=== PATIENT | female | born 1955 | race Caucasian/White ===

== ENCOUNTER 2016-12-22 11:55 | Inpatient (IN) | payer OTHER, MEDICARE ==
[2016-12-22 12:04] VITALS: BMI 26.2
--- NOTE | 2016-12-22 12:07 | PDOC ---
History of Present Illness - General Chief Complaint: Respiratory Stated Complaint: FLU LIKE ILLNESS X 4 WEEKS Time Seen by Provider: 12/22/16 12:06 History Source: Patient, Old Records Exam Limitations: No Limitations - History of Present Illness Initial Comments: 12/22/16 12:10 61 y/o female with h/o rectal CA, GERD and migraine headaches presents to the ED with c/o excessive thirst and urination and feeling dehydrated. The patient states that these symptoms have been present for about 4 weeks. She has also had intermittent fevers, chills and coughing (non-productive), as well as night sweats. She denies chest pain, SOB, abdominal pain, nausea, vomiting and diarrhea. She has no prior h/o DM but says that she was told that she has "pre- diabetes." The patient states that she recently started a regimen of prednisone for a brachial plexus inflammation. Past History - Past Medical History Allergies/Adverse Reactions: Allergies Allergy/AdvReac Type Severity Reaction Status Date / Time everolimus [From Afinitor] AdvReac Severe SOB, Verified 12/22/16 11:58 Myalgias, Arthralgias,Edema erythromycin base AdvReac Verified 12/22/16 11:58 [Erythromycin Base] Home Medications: Ambulatory Orders Spironolactone [Aldactone] 25 mg PO ASDIR PRN 02/07/15 Montelukast Na [Singulair -] 10 mg PO HS 12/22/16 Octreotide Acetate,Mi-Spheres [Sandostatin Lar Dep[place]] 30 mg IM MONTHLY 12/22/16 Prednisone [Deltasone] 20 mg PO DAILY 12/22/16 Topiramate [Topamax] 50 mg PO DAILY 12/22/16 Cancer: Yes (RECTAL) GI Disorders: Yes (GERD) - Psycho/Social/Smoking Cessation Hx Anxiety: No Suicidal Ideation: No Smoking History: Never smoked Have you smoked in the past 12 months: No Hx Alcohol Use: Yes (SOCIAL) Drug/Substance Use Hx: No Substance Use Type: None Review of Systems - Review of Systems Able to Perform ROS?: Yes Is the patient limited Cameroonian proficient: No Constitutional: Yes: See HPI HEENTM: Yes: See HPI Respiratory: Yes: See HPI Cardiac (ROS): No: Symptoms Reported ABD/GI: No: Symptoms Reported : Yes: See HPI, Frequency. No: Burning, Dysuria, Discharge, Hematuria Musculoskeletal: Yes: Joint Pain Integumentary: No: Symptoms Reported Neurological: No: Symptoms reported *Physical Exam - Vital Signs Last Vital Signs Temp Pulse Resp BP Pulse Ox 97.6 F 100 H 16 104/62 100 12/22/16 11:56 12/22/16 11:56 12/22/16 11:56 12/22/16 11:56 12/22/16 11:56 - Physical Exam Comments: 12/22/16 12:13 GENERAL: Well developed, well nourished. Awake and alert. No acute distress. HEENT: Normocephalic, atraumatic. PERRLA, EOMI. No conjunctival pallor. Sclera are non- icteric. Dry oral mucosa. Oropharynx is clear. NECK: Supple. Full ROM. No JVD. No lymphadenopathy. CARDIOVASCULAR: Regular rate and rhythm. No murmurs, rubs, or gallops. Distal pulses are 2+ and symmetric. PULMONARY: No evidence of respiratory distress. Lungs clear to auscultation bilaterally. No wheezing, rales or rhonchi. ABDOMINAL: Soft. Non-tender. Non-distended. No rebound or guarding. No organomegaly. Normoactive bowel sounds. MUSCULOSKELETAL Normal range of motion at all joints. No bony deformities or tenderness. No CVA tenderness. EXTREMITIES: No cyanosis. No clubbing. No edema. No calf tenderness. SKIN: Warm and dry. Normal capillary refill. No rashes. No jaundice. NEUROLOGICAL: Alert, awake, appropriate. Cranial nerves 2-12 intact. Grossly non-focal exam. PSYCHIATRIC: Cooperative. Good eye contact. Appropriate mood and affect. ED Treatment Course - LABORATORY CBC & Chemistry Diagram: 12/22/16 12:30 12/22/16 12:30 Medical Decision Making - Medical Decision Making 12/22/16 12:14 61 y/o female with rectal CA, migraines and pre-diabetes who presents to the ED with c/o excessive thirst and urination x 4 weeks and intermittent cough and fevers/chills. DDx includes but is not loimited to: new onset diabetes, DKA, electrolyte abnormality, dehydration, toxic/metabolic derangement, infection ( PNA, influenza, UTI), ACS . Plan: 1. Labs 2. Urine analysis 3. EKG 4. CXR 5. IVF for hydration 6. Observe and re-evaluate 12/22/16 13:27 Addendum: All labs were reviewed and are noted in the EMR. The WBC is 17.4k with 18% bandemia, BUN/Cr are markedly elevated from baseline and the glucose is 270 (AG is 10). The urine also shows +3 LE. Will obtain blood and urine cultures as well as lactate. Continue IVF hydration, IV abx for UTI/urosepsis and will admit to medicine service for IVF hydration and work-up of REMY, UTI, sepsis. *DC/Admit/Observation/Transfer Diagnosis at time of Disposition: Acute kidney injury, UTI (urinary tract infection), Diabetes mellitus, new onset, Sepsis - Discharge Dispostion Condition at time of disposition: Stable Admit: Yes - Referrals Referrals: Davi Santiago MD [Primary Care Provider] -
[2016-12-22] MEDS ORDERED: SODIUM CHLORIDE 1,000 ML IV STA ×3 (12:08→15:32)
[2016-12-22 12:29] LABS: URINE APPEARANCE Slightly; URINE BILIRUBIN Negative (NEGATIVE); URINE GLUCOSE (UA) Negative (NEGATIVE); URINE KETONE Negative (NEGATIVE); URINE NITRITE Negative (NEGATIVE); URINE UROBILINOGEN 0.2 E.U/dl (0.2-1.0)
[2016-12-22 12:32] LABS: URINE BLOOD 3+ (NEGATIVE); URINE COLOR YELLOW; URINE LEUK ESTERASE 3+ (NEGATIVE); URINE PROTEIN 1+ (NEGATIVE)
[2016-12-22 12:52] LABS: MCH 30.4 pg (25.7-33.7); MCHC 33.5 g/dl (32.0-36.0); MEAN CELL VOLUME 90.6 fl (80-96); MEAN PLT VOLUME 9.4 fl (7.5-11.1); RDW 14.5 % (11.6-15.6); WHITE BLOOD COUNT 17.6 K/mm3 (4.0-10.0)
[2016-12-22 13:14] LABS: ALBUMIN 2.7 g/dl (3.5-5.0); BILIRUBIN,TOTAL 0.8 mg/dl (0.2-1.0); CALCIUM 8.7 mg/dl (8.4-10.2); CPK(DFH) 19 IU/L (26-140); CREATININE 2.3 mg/dl (0.6-1.3); MAGNESIUM 1.8 mg/dL (1.8-2.4); PHOSPHOROUS 2.9 mg/dl (2.5-4.6); TOT PROT 6.5 g/dl (6.4-8.3)
[2016-12-22 13:16] LABS: PLATELET COUNT 42 K/MM3 (134-434)
[2016-12-22 13:23] LABS: PLATELET COMMENT2 NO CLUMPING NOTED; PLATELET COMMENT3 NO CLOTTING DETECTED; PLATELET ESTIMATE DECREASED (NORMAL)
[2016-12-22] MEDS ORDERED: LEVOFLOXACIN 750 MG IVPB 150 ML IVPB ONE (13:23)
[2016-12-22 13:24] LABS: TROPONIN I (DFP) < 0.03 ng/ml (0.03-0.50)
[2016-12-22 13:27] LABS: URINE BACTERIA MODERATE /hpf (NEGATIVE); URINE WBC 30-50 (3-5)
[2016-12-22] MEDS ORDERED: VANCOMYCIN 1,000 MG in DEXTROSE 5%-WATER - 250 ML IVPB ONE (13:32)
[2016-12-22] MEDS ORDERED: PIPERACILLIN/TAZOB 3.375 GM/50 ML PRE-DOCKED IV ONE (13:32)
[2016-12-22] MEDS ORDERED: PIPERACILLIN/TAZOBACTAM 3.375 GM VIAL IVPB ONE (13:41)
[2016-12-22] MEDS ORDERED: VANCOMYCIN 1,000 MG VIAL (RESTRICTED TO ID ONLY) ONE (13:41)
[2016-12-22] MEDS ORDERED: ACETAMINOPHEN 500 MG TABLET (FP) PO ONE (15:59)
[2016-12-22] MEDS ORDERED: ACETAMINOPHEN 325 MG TABLET (FP) ONE (16:02)
[2016-12-22] MEDS ORDERED: HEMOQUE TEST 1 EACH EACH ONE (16:19)
--- NOTE | 2016-12-22 19:22 | PN ---
<Ravinder Rothmanben - Last Filed: 12/22/16 19:22> Teaching Attending Note Name of Resident: Boone Lay ATTENDING PHYSICIAN STATEMENT I saw and evaluated the patient. I reviewed the resident's note and discussed the case with the resident. I agree with the resident's findings and plan as documented. SUBJECTIVE: OBJECTIVE: ASSESSMENT AND PLAN: <Cecilio Cancinoke - Last Filed: 12/22/16 21:36> Teaching Attending Note ATTENDING PHYSICIAN STATEMENT I saw and evaluated the patient. I reviewed the resident's note and discussed the case with the resident. I agree with the resident's findings and plan as documented. SUBJECTIVE: 61 year old female with a past medical history of rectal cancer, gerd, pre- diabetes, and migraines presents with excessive thirst and urination for four weeks. The patient noticed associated night sweats and intermittent fevers. Patient stated that she recently started a regimen of prednisone for a bacterial plexus inflammation. Patient denies shortness of breath and chest pain OBJECTIVE: Vital Signs: Last Vital Signs Temp Pulse Resp BP Pulse Ox 102.7 F H 134 H 20 151/89 99 12/22/16 18:16 12/22/16 16:55 12/22/16 16:55 12/22/16 16:24 12/22/16 16:55 Physical Exam: GEN: NAD HEENT: NCAT, PERRL CARD: RRR, S1 S2 RESP: CTAB ABD: NT, BWS x4 EXT: - CCE Labs: CBCD WBC 17.6 K/mm3 (4.0-10.0) H D 12/22/16 12:30 RBC 3.60 M/mm3 (3.60-5.2) 12/22/16 12:30 Hgb 10.9 GM/dl (10.7-15.3) D 12/22/16 12:30 Hct 32.6 % (32.4-45.2) 12/22/16 12:30 MCV 90.6 fl (80-96) 12/22/16 12:30 MCHC 33.5 g/dl (32.0-36.0) 12/22/16 12:30 RDW 14.5 % (11.6-15.6) D 12/22/16 12:30 Plt Count 42 K/MM3 (134-434) L* D 12/22/16 12:30 MPV 9.4 fl (7.5-11.1) D 12/22/16 12:30 CMP Sodium 128 mmol/L (136-145) L D 12/22/16 12:30 Potassium 4.2 mmol/L (3.5-5.1) 12/22/16 12:30 Chloride 100 mmol/L (98-107) D 12/22/16 12:30 Carbon Dioxide 18 mmol/L (22-28) L D 12/22/16 12:30 Anion Gap 10 (8-16) 12/22/16 12:30 BUN 53 mg/dl (7-18) H D 12/22/16 12:30 Creatinine 2.3 mg/dl (0.6-1.3) H D 12/22/16 12:30 Creat Clearance w eGFR 21.56 (>60) 12/22/16 12:30 Calcium 8.7 mg/dl (8.4-10.2) 12/22/16 12:30 Total Bilirubin 0.8 mg/dl (0.2-1.0) D 12/22/16 12:30 AST 53 U/L (10-42) H D 12/22/16 12:30 ALT 28 U/L (10-40) D 12/22/16 12:30 Alkaline Phosphatase 168 U/L (32-92) H D 12/22/16 12:30 Total Protein 6.5 g/dl (6.4-8.3) 12/22/16 12:30 Albumin 2.7 g/dl (3.5-5.0) L D 12/22/16 12:30 Imaging: EXAM#: CHEST X-RAY History: Cough and fever. Comparison study: February 07, 2015 Findings: Patient slightly rotated toward the left side. The trachea is normal in size. Unremarkable contour of the cardiomediastinal silhouette. The lungs are well aerated. No evidence of airspace opacities, atelectasis, pleural effusion, or pneumothorax. No bulky hilar adenopathy is noted. No lung mass is seen within the limitation of examination Demineralized osseous structures. Mild dextroscoliosis is seen at the thoracolumbar junction region. Loss of vertical height of T12 unchanged from 2015. Intact visualized osseous rectal cancer, gerd, pre-diabetes, and migraine structures Impression: No evidence of active pulmonary disease. Reported By: Jame Clark MD 12/22/16 [id number] ASSESSMENT AND PLAN: 61 year old female with a past medical history of rectal cancer, gerd, pre- diabetes, and migraines who presents with polyuria, polydipsia, and intermittent fever, being admitted for sepsis secondary to UTI 1. Sepsis- secondary to UTI -Continue Zosyn -Blood Cultures -Urine Cultures -Repeat Lactic Acid -IVF -ID consult -Acetaminophen PRN fever 2. Acute renal failure -Urine lytes -Trend creatinine -IVF 3. Hiponatremia-Most likely due to hypovolemia -Avoid inc sodium >10 in 24 hr 4. Thrombocytopenia- most likely due to sepsis -Trend 5. Rectal cancer -Carcinoid -On Octreotide monthly 6. Migraine -Continue Topamax 7. Polyuria/Polydipsia Check A1C Insulin Sliding scale Possibly due to prednisone use. 8 Brachial Plexus Inflammation -On day 4 out 7 of prednisone 20 mg -Since short term course will hold off on stress course steroids 9. DVT PPX -low risk -SCDs Admit to med surg. Documentation prepared by Dandre Cancino, acting as medical professionals for Dr. Dea Rothman MD.
[2016-12-22] MEDS ORDERED: SODIUM CHLORIDE 1,000 ML IV SCH ×2 (20:15→22:15)
--- NOTE | 2016-12-22 21:13 | HP ---
CHIEF COMPLAINT: polydipsia, polyuria, fevers PCP: Dr. Hooper HISTORY OF PRESENT ILLNESS: 61 y/o F w/PMH of GERD, prediabetes, rectal carcinoid ca, migraines presents to ER w/ c/o polydipsia, polyuria, intermittent fevers for last 1 month. She also c/o intermittent chills, non-productive cough from allergies, and intermittently has night sweats. She saw her PCP one week ago who hydrated her with 2 L NS in the office. She also c/o some heaviness in breathing and weakness today. She denies any sick contacts, any recent travel. She denies CP , SOB, abd pain, N/V, diarrhea. She was diagnosed with pre-diabetes last summer and was trying to work on it with lifestyle modifications. She had recently seen neuro and diagnosed with brachial plexus inflammation and was started on prednisone 10mg bid for 7 days. Today is day 4/7 of prednisone. She has also c/o darker urine and change in smell of urine over last few days. She denies any dysuria. She has not had a normal BM in 1 week, she feels constipated. Sprinolactone listed as home med but she uses lasix instead but is unsure of dose. ER course was notable for: (1) vanc, zosyn, levaquin, cxr (2) (3) Recent Travel: denies PAST MEDICAL HISTORY: GERD, prediabetes, rectal carcinoid ca, migraines PAST SURGICAL HISTORY: knee surgery Social History: Smoking: denies Alcohol: denies Drugs: denies Family History: Mother: CLL. Father: "heart issues" but currently alive at age 95 Allergies everolimus [From Afinitor] Adverse Reaction (Severe, Verified 12/22/16 11:58) SOB, Myalgias, Arthralgias,Edema erythromycin base [Erythromycin Base] Adverse Reaction (Verified 12/22/16 11:58) NAUSEA HOME MEDICATIONS: Home Medications Medication Instructions Recorded Montelukast Na [Singulair -] 10 mg PO HS 12/22/16 Octreotide Acetate,Mi-Spheres 30 mg IM MONTHLY 12/22/16 [Sandostatin Lar Depot] Prednisone [Deltasone] 20 mg PO DAILY 12/22/16 Topiramate [Topamax] 50 mg PO DAILY 12/22/16 REVIEW OF SYSTEMS CONSTITUTIONAL: fever, chills, night sweats, weakness Absent: malaise, loss of appetite, weight change HEENT: Absent: rhinorrhea, nasal congestion, throat pain, throat swelling, difficulty swallowing, mouth swelling, ear pain, eye pain, visual changes CARDIOVASCULAR: Absent: chest pain, syncope, palpitations, irregular heart rate, lightheadedness , peripheral edema RESPIRATORY: cough Absent: shortness of breath, dyspnea with exertion, orthopnea, wheezing, stridor , hemoptysis GASTROINTESTINAL: constipation Absent: abdominal pain, abdominal distension, nausea, vomiting, diarrhea, melena , hematochezia GENITOURINARY: Absent: dysuria, frequency, urgency, hesitancy, hematuria, flank pain, genital pain MUSCULOSKELETAL: Absent: myalgia, arthralgia, joint swelling, back pain, neck pain SKIN: Absent: rash, itching, pallor HEMATOLOGIC/IMMUNOLOGIC: Absent: easy bleeding, easy bruising, lymphadenopathy, frequent infections ENDOCRINE: Absent: unexplained weight gain, unexplained weight loss, heat intolerance, cold intolerance NEUROLOGIC: Absent: headache, focal weakness or paresthesias, dizziness, unsteady gait, seizure, mental status changes, bladder or bowel incontinence PSYCHIATRIC: Absent: anxiety, depression, suicidal or homicidal ideation, hallucinations. PHYSICAL EXAMINATION Vital Signs - 24 hr 12/22/16 12/22/16 12/22/16 15:45 15:50 16:24 Temperature 100.8 F H 101.8 F H Pulse Rate [ 108 H 142 H Apical] Respiratory 30 H 34 H Rate Blood Pressure 139/71 151/89 [Right Arm] O2 Sat by Pulse 96 99 Oximetry (%) 12/22/16 12/22/16 16:55 18:16 Temperature 102.1 F H 102.7 F H Pulse Rate [ 134 H Apical] Respiratory 20 Rate Blood Pressure [Right Arm] O2 Sat by Pulse 99 Oximetry (%) GENERAL: Awake, alert, and fully oriented, in no acute distress. HEAD: Normal with no signs of trauma. EYES: extraocular movements intact, sclera anicteric, conjunctiva clear. No lid lag. EARS, NOSE, THROAT: Ears normal, nares patent, Moist mucous membranes. NECK: Normal range of motion, supple without lymphadenopathy, JVD, or masses. LUNGS: Breath sounds equal, clear to auscultation bilaterally. No wheezes, and no crackles. No accessory muscle use. HEART: Tachycardic, normal S1 and S2 without murmur, rub or gallop. ABDOMEN: Soft, mild LLQ tenderness, not distended, normoactive bowel sounds, no guarding, no rebound, no masses. No hepatomegaly or splenomegaly. MUSCULOSKELETAL: No CVA tenderness. LOWER EXTREMITIES: 2+ pulses, warm, well-perfused. No calf tenderness. Trace pitting edema. NEUROLOGICAL: Normal speech. Gait not observed. PSYCHIATRIC: Cooperative. Good eye contact. Appropriate mood and affect. SKIN: Warm, dry, normal turgor, no rashes or lesions noted, normal capillary refill. Laboratory Results - last 24 hr CBCD WBC 17.6 K/mm3 (4.0-10.0) H D 12/22/16 12:30 RBC 3.60 M/mm3 (3.60-5.2) 12/22/16 12:30 Hgb 10.9 GM/dl (10.7-15.3) D 12/22/16 12:30 Hct 32.6 % (32.4-45.2) 12/22/16 12:30 MCV 90.6 fl (80-96) 12/22/16 12:30 MCHC 33.5 g/dl (32.0-36.0) 12/22/16 12:30 RDW 14.5 % (11.6-15.6) D 12/22/16 12:30 Plt Count 42 K/MM3 (134-434) L* D 12/22/16 12:30 MPV 9.4 fl (7.5-11.1) D 12/22/16 12:30 CMP Sodium 128 mmol/L (136-145) L D 12/22/16 12:30 Potassium 4.2 mmol/L (3.5-5.1) 12/22/16 12:30 Chloride 100 mmol/L (98-107) D 12/22/16 12:30 Carbon Dioxide 18 mmol/L (22-28) L D 12/22/16 12:30 Anion Gap 10 (8-16) 12/22/16 12:30 BUN 53 mg/dl (7-18) H D 12/22/16 12:30 Creatinine 2.3 mg/dl (0.6-1.3) H D 12/22/16 12:30 Creat Clearance w eGFR 21.56 (>60) 12/22/16 12:30 Random Glucose 270 mg/dl (74-106) H D 12/22/16 12:30 Calcium 8.7 mg/dl (8.4-10.2) 12/22/16 12:30 Total Bilirubin 0.8 mg/dl (0.2-1.0) D 12/22/16 12:30 AST 53 U/L (10-42) H D 12/22/16 12:30 ALT 28 U/L (10-40) D 12/22/16 12:30 Alkaline Phosphatase 168 U/L (32-92) H D 12/22/16 12:30 Total Protein 6.5 g/dl (6.4-8.3) 12/22/16 12:30 Albumin 2.7 g/dl (3.5-5.0) L D 12/22/16 12:30 CARDIAC ENZYMES Creatine Kinase 19 IU/L (26-140) L 12/22/16 12:30 Troponin I < 0.03 ng/ml (0.03-0.50) L 12/22/16 12:30 12/22/16 16:10 Lactic Acid 5.594 H* Laboratory Tests 12/22/16 21:00 Lactic Acid 2.093 H* Urine Test Results Urine Color Yellow 12/22/16 12:05 Urine Appearance Slightly 12/22/16 12:05 Urine pH 7.0 (4.5-8) 12/22/16 12:05 Ur Specific [place] 1.010 (1.005-1.025) 12/22/16 12:05 Urine Protein 1+ (NEGATIVE) H 12/22/16 12:05 Urine Glucose (UA) Negative (NEGATIVE) 12/22/16 12:05 Urine Ketones Negative (NEGATIVE) 12/22/16 12:05 Urine Blood 3+ (NEGATIVE) H 12/22/16 12:05 Urine Nitrite Negative (NEGATIVE) 12/22/16 12:05 Urine Bilirubin Negative (NEGATIVE) 12/22/16 12:05 Ur Leukocyte Esterase 3+ (NEGATIVE) H 12/22/16 12:05 Urine RBC 5-10 /hpf (0-3) 12/22/16 12:05 Urine WBC 30-50 (3-5) 12/22/16 12:05 Ur Epithelial Cells 3-5 /HPF 12/22/16 12:05 Urine Bacteria Moderate /hpf (NEGATIVE) 12/22/16 12:05 Imaging: CXR: no evidence of active pulm disease ASSESSMENT/PLAN: 61 y/o F w/PMH of rectal ca, GERD, migraines, pre-diabetes presented to ER w/ c/ o polydipsia, polyuria, and intermittent fevers for 4 weeks. Admitted for severe sepsis secondary to UTI. -Severe sepsis secondary to UTI -SIRS 4/4, UA 3+ LE -c/w zosyn, ID consulted ([place]) -NS @ 100 ml/hr, bolused intially with 250ml/hr x 2 L after being brought up to floors. -trend [place], 5.594 -> 2 -f/u BCx, UCx -Tylenol 650 mg PO q6h PRN for fever, monitor LFTs -part of leukocytosis may be from recent prednisone use -REMY secondary to severe sepsis -BUN/Cr 53/2.3, baseline Cr 0.8 -NS @ 125 ml/hr -monitor BUN/Cr -urine lytes to calculate FeNa -Thrombocytopenia secondary to severe sepsis -monitor, no signs of active bleeding at this time -Abd pain secondary to constipation -Miralax, colace -Hyperglycemia, polydipsia, polyuria -f/u A1C, BGM, ISS BIDAC -recent prednisone use -Brachial plexus inflammation -today is day 4/7 of prednisone, will taper off prednisone -20 mg today, 10 tomorrow, 10 the day after for final dose. -Rectal Ca, carcinoid -octreotide monthly, follows up with specialist as outpatient -migraines -c/w topamax -DVT ppx -SCDs -FEN -NS @ 100 ml/hr -Hyponatremia - c/w NS @ 100 ml/hr, monitor, do not increase by more than 10 in 24 hours -Diabetic diet -Dispo: -Admit to m/s Problem List - Problem (1) Acute kidney injury Code(s): N17.9 - ACUTE KIDNEY FAILURE, UNSPECIFIED (2) Diabetes mellitus, new onset Code(s): E11.9 - TYPE 2 DIABETES MELLITUS WITHOUT COMPLICATIONS (3) Sepsis Code(s): A41.9 - SEPSIS, UNSPECIFIED ORGANISM (4) UTI (urinary tract infection) Code(s): N39.0 - URINARY TRACT INFECTION, SITE NOT SPECIFIED (5) Migraines Code(s): G43.909 - MIGRAINE, UNSP, NOT INTRACTABLE, WITHOUT STATUS MIGRAINOSUS Visit type - Emergency Visit Emergency Visit: Yes ED Registration Date: 12/22/16 Care time: The patient presented to the Emergency Department on the above date and was hospitalized for further evaluation of their emergent condition. - New Patient This patient is new to me today: Yes Date on this admission: 12/23/16 - Critical Care Critical Care patient: No
[2016-12-22] MEDS ORDERED: PIPERACILLIN/TAZOB 3.375 GM/50 ML PRE-DOCKED IVPB ONE (22:01)
[2016-12-22] MEDS ORDERED: DOCUSATE SODIUM 100 MG CAPSULE (FP) PO PRN (22:02)
[2016-12-22] MEDS ORDERED: predniSONE 20 MG TABLET (UD) PO ONE (22:06)
[2016-12-22] MEDS: POLYETHYLENE GLYCOL 3350 119 GM BTL PO SCH (23:16)
[2016-12-23] MEDS ORDERED: SODIUM CHLORIDE 1,000 ML IV SCH ×2 (01:05)
[2016-12-23] MEDS: SODIUM CHLORIDE 1,000 ML IV SCH ×2 (05:15→17:23)
[2016-12-23] MEDS: INSULIN SLIDING SCALE (NOVOLOG) 1 VIAL SQ SCH ×2 (06:35→17:22)
[2016-12-23] MEDS: SODIUM CHLORIDE NASAL SPRAY 44 ML BOTTLE NS PRN ×3 (06:35→21:39)
[2016-12-23] MEDS ORDERED: INSULIN SLIDING SCALE (NOVOLOG) 1 VIAL SQ SCH ×2 (07:00→10:00)
[2016-12-23 08:12] LABS: EOSINOPHIL 1.6 % (0-4.5); MCH 30.1 pg (25.7-33.7); MCHC 32.7 g/dl (32.0-36.0); MEAN CELL VOLUME 92.3 fl (80-96); MEAN PLT VOLUME 9.6 fl (7.5-11.1); NEUTROPHILS 92.8 % (42.8-82.8); PLATELET COUNT 37 K/MM3 (134-434); RDW 15.6 % (11.6-15.6); WHITE BLOOD COUNT 14.8 K/mm3 (4.0-10.0)
[2016-12-23 10:00] LABS: BILIRUBIN,TOTAL 0.6 mg/dL (0.2-1.0); CALCIUM 7.7 mg/dL (8.5-10.1); CREATININE 1.7 mg/dL (0.55-1.02); TOT PROT 5.6 g/dl (6.4-8.2)
[2016-12-23] MEDS: TOPIRAMATE 25 MG TABLET (FP) PO SCH (10:10)
[2016-12-23] MEDS: POLYETHYLENE GLYCOL 3350 119 GM BTL PO SCH ×2 (10:10→22:00)
[2016-12-23] MEDS ORDERED: MEROPENEM 1 GM in DEXTROSE 5%-WATER - 100 ML IVPB SCH (12:00)
--- NOTE | 2016-12-23 12:06 | PN ---
Physical Exam: SUBJECTIVE: Patient seen and examined. She says her body feels sore. She ate breakfast today for first time. She denies urinary hesitancy and dysuria. She did note to being thirsty. Events: - No fevers overnight to this AM OBJECTIVE: Vital Signs Period Temp Pulse Resp BP Sys/Vega Pulse Ox Last 24 Hr 97.6 F-102.7 F 75-142 20-34 90-151/48-89 90-99 PE Neuro: alert, awake, cn 2-12intact Pulm: bibasilar crackles + nc CV: s1 s2 rrr no mrg Abd: mild abd tenderness to palpation, s + bs Ext: warm, no le edema CBCD WBC 14.8 K/mm3 (4.0-10.0) H 12/23/16 06:55 RBC 3.17 M/mm3 (3.60-5.2) L 12/23/16 06:55 Hgb 9.6 GM/dL (10.7-15.3) L 12/23/16 06:55 Hct 29.3 % (32.4-45.2) L 12/23/16 06:55 MCV 92.3 fl (80-96) 12/23/16 06:55 MCHC 32.7 g/dl (32.0-36.0) 12/23/16 06:55 RDW 15.6 % (11.6-15.6) 12/23/16 06:55 Plt Count 37 K/MM3 (134-434) L 12/23/16 06:55 MPV 9.6 fl (7.5-11.1) 12/23/16 06:55 CMP Sodium 143 mmol/L (136-145) 12/23/16 06:55 Potassium 4.2 mmol/L (3.5-5.1) 12/23/16 06:55 Chloride 115 mmol/L (98-107) H 12/23/16 06:55 Carbon Dioxide 17 mmol/L (21-32) L 12/23/16 06:55 Anion Gap 11 (8-16) 12/23/16 06:55 BUN 33 mg/dL (7-18) H 12/23/16 06:55 Creatinine 1.7 mg/dL (0.55-1.02) H 12/23/16 06:55 Creat Clearance w eGFR 30.56 (>60) 12/23/16 06:55 Calcium 7.7 mg/dL (8.5-10.1) L 12/23/16 06:55 Total Bilirubin 0.6 mg/dL (0.2-1.0) 12/23/16 06:55 AST 24 U/L (15-37) 12/23/16 06:55 ALT 29 U/L (12-78) 12/23/16 06:55 Alkaline Phosphatase 180 U/L (45-117) H 12/23/16 06:55 Total Protein 5.6 g/dl (6.4-8.2) L 12/23/16 06:55 Albumin 2.0 g/dl (3.4-5.0) L 12/23/16 06:55 12/22/16 12/22/16 12/22/16 12:30 12:30 21:00 Hemoglobin A1c % Pending Lactic Acid Phosphorus 2.9 Magnesium 1.8 Creatine Kinase 19 L Troponin I < 0.03 L 12/22/16 12/23/16 21:00 06:55 Hemoglobin A1c % Lactic Acid 2.093 H* 1.083 Phosphorus Magnesium Creatine Kinase Troponin I Active Medications Generic Name Dose Route Start Last Admin Trade Name Freq PRN Reason Stop Dose Admin Acetaminophen 650 mg 12/22/16 21:00 Tylenol - PO Q6H PRN FEVER OR PAIN Docusate Sodium 100 mg 12/22/16 22:02 Colace - PO BID PRN CONSTIPATION Sodium Chloride 1,000 mls @ 100 mls/hr 12/23/16 05:15 12/23/16 05:15 Normal Saline - IV 100 mls/hr ASDIR JAMISON Administration Meropenem 1 gm/ Dextrose 100 mls @ 100 mls/hr 12/23/16 12:00 IVPB Q8H-IV JAMISON Protocol Insulin Aspart 1 vial 12/23/16 07:00 12/23/16 06:35 Novolog Vial Sliding Scale - SQ 2 units BIDAC JAMISON Administration Protocol Montelukast Sodium 10 mg 12/23/16 22:00 Singulair - PO HS JAMISON Polyethylene Glycol 17 gm 12/22/16 22:03 12/23/16 10:10 Miralax (For Daily Use) - PO Not Given DAILY JAMISON Prednisone 10 mg 12/23/16 14:00 Deltasone - PO 12/23/16 14:01 ONCE ONE Prednisone 10 mg 12/24/16 14:00 Deltasone - PO 12/24/16 14:01 ONCE ONE Sodium Chloride 2 spray 12/23/16 05:08 12/23/16 10:13 [place] Nasal [place] - NS 2 sprays TID PRN Administration NASAL CONGESTION Topiramate 50 mg 12/23/16 10:00 12/23/16 10:10 Topamax - PO 50 mg DAILY JAMISON Administration Microbiology 12/22/16 13:25 Urine Culture - Preliminary Urine - Urine Clean Catch Non Lactose Fermenting Gnb 12/22/16 13:25 Blood Culture - Preliminary Blood - Peripheral Venous Pending Organism 12/22/16 13:30 Blood Culture - Preliminary Blood - Peripheral Venous Pending Organism 12/22/16 12:25 Influenza Types A,B Antigen (OCTAVIA) - Final Nasopharyngeal Swab - Final Assessment: 61 year old female with PMHx of GERD, prediabetes, rectal carcinoid ca, migraines admitted with polydipsia, polyuria, intermittent fevers/chills for 4 weeks, treated with tamiflu. Plan: 1. Severe sepsis likely gram negative bacteremia and ESBL UTI - Start Meropenem 1gm q8 - Lactic acid wnl - Continue IVF - Repeat BC tomorrow - ID aware 2. UTI - Follow cultures - Abx as above 3. Hyperlgycemia/?DM II - Hgb a1c pending - ISS, BGM ACHS - On short course of prednisone per neuro 4. Hyponatrmia - Likely dehydration from polyuria from uncontrolled DM, and sepsis - Now resolved - No acute mental changes 5. REMY - FENa 1.11, indicative of ATN, however may need to repeat urine electrolytes as pt states she takes lasix/[place] prn - Will ask if takes NSAIDs - Cr down trending - BMP in AM - Continue IVF 6. Thrombocytopenia - Likely secondary to severe sepsis - No active signs of bleeding - Hold chemical AC - Will monitor 7. Brachial plexus inflammation - 7 day course of pednisone, taper ordered 8. Rectal Ca, carcinoid - Octreotide monthly, follows up with specialist as outpatient 9. Migraines - Continue Topamax 10. DVT ppx - Hold chemical AC d/t above - B/l SCDs Visit type - Emergency Visit Emergency Visit: Yes ED Registration Date: 12/22/16 Care time: The patient presented to the Emergency Department on the above date and was hospitalized for further evaluation of their emergent condition. - New Patient This patient is new to me today: Yes Date on this admission: 12/23/16 - Critical Care Critical Care patient: No
--- NOTE | 2016-12-23 13:40 | EKG ---
Test Reason : Blood Pressure : / mmHG Vent. Rate : 087 BPM Atrial Rate : 087 BPM P-R Int : 162 ms QRS Dur : 082 ms QT Int : 364 ms P-R-T Axes : 060 063 028 degrees QTc Int : 438 ms NORMAL SINUS RHYTHM NORMAL ECG NO PREVIOUS ECGS AVAILABLE Confirmed by FRANDY PELLETIER MD ([id number]) on 12/23/2016 1:40:24 PM Referred By: JACQUE Confirmed By:FRANDY PELLEITER MD
[2016-12-23] MEDS ORDERED: predniSONE 10 MG TABLET (UD) PO ONE (14:00)
[2016-12-23] MEDS ORDERED: predniSONE 10 MG TABLET (UD) PO SCH (14:00)
--- NOTE | 2016-12-23 15:37 | CONSULT ---
Consult Consult Specialty:: infectious diseases Reason for Consultation:: bacteremia - History of Present Illness Chief Complaint: weakness fatigue,fever History of Present Illness: 61 y/o female with h/o rectal CA, GERD and migraine headaches c/o excessive thirst and urination and feeling dehydrated. The patient states that these symptoms have been present for about 4 weeks. She has also had intermittent fevers, chills and coughing (non-productive), as well as night sweats. She denies chest pain, SOB, abdominal pain, nausea, vomiting and diarrhea. She has no prior h/o DM but says that she was told that she has "pre-diabetes." The patient states that she recently started a regimen of prednisone for a brachial plexus inflammation. 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 and found to have bacteremia and uti - History Source History Provided By: Patient Limitations to Obtaining History: No Limitations - Alcohol/Substance Use Hx Alcohol Use: Yes (SOCIAL) - Smoking History Smoking history: Never smoked Have you smoked in the past 12 months: No Home Medications - Allergies Allergies/Adverse Reactions: Allergies Allergy/AdvReac Type Severity Reaction Status Date / Time everolimus [From Afinitor] AdvReac Severe SOB, Verified 12/22/16 11:58 Myalgias, Arthralgias,Edema erythromycin base AdvReac Verified 12/22/16 11:58 [Erythromycin Base] - Home Medications Home Medications: Ambulatory Orders Spironolactone [Aldactone] 25 mg PO ASDIR PRN 02/07/15 Montelukast Na [Singulair -] 10 mg PO HS 12/22/16 Octreotide Acetate,Mi-Spheres [Sandostatin [place]] 30 mg IM MONTHLY 12/22/16 Prednisone [Deltasone] 20 mg PO DAILY 12/22/16 Topiramate [Topamax] 50 mg PO DAILY 12/22/16 Review of Systems - Review of Systems Constitutional: reports: Fever, Lethargy, Loss of Appetite, Weakness Eyes: reports: No Symptoms HENT: reports: No Symptoms Neck: reports: No Symptoms Cardiovascular: reports: No Symptoms Respiratory: reports: Cough Gastrointestinal: reports: Nausea, Other (increased thirst) Genitourinary: reports: No Symptoms Musculoskeletal: reports: No Symptoms Integumentary: reports: No Symptoms Neurological: reports: No Symptoms Endocrine: reports: No Symptoms Hematology/Lymphatic: reports: No Symptoms Psychiatric: reports: No Symptoms Physical Exam Vital Signs: Vital Signs Temperature 98.2 F 12/23/16 14:09 Pulse Rate 81 12/23/16 14:09 Respiratory Rate 20 12/23/16 14:09 Blood Pressure 122/71 12/23/16 14:09 O2 Sat by Pulse Oximetry (%) 97 12/23/16 10:14 Constitutional: Yes: No Distress, Calm Eyes: Yes: Conjunctiva Clear HENT: Yes: Atraumatic Neck: Yes: Supple, Trachea Midline Cardiovascular: Yes: Regular Rate and Rhythm Respiratory: Yes: Regular Gastrointestinal: Yes: Normal Bowel Sounds, Soft Musculoskeletal: Yes: WNL Extremities: Yes: WNL Integumentary: Yes: WNL Neurological: Yes: Alert, Oriented Psychiatric: Yes: Alert, Oriented Labs: CBC, BMP 12/23/16 06:55 12/23/16 06:55 Imaging - Results Chest X-ray: Report Reviewed, Image Reviewed Assessment/Plan 61 y/o F w/PMH of rectal ca, GERD, migraines, pre-diabetes presented to ER w/ c/ o polydipsia, polyuria, and intermittent fevers for 4 weeks. Admitted for severe sepsis secondary to UTI. - sepsis secondary to UTI -REMY secondary to severe sepsis -Thrombocytopenia -Abd pain -Hyperglycemia, polydipsia, polyuria -Brachial plexus inflammation -Rectal Ca, carcinoid -migraines plan will start patient on abx will recheck blood cx tomorrow rest ct hydration watch for fevers
[2016-12-23] MEDS: ALBUTEROL SO4 0.083% IH SOL 2.5 MG/3 ML VIAL.NEB. NEB SCH ×2 (17:13→23:05)
[2016-12-23] MEDS: MEROPENEM 1 GM in DEXTROSE 5%-WATER - 100 ML IVPB SCH (18:33)
[2016-12-23] MEDS ORDERED: PT OWN MED DRAWER 7, Y5N ONE (21:37)
[2016-12-23] MEDS: MONTELUKAST NA 10 MG TABLET PO SCH (21:38)
[2016-12-24] MEDS ORDERED: PT OWN MED DRAWER 7, Y5N ONE ×6 (02:07→17:36)
[2016-12-24] MEDS: MEROPENEM 1 GM in DEXTROSE 5%-WATER - 100 ML IVPB SCH ×3 (02:08→17:37)
[2016-12-24] MEDS: ACETAMINOPHEN 325 MG TABLET (FP) PO PRN (03:09)
[2016-12-24] MEDS: SODIUM CHLORIDE 1,000 ML IV SCH (05:42)
[2016-12-24] MEDS: INSULIN SLIDING SCALE (NOVOLOG) 1 VIAL SQ SCH ×5 (05:42→21:38)
[2016-12-24] MEDS: ALBUTEROL SO4 0.083% IH SOL 2.5 MG/3 ML VIAL.NEB. NEB SCH ×3 (06:35→18:30)
[2016-12-24 08:06] LABS: BASOPHIL 0.3 % (0-2.0); EOSINOPHIL 0.5 % (0-4.5); MCH 30.2 pg (25.7-33.7); MCHC 33.1 g/dl (32.0-36.0); MEAN CELL VOLUME 91.2 fl (80-96); MEAN PLT VOLUME 9.1 fl (7.5-11.1); NEUTROPHILS 88.2 % (42.8-82.8); PLATELET COUNT 42 K/MM3 (134-434); RDW 15.2 % (11.6-15.6); WHITE BLOOD COUNT 11.3 K/mm3 (4.0-10.0)
[2016-12-24 08:13] LABS: ALBUMIN 1.8 g/dl (3.4-5.0); BILIRUBIN,TOTAL 0.5 mg/dL (0.2-1.0); CALCIUM 7.7 mg/dL (8.5-10.1); CREATININE 1.4 mg/dL (0.55-1.02); MAGNESIUM 1.7 mg/dL (1.8-2.4); PHOSPHOROUS 1.9 mg/dL (2.5-4.9); TOT PROT 5.1 g/dl (6.4-8.2)
[2016-12-24] MEDS: TOPIRAMATE 25 MG TABLET (FP) PO SCH (09:58)
[2016-12-24] MEDS ORDERED: MAGNESIUM SULF 50% (8.12 MEQ/2 ML-1 GM VIAL) IVPB ONE (11:30)
[2016-12-24] MEDS ORDERED: predniSONE 10 MG TABLET (UD) PO ONE (14:00)
[2016-12-24] MEDS: NAPH,MB-DB/K PH,MBDB POWDER PACKET PO SCH ×2 (14:19→21:40)
--- NOTE | 2016-12-24 15:29 | PN ---
Physical Exam: SUBJECTIVE: Patient seen and examined. Afebrile overnight. She feels tired. She denies fever, sob, cp, chills. She sat in the chair and ambulated. OBJECTIVE: Vital Signs Period Temp Pulse Resp BP Sys/Vega Pulse Ox Last 24 Hr 96.3 F-98.5 F 68-100 16-20 106-130/61-71 95-97 PE Neuro: alert, awake, cn 2-12intact Pulm: CTAB, mild tachypnea CV: s1 s2 rrr no mrg Abd: s nt nd + bs Ext: warm, no le edema CBCD WBC 11.3 K/mm3 (4.0-10.0) H 12/24/16 07:06 RBC 2.97 M/mm3 (3.60-5.2) L 12/24/16 07:06 Hgb 9.0 GM/dL (10.7-15.3) L 12/24/16 07:06 Hct 27.1 % (32.4-45.2) L 12/24/16 07:06 MCV 91.2 fl (80-96) 12/24/16 07:06 MCHC 33.1 g/dl (32.0-36.0) 12/24/16 07:06 RDW 15.2 % (11.6-15.6) 12/24/16 07:06 Plt Count 42 K/MM3 (134-434) L 12/24/16 07:06 MPV 9.1 fl (7.5-11.1) 12/24/16 07:06 CMP Sodium 141 mmol/L (136-145) 12/24/16 07:06 Potassium 3.5 mmol/L (3.5-5.1) 12/24/16 07:06 Chloride 111 mmol/L (98-107) H 12/24/16 07:06 Carbon Dioxide 17 mmol/L (21-32) L 12/24/16 07:06 Anion Gap 13 (8-16) 12/24/16 07:06 BUN 31 mg/dL (7-18) H 12/24/16 07:06 Creatinine 1.4 mg/dL (0.55-1.02) H 12/24/16 07:06 Creat Clearance w eGFR 38.23 (>60) 12/24/16 07:06 Calcium 7.7 mg/dL (8.5-10.1) L 12/24/16 07:06 Total Bilirubin 0.5 mg/dL (0.2-1.0) 12/24/16 07:06 AST 12 U/L (15-37) L D 12/24/16 07:06 ALT 25 U/L (12-78) 12/24/16 07:06 Alkaline Phosphatase 161 U/L (45-117) H 12/24/16 07:06 Total Protein 5.1 g/dl (6.4-8.2) L 12/24/16 07:06 Albumin 1.8 g/dl (3.4-5.0) L 12/24/16 07:06 12/22/16 12/23/16 21:00 06:55 Hemoglobin A1c % 6.6 H D Lactic Acid 1.083 Active Medications Generic Name Dose Route Start Last Admin Trade Name Freq PRN Reason Stop Dose Admin Acetaminophen 650 mg 12/22/16 21:00 12/24/16 03:09 Tylenol - PO 650 mg Q6H PRN Administration FEVER OR PAIN Albuterol Sulfate 1 amp 12/23/16 18:00 12/24/16 11:47 Ventolin 0.083% Nebulizer Soln - NEB 1 amp QIDR JAMISON Administration Docusate Sodium 100 mg 12/22/16 22:02 Colace - PO BID PRN CONSTIPATION Sodium Chloride 1,000 mls @ 100 mls/hr 12/23/16 05:15 12/24/16 05:42 Normal Saline - IV 100 mls/hr ASDIR JAMISON Administration Meropenem 1 gm/ Dextrose 100 mls @ 100 mls/hr 12/23/16 19:00 12/24/16 09:58 IVPB 100 mls/hr Q8H-IV JAMISON Administration Protocol Insulin Aspart 1 vial 12/24/16 11:00 12/24/16 12:28 Novolog Vial Sliding Scale - SQ 2 unit ACHS JAMISON Administration Protocol Montelukast Sodium 10 mg 12/23/16 22:00 12/23/16 21:38 Singulair - PO 10 mg HS JAMISON Administration Polyethylene Glycol 17 gm 12/24/16 00:15 Miralax (For Daily Use) - PO HS JAMISON Potassium Phos/Sodium Phos 1 packet 12/24/16 14:00 12/24/16 14:19 Phos-Nak Packet - PO 12/26/16 13:59 1 packet TID JAMISON Administration Sodium Chloride 2 spray 12/23/16 05:08 12/23/16 21:39 [place] Nasal [place] - NS 2 sprays TID PRN Administration NASAL CONGESTION Topiramate 50 mg 12/23/16 10:00 12/24/16 09:58 Topamax - PO 50 mg DAILY JAMISON Administration Microbiology 12/22/16 13:25 Blood Culture - Preliminary Blood - Peripheral Venous Non Lactose Fermenting Gnb 12/22/16 13:30 Blood Culture - Preliminary Blood - Peripheral Venous Non Lactose Fermenting Gnb 12/22/16 13:25 Urine Culture - Preliminary Urine - Urine Clean Catch Proteus Mirabilis 12/22/16 12:25 Respiratory Virus Panel - Preliminary Nasopharyngeal Swab Assessment: 61 year old female with PMHx of GERD, prediabetes, rectal carcinoid ca, migraines admitted with polydipsia, polyuria, intermittent fevers/chills for 4 weeks, treated with tamiflu. Plan: 1. Severe sepsis likely gram negative bacteremia and UTI - Meropenem 1gm q8 (day 2) - BC non lactose permenting GBn - Repeat BC today are pending - Continue IVF 2. UTI d/t Proteus Mirabilis - Final speciation resulted - Abx per ID, currently on meropenem (sensitive) 3. Hyperlgycemia/borderline uncontrolled DM II - Hgba1c 6.6 - ISS, BGM ACHS - Prednisone taper completed today 4. Hyponatrmia - Likely dehydration from polyuria from uncontrolled DM, and sepsis - Now resolved 5. REMY - Continues to improve - Continue IVF 6. Thrombocytopenia - Improving slowly - Likely secondary to severe sepsis - No active signs of bleeding - Hold chemical AC 7. Brachial plexus inflammation - 7 day course of pednisone, completed today 8. Rectal Ca, carcinoid - Octreotide monthly, follows up with specialist as outpatient 9. Migraines - Continue Topamax 10. DVT ppx - Hold chemical AC d/t above - B/l SCDs Visit type - Emergency Visit Emergency Visit: Yes ED Registration Date: 12/22/16 Care time: The patient presented to the Emergency Department on the above date and was hospitalized for further evaluation of their emergent condition. - New Patient This patient is new to me today: No - Critical Care Critical Care patient: No
--- NOTE | 2016-12-24 17:12 | PN ---
Progress Note, Physician History of Present Illness: today patient feels weak and tired but otherwise doing well no fevers - Current Medication List Current Medications: Active Medications Acetaminophen (Tylenol -) 650 mg PO Q6H PRN PRN Reason: FEVER OR PAIN Last Admin: 12/24/16 03:09 Dose: 650 mg Albuterol Sulfate (Ventolin 0.083% Nebulizer Soln -) 1 amp NEB QIDR JAMISON Last Admin: 12/24/16 11:47 Dose: 1 amp Docusate Sodium (Colace -) 100 mg PO BID PRN PRN Reason: CONSTIPATION Sodium Chloride (Normal Saline -) 1,000 mls @ 100 mls/hr IV ASDIR JAMISON Last Admin: 12/24/16 05:42 Dose: 100 mls/hr Meropenem 1 gm/ Dextrose 100 mls @ 100 mls/hr IVPB Q8H-IV JAMISON PRN Reason: Protocol Last Admin: 12/24/16 09:58 Dose: 100 mls/hr Insulin Aspart (Novolog Vial Sliding Scale -) 1 vial SQ ACHS JAMISON PRN Reason: Protocol Last Admin: 12/24/16 12:28 Dose: 2 unit Montelukast Sodium (Singulair -) 10 mg PO HS [facility] Last Admin: 12/23/16 21:38 Dose: 10 mg Polyethylene Glycol (Miralax (For Daily Use) -) 17 gm PO HS [facility] Potassium Phos/Sodium Phos (Phos-Nak Packet -) 1 packet PO TID JAMISON Stop: 12/26/16 13:59 Last Admin: 12/24/16 14:19 Dose: 1 packet Sodium Chloride ([place] Nasal [place] -) 2 spray NS TID PRN PRN Reason: NASAL CONGESTION Last Admin: 12/23/16 21:39 Dose: 2 sprays Topiramate (Topamax -) 50 mg PO DAILY [facility] Last Admin: 12/24/16 09:58 Dose: 50 mg - Objective Vital Signs: Vital Signs Temperature 98 F 12/24/16 14:08 Pulse Rate 68 12/24/16 14:08 Respiratory Rate 16 12/24/16 14:08 Blood Pressure 111/63 12/24/16 14:08 O2 Sat by Pulse Oximetry (%) 97 12/24/16 10:00 Constitutional: Yes: No Distress, Calm Cardiovascular: Yes: Regular Rate and Rhythm Respiratory: Yes: Regular, CTA Bilaterally Gastrointestinal: Yes: Normal Bowel Sounds, Soft Musculoskeletal: Yes: WNL Extremities: Yes: WNL Neurological: Yes: Alert, Oriented Psychiatric: Yes: Alert, Oriented Labs: CBC, BMP 12/24/16 07:06 12/24/16 07:06 Assessment/Plan 61 y/o F w/PMH of rectal ca, GERD, migraines, pre-diabetes presented to ER w/ c/ o polydipsia, polyuria, and intermittent fevers for 4 weeks. Admitted for severe sepsis secondary to UTI. - sepsis secondary to UTI -REMY secondary to severe sepsis -Thrombocytopenia -Abd pain -Hyperglycemia, polydipsia, polyuria -Brachial plexus inflammation -Rectal Ca, carcinoid -migraines plan continue abx await for identification of the organism await for repeat blood cx report hydration
[2016-12-24] MEDS ORDERED: INSULIN (NOVOLOG) ASPART 100 UNITS/ML 10ML VIAL ONE (21:31)
[2016-12-24] MEDS: POLYETHYLENE GLYCOL 3350 119 GM BTL PO SCH (21:38)
[2016-12-24] MEDS: MONTELUKAST NA 10 MG TABLET PO SCH (21:38)
[2016-12-25] MEDS: ALBUTEROL SO4 0.083% IH SOL 2.5 MG/3 ML VIAL.NEB. NEB SCH ×5 (00:02→23:15)
[2016-12-25] MEDS: MEROPENEM 1 GM in DEXTROSE 5%-WATER - 100 ML IVPB SCH ×3 (01:46→17:51)
[2016-12-25] MEDS: SODIUM CHLORIDE 1,000 ML IV SCH ×3 (06:14→21:08)
[2016-12-25] MEDS: INSULIN SLIDING SCALE (NOVOLOG) 1 VIAL SQ SCH ×4 (06:23→21:05)
[2016-12-25] MEDS: NAPH,MB-DB/K PH,MBDB POWDER PACKET PO SCH ×3 (06:23→21:05)
[2016-12-25 07:09] LABS: BASOPHIL 0.3 % (0-2.0); EOSINOPHIL 0.5 % (0-4.5); MCH 30.5 pg (25.7-33.7); MCHC 33.8 g/dl (32.0-36.0); MEAN CELL VOLUME 90.4 fl (80-96); MEAN PLT VOLUME 9.1 fl (7.5-11.1); NEUTROPHILS 86.4 % (42.8-82.8); PLATELET COUNT 45 K/MM3 (134-434); RDW 15.3 % (11.6-15.6); WHITE BLOOD COUNT 10.7 K/mm3 (4.0-10.0)
[2016-12-25 07:25] LABS: ALBUMIN 1.8 g/dl (3.4-5.0); CALCIUM 7.7 mg/dL (8.5-10.1); MAGNESIUM 2.2 mg/dL (1.8-2.4)
[2016-12-25 07:29] LABS: BILIRUBIN,TOTAL 0.4 mg/dL (0.2-1.0); CREATININE 1.2 mg/dL (0.55-1.02); PHOSPHOROUS 3.4 mg/dL (2.5-4.9); TOT PROT 5.3 g/dl (6.4-8.2)
[2016-12-25] MEDS: TOPIRAMATE 25 MG TABLET (FP) PO SCH (09:55)
--- NOTE | 2016-12-25 10:46 | PN ---
Physical Exam: SUBJECTIVE: Patient seen and examined. States she feels week. On 2 liters of nasal cannula, states her breathing is labored with minimal exertion. OBJECTIVE: On exam bilateral lungs clear, no accessory muscle use. bilateral lower extremity with non pitting equal edema. Pt states she has Lasix at home that she uses when "her legs get swollen but only as needed" Denies any pain/discomfort other than "feeling weak" Vital Signs Period Temp Pulse Resp BP Sys/Vega Pulse Ox Last 24 Hr 97.7 F-99.2 F 68-98 16-20 111-146/63-76 97-97 GENERAL: The patient is awake, alert, and fully oriented, in no acute distress. HEAD: Normal with no signs of trauma. EYES: PERRL, extraocular movements intact, sclera anicteric, conjunctiva clear. No ptosis. ENT: Ears normal, nares patent, oropharynx clear without exudates, moist mucous membranes. NECK: Trachea midline, full range of motion, supple. LUNGS: Breath sounds equal, clear to auscultation bilaterally, no wheezes, no crackles, no accessory muscle use. HEART: Regular rate and rhythm, S1, S2 without murmur, rub or gallop. ABDOMEN: Soft, nontender, nondistended, normoactive bowel sounds, no guarding, no rebound, no hepatosplenomegaly, no masses. EXTREMITIES: 2+ pulses, warm, well-perfused, no edema. NEUROLOGICAL: Normal speech, gait not observed. PSYCH: Normal mood, normal affect. SKIN: Warm, dry, normal turgor, no rashes or lesions noted Laboratory Results - last 24 hr 12/24/16 12/24/16 12/24/16 11:02 16:43 21:26 WBC RBC Hgb Hct MCV MCHC RDW Plt Count MPV Neutrophils % Lymphocytes % Monocytes % Eosinophils % Basophils % Sodium Potassium Chloride Carbon Dioxide Anion Gap BUN Creatinine Creat Clearance w eGFR POC Glucometer 193 172 218 Random Glucose Calcium Phosphorus Magnesium Total Bilirubin AST ALT Alkaline Phosphatase Total Protein Albumin 12/25/16 12/25/16 12/25/16 05:36 06:00 06:00 WBC 10.7 H RBC 2.95 L Hgb 9.0 L Hct 26.7 L MCV 90.4 MCHC 33.8 RDW 15.3 Plt Count 45 L MPV 9.1 Neutrophils % 86.4 H Lymphocytes % 7.7 L Monocytes % 5.1 Eosinophils % 0.5 Basophils % 0.3 Sodium 141 Potassium 4.1 Chloride 111 H Carbon Dioxide 19 L Anion Gap 11 BUN 23 H D Creatinine 1.2 H Creat Clearance w eGFR 45.67 POC Glucometer 169 Random Glucose 161 H Calcium 7.7 L Phosphorus 3.4 D Magnesium 2.2 D Total Bilirubin 0.4 AST 12 L ALT 28 Alkaline Phosphatase 180 H Total Protein 5.3 L Albumin 1.8 L Active Medications Generic Name Dose Route Start Last Admin Trade Name Freq PRN Reason Stop Dose Admin Acetaminophen 650 mg 12/22/16 21:00 12/24/16 03:09 Tylenol - PO 650 mg Q6H PRN Administration FEVER OR PAIN Albuterol Sulfate 1 amp 12/23/16 18:00 12/25/16 06:18 Ventolin 0.083% Nebulizer Soln - NEB 1 amp QIDR JAMISON Administration Docusate Sodium 100 mg 12/22/16 22:02 Colace - PO BID PRN CONSTIPATION Sodium Chloride 1,000 mls @ 100 mls/hr 12/23/16 05:15 12/25/16 09:56 Normal Saline - IV 100 mls/hr ASDIR JAMISON Administration Meropenem 1 gm/ Dextrose 100 mls @ 100 mls/hr 12/23/16 19:00 12/25/16 01:46 IVPB 100 mls/hr Q8H-IV JAMISON Administration Protocol Insulin Aspart 1 vial 12/24/16 11:00 12/25/16 06:23 Novolog Vial Sliding Scale - SQ 2 unit ACHS JAMISON Administration Protocol Montelukast Sodium 10 mg 12/23/16 22:00 12/24/16 21:38 Singulair - PO 10 mg HS JAMISON Administration Polyethylene Glycol 17 gm 12/24/16 00:15 12/24/16 21:38 Miralax (For Daily Use) - PO Not Given HS JAMISON Potassium Phos/Sodium Phos 1 packet 12/24/16 14:00 12/25/16 06:23 Phos-Nak Packet - PO 12/26/16 13:59 1 packet TID JAMISON Administration Sodium Chloride 2 spray 12/23/16 05:08 12/23/16 21:39 [place] Nasal [place] - NS 2 sprays TID PRN Administration NASAL CONGESTION Topiramate 50 mg 12/23/16 10:00 12/25/16 09:55 Topamax - PO 50 mg DAILY JAMISON Administration ASSESSMENT/PLAN: Patient is a 61 year old female with PMHx of GERD, pre-diabetes, rectal carcinoid ca, migraines admitted with polydipsia, polyuria, intermittent fevers/ chills for 4 weeks. ID: Severe sepsis likely gram negative bacteremia and UTI - acute Assessment/Plan: On Meropenem 1gm as per ID started on 12/23 Blood cultures with non lactose grub On IVF of NS @100 Repeat blood cultures pending ID following Hematology: Thrombocytopenia - improving Assessment/Plan: Likely secondary to sepsis trending up, monitor, No signs of bleeding No anticoags secondary to thrombocytopenia Oncology: Assessment/Plan: Rectal Ca, carcinoid tumor Octreotide monthly, follows up with specialist as outpatient : Acute Kidney Injury Assessment/Plan: likely secondary to dehydration improving with IVF, monitor Endocrine: Hyperglycemia - DM II hmga1c 6.6 monitor BGMs ac/hs Was on prednisone taper - completed for brachial plexus inflammation F.E.N. Fluids: NS @ 100cc/hr Electrolytes: hyponatremia resolved, bmp in a.m. Nutrition: tolerating diet DVT px: SCDs Visit type - Emergency Visit Emergency Visit: Yes ED Registration Date: 12/22/16 Care time: The patient presented to the Emergency Department on the above date and was hospitalized for further evaluation of their emergent condition. - New Patient This patient is new to me today: Yes Date on this admission: 01/13/17 - Critical Care Critical Care patient: No - Discharge Referral Referred to [facility] No
--- NOTE | 2016-12-25 16:01 | PN ---
Progress Note, Physician History of Present Illness: patient feeling much better no new issues still very tired - Current Medication List Current Medications: Active Medications Acetaminophen (Tylenol -) 650 mg PO Q6H PRN PRN Reason: FEVER OR PAIN Last Admin: 12/24/16 03:09 Dose: 650 mg Albuterol Sulfate (Ventolin 0.083% Nebulizer Soln -) 1 amp NEB QIDR JAMISON Last Admin: 12/25/16 11:55 Dose: 1 amp Docusate Sodium (Colace -) 100 mg PO BID PRN PRN Reason: CONSTIPATION Sodium Chloride (Normal Saline -) 1,000 mls @ 100 mls/hr IV ASDIR JAMISON Last Admin: 12/25/16 09:56 Dose: 100 mls/hr Meropenem 1 gm/ Dextrose 100 mls @ 100 mls/hr IVPB Q8H-IV JAMISON PRN Reason: Protocol Last Admin: 12/25/16 13:14 Dose: 100 mls/hr Insulin Aspart (Novolog Vial Sliding Scale -) 1 vial SQ ACHS JAMISON PRN Reason: Protocol Last Admin: 12/25/16 13:15 Dose: Not Given Montelukast Sodium (Singulair -) 10 mg PO HS [facility] Last Admin: 12/24/16 21:38 Dose: 10 mg Polyethylene Glycol (Miralax (For Daily Use) -) 17 gm PO HS [facility] Last Admin: 12/24/16 21:38 Dose: Not Given Potassium Phos/Sodium Phos (Phos-Nak Packet -) 1 packet PO TID JAMISON Stop: 12/26/16 13:59 Last Admin: 12/25/16 06:23 Dose: 1 packet Sodium Chloride ([place] Nasal [place] -) 2 spray NS TID PRN PRN Reason: NASAL CONGESTION Last Admin: 12/23/16 21:39 Dose: 2 sprays Topiramate (Topamax -) 50 mg PO DAILY [facility] Last Admin: 12/25/16 09:55 Dose: 50 mg - Objective Vital Signs: Vital Signs Temperature 98.2 F 12/25/16 14:17 Pulse Rate 100 H 12/25/16 14:17 Respiratory Rate 20 12/25/16 14:17 Blood Pressure 100/63 12/25/16 14:17 O2 Sat by Pulse Oximetry (%) 95 12/25/16 10:00 Constitutional: Yes: No Distress, Calm Cardiovascular: Yes: Regular Rate and Rhythm Respiratory: Yes: Regular, CTA Bilaterally Gastrointestinal: Yes: Normal Bowel Sounds, Soft Musculoskeletal: Yes: WNL Extremities: Yes: WNL Neurological: Yes: Alert, Oriented Psychiatric: Yes: Alert Labs: CBC, BMP 12/25/16 06:00 12/25/16 06:00 Assessment/Plan 61 y/o F w/PMH of rectal ca, GERD, migraines, pre-diabetes presented to ER w/ c/ o polydipsia, polyuria, and intermittent fevers for 4 weeks. Admitted for severe sepsis secondary to UTI. - sepsis secondary to UTI -REMY secondary to severe sepsis -Thrombocytopenia -Abd pain -Hyperglycemia, polydipsia, polyuria -Brachial plexus inflammation -Rectal Ca, carcinoid -migraines plan continue abx await for identification of the organism repeat blood cx not growing yet hydration
[2016-12-25] MEDS ORDERED: PT OWN MED DRAWER 7, Y5N ONE (17:32)
[2016-12-25] MEDS: MONTELUKAST NA 10 MG TABLET PO SCH (21:04)
[2016-12-25] MEDS: POLYETHYLENE GLYCOL 3350 119 GM BTL PO SCH (21:05)
--- NOTE | 2016-12-25 21:14 | HOSP ---
Subjective - Review of Symptoms Events since last encounter: called to see pt by nurse for redness on left hand. Subjective: pt reports pain and redness to left mid dorsal hand. Physical Examination Vital Signs: Vital Signs Temperature 99.2 F 12/25/16 18:00 Pulse Rate 99 H 12/25/16 18:00 Respiratory Rate 18 12/25/16 18:00 Blood Pressure 136/76 12/25/16 18:00 O2 Sat by Pulse Oximetry (%) 95 12/25/16 10:00 Integumentary: Yes: Other (erythema left wrist, middle, dorsal aspect. IV site in place left hand, approx 1-2 cm medial to area of redness. IV site without redness, infusing freeely with no swelling.) Labs: CBC, BMP 12/25/16 06:00 12/25/16 06:00 Hospitalist Encounter Assessment: redness to left hand, near iv site - will remove IV, although no s/s acute site infection or phlebitis - ice to site - monitor for increasing redness or s/s abscess formation.
[2016-12-26] MEDS ORDERED: PT OWN MED DRAWER 7, Y5N ONE ×3 (01:00→17:13)
[2016-12-26] MEDS: ACETAMINOPHEN 325 MG TABLET (FP) PO PRN ×3 (01:05→21:56)
[2016-12-26] MEDS: MEROPENEM 1 GM in DEXTROSE 5%-WATER - 100 ML IVPB SCH ×3 (01:08→17:45)
[2016-12-26] MEDS: INSULIN SLIDING SCALE (NOVOLOG) 1 VIAL SQ SCH ×4 (06:06→22:10)
[2016-12-26] MEDS: NAPH,MB-DB/K PH,MBDB POWDER PACKET PO SCH (06:16)
[2016-12-26] MEDS: SODIUM CHLORIDE 1,000 ML IV SCH (06:17)
[2016-12-26] MEDS: ALBUTEROL SO4 0.083% IH SOL 2.5 MG/3 ML VIAL.NEB. NEB SCH ×5 (06:58→23:10)
[2016-12-26] MEDS: TOPIRAMATE 25 MG TABLET (FP) PO SCH (10:25)
[2016-12-26 11:19] LABS: BASOPHIL 0.5 % (0-2.0); EOSINOPHIL 0.8 % (0-4.5); MCHC 33.2 g/dl (32.0-36.0); MEAN CELL VOLUME 90.2 fl (80-96); MEAN PLT VOLUME 8.9 fl (7.5-11.1); PLATELET COUNT 79 K/MM3 (134-434); RDW 15.1 % (11.6-15.6); WHITE BLOOD COUNT 12.8 K/mm3 (4.0-10.0)
[2016-12-26 12:16] LABS: ALBUMIN 2.1 g/dl (3.4-5.0); BILIRUBIN,TOTAL 0.5 mg/dL (0.2-1.0); CALCIUM 7.8 mg/dL (8.5-10.1); TOT PROT 5.9 g/dl (6.4-8.2)
--- NOTE | 2016-12-26 15:42 | PN ---
Progress Note, Physician History of Present Illness: patient feeling much better no new issues still very tired patient fatigued - Current Medication List Current Medications: Active Medications Acetaminophen (Tylenol -) 650 mg PO Q6H PRN PRN Reason: FEVER OR PAIN Last Admin: 12/26/16 15:00 Dose: 650 mg Albuterol Sulfate (Ventolin 0.083% Nebulizer Soln -) 1 amp NEB QIDR [facility] Last Admin: 12/26/16 11:48 Dose: Not Given Docusate Sodium (Colace -) 100 mg PO BID PRN PRN Reason: CONSTIPATION Meropenem 1 gm/ Dextrose 100 mls @ 100 mls/hr IVPB Q8H-IV JAMISON PRN Reason: Protocol Last Admin: 12/26/16 09:16 Dose: 100 mls/hr Insulin Aspart (Novolog Vial Sliding Scale -) 1 vial SQ ACHS JAMISON PRN Reason: Protocol Last Admin: 12/26/16 12:24 Dose: Not Given Lorazepam (Ativan -) 1 mg PO BID PRN PRN Reason: ANXIETY Montelukast Sodium (Singulair -) 10 mg PO [facility] Last Admin: 12/25/16 21:04 Dose: 10 mg Polyethylene Glycol (Miralax (For Daily Use) -) 17 gm PO [facility] Last Admin: 12/25/16 21:05 Dose: Not Given Sodium Chloride ([place] Nasal [place] -) 2 spray NS TID PRN PRN Reason: NASAL CONGESTION Last Admin: 12/23/16 21:39 Dose: 2 sprays Topiramate (Topamax -) 50 mg PO DAILY [facility] Last Admin: 12/26/16 10:25 Dose: 50 mg - Objective Vital Signs: Vital Signs Temperature 97.9 F 12/26/16 13:44 Pulse Rate 88 12/26/16 13:44 Respiratory Rate 20 12/26/16 13:44 Blood Pressure 119/72 12/26/16 13:44 O2 Sat by Pulse Oximetry (%) 97 12/26/16 09:00 Constitutional: Yes: No Distress, Calm Cardiovascular: Yes: Regular Rate and Rhythm Respiratory: Yes: Regular, CTA Bilaterally Gastrointestinal: Yes: Normal Bowel Sounds, Soft Musculoskeletal: Yes: WNL Extremities: Yes: WNL Wound/Incision: Yes: Well Approximated Neurological: Yes: Alert, Oriented Psychiatric: Yes: Alert, Oriented Labs: CBC, BMP 12/26/16 11:09 12/26/16 11:09 Assessment/Plan 61 y/o F w/PMH of rectal ca, GERD, migraines, pre-diabetes presented to ER w/ c/ o polydipsia, polyuria, and intermittent fevers for 4 weeks. Admitted for severe sepsis secondary to UTI. - sepsis secondary to UTI -REMY secondary to severe sepsis -Thrombocytopenia -Abd pain -Hyperglycemia, polydipsia, polyuria -Brachial plexus inflammation -Rectal Ca, carcinoid -migraines plan continue abx await for identification of the organism repeat blood cx one bottle growing will repeat blood culture
--- NOTE | 2016-12-26 18:34 | PN ---
Physical Exam: SUBJECTIVE: Patient seen and examined. States she is feeling tired and weak. Has not slept, verbalizes feeling exhausted Overnight notes reviewed OBJECTIVE: Lorazapem 1mg BID ordered for insomnia Will order PT for weakness Vital Signs Period Temp Pulse Resp BP Sys/Vega Pulse Ox Last 24 Hr 97.7 F-99.8 F 74-96 18-20 118-130/59-72 95-97 GENERAL: The patient is awake, alert, and fully oriented, in no acute distress. HEAD: Normal with no signs of trauma. EYES: PERRL, extraocular movements intact, sclera anicteric, conjunctiva clear. No ptosis. ENT: Ears normal, nares patent, oropharynx clear without exudates, moist mucous membranes. NECK: Trachea midline, full range of motion, supple. LUNGS: Breath sounds equal, clear to auscultation bilaterally, no wheezes, no crackles, no accessory muscle use. HEART: Regular rate and rhythm, S1, S2 without murmur, rub or gallop. ABDOMEN: Soft, nontender, nondistended, normoactive bowel sounds, no guarding, no rebound, no hepatosplenomegaly, no masses. EXTREMITIES: 2+ pulses, warm, well-perfused, no edema. NEUROLOGICAL: Normal speech, gait not observed. PSYCH: Normal mood, normal affect. SKIN: Warm, dry, normal turgor, no rashes or lesions noted Laboratory Results - last 24 hr 12/26/16 12/26/16 12/26/16 11:09 11:09 12:22 WBC 12.8 H RBC 3.01 L Hgb 9.0 L Hct 27.1 L MCV 90.2 MCHC 33.2 RDW 15.1 Plt Count 79 L D MPV 8.9 Neutrophils % 88.0 H Lymphocytes % 6.6 L Monocytes % 4.1 Eosinophils % 0.8 Basophils % 0.5 Sodium 140 Potassium 4.2 Chloride 109 H Carbon Dioxide 22 Anion Gap 9 BUN 19 H Creatinine 1.0 Creat Clearance w eGFR 56.37 POC Glucometer 101 Random Glucose 115 H D Calcium 7.8 L Total Bilirubin 0.5 D AST 14 L ALT 30 Alkaline Phosphatase 189 H Total Protein 5.9 L Albumin 2.1 L Active Medications Generic Name Dose Route Start Last Admin Trade Name Freq PRN Reason Stop Dose Admin Acetaminophen 650 mg 12/22/16 21:00 12/26/16 15:00 Tylenol - PO 650 mg Q6H PRN Administration FEVER OR PAIN Albuterol Sulfate 1 amp 12/23/16 18:00 12/26/16 17:28 Ventolin 0.083% Nebulizer Soln - NEB Not Given QIDR JAMISON Docusate Sodium 100 mg 12/22/16 22:02 Colace - PO BID PRN CONSTIPATION Meropenem 1 gm/ Dextrose 100 mls @ 100 mls/hr 12/23/16 19:00 12/26/16 17:45 IVPB 100 mls/hr Q8H-IV JAMISON Administration Protocol Insulin Aspart 1 vial 12/24/16 11:00 12/26/16 17:44 Novolog Vial Sliding Scale - SQ Not Given ACHS JAMISON Protocol Lorazepam 1 mg 12/26/16 13:42 Ativan - PO BID PRN ANXIETY Montelukast Sodium 10 mg 12/23/16 22:00 12/25/16 21:04 Singulair - PO 10 mg HS JAMISON Administration Polyethylene Glycol 17 gm 12/24/16 00:15 12/25/16 21:05 Miralax (For Daily Use) - PO Not Given HS JAMISON Sodium Chloride 2 spray 12/23/16 05:08 12/23/16 21:39 [place] Nasal [place] - NS 2 sprays TID PRN Administration NASAL CONGESTION Topiramate 50 mg 12/23/16 10:00 12/26/16 10:25 Topamax - PO 50 mg DAILY JAMISON Administration ASSESSMENT/PLAN: Patient is a 61 year old female with PMHx of GERD, pre-diabetes, rectal carcinoid ca, migraines admitted with polydipsia, polyuria, intermittent fevers/ chills for 4 weeks. ID: Severe sepsis likely gram negative bacteremia and UTI - acute Assessment/Plan: On Meropenem 1gm as per ID started on 12/23 blood cultures and urine cultures with proteus mirabilis repeat blood culture pending organism ID repeating blood cultures in a.m. afebrile, hemodynamically stable Monitor vitals ID following Hematology: Thrombocytopenia - improving, 79,000 today Assessment/Plan: Likely secondary to sepsis trending up, monitor, No signs of bleeding No anticoags secondary to thrombocytopenia Oncology: Assessment/Plan: Rectal Ca, carcinoid tumor Octreotide monthly, follows up with specialist as outpatient : Acute Kidney Injury - resolved Assessment/Plan: likely secondary to dehydration tolerating PO fluids, will stop IVF and monitor IF worsening renal function in a.m. restart IVF Endocrine: Hyperglycemia - DM II - boderline hmga1c 6.6 monitor BGMs BID (breakfast and dinner) Was on prednisone taper - completed for brachial plexus inflammation F.E.N. Fluids: tolerating PO Electrolytes: hyponatremia resolved, bmp in a.m. Nutrition: tolerating diet DVT px: SCDs, no chemical AC secondary to thrombocytopenia. Full Code. Visit type - Emergency Visit Emergency Visit: Yes ED Registration Date: 12/22/16 Care time: The patient presented to the Emergency Department on the above date and was hospitalized for further evaluation of their emergent condition. - New Patient This patient is new to me today: No - Critical Care Critical Care patient: No - Discharge Referral Referred to [facility] No
[2016-12-26] MEDS: MONTELUKAST NA 10 MG TABLET PO SCH (21:56)
[2016-12-26] MEDS: LORazepam 1 MG TABLET PO PRN (21:56)
[2016-12-26] MEDS: POLYETHYLENE GLYCOL 3350 119 GM BTL PO SCH (22:00)
[2016-12-27] MEDS ORDERED: PT OWN MED DRAWER 7, Y5N ONE ×2 (02:54→17:59)
[2016-12-27] MEDS: MEROPENEM 1 GM in DEXTROSE 5%-WATER - 100 ML IVPB SCH ×3 (03:00→18:58)
[2016-12-27] MEDS: INSULIN SLIDING SCALE (NOVOLOG) 1 VIAL SQ SCH ×2 (06:06→11:01)
[2016-12-27] MEDS: ALBUTEROL SO4 0.083% IH SOL 2.5 MG/3 ML VIAL.NEB. NEB SCH ×5 (06:15→23:25)
[2016-12-27 07:40] LABS: BASOPHIL 0.6 % (0-2.0); EOSINOPHIL 1.7 % (0-4.5); MCH 30.3 pg (25.7-33.7); MCHC 33.4 g/dl (32.0-36.0); MEAN CELL VOLUME 90.6 fl (80-96); MEAN PLT VOLUME 8.7 fl (7.5-11.1); NEUTROPHILS 83.5 % (42.8-82.8); PLATELET COUNT 127 K/MM3 (134-434); RDW 15.6 % (11.6-15.6); WHITE BLOOD COUNT 9.1 K/mm3 (4.0-10.0)
[2016-12-27 08:06] LABS: ALBUMIN 2.3 g/dl (3.4-5.0); ALK PHOS 166 U/L (45-117); ANION GAP 8 (8-16); BILIRUBIN,TOTAL 0.5 mg/dL (0.2-1.0); CALCIUM 8.2 mg/dL (8.5-10.1); CO2 25 mmol/L (21-32); CREATININE 0.8 mg/dL (0.55-1.02); GLUCOSE,RANDOM 140 mg/dL (74-106); SGOT/AST 9 U/L (15-37); SGPT/ALT 27 U/L (12-78); TOT PROT 6.3 g/dl (6.4-8.2)
[2016-12-27] MEDS: TOPIRAMATE 25 MG TABLET (FP) PO SCH (09:12)
[2016-12-27] MEDS: ACETAMINOPHEN 325 MG TABLET (FP) PO PRN (09:13)
--- NOTE | 2016-12-27 12:26 | PN ---
Progress Note (short form) - Note Progress Note: SUBJECTIVE: The patient was seen exercising at the bedside. She reports feeling good today. She denies any complaints at this time. Current Medications Generic Name Dose Route Start Last Admin Trade Name Ami PRN Reason Stop Dose Admin Acetaminophen 650 mg 12/22/16 21:00 12/27/16 09:13 Tylenol - PO 650 mg Q6H PRN Administration FEVER OR PAIN Albuterol Sulfate 1 amp 12/23/16 18:00 12/27/16 11:30 Ventolin 0.083% Nebulizer Soln - NEB Not Given QIDR JAMISON Docusate Sodium 100 mg 12/22/16 22:02 Colace - PO BID PRN CONSTIPATION Meropenem 1 gm/ Dextrose 100 mls @ 100 mls/hr 12/23/16 19:00 12/27/16 09:12 IVPB 100 mls/hr Q8H-IV JAMISON Administration Protocol Insulin Aspart 1 vial 12/24/16 11:00 12/27/16 11:01 Novolog Vial Sliding Scale - SQ Not Given ACHS JAMIOSN Protocol Lorazepam 1 mg 12/26/16 13:42 12/26/16 21:56 Ativan - PO 1 mg BID PRN Administration ANXIETY Montelukast Sodium 10 mg 12/23/16 22:00 12/26/16 21:56 Singulair - PO 10 mg HS JAMISON Administration Polyethylene Glycol 17 gm 12/24/16 00:15 12/26/16 22:00 Miralax (For Daily Use) - PO Not Given HS JAMISON Sodium Chloride 2 spray 12/23/16 05:08 12/23/16 21:39 [place] Nasal [place] - NS 2 sprays TID PRN Administration NASAL CONGESTION Topiramate 50 mg 12/23/16 10:00 12/27/16 09:12 Topamax - PO 50 mg DAILY JAMISON Administration OBJECTIVE: Vital Signs Period Temp Pulse Resp BP Sys/Vega Pulse Ox Last 24 Hr 97.9 F-99.1 F 79-91 18-20 114-135/62-82 96 Physical Exam: General: NAD, A&Ox3 Lungs: CTA bilaterally Heart: RRR, S1S2 Abd: Soft, non-tender, non-distended. Normoactive bowel sounds Ext: Warm, well-perfused. 2+ DP/PT bilaterally Neuro: CN 2-12 intact CBCD WBC 9.1 K/mm3 (4.0-10.0) 12/27/16 07:05 RBC 3.14 M/mm3 (3.60-5.2) L 12/27/16 07:05 Hgb 9.5 GM/dL (10.7-15.3) L 12/27/16 07:05 Hct 28.4 % (32.4-45.2) L 12/27/16 07:05 MCV 90.6 fl (80-96) 12/27/16 07:05 MCHC 33.4 g/dl (32.0-36.0) 12/27/16 07:05 RDW 15.6 % (11.6-15.6) 12/27/16 07:05 Plt Count 127 K/MM3 (134-434) L D 12/27/16 07:05 MPV 8.7 fl (7.5-11.1) 12/27/16 07:05 CMP Sodium 142 mmol/L (136-145) 12/27/16 07:05 Potassium 3.8 mmol/L (3.5-5.1) 12/27/16 07:05 Chloride 109 mmol/L (98-107) H 12/27/16 07:05 Carbon Dioxide 25 mmol/L (21-32) 12/27/16 07:05 Anion Gap 8 (8-16) 12/27/16 07:05 BUN 17 mg/dL (7-18) 12/27/16 07:05 Creatinine 0.8 mg/dL (0.55-1.02) 12/27/16 07:05 Creat Clearance w eGFR > 60 (>60) 12/27/16 07:05 Random Glucose 140 mg/dL (74-106) H D 12/27/16 07:05 Calcium 8.2 mg/dL (8.5-10.1) L 12/27/16 07:05 Total Bilirubin 0.5 mg/dL (0.2-1.0) 12/27/16 07:05 AST 9 U/L (15-37) L D 12/27/16 07:05 ALT 27 U/L (12-78) 12/27/16 07:05 Alkaline Phosphatase 166 U/L (45-117) H 12/27/16 07:05 Total Protein 6.3 g/dl (6.4-8.2) L 12/27/16 07:05 Albumin 2.3 g/dl (3.4-5.0) L 12/27/16 07:05 CARDIAC ENZYMES Creatine Kinase 19 IU/L (26-140) L 12/22/16 12:30 Troponin I < 0.03 ng/ml (0.03-0.50) L 12/22/16 12:30 Microbiology 12/26/16 11:15 Urine - Urine Clean Catch Urine Culture - Final NO GROWTH OBTAINED 12/24/16 07:06 Blood - Peripheral Venous Blood Culture - Final Proteus Mirabilis 12/24/16 05:42 Blood - Peripheral Venous Blood Culture - Preliminary NO GROWTH OBTAINED AFTER 72 HOURS, INCUBATION TO CONTINUE FOR 2 DAYS. 12/22/16 13:25 Blood - Peripheral Venous Blood Culture - Final Proteus Mirabilis 12/22/16 13:30 Blood - Peripheral Venous Blood Culture - Final Proteus Mirabilis 12/22/16 13:25 Urine - Urine Clean Catch Urine Culture - Final Proteus Mirabilis 12/22/16 12:25 Nasopharyngeal Swab Respiratory Virus Panel - Preliminary 12/22/16 12:25 Nasopharyngeal Swab Influenza Types A,B Antigen (OCTAVIA) - Final 12/22/16 12:25 Nasopharyngeal Swab - Final Assessment: This is a 61 year old female with PMHx of GERD, prediabetes, rectal carcinoid ca, migraines admitted with polydipsia, polyuria, intermittent fevers/ chills for 4 weeks, treated with tamiflu. Plan: 1) ID: Severe sepsis 2/2 proteus mirabilis bacteremia, UTI - Continue Meropenem (12/23- ) - F/u repeat blood cultures this AM as one out of two vials positive for proteus mirabilis on 12/24 - WBC wnl - Afebrile - Appreciate ID consult 2) Endocrine: Hyperglycemia - Improving after prednisone taper completed - Patient refusing fingersticks - Hgb A1c 6.6 - Diabetic diet and teaching 3) Nephrology: REMY - Resolved 4) Heme: Thrombocytopenia - Likely 2/2 sepsis - Continues to improve 79->127 5) Onc: rectal cancer - Octreotide monthly, follows up with specialist as outpatient 6) Neuro: Migraines - Continue Topamax 7) F/E/N: - Diabetic diet - Monitor electrolytes 8) Prophylaxis: - SCDs bilaterally - OOB ambulating 9) Dispo: - Requires continued inpatient care CODE STATUS: FULL CODE Visit type - Emergency Visit Emergency Visit: Yes ED Registration Date: 12/22/16 Care time: The patient presented to the Emergency Department on the above date and was hospitalized for further evaluation of their emergent condition. - New Patient This patient is new to me today: Yes Date on this admission: 12/27/16 - Critical Care Critical Care patient: No
--- NOTE | 2016-12-27 16:39 | PN ---
Progress Note, Physician History of Present Illness: feeling much better still weak - Current Medication List Current Medications: Active Medications Acetaminophen (Tylenol -) 650 mg PO Q6H PRN PRN Reason: FEVER OR PAIN Last Admin: 12/27/16 09:13 Dose: 650 mg Albuterol Sulfate (Ventolin 0.083% Nebulizer Soln -) 1 amp NEB QIDR [facility] Last Admin: 12/27/16 11:30 Dose: Not Given Docusate Sodium (Colace -) 100 mg PO BID PRN PRN Reason: CONSTIPATION Meropenem 1 gm/ Dextrose 100 mls @ 100 mls/hr IVPB Q8H-IV JAMISON PRN Reason: Protocol Last Admin: 12/27/16 09:12 Dose: 100 mls/hr Lorazepam (Ativan -) 1 mg PO BID PRN PRN Reason: ANXIETY Last Admin: 12/26/16 21:56 Dose: 1 mg Montelukast Sodium (Singulair -) 10 mg PO [facility] Last Admin: 12/26/16 21:56 Dose: 10 mg Polyethylene Glycol (Miralax (For Daily Use) -) 17 gm PO [facility] Last Admin: 12/26/16 22:00 Dose: Not Given Sodium Chloride ([place] Nasal [place] -) 2 spray NS TID PRN PRN Reason: NASAL CONGESTION Last Admin: 12/23/16 21:39 Dose: 2 sprays Topiramate (Topamax -) 50 mg PO DAILY [facility] Last Admin: 12/27/16 09:12 Dose: 50 mg - Objective Vital Signs: Vital Signs Temperature 98.2 F 12/27/16 14:10 Pulse Rate 96 H 12/27/16 14:10 Respiratory Rate 20 12/27/16 14:10 Blood Pressure 111/57 12/27/16 14:10 O2 Sat by Pulse Oximetry (%) 97 12/27/16 10:00 Constitutional: Yes: No Distress, Calm Cardiovascular: Yes: Regular Rate and Rhythm Respiratory: Yes: Regular, CTA Bilaterally Gastrointestinal: Yes: Normal Bowel Sounds, Soft Musculoskeletal: Yes: WNL Extremities: Yes: WNL Neurological: Yes: Alert, Oriented Psychiatric: Yes: Alert, Oriented Labs: CBC, BMP 12/27/16 07:05 12/27/16 07:05 Assessment/Plan 61 y/o F w/PMH of rectal ca, GERD, migraines, pre-diabetes presented to ER w/ c/ o polydipsia, polyuria, and intermittent fevers for 4 weeks. Admitted for severe sepsis secondary to UTI. - sepsis secondary to UTI -REMY secondary to severe sepsis -Thrombocytopenia -Abd pain -Hyperglycemia, polydipsia, polyuria -Brachial plexus inflammation -Rectal Ca, carcinoid -migraines plan continue abx repeat blood cx pending
[2016-12-27] MEDS: MONTELUKAST NA 10 MG TABLET PO SCH (21:17)
[2016-12-27] MEDS: POLYETHYLENE GLYCOL 3350 119 GM BTL PO SCH ×2 (21:17→21:22)
[2016-12-27] MEDS: LORazepam 1 MG TABLET PO PRN (21:23)
[2016-12-28] MEDS ORDERED: PT OWN MED DRAWER 7, Y5N ONE ×2 (01:34→16:42)
[2016-12-28] MEDS: MEROPENEM 1 GM in DEXTROSE 5%-WATER - 100 ML IVPB SCH ×3 (01:44→17:14)
[2016-12-28] MEDS: ALBUTEROL SO4 0.083% IH SOL 2.5 MG/3 ML VIAL.NEB. NEB SCH ×3 (06:18→17:40)
[2016-12-28 07:36] LABS: MCH 30.2 pg (25.7-33.7); MCHC 33.5 g/dl (32.0-36.0); MEAN CELL VOLUME 90.1 fl (80-96); MEAN PLT VOLUME 8.2 fl (7.5-11.1); PLATELET COUNT 161 K/MM3 (134-434); RDW 15.5 % (11.6-15.6); WHITE BLOOD COUNT 6.4 K/mm3 (4.0-10.0)
[2016-12-28 07:48] LABS: ALBUMIN 2.1 g/dl (3.4-5.0); ANION GAP 9 (8-16); CALCIUM 8.1 mg/dL (8.5-10.1); CO2 24 mmol/L (21-32); CREATININE 0.8 mg/dL (0.55-1.02); GLUCOSE,RANDOM 130 mg/dL (74-106); SGOT/AST 6 U/L (15-37); SGPT/ALT 20 U/L (12-78)
[2016-12-28 07:50] LABS: ALK PHOS 137 U/L (45-117); BILIRUBIN,TOTAL 0.4 mg/dL (0.2-1.0); TOT PROT 5.8 g/dl (6.4-8.2)
[2016-12-28] MEDS: TOPIRAMATE 25 MG TABLET (FP) PO SCH (10:20)
[2016-12-28] MEDS ORDERED: INSULIN (NOVOLOG) ASPART 100 UNITS/ML 10ML VIAL ONE (11:24)
--- NOTE | 2016-12-28 11:50 | PN ---
Progress Note (short form) - Note Progress Note: SUBJECTIVE: The patient was seen and examined at the bedside. She reports feeling tired today, she did not sleep well last night Most recent blood cultures with NGTD Current Medications Generic Name Dose Route Start Last Admin Trade Name Ami PRN Reason Stop Dose Admin Acetaminophen 650 mg 12/22/16 21:00 12/27/16 09:13 Tylenol - PO 650 mg Q6H PRN Administration FEVER OR PAIN Albuterol Sulfate 1 amp 12/23/16 18:00 12/28/16 11:41 Ventolin 0.083% Nebulizer Soln - NEB Not Given QIDR JAMISON Docusate Sodium 100 mg 12/22/16 22:02 Colace - PO BID PRN CONSTIPATION Meropenem 1 gm/ Dextrose 100 mls @ 100 mls/hr 12/23/16 19:00 12/28/16 10:20 IVPB 100 mls/hr Q8H-IV JAMISON Administration Protocol Lorazepam 1 mg 12/26/16 13:42 12/27/16 21:23 Ativan - PO 1 mg BID PRN Administration ANXIETY Montelukast Sodium 10 mg 12/23/16 22:00 12/27/16 21:17 Singulair - PO 10 mg HS JAMISON Administration Polyethylene Glycol 17 gm 12/24/16 00:15 12/27/16 21:22 Miralax (For Daily Use) - PO Not Given HS JAMISON Sodium Chloride 2 spray 12/23/16 05:08 12/23/16 21:39 [place] Nasal [place] - NS 2 sprays TID PRN Administration NASAL CONGESTION Topiramate 50 mg 12/23/16 10:00 12/28/16 10:20 Topamax - PO 50 mg DAILY JAMISON Administration OBJECTIVE: Vital Signs Period Temp Pulse Resp BP Sys/Vega Pulse Ox Last 24 Hr 98.0 F-99.2 F 79-96 18-20 99-132/55-74 98 Physical Exam: General: NAD, A&Ox3 Lungs: CTA bilaterally Heart: RRR, S1S2 Abd: Soft, non-tender, non-distended. Normoactive bowel sounds Ext: Warm, well-perfused. 2+ DP/PT bilaterally Neuro: CN 2-12 intact CBCD WBC 6.4 K/mm3 (4.0-10.0) 12/28/16 06:30 RBC 2.94 M/mm3 (3.60-5.2) L 12/28/16 06:30 Hgb 8.9 GM/dL (10.7-15.3) L 12/28/16 06:30 Hct 26.5 % (32.4-45.2) L 12/28/16 06:30 MCV 90.1 fl (80-96) 12/28/16 06:30 MCHC 33.5 g/dl (32.0-36.0) 12/28/16 06:30 RDW 15.5 % (11.6-15.6) 12/28/16 06:30 Plt Count 161 K/MM3 (134-434) D 12/28/16 06:30 MPV 8.2 fl (7.5-11.1) 12/28/16 06:30 CMP Sodium 143 mmol/L (136-145) 12/28/16 06:30 Potassium 4.0 mmol/L (3.5-5.1) 12/28/16 06:30 Chloride 110 mmol/L (98-107) H 12/28/16 06:30 Carbon Dioxide 24 mmol/L (21-32) 12/28/16 06:30 Anion Gap 9 (8-16) 12/28/16 06:30 BUN 18 mg/dL (7-18) 12/28/16 06:30 Creatinine 0.8 mg/dL (0.55-1.02) 12/28/16 06:30 Creat Clearance w eGFR > 60 (>60) 12/28/16 06:30 Random Glucose 130 mg/dL (74-106) H 12/28/16 06:30 Calcium 8.1 mg/dL (8.5-10.1) L 12/28/16 06:30 Total Bilirubin 0.4 mg/dL (0.2-1.0) 12/28/16 06:30 AST 6 U/L (15-37) L D 12/28/16 06:30 ALT 20 U/L (12-78) D 12/28/16 06:30 Alkaline Phosphatase 137 U/L (45-117) H 12/28/16 06:30 Total Protein 5.8 g/dl (6.4-8.2) L 12/28/16 06:30 Albumin 2.1 g/dl (3.4-5.0) L 12/28/16 06:30 CARDIAC ENZYMES Creatine Kinase 19 IU/L (26-140) L 12/22/16 12:30 Troponin I < 0.03 ng/ml (0.03-0.50) L 12/22/16 12:30 Microbiology 12/24/16 05:42 Blood - Peripheral Venous Blood Culture - Preliminary NO GROWTH OBTAINED AFTER 96 HOURS, INCUBATION TO CONTINUE FOR 1 DAYS. 12/27/16 07:10 Blood - Peripheral Venous Blood Culture - Preliminary NO GROWTH OBTAINED AFTER 24 HOURS, INCUBATION TO CONTINUE FOR 4 DAYS. 12/27/16 07:05 Blood - Peripheral Venous Blood Culture - Preliminary NO GROWTH OBTAINED AFTER 24 HOURS, INCUBATION TO CONTINUE FOR 4 DAYS. 12/26/16 11:15 Urine - Urine Clean Catch Urine Culture - Final NO GROWTH OBTAINED 12/24/16 07:06 Blood - Peripheral Venous Blood Culture - Final Proteus Mirabilis 12/22/16 13:25 Blood - Peripheral Venous Blood Culture - Final Proteus Mirabilis 12/22/16 13:30 Blood - Peripheral Venous Blood Culture - Final Proteus Mirabilis 12/22/16 13:25 Urine - Urine Clean Catch Urine Culture - Final Proteus Mirabilis 12/22/16 12:25 Nasopharyngeal Swab Respiratory Virus Panel - Preliminary 12/22/16 12:25 Nasopharyngeal Swab Influenza Types A,B Antigen (OCTAVIA) - Final 12/22/16 12:25 Nasopharyngeal Swab - Final Assessment: This is a 61 year old female with PMHx of GERD, prediabetes, rectal carcinoid ca, migraines admitted with polydipsia, polyuria, intermittent fevers/ chills for 4 weeks, treated with tamiflu. Plan: 1) ID: Severe sepsis 2/2 proteus mirabilis bacteremia, UTI - Continue Meropenem (12/23- ) - Most recent blood cultures with NGTD - WBC wnl - Afebrile - Awaiting final ID recommendation for duration - Appreciate ID consult 2) Endocrine: Hyperglycemia - Improving after prednisone taper completed - Patient refusing fingersticks - Hgb A1c 6.6 - Diabetic diet and teaching 3) Nephrology: REMY - Resolved 4) Heme: Thrombocytopenia - Likely 2/2 sepsis - Resolved 5) Onc: rectal cancer - Octreotide monthly, follows up with specialist as outpatient 6) Neuro: Migraines - Continue Topamax 7) F/E/N: - Diabetic diet - Monitor electrolytes 8) Prophylaxis: - SCDs bilaterally - OOB ambulating 9) Dispo: - Requires continued inpatient care CODE STATUS: FULL CODE Visit type - Emergency Visit Emergency Visit: Yes ED Registration Date: 12/22/16 Care time: The patient presented to the Emergency Department on the above date and was hospitalized for further evaluation of their emergent condition. - New Patient This patient is new to me today: No - Critical Care Critical Care patient: No
[2016-12-28] MEDS: ACETAMINOPHEN 325 MG TABLET (FP) PO PRN (14:02)
--- NOTE | 2016-12-28 17:41 | PN ---
Progress Note, Physician History of Present Illness: says she is better but extremely weak no other issues - Current Medication List Current Medications: Active Medications Acetaminophen (Tylenol -) 650 mg PO Q6H PRN PRN Reason: FEVER OR PAIN Last Admin: 12/28/16 14:02 Dose: 650 mg Albuterol Sulfate (Ventolin 0.083% Nebulizer Soln -) 1 amp NEB QIDR [facility] Last Admin: 12/28/16 11:41 Dose: Not Given Docusate Sodium (Colace -) 100 mg PO BID PRN PRN Reason: CONSTIPATION Meropenem 1 gm/ Dextrose 100 mls @ 100 mls/hr IVPB Q8H-IV JAMISON PRN Reason: Protocol Last Admin: 12/28/16 17:14 Dose: 100 mls/hr Lorazepam (Ativan -) 1 mg PO BID PRN PRN Reason: ANXIETY Last Admin: 12/27/16 21:23 Dose: 1 mg Montelukast Sodium (Singulair -) 10 mg PO [facility] Last Admin: 12/27/16 21:17 Dose: 10 mg Polyethylene Glycol (Miralax (For Daily Use) -) 17 gm PO [facility] Last Admin: 12/27/16 21:22 Dose: Not Given Sodium Chloride ([place] Nasal [place] -) 2 spray NS TID PRN PRN Reason: NASAL CONGESTION Last Admin: 12/23/16 21:39 Dose: 2 sprays Topiramate (Topamax -) 50 mg PO DAILY [facility] Last Admin: 12/28/16 10:20 Dose: 50 mg - Objective Vital Signs: Vital Signs Temperature 98.4 F 12/28/16 17:36 Pulse Rate 84 12/28/16 17:36 Respiratory Rate 20 12/28/16 17:36 Blood Pressure 120/64 12/28/16 17:36 O2 Sat by Pulse Oximetry (%) 98 12/28/16 10:00 Constitutional: Yes: No Distress, Calm HENT: Yes: Atraumatic Cardiovascular: Yes: Regular Rate and Rhythm Respiratory: Yes: Regular, CTA Bilaterally Gastrointestinal: Yes: Normal Bowel Sounds, Soft Musculoskeletal: Yes: WNL Extremities: Yes: WNL Neurological: Yes: Alert, Oriented Psychiatric: Yes: Alert, Oriented Labs: CBC, BMP 12/28/16 06:30 12/28/16 06:30 Assessment/Plan 61 y/o F w/PMH of rectal ca, GERD, migraines, pre-diabetes presented to ER w/ c/ o polydipsia, polyuria, and intermittent fevers for 4 weeks. Admitted for severe sepsis secondary to UTI. - sepsis secondary to UTI -REMY secondary to severe sepsis -Thrombocytopenia -Abd pain -Hyperglycemia, polydipsia, polyuria -Brachial plexus inflammation -Rectal Ca, carcinoid -migraines plan continue abx repeat blood cx negative so far
[2016-12-28] MEDS: LORazepam 1 MG TABLET PO PRN (20:59)
[2016-12-28] MEDS: MONTELUKAST NA 10 MG TABLET PO SCH (20:59)
[2016-12-28] MEDS: POLYETHYLENE GLYCOL 3350 119 GM BTL PO SCH (21:00)
[2016-12-29] MEDS: MEROPENEM 1 GM in DEXTROSE 5%-WATER - 100 ML IVPB SCH ×3 (01:00→19:51)
[2016-12-29] MEDS ORDERED: PT OWN MED DRAWER 7, Y5N ONE ×2 (04:28→18:14)
--- NOTE | 2016-12-29 09:53 | PN ---
Progress Note (short form) - Note Progress Note: SUBJECTIVE: The patient was seen and examined at the bedside. Per ID will require several more days of IV abx Current Medications Generic Name Dose Route Start Last Admin Trade Name Ami PRN Reason Stop Dose Admin Acetaminophen 650 mg 12/22/16 21:00 12/28/16 14:02 Tylenol - PO 650 mg Q6H PRN Administration FEVER OR PAIN Docusate Sodium 100 mg 12/22/16 22:02 Colace - PO BID PRN CONSTIPATION Meropenem 1 gm/ Dextrose 100 mls @ 100 mls/hr 12/23/16 19:00 12/29/16 01:00 IVPB 100 mls/hr Q8H-IV JAMISON Administration Protocol Lorazepam 1 mg 12/26/16 13:42 12/28/16 20:59 Ativan - PO 1 mg BID PRN Administration ANXIETY Montelukast Sodium 10 mg 12/23/16 22:00 12/28/16 20:59 Singulair - PO 10 mg HS JAMISON Administration Polyethylene Glycol 17 gm 12/24/16 00:15 12/28/16 21:00 Miralax (For Daily Use) - PO Not Given HS JAMISON Sodium Chloride 2 spray 12/23/16 05:08 12/23/16 21:39 [place] Nasal [place] - NS 2 sprays TID PRN Administration NASAL CONGESTION Topiramate 50 mg 12/23/16 10:00 12/28/16 10:20 Topamax - PO 50 mg DAILY JAMISON Administration OBJECTIVE: Vital Signs Period Temp Pulse Resp BP Sys/Vega Pulse Ox Last 24 Hr 97.8 F-98.4 F 77-98 18-20 103-120/61-74 96-98 Physical Exam: General: NAD, A&Ox3 Lungs: CTA bilaterally Heart: RRR, S1S2 Abd: Soft, non-tender, non-distended. Normoactive bowel sounds Ext: Warm, well-perfused. 2+ DP/PT bilaterally Neuro: CN 2-12 intact CBCD WBC 6.4 K/mm3 (4.0-10.0) 12/28/16 06:30 RBC 2.94 M/mm3 (3.60-5.2) L 12/28/16 06:30 Hgb 8.9 GM/dL (10.7-15.3) L 12/28/16 06:30 Hct 26.5 % (32.4-45.2) L 12/28/16 06:30 MCV 90.1 fl (80-96) 12/28/16 06:30 MCHC 33.5 g/dl (32.0-36.0) 12/28/16 06:30 RDW 15.5 % (11.6-15.6) 12/28/16 06:30 Plt Count 161 K/MM3 (134-434) D 12/28/16 06:30 MPV 8.2 fl (7.5-11.1) 12/28/16 06:30 CMP Sodium 143 mmol/L (136-145) 12/28/16 06:30 Potassium 4.0 mmol/L (3.5-5.1) 12/28/16 06:30 Chloride 110 mmol/L (98-107) H 12/28/16 06:30 Carbon Dioxide 24 mmol/L (21-32) 12/28/16 06:30 Anion Gap 9 (8-16) 12/28/16 06:30 BUN 18 mg/dL (7-18) 12/28/16 06:30 Creatinine 0.8 mg/dL (0.55-1.02) 12/28/16 06:30 Creat Clearance w eGFR > 60 (>60) 12/28/16 06:30 Random Glucose 130 mg/dL (74-106) H 12/28/16 06:30 Calcium 8.1 mg/dL (8.5-10.1) L 12/28/16 06:30 Total Bilirubin 0.4 mg/dL (0.2-1.0) 12/28/16 06:30 AST 6 U/L (15-37) L D 12/28/16 06:30 ALT 20 U/L (12-78) D 12/28/16 06:30 Alkaline Phosphatase 137 U/L (45-117) H 12/28/16 06:30 Total Protein 5.8 g/dl (6.4-8.2) L 12/28/16 06:30 Albumin 2.1 g/dl (3.4-5.0) L 12/28/16 06:30 CARDIAC ENZYMES Creatine Kinase 19 IU/L (26-140) L 12/22/16 12:30 Troponin I < 0.03 ng/ml (0.03-0.50) L 12/22/16 12:30 Microbiology 12/24/16 05:42 Blood - Peripheral Venous Blood Culture - Preliminary Proteus Species 12/27/16 07:10 Blood - Peripheral Venous Blood Culture - Preliminary NO GROWTH OBTAINED AFTER 48 HOURS, INCUBATION TO CONTINUE FOR 3 DAYS. 12/27/16 07:05 Blood - Peripheral Venous Blood Culture - Preliminary NO GROWTH OBTAINED AFTER 48 HOURS, INCUBATION TO CONTINUE FOR 3 DAYS. 12/26/16 11:15 Urine - Urine Clean Catch Urine Culture - Final NO GROWTH OBTAINED 12/24/16 07:06 Blood - Peripheral Venous Blood Culture - Final Proteus Mirabilis 12/22/16 13:25 Blood - Peripheral Venous Blood Culture - Final Proteus Mirabilis 12/22/16 13:30 Blood - Peripheral Venous Blood Culture - Final Proteus Mirabilis 12/22/16 13:25 Urine - Urine Clean Catch Urine Culture - Final Proteus Mirabilis 12/22/16 12:25 Nasopharyngeal Swab Respiratory Virus Panel - Preliminary 12/22/16 12:25 Nasopharyngeal Swab Influenza Types A,B Antigen (OCTAVIA) - Final 12/22/16 12:25 Nasopharyngeal Swab - Final Assessment: This is a 61 year old female with PMHx of GERD, prediabetes, rectal carcinoid ca, migraines admitted with polydipsia, polyuria, intermittent fevers/ chills for 4 weeks, treated with tamiflu. Plan: 1) ID: Severe sepsis 2/2 proteus mirabilis bacteremia, UTI - Continue Meropenem (12/23- ) - Most recent blood cultures with NGTD - WBC wnl - Afebrile - Awaiting final ID recommendation for duration - Appreciate ID consult 2) Endocrine: Hyperglycemia - Improving after prednisone taper completed - Patient refusing fingersticks - Hgb A1c 6.6 - Diabetic diet and teaching 3) Nephrology: REMY - Resolved 4) Heme: Thrombocytopenia - Likely 2/2 sepsis - Resolved 5) Onc: rectal cancer - Octreotide monthly, follows up with specialist as outpatient 6) Neuro: Migraines - Continue Topamax 7) F/E/N: - Diabetic diet - Monitor electrolytes 8) Prophylaxis: - SCDs bilaterally - OOB ambulating 9) Dispo: - Requires continued inpatient care CODE STATUS: FULL CODE Visit type - Emergency Visit Emergency Visit: Yes ED Registration Date: 12/22/16 Care time: The patient presented to the Emergency Department on the above date and was hospitalized for further evaluation of their emergent condition. - New Patient This patient is new to me today: No - Critical Care Critical Care patient: No
[2016-12-29] MEDS: TOPIRAMATE 25 MG TABLET (FP) PO SCH (10:09)
[2016-12-29] MEDS: SODIUM CHLORIDE NASAL SPRAY 44 ML BOTTLE NS PRN (10:10)
--- NOTE | 2016-12-29 15:38 | PN ---
Progress Note, Physician History of Present Illness: patient doing better no new issues starting to feel the strength coming back was able to walk today - Current Medication List Current Medications: Active Medications Acetaminophen (Tylenol -) 650 mg PO Q6H PRN PRN Reason: FEVER OR PAIN Last Admin: 12/28/16 14:02 Dose: 650 mg Docusate Sodium (Colace -) 100 mg PO BID PRN PRN Reason: CONSTIPATION Meropenem 1 gm/ Dextrose 100 mls @ 100 mls/hr IVPB Q8H-IV JAMISON PRN Reason: Protocol Last Admin: 12/29/16 10:07 Dose: 100 mls/hr Montelukast Sodium (Singulair -) 10 mg PO HS [facility] Last Admin: 12/28/16 20:59 Dose: 10 mg Polyethylene Glycol (Miralax (For Daily Use) -) 17 gm PO HS [facility] Last Admin: 12/28/16 21:00 Dose: Not Given Sodium Chloride ([place] Nasal [place] -) 2 spray NS TID PRN PRN Reason: NASAL CONGESTION Last Admin: 12/29/16 10:10 Dose: 2 sprays Topiramate (Topamax -) 50 mg PO DAILY [facility] Last Admin: 12/29/16 10:09 Dose: 50 mg - Objective Vital Signs: Vital Signs Temperature 97.8 F 12/29/16 06:00 Pulse Rate 78 12/29/16 06:00 Respiratory Rate 20 12/29/16 06:00 Blood Pressure 112/62 12/29/16 06:00 O2 Sat by Pulse Oximetry (%) 96 12/28/16 21:00 Constitutional: Yes: No Distress, Calm Eyes: Yes: Conjunctiva Clear HENT: Yes: Atraumatic Cardiovascular: Yes: Regular Rate and Rhythm Respiratory: Yes: Regular, CTA Bilaterally Gastrointestinal: Yes: Normal Bowel Sounds, Soft Musculoskeletal: Yes: WNL Extremities: Yes: WNL Neurological: Yes: Alert, Oriented Psychiatric: Yes: Alert Labs: CBC, BMP 12/28/16 06:30 12/28/16 06:30 Assessment/Plan 61 y/o F w/PMH of rectal ca, GERD, migraines, pre-diabetes presented to ER w/ c/ o polydipsia, polyuria, and intermittent fevers for 4 weeks. Admitted for severe sepsis secondary to UTI. - sepsis secondary to UTI -REMY secondary to severe sepsis -Thrombocytopenia -Abd pain -Hyperglycemia, polydipsia, polyuria -Brachial plexus inflammation -Rectal Ca, carcinoid -migraines plan continue abx repeat blood cx negative so far patient will need to complete abx till the 5th and morning dose of 6th patient can then be discharged with no abx
[2016-12-29] MEDS: MONTELUKAST NA 10 MG TABLET PO SCH (21:24)
[2016-12-29] MEDS: POLYETHYLENE GLYCOL 3350 119 GM BTL PO SCH (21:24)
[2016-12-29] MEDS: LORazepam 1 MG TABLET PO PRN (22:27)
[2016-12-30] MEDS: MEROPENEM 1 GM in DEXTROSE 5%-WATER - 100 ML IVPB SCH ×3 (02:09→17:36)
[2016-12-30 07:32] LABS: MCH 30.4 pg (25.7-33.7); MCHC 33.3 g/dl (32.0-36.0); MEAN CELL VOLUME 91.2 fl (80-96); MEAN PLT VOLUME 7.6 fl (7.5-11.1); PLATELET COUNT 253 K/MM3 (134-434); RDW 15.6 % (11.6-15.6); WHITE BLOOD COUNT 5.6 K/mm3 (4.0-10.0)
[2016-12-30 08:21] LABS: ALBUMIN 2.4 g/dl (3.4-5.0); ALK PHOS 127 U/L (45-117); ANION GAP 10 (8-16); BILIRUBIN,TOTAL 0.4 mg/dL (0.2-1.0); CALCIUM 8.4 mg/dL (8.5-10.1); CO2 25 mmol/L (21-32); CREATININE 0.8 mg/dL (0.55-1.02); GLUCOSE,RANDOM 120 mg/dL (74-106); SGOT/AST 8 U/L (15-37); SGPT/ALT 16 U/L (12-78); TOT PROT 6.6 g/dl (6.4-8.2)
[2016-12-30] MEDS ORDERED: PT OWN MED DRAWER 7, Y5N ONE ×2 (10:14→17:10)
[2016-12-30] MEDS: TOPIRAMATE 25 MG TABLET (FP) PO SCH (11:49)
--- NOTE | 2016-12-30 13:32 | PN ---
Physical Exam: SUBJECTIVE: Patient seen and examined. No acute complaints. Pt reports feeling tired at present but did ambulate on the unit this AM without incident. OBJECTIVE: Vital Signs - 24 hr 3 12/29/16 12/29/16 12/29/16 18:35 21:00 22:00 Temperature 98.1 F 98.2 F Pulse Rate 81 81 Respiratory 18 20 16 Rate Blood Pressure 108/61 108/67 3 12/30/16 12/30/16 12/30/16 02:00 06:00 15:00 Temperature 98.1 F 98.2 F 98.2 F Pulse Rate 74 73 80 Respiratory 20 20 18 Rate Blood Pressure 97/56 102/60 107/56 GENERAL: The patient is awake, alert, and fully oriented, in no acute distress. HEAD: Normal with no signs of trauma. EYES: PERRL, extraocular movements intact, sclera anicteric, conjunctiva clear. No ptosis. ENT: Ears normal, nares patent, oropharynx clear without exudates, moist mucous membranes. NECK: Trachea midline, full range of motion, supple. LUNGS: Breath sounds equal, clear to auscultation bilaterally, no wheezes, no crackles, no accessory muscle use. HEART: Regular rate and rhythm, S1, S2 without murmur, rub or gallop. ABDOMEN: Soft, nontender, nondistended, normoactive bowel sounds, no guarding, no rebound, no hepatosplenomegaly, no masses. EXTREMITIES: 2+ pulses, warm, well-perfused, no edema. NEUROLOGICAL: Cranial nerves II through XII grossly intact. Normal speech, gait not observed. PSYCH: Normal mood, normal affect. SKIN: Warm, dry, normal turgor, no rashes or lesions noted Laboratory Results - last 24 hr 3 12/30/16 12/30/16 05:35 05:35 WBC 5.6 RBC 3.06 L Hgb 9.3 L Hct 27.9 L MCV 91.2 MCHC 33.3 RDW 15.6 Plt Count 253 D MPV 7.6 Sodium 143 Potassium 4.2 Chloride 108 H Carbon Dioxide 25 Anion Gap 10 BUN 21 H Creatinine 0.8 Creat Clearance w eGFR > 60 Random Glucose 120 H Calcium 8.4 L Total Bilirubin 0.4 AST 8 L D ALT 16 Alkaline Phosphatase 127 H Total Protein 6.6 Albumin 2.4 L Active Medications 3 Generic Name Dose Route Start Last Admin Trade Name Freq PRN Reason Stop Dose Admin Acetaminophen 650 mg 12/22/16 21:00 12/28/16 14:02 Tylenol - PO 650 mg Q6H PRN Administration FEVER OR PAIN Docusate Sodium 100 mg 12/22/16 22:02 Colace - PO BID PRN CONSTIPATION Meropenem 1 gm/ Dextrose 100 mls @ 100 mls/hr 12/23/16 19:00 12/30/16 11:49 IVPB 100 mls/hr Q8H-IV JAMISON Administration Protocol Lorazepam 1 mg 12/29/16 22:07 12/29/16 22:27 Ativan - PO 1 mg BID PRN Administration ANXIETY Montelukast Sodium 10 mg 12/23/16 22:00 12/29/16 21:24 Singulair - PO 10 mg HS JAMISON Administration Polyethylene Glycol 17 gm 12/24/16 00:15 12/29/16 21:24 Miralax (For Daily Use) - PO Not Given HS JAMISON Sodium Chloride 2 spray 12/23/16 05:08 12/29/16 10:10 [place] Nasal [place] - NS 2 sprays TID PRN Administration NASAL CONGESTION Topiramate 50 mg 12/23/16 10:00 12/30/16 11:49 Topamax - PO 50 mg DAILY JAMISON Administration ASSESSMENT/PLAN: This is a 61 year old female with PMHx of GERD, prediabetes, rectal carcinoid ca , migraines admitted with polydipsia, polyuria, intermittent fevers/chills for 4 weeks, treated with tamiflu as outpatient. Pt has been admitted for sepsis. Severe sepsis 2/2 proteus mirabilis bacteremia, UTI - Continue Meropenem (12/23-01/01) - Most recent blood cultures with NGTD (72H) - WBC wnl - Afebrile - Will need to continue IV antibiotics through 01/01 in the morning then DC home - Appreciate ID consult Hyperglycemia - Improved after prednisone taper completed (last dose 12/24) - Patient refusing fingersticks - Hgb A1c 6.6 - Diabetic diet and teaching REMY - Resolved Thrombocytopenia - Likely 2/2 sepsis - Resolved rectal cancer - Octreotide monthly, follows up with specialist as outpatient Migraines - Continue Topamax F/E/N: - Diabetic diet - Monitor electrolytes, stable at present Prophylaxis: - SCDs bilaterally - OOB ambulating Dispo: - Requires continued inpatient care CODE STATUS: FULL CODE Visit type - Emergency Visit Emergency Visit: Yes ED Registration Date: 12/22/16 Care time: The patient presented to the Emergency Department on the above date and was hospitalized for further evaluation of their emergent condition. - New Patient This patient is new to me today: Yes Date on this admission: 12/30/16 - Critical Care Critical Care patient: No - Discharge Referral Referred to [facility] No
--- NOTE | 2016-12-30 13:49 | PN ---
Progress Note, Physician History of Present Illness: patient doing well just feeling tired still not feeling that her strength is back remaining stable - Current Medication List Current Medications: Active Medications Acetaminophen (Tylenol -) 650 mg PO Q6H PRN PRN Reason: FEVER OR PAIN Last Admin: 12/28/16 14:02 Dose: 650 mg Docusate Sodium (Colace -) 100 mg PO BID PRN PRN Reason: CONSTIPATION Meropenem 1 gm/ Dextrose 100 mls @ 100 mls/hr IVPB Q8H-IV JAMISON PRN Reason: Protocol Last Admin: 12/30/16 11:49 Dose: 100 mls/hr Lorazepam (Ativan -) 1 mg PO BID PRN PRN Reason: ANXIETY Last Admin: 12/29/16 22:27 Dose: 1 mg Montelukast Sodium (Singulair -) 10 mg PO HS JAMISON Last Admin: 12/29/16 21:24 Dose: 10 mg Polyethylene Glycol (Miralax (For Daily Use) -) 17 gm PO HS [facility] Last Admin: 12/29/16 21:24 Dose: Not Given Sodium Chloride ([place] Nasal [place] -) 2 spray NS TID PRN PRN Reason: NASAL CONGESTION Last Admin: 12/29/16 10:10 Dose: 2 sprays Topiramate (Topamax -) 50 mg PO DAILY JAMISON Last Admin: 12/30/16 11:49 Dose: 50 mg - Objective Vital Signs: Vital Signs Temperature 98.2 F 12/30/16 06:00 Pulse Rate 73 12/30/16 06:00 Respiratory Rate 20 12/30/16 06:00 Blood Pressure 102/60 12/30/16 06:00 O2 Sat by Pulse Oximetry (%) 97 12/29/16 09:00 Constitutional: Yes: No Distress, Calm Cardiovascular: Yes: Regular Rate and Rhythm Respiratory: Yes: Regular, CTA Bilaterally Gastrointestinal: Yes: Normal Bowel Sounds, Soft Musculoskeletal: Yes: WNL Extremities: Yes: WNL Neurological: Yes: Alert, Oriented Psychiatric: Yes: Alert, Oriented Labs: CBC, BMP 12/30/16 05:35 12/30/16 05:35 Assessment/Plan 61 y/o F w/PMH of rectal ca, GERD, migraines, pre-diabetes presented to ER w/ c/ o polydipsia, polyuria, and intermittent fevers for 4 weeks. Admitted for severe sepsis secondary to UTI. - sepsis secondary to UTI -REMY secondary to severe sepsis -Thrombocytopenia -Abd pain -Hyperglycemia, polydipsia, polyuria -Brachial plexus inflammation -Rectal Ca, carcinoid -migraines plan continue abx blood cx negative patient will need to complete abx till the 5th and morning dose of 6th continue current mgmt
[2016-12-30] MEDS: SODIUM CHLORIDE NASAL SPRAY 44 ML BOTTLE NS PRN (17:36)
[2016-12-30] MEDS: LORazepam 1 MG TABLET PO PRN (21:19)
[2016-12-30] MEDS: MONTELUKAST NA 10 MG TABLET PO SCH (21:20)
[2016-12-30] MEDS: POLYETHYLENE GLYCOL 3350 119 GM BTL PO SCH (21:20)
[2016-12-31] MEDS: MEROPENEM 1 GM in DEXTROSE 5%-WATER - 100 ML IVPB SCH ×3 (01:24→18:00)
[2016-12-31] MEDS ORDERED: PT OWN MED DRAWER 7, Y5N ONE ×3 (09:14→19:49)
[2016-12-31] MEDS: TOPIRAMATE 25 MG TABLET (FP) PO SCH (09:20)
--- NOTE | 2016-12-31 10:01 | PN ---
Physical Exam: SUBJECTIVE: Patient seen and examined. She states she is feeling much better today and ambulating w/o issue. OBJECTIVE: Vital Signs Period Temp Pulse Resp BP Sys/Vega Pulse Ox Last 24 Hr 98.1 F-98.3 F 64-80 18-20 102-112/56-64 95 PE Neuro: alert, awake, cn 2-12intact Pulm: CTAB CV: s1 s2 rrr no mrg Abd: s nt nd + bs Ext: warm, no le edema Active Medications Generic Name Dose Route Start Last Admin Trade Name Freq PRN Reason Stop Dose Admin Acetaminophen 650 mg 12/22/16 21:00 12/28/16 14:02 Tylenol - PO 650 mg Q6H PRN Administration FEVER OR PAIN Docusate Sodium 100 mg 12/22/16 22:02 Colace - PO BID PRN CONSTIPATION Meropenem 1 gm/ Dextrose 100 mls @ 100 mls/hr 12/23/16 19:00 12/31/16 09:20 IVPB 100 mls/hr Q8H-IV JAMISON Administration Protocol Lorazepam 1 mg 12/29/16 22:07 12/30/16 21:19 Ativan - PO 1 mg BID PRN Administration ANXIETY Montelukast Sodium 10 mg 12/23/16 22:00 12/30/16 21:20 Singulair - PO 10 mg HS JAMISON Administration Polyethylene Glycol 17 gm 12/24/16 00:15 12/30/16 21:20 Miralax (For Daily Use) - PO Not Given HS JAMISON Sodium Chloride 2 spray 12/23/16 05:08 12/30/16 17:36 [place] Nasal [place] - NS 2 sprays TID PRN Administration NASAL CONGESTION Topiramate 50 mg 12/23/16 10:00 12/31/16 09:20 Topamax - PO 50 mg DAILY JAMISON Administration Microbiology 12/27/16 07:10 Blood Culture - Preliminary Blood - Peripheral Venous NO GROWTH OBTAINED AFTER 96 HOURS, INCUBATION TO CONTINUE FOR 1 DAYS. 12/27/16 07:05 Blood Culture - Preliminary Blood - Peripheral Venous NO GROWTH OBTAINED AFTER 96 HOURS, INCUBATION TO CONTINUE FOR 1 DAYS. 12/24/16 05:42 Blood Culture - Final Blood - Peripheral Venous Proteus Mirabilis Assessment: 61 year old female with PMHx of GERD, prediabetes, rectal carcinoid ca, migraines admitted with polydipsia, polyuria, intermittent fevers/chills for 4 weeks, treated with tamiflu. Plan: 1. Severe sepsis d/ proteus mirbili bacteremia and UTI - Final dose Meropenem tomorrow AM (12/23-01/01) 2. Hyperlgycemia/borderline uncontrolled DM II - AM sugars stable - Hgba1c 6.6 3. Hyponatremia - Resolved 4. REMY - Likely d/t sepsis; now resolved 5. Thrombocytopenia - Likely d/t sepsis; now resolved 6. Brachial plexus inflammation - 7 day course of pednisone 12/24 - Outpt neuro follow up 7. Rectal Ca, carcinoid - Octreotide monthly, follows up with specialist as outpatient 8. Migraines - Continue Topamax Visit type - Emergency Visit Emergency Visit: Yes ED Registration Date: 12/22/16 Care time: The patient presented to the Emergency Department on the above date and was hospitalized for further evaluation of their emergent condition. - New Patient This patient is new to me today: No - Critical Care Critical Care patient: No
--- NOTE | 2016-12-31 16:27 | PN ---
Progress Note, Physician History of Present Illness: doing well no issues still getting a bit tired - Current Medication List Current Medications: Active Medications Acetaminophen (Tylenol -) 650 mg PO Q6H PRN PRN Reason: FEVER OR PAIN Last Admin: 12/28/16 14:02 Dose: 650 mg Docusate Sodium (Colace -) 100 mg PO BID PRN PRN Reason: CONSTIPATION Meropenem 1 gm/ Dextrose 100 mls @ 100 mls/hr IVPB Q8H-IV JAMISON PRN Reason: Protocol Last Admin: 12/31/16 09:20 Dose: 100 mls/hr Lorazepam (Ativan -) 1 mg PO BID PRN PRN Reason: ANXIETY Last Admin: 12/30/16 21:19 Dose: 1 mg Montelukast Sodium (Singulair -) 10 mg PO HS JAMISON Last Admin: 12/30/16 21:20 Dose: 10 mg Polyethylene Glycol (Miralax (For Daily Use) -) 17 gm PO HS [facility] [place] Last Admin: 12/30/16 21:20 Dose: Not Given Sodium Chloride ([place] Nasal [place] -) 2 spray NS TID PRN PRN Reason: NASAL CONGESTION Last Admin: 12/30/16 17:36 Dose: 2 sprays Topiramate (Topamax -) 50 mg PO DAILY [facility] [place] Last Admin: 12/31/16 09:20 Dose: 50 mg - Objective Vital Signs: Vital Signs Temperature 97.8 F 12/31/16 15:28 Pulse Rate 81 12/31/16 15:28 Respiratory Rate 20 12/31/16 15:28 Blood Pressure 108/68 12/31/16 15:28 O2 Sat by Pulse Oximetry (%) 99 12/31/16 11:54 Constitutional: Yes: No Distress, Calm Cardiovascular: Yes: Regular Rate and Rhythm Respiratory: Yes: Regular, CTA Bilaterally Gastrointestinal: Yes: Normal Bowel Sounds, Soft Musculoskeletal: Yes: WNL Extremities: Yes: WNL Neurological: Yes: Alert, Oriented Psychiatric: Yes: Alert, Oriented Labs: CBC, BMP 12/30/16 05:35 12/30/16 05:35 Assessment/Plan 61 y/o F w/PMH of rectal ca, GERD, migraines, pre-diabetes presented to ER w/ c/ o polydipsia, polyuria, and intermittent fevers for 4 weeks. Admitted for severe sepsis secondary to UTI. - sepsis secondary to UTI -REMY secondary to severe sepsis -Thrombocytopenia -Abd pain -Hyperglycemia, polydipsia, polyuria -Brachial plexus inflammation -Rectal Ca, carcinoid -migraines plan continue abx blood cx negative patient will need to complete abx till the 5th and morning dose of 6th continue current mgmt patient does not need any more abx after tomorrow
[2016-12-31] MEDS: LORazepam 1 MG TABLET PO PRN (21:11)
[2016-12-31] MEDS: MONTELUKAST NA 10 MG TABLET PO SCH (21:11)
[2016-12-31] MEDS: POLYETHYLENE GLYCOL 3350 119 GM BTL PO SCH (21:39)
[2017-01-01] MEDS: MEROPENEM 1 GM in DEXTROSE 5%-WATER - 100 ML IVPB SCH ×2 (02:49→09:14)
[2017-01-01] MEDS ORDERED: PT OWN MED DRAWER 7, Y5N ONE ×2 (02:50→09:12)
[2017-01-01] MEDS: TOPIRAMATE 25 MG TABLET (FP) PO SCH (09:13)
--- NOTE | 2017-01-01 10:24 | DS ---
[id number] Vital Signs Period Temp Pulse Resp BP Sys/Vega Pulse Ox Last 24 Hr 97.8 F-98.7 F 72-82 20-20 102-125/55-68 96-99 PE Neuro: alert, awake, cn 2-12intact Pulm: CTAB CV: s1 s2 rrr no mrg Abd: s nt nd + bs Ext: warm, no le edema HOSPITAL COURSE: Date of Admission:12/22/16 Date of Discharge: 01/01/17 Minutes to complete discharge: 35 Discharge Summary Reason For Visit: SEPSIS, UTI, KIDNEY INJURY, DM Current Active Problems Acute kidney injury (Acute) Diabetes mellitus, new onset (Acute) Migraines (Acute) Sepsis (Acute) UTI (urinary tract infection) (Acute) Hospital Course: Initial Hospital Course: Briefly, this 61 year old female w/PMH of GERD, borderline diabetes, rectal carcinoid ca, migraines admitted with polydipsia, polyuria, intermittent fevers for last 1 month. She stated intermittent chills, non-productive cough from allergies, and intermittent night sweats, sob and heaviness. Additionally, she reports dark urine and change in smell of urine over last few days. A week prior to admission, she saw her PCP who hydrated her with 2 L NS in the office. Diagnosed with pre-diabetes last summer, shes been working on lifestyle modifications. Recently, she saw neuro and was diagnosed with brachial plexus inflammation and started on prednisone 10mg bid for 7 days. Subsequent Hospital Course/Progress Note/Discharge Summary by a/p: Microbiology 12/27/16 07:10 Blood Culture - Final Blood - Peripheral Venous NO GROWTH AFTER 5 DAYS INCUBATION 12/27/16 07:05 Blood Culture - Final Blood - Peripheral Venous NO GROWTH AFTER 5 DAYS INCUBATION Microbiology 12/27/16 07:10 Blood - Peripheral Venous Blood Culture - Final NO GROWTH AFTER 5 DAYS INCUBATION 12/27/16 07:05 Blood - Peripheral Venous Blood Culture - Final NO GROWTH AFTER 5 DAYS INCUBATION 12/24/16 05:42 Blood - Peripheral Venous Blood Culture - Final Proteus Mirabilis 12/26/16 11:15 Urine - Urine Clean Catch Urine Culture - Final NO GROWTH OBTAINED 12/24/16 07:06 Blood - Peripheral Venous Blood Culture - Final Proteus Mirabilis 12/22/16 13:25 Blood - Peripheral Venous Blood Culture - Final Proteus Mirabilis 12/22/16 13:30 Blood - Peripheral Venous Blood Culture - Final Proteus Mirabilis 12/22/16 13:25 Urine - Urine Clean Catch Urine Culture - Final Proteus Mirabilis 12/22/16 12:25 Nasopharyngeal Swab Respiratory Virus Panel - Preliminary 12/22/16 12:25 Nasopharyngeal Swab Influenza Types A,B Antigen (OCTAVIA) - Final 12/22/16 12:25 Nasopharyngeal Swab - Final Assessment: 61 year old female with PMHx of GERD, prediabetes, rectal carcinoid ca, migraines admitted with polydipsia, polyuria, intermittent fevers/chills for 4 weeks, treated with tamiflu. Plan: 1. Severe sepsis d/t proteus mirabilis bacteremia and UTI - Repeat blood cultures no growth - Completed Meropenem 1gm q8h (12/23-01/01) no further po abx 2. Hyperlgycemia/borderline uncontrolled DM II - AM sugars stable - Hgba1c 6.6 3. Hyponatremia - Resolved 4. REMY - Likely d/t sepsis; now resolved 5. Thrombocytopenia - Likely d/t sepsis; now resolved 6. Brachial plexus inflammation - 7 day course of pednisone 12/24 - Outpt neuro follow up 7. Rectal Ca, carcinoid - Octreotide monthly, follows up with specialist as outpatient 8. Migraines - Continue Topamax Dispo: - Home with resuming of home meds and PCP follow up in 1 week - Pt aware and agree to above plan Condition: Stable - Instructions Diet, Activity, Other Instructions: Please return to the ED for any new, persistent, or worsening symptoms. Follow up with your PCP in 1 week Resume home meds as directed Referrals: Davi Santiago MD [Staff Physician] - Disposition: HOME - Home Medications Comprehensive Discharge Medication List: Ambulatory Orders Spironolactone [Aldactone] 25 mg PO ASDIR PRN 02/07/15 Montelukast Na [Singulair -] 10 mg PO HS 12/22/16 Octreotide Acetate,Mi-Spheres [Sandostatin [place]] 30 mg IM MONTHLY 12/22/16 Topiramate [Topamax] 50 mg PO DAILY 12/22/16 This patient is new to me today: No Emergency Visit: Yes ED Registration Date: 12/22/16 Care time: The patient presented to the Emergency Department on the above date and was hospitalized for further evaluation of their emergent condition. Critical Care patient: No - Discharge Referral Referred to [facility] Yes Physician Referral: Davi Santiago MD (Int Med)
[2017-01-01 12:17] VITALS: BP 112/57; PULSE 80; TEMP 97.6
== END 2017-01-01 13:33 | disposition home or self-care (01) | DRG 872 ==
LOC: FER 11:55 → FM/S 14:37 → J4S 19:35
PROVIDERS: ADMIT Internal Medicine; ATTEND Nurse Practitioner Acute Care
DX: A41.59 Other Gram-negative sepsis (principal); N17.9 Acute kidney failure, unspecified; E87.1 Hypo-osmolality and hyponatremia; N39.0 Urinary tract infection, site not specified; C20 Malignant neoplasm of rectum; G43.809 Other migraine, not intractable, without status migrainosus; K21.9 Gastro-esophageal reflux disease without esophagitis; D69.6 Thrombocytopenia, unspecified; J40 Bronchitis, not specified as acute or chronic; R65.20 Severe sepsis without septic shock; E11.65 Type 2 diabetes mellitus with hyperglycemia; R63.1 Polydipsia; R35.8 Other polyuria; E86.0 Dehydration; K59.09 Other constipation; B96.29 Other Escherichia coli [E. coli] as the cause of diseases classified elsewhere; E83.42 Hypomagnesemia; E83.39 Other disorders of phosphorus metabolism
CPT/HCPCS: 36415; 71020-TC; 80053; 81003; 81015; 82009; 82436; 82550; 82570; 83036; 83605; 83690; 83735; 84100; 84133; 84300; 84484; 85025; 85027; 87040; 87086; 87186; 87254; 87804; 93005; 94010; 94640; 97116-GP; 97161-GP; 99285-25

== ENCOUNTER 2017-01-10 11:13 | Inpatient (IN) | payer OTHER, MEDICARE ==
--- NOTE | 2017-01-10 12:31 | PDOC ---
History of Present Illness - History of Present Illness Initial Comments: 01/10/17 13:02 The patient is a 61 year old female, with a significant past medical history of , rectal CA, GERD and migraine headaches, who presents to the emergency department with neck and bilateral shoulder pain after discharge from the hospital for kidney failure and sepsis on 01/01/[address]. [address] Padilla called her today with findings from an MRI she took yesterday which was positive for osteomyelitis at C4,C5. She reports her neck pain is exacerbated with palpation at the midline and with extension of her neck. She states she was referred to the ED by Dr. Padilla for treatment. She denies chest pain, shortness of breath, headache and dizziness. She denies fever, chills, nausea, vomit, diarrhea and constipation. She denies dysuria, frequency, urgency and hematuria. Allergies: adverse stomach reaction to erythromycin Social history: Denies toxic habits PCP - Dr. Santiago <Ema Rubi - Last Filed: 01/10/17 13:01> <Christina Singleton - Last Filed: 01/11/17 07:36> - General Chief Complaint: Pain Stated Complaint: PAIN Time Seen by Provider: 01/10/17 12:02 Past History <Ema Rubi - Last Filed: 01/10/17 13:01> - Past Medical History Cancer: Yes (RECTAL) GI Disorders: Yes (GERD) - Psycho/Social/Smoking Cessation Hx Anxiety: No Suicidal Ideation: No Smoking History: Never smoked Have you smoked in the past 12 months: No Information on smoking cessation initiated: No Hx Alcohol Use: Yes (SOCIAL) Drug/Substance Use Hx: No Substance Use Type: None <Christina Singleton - Last Filed: 01/11/17 07:36> - Past Medical History Allergies/Adverse Reactions: Allergies Allergy/AdvReac Type Severity Reaction Status Date / Time everolimus [From Afinitor] AdvReac Severe SOB, Verified 01/10/17 11:17 Myalgias, Arthralgias,Edema erythromycin base AdvReac Verified 01/10/17 11:17 [Erythromycin Base] Home Medications: Ambulatory Orders Montelukast Na [Singulair -] 10 mg PO HS 12/22/16 Topiramate [Topamax] 50 mg PO DAILY 12/22/16 Lorazepam [Ativan] 2 mg PO HS 01/10/17 Review of Systems - Review of Systems Able to Perform ROS?: Yes Comments:: 01/10/17 13:02 GENERAL/CONSTITUTIONAL: No fever or chills. No weakness. HEAD, EYES, EARS, NOSE AND THROAT: No change in vision. No ear pain or discharge. No sore throat. CARDIOVASCULAR: No chest pain or shortness of breath. RESPIRATORY: No cough, wheezing, or hemoptysis. GASTROINTESTINAL: No nausea, vomiting, diarrhea or constipation. GENITOURINARY: No dysuria, frequency, or change in urination. MUSCULOSKELETAL: (+) neck and bilateral shoulder pain. No joint or muscle swelling. SKIN: No rash NEUROLOGIC: No headache, vertigo, loss of consciousness, or change in strength/ sensation. ENDOCRINE: No increased thirst. No abnormal weight change. HEMATOLOGIC/LYMPHATIC: No anemia, easy bleeding, or history of blood clots. ALLERGIC/IMMUNOLOGIC: No hives or skin allergy. <Ema Rubi - Last Filed: 01/10/17 13:01> *Physical Exam - Vital Signs Last Vital Signs Temp Pulse Resp BP Pulse Ox 98 F 94 H 18 126/69 97 01/10/17 11:14 01/10/17 11:14 01/10/17 11:14 01/10/17 11:14 01/10/17 11:14 - Physical Exam Comments: 01/10/17 13:03 GENERAL: Awake, alert, and fully oriented, in no acute distress HEAD: No signs of trauma EYES: PERRLA, EOMI, sclera anicteric, conjunctiva clear ENT: Auricles normal inspection, hearing grossly normal, nares patent, oropharynx clear without exudates. Moist mucosa NECK: Normal ROM, supple, no lymphadenopathy, JVD, or masses LUNGS: Breath sounds equal, clear to auscultation bilaterally. No wheezes, and no crackles HEART: Regular rate and rhythm, normal S1 and S2, no murmurs, rubs or gallops ABDOMEN: Soft, nontender, normoactive bowel sounds. No guarding, no rebound. No masses EXTREMITIES: Normal range of motion, no edema. No clubbing or cyanosis. No cords, erythema, or tenderness NEUROLOGICAL: Cranial nerves II through XII grossly intact. Normal speech, normal gait SKIN: Warm, Dry, normal turgor, no rashes or lesions noted. SPINE: (+) Tenderness to palpation over the midline at C6 and C7. Pain elicited upon extending C-spine <Ema Rubi - Last Filed: 01/10/17 13:01> - Vital Signs Last Vital Signs Temp Pulse Resp BP Pulse Ox 98 F 94 H 18 126/69 97 01/10/17 11:14 01/10/17 11:14 01/10/17 11:14 01/10/17 11:14 01/10/17 11:14 <Christina Singleton - Last Filed: 01/11/17 07:36> ED Treatment Course - LABORATORY CBC & Chemistry Diagram: 01/10/17 12:49 01/10/17 12:49 <Christina Singleton - Last Filed: 01/11/17 07:36> Medical Decision Making - Medical Decision Making 01/10/17 12:33 Dr. Ojeda, neurologist, was paged st 12:35 via answering service requesting a call back for doctor to doctor consult. I have been informed that Dr. Padilla is covering the practice this afternoon. 01/10/17 12:56 Dr. Padilla returned the call at 12:40 and the patient's case was discussed. <Ema Rubi - Last Filed: 01/10/17 13:01> - Medical Decision Making 01/10/17 12:50 Case d/w Dr. Padilla via phone. I will send labs, admit to hospitalist service for consultation with ID, spine. 01/10/17 15:47 D/w Dr. Santiago at bedside, will defer antibiotics until biopsy is done. <Christina Singleton - Last Filed: 01/11/17 07:36> *DC/Admit/Observation/Transfer - Attestations Scribe Attestion: 01/10/17 13:05 Documentation prepared by Ema Rubi, acting as medical/surgery registered nurse for Christina Singleton MD, MD <Ema Rubi - Last Filed: 01/10/17 13:01> - Discharge Dispostion Admit: Yes <Christina Singleton - Last Filed: 01/11/17 07:36> Diagnosis at time of Disposition: Osteomyelitis Qualifiers: Osteomyelitis type: subacute Osteomyelitis location: other site Qualified Code( s): M86.28 - Subacute osteomyelitis, other site - Discharge Dispostion Condition at time of disposition: Stable - Referrals
[2017-01-10 13:20] LABS: BASOPHIL 1.3 % (0-2.0); EOSINOPHIL 1.8 % (0-4.5); MCH 29.8 pg (25.7-33.7); MCHC 32.4 g/dl (32.0-36.0); MEAN CELL VOLUME 91.9 fl (80-96); MEAN PLT VOLUME 7.1 fl (7.5-11.1); NEUTROPHILS 66.5 % (42.8-82.8); PLATELET COUNT 189 K/MM3 (134-434); RDW 16.1 % (11.6-15.6)
[2017-01-10 13:43] LABS: ALBUMIN 3.1 g/dl (3.4-5.0); ALK PHOS 98 U/L (45-117); ANION GAP 10 (8-16); BILIRUBIN,TOTAL 0.4 mg/dL (0.2-1.0); CALCIUM 8.6 mg/dL (8.5-10.1); CO2 23 mmol/L (21-32); COCKROFT - GAULT 80.75; CREATININE 0.8 mg/dL (0.55-1.02); GLUCOSE,RANDOM 97 mg/dL (74-106); SGPT/ALT 17 U/L (12-78); TOT PROT 6.9 g/dl (6.4-8.2)
[2017-01-10 13:44] LABS: SGOT/AST 25 U/L (15-37)
[2017-01-10 13:46] LABS: INR 1.01 (0.82-1.09); PROTHROMBIN TIME (PATIENT) 11.1 SEC (9.98-11.88)
--- NOTE | 2017-01-10 14:21 | HP ---
CHIEF COMPLAINT: cervical osteomylitis PCP: Dr. Hooper HISTORY OF PRESENT ILLNESS: Pt presents to the emergency department with neck and bilateral shoulder pain after discharge from the hospital for kidney failure and sepsis on 01/01/17. She states Dr. Padilla called her today with findings from an MRI she took yesterday which was positive for osteomyelitis at C4,C5. She reports her neck pain is exacerbated with palpation at the midline and with extension of her neck. She states she was referred to the ED by Dr. Padilla for treatment. ER course was notable for: (1) pain shoulder with recent finding of OM in cervical c4-5 Recent Travel: none PAST MEDICAL HISTORY: rectal CA, GERD and migraine headaches, PAST SURGICAL HISTORY: Social History: Smoking:denies Alcohol:denies Drugs: denies Family History: Allergies everolimus [From Afinitor] Adverse Reaction (Severe, Verified 01/10/17 11:17) SOB, Myalgias, Arthralgias,Edema erythromycin base [Erythromycin Base] Adverse Reaction (Verified 01/10/17 11:17) NAUSEA HOME MEDICATIONS: Home Medications Medication Instructions Recorded Montelukast Na [Singulair -] 10 mg PO HS 12/22/16 Topiramate [Topamax] 50 mg PO DAILY 12/22/16 REVIEW OF SYSTEMS CONSTITUTIONAL: Absent: fever, chills, diaphoresis, generalized weakness, malaise, loss of appetite, weight change HEENT: Absent: rhinorrhea, nasal congestion, throat pain, throat swelling, difficulty swallowing, mouth swelling, ear pain, eye pain, visual changes CARDIOVASCULAR: Absent: chest pain, syncope, palpitations, irregular heart rate, lightheadedness , peripheral edema RESPIRATORY: Absent: cough, shortness of breath, dyspnea with exertion, orthopnea, wheezing, stridor, hemoptysis GASTROINTESTINAL: Absent: abdominal pain, abdominal distension, nausea, vomiting, diarrhea, constipation, melena, hematochezia GENITOURINARY: Absent: dysuria, frequency, urgency, hesitancy, hematuria, flank pain, genital pain MUSCULOSKELETAL: Absent: myalgia, arthralgia, joint swelling, back pain, neck pain SKIN: Absent: rash, itching, pallor HEMATOLOGIC/IMMUNOLOGIC: Absent: easy bleeding, easy bruising, lymphadenopathy, frequent infections ENDOCRINE: Absent: unexplained weight gain, unexplained weight loss, heat intolerance, cold intolerance NEUROLOGIC: Absent: headache, focal weakness or paresthesias, dizziness, unsteady gait, seizure, mental status changes, bladder or bowel incontinence PSYCHIATRIC: Absent: anxiety, depression, suicidal or homicidal ideation, hallucinations. PHYSICAL EXAMINATION Vital Signs - 24 hr 01/10/17 11:14 Temperature 98 F Pulse Rate 94 H Respiratory 18 Rate Blood Pressure 126/69 O2 Sat by Pulse 97 Oximetry (%) GENERAL: Awake, alert, and fully oriented, in no acute distress. HEAD: Normal with no signs of trauma. NECK: Normal range of motion, supple without lymphadenopathy, JVD, or masses. LUNGS: Breath sounds equal, clear to auscultation bilaterally. No wheezes, and no crackles. No accessory muscle use. HEART: Regular rate and rhythm, normal S1 and S2 without murmur, rub or gallop. ABDOMEN: Soft, nontender, not distended, normoactive bowel sounds, no guarding, no rebound, no masses. No hepatomegaly or splenomegaly. MUSCULOSKELETAL: Normal range of motion at all joints. No bony deformities or tenderness. No CVA tenderness. UPPER EXTREMITIES: 2+ pulses, warm, well-perfused. No cyanosis. No clubbing. No peripheral edema. LOWER EXTREMITIES: 2+ pulses, warm, well-perfused. No calf tenderness. No peripheral edema. NEUROLOGICAL: Cranial nerves II-XII intact. Normal speech. Normal gait. PSYCHIATRIC: Cooperative. Good eye contact. Appropriate mood and affect. SKIN: Warm, dry, normal turgor, no rashes or lesions noted, normal capillary refill. Laboratory Results - last 24 hr 01/10/17 01/10/17 01/10/17 12:49 12:49 12:49 WBC 4.0 RBC 3.30 L Hgb 9.8 L Hct 30.3 L MCV 91.9 MCHC 32.4 RDW 16.1 H Plt Count 189 D MPV 7.1 L Neutrophils % 66.5 D Lymphocytes % 21.7 D Monocytes % 8.7 Eosinophils % 1.8 Basophils % 1.3 INR 1.01 Sodium 143 Potassium 4.1 Chloride 110 H Carbon Dioxide 23 Anion Gap 10 BUN 24 H Creatinine 0.8 Creat Clearance w eGFR > 60 Random Glucose 97 Calcium 8.6 Total Bilirubin 0.4 AST 25 D ALT 17 Alkaline Phosphatase 98 D Total Protein 6.9 Albumin 3.1 L D ASSESSMENT/PLAN: 61 yr female with c/o cervical osteomylitis recently found on MRI -appreciate Dr. Santiago for ID consult -will follow cx -pain medications -spine surgeon, -planned bx with SHANA and hold ABT Visit type - Emergency Visit Emergency Visit: Yes ED Registration Date: 01/10/17 Care time: The patient presented to the Emergency Department on the above date and was hospitalized for further evaluation of their emergent condition. - New Patient This patient is new to me today: Yes Date on this admission: 01/10/17 - Critical Care Critical Care patient: No
[2017-01-10] MEDS ORDERED: traMADol HCL 50 MG TABLET PO ONE (14:58)
[2017-01-10] MEDS ORDERED: traMADol HCL 50 MG TABLET ONE (15:18)
--- NOTE | 2017-01-10 15:19 | CONSULT ---
Consult Consult Specialty:: infectiou diseases Reason for Consultation:: osteo of cervical vertebra - History of Present Illness Chief Complaint: neck pain History of Present Illness: this patient well known to me from last admission who was admitted with uti culminating in bacteremia ,who was treated and went home without any issues. patient about a month before this episode of bactermeia was c/o of pain in the cervical region and shoulder and neurologist moses evalauted her and was diagnosed as brachial plexitis and treated with steroids and patient was feelign better. During the last admission patient did not complain of neck pain though she mentioned she was having that before and during her hospitaly stay had no neck pain. couple of days after discharge patient again started c/o of neck pain and was seen by the neurologist and on the of this month mri was done showing cervical osteo with compression on the spinal cord Patient was resend for admission and further work up and treatment currently she is having pain while any type of movement of the neck region, though there is minimal tenderness on palpation - History Source History Provided By: Patient Limitations to Obtaining History: No Limitations - Alcohol/Substance Use Hx Alcohol Use: Yes (SOCIAL) - Smoking History Smoking history: Never smoked Have you smoked in the past 12 months: No Home Medications - Allergies Allergies/Adverse Reactions: Allergies Allergy/AdvReac Type Severity Reaction Status Date / Time everolimus [From Afinitor] AdvReac Severe SOB, Verified 01/10/17 11:17 Myalgias, Arthralgias,Edema erythromycin base AdvReac Verified 01/10/17 11:17 [Erythromycin Base] - Home Medications Home Medications: Ambulatory Orders Montelukast Na [Singulair -] 10 mg PO HS 12/22/16 Topiramate [Topamax] 50 mg PO DAILY 12/22/16 Lorazepam [Ativan] 2 mg PO HS 01/10/17 Family Disease History - Family Disease History Other Family History: not relevant Review of Systems - Review of Systems Constitutional: reports: No Symptoms Eyes: reports: No Symptoms HENT: reports: No Symptoms Neck: reports: Pain on Movement, Tenderness Cardiovascular: reports: No Symptoms Respiratory: reports: No Symptoms Gastrointestinal: reports: No Symptoms Genitourinary: reports: No Symptoms Integumentary: reports: No Symptoms Neurological: reports: No Symptoms Endocrine: reports: No Symptoms Hematology/Lymphatic: reports: No Symptoms Psychiatric: reports: No Symptoms Physical Exam Vital Signs: Vital Signs Temperature 98 F 01/10/17 11:14 Pulse Rate 94 H 01/10/17 11:14 Respiratory Rate 18 01/10/17 11:14 Blood Pressure 126/69 01/10/17 11:14 O2 Sat by Pulse Oximetry (%) 97 01/10/17 11:14 Constitutional: Yes: Well Nourished, Calm, Mild Distress Eyes: Yes: Conjunctiva Clear HENT: Yes: Atraumatic, Normocephalic Neck: Yes: Supple, Trachea Midline, Tenderness (on anytype of movement of the neck). No: Rigid Cardiovascular: Yes: Regular Rate and Rhythm Respiratory: Yes: Regular, CTA Bilaterally Gastrointestinal: Yes: Normal Bowel Sounds, Soft Musculoskeletal: Yes: Muscle Pain Extremities: Yes: WNL Integumentary: Yes: WNL Neurological: Yes: Alert, Oriented Psychiatric: Yes: Alert, Oriented Imaging - Results MRI: Image Reviewed Assessment/Plan after looking at the mri looks like patient c4-c5 diskitits /osteo with compression symptoms and destruction of the vertebra osteo of cervical vertebra pain plan to get cervical mri with contrast neuro to see await for bone biopsy once we have that then will decide what abx and how long currently will not start any abx await for final results of blood cx once we have biopsy done will initiate empric abx untill final results are obtained
--- NOTE | 2017-01-10 19:33 | CON.NEURO ---
Consult Consult Specialty:: Neurology Reason for Consultation:: Discitis/Osteomyelitis - History of Present Illness Chief Complaint: Pain in neck and right arm weakness for about 6 weeks History of Present Illness: I was called last night by Dr. Calzada about my colleague Dr. Ojeda's patient, Ms. Dee to alert me to a radiologic finding prompting the current admission. The patient is a 61 year old woman with a history of carcinoid tumor of the rectum who was admitted to last month for UTI/Sepsis and saw my associate Dr. Ojeda in late November. He saw her for neck pain and did an EMG which showed some deficits which he thought were probably either radicular or brachial neuritis, gave her a steroid taper and sent her for the MRI of the brachial plexus, which wasnt' done until yesterday. The steroids helped her pain in the arm considerably ,but she continued to have neck pain which then worsened and spread tot he other side. THe pain is aggravated by flexion extension of the neck. The patient's symptoms started in early November, well before her sepsis, and there was no preceding procedure or surgery or open skin injury that she can identify or any dental work that might serve as a risk factor. - History Source History Provided By: Patient, Medical Record Limitations to Obtaining History: No Limitations - Alcohol/Substance Use Hx Alcohol Use: Yes (SOCIAL) - Smoking History Smoking history: Never smoked Have you smoked in the past 12 months: No Home Medications - Allergies Allergies/Adverse Reactions: Allergies Allergy/AdvReac Type Severity Reaction Status Date / Time everolimus [From Afinitor] AdvReac Severe SOB, Verified 01/10/17 11:17 Myalgias, Arthralgias,Edema erythromycin base AdvReac Verified 01/10/17 11:17 [Erythromycin Base] - Home Medications Home Medications: Ambulatory Orders Montelukast Na [Singulair -] 10 mg PO HS 12/22/16 Topiramate [Topamax] 50 mg PO DAILY 12/22/16 Physical Exam-Neuro Vital Signs: Vital Signs Temperature 98 F 01/10/17 11:14 Pulse Rate 66 01/10/17 16:57 Respiratory Rate 18 01/10/17 16:57 Blood Pressure 119/69 01/10/17 16:57 O2 Sat by Pulse Oximetry (%) 99 01/10/17 16:57 Constitutional: Yes: Well Nourished, No Distress, Anxious (appropriately so) Neck: Yes: Tenderness (on flexion or extension) Labs: INR, PTT INR 1.01 (0.82-1.09) 01/10/17 12:49 - Neuro Exam Level Of Consciousness: Yes: Alert Eyes: Yes: PERRLA Speech: WNL Cranial Nerves II-XII Intact: Yes DTR's: 2+ Left Bicep, 2+ Right Bicep, 2+ Left Tricep, 2+ Right Tricep, 2+ Left Brachioradialis, 2+ Right Brachioradialis, 2+ Left Achilles, 2+ Right Achilles Babinski: Absent Response to light touch: Normal Response to pain prick: Normal Motor Strength: 4/5: Right Arm (Right deltoid and triceps are weak), 5/5: Left Arm, Left Leg, Right Leg NIH Stroke Scale - Total Score NIH Stroke Scale Score: 0 Imaging - Results MRI: Report Reviewed, Image Reviewed Problem List - Problems (1) Osteomyelitis Assessment/Plan: Osteomyelitis, discitis, with associated weakness in the right deltoid and triceps muscles, not accounted for by pain. Will need biopsy of area, if not debulking followed by IV antibiotics. Await completion of neurosurgery consult. Code(s): M86.9 - OSTEOMYELITIS, UNSPECIFIED Qualifiers: Osteomyelitis type: subacute Osteomyelitis location: other site Qualified Code(s): M86.28 - Subacute osteomyelitis, other site
[2017-01-10] MEDS ORDERED: LORazepam 1 MG TABLET PO ONE (23:18)
[2017-01-10] MEDS: MONTELUKAST NA 10 MG TABLET PO SCH (23:28)
[2017-01-10] MEDS ORDERED: ACETAMINOPHEN 325 MG TABLET (FP) PO ONE (23:45)
[2017-01-11 00:19] VITALS: BMI 26.4
[2017-01-11 03:58] LABS: URINE APPEARANCE CLEAR; URINE BILIRUBIN NEGATIVE (NEGATIVE); URINE BLOOD NEGATIVE (NEGATIVE); URINE COLOR STRAW; URINE GLUCOSE (UA) NEGATIVE (NEGATIVE); URINE KETONE NEGATIVE (NEGATIVE); URINE NITRITE NEGATIVE (NEGATIVE); URINE PROTEIN NEGATIVE (NEGATIVE); URINE UROBILINOGEN NEGATIVE E.U./dl (0.2-1.0)
[2017-01-11 04:01] LABS: URINE LEUK ESTERASE 3+ (NEGATIVE)
[2017-01-11 04:07] LABS: URINE BACTERIA RARE /hpf (NONE SEEN); URINE MUCUS RARE; URINE RBC 4 /hpf (0-3); URINE WBC 47 /hpf (3-5)
--- NOTE | 2017-01-11 08:02 | PN ---
Progress Note (short form) - Note Progress Note: NEUROSURGERY CONSULT DICTATED H/o carcinoid tumor and borderline DM. Neck and bilateral shoulder pain x 4 weeks with R arm weakness. Seen Dr Padilla. ALso had low grade temp since 1 month ago with malaise. Admitted two weeks ago with urosepsis and treated with abx. Pt reports her neck pain is exacerbated with palpation at the midline and with extension of her neck. H/o rectal carcinoid tumor on chemo last in April. PE: AF, VSS HEENT- NC/ACT; Neck- decreased ROM, flexion 35 degrees extension 20 degrees, + spasm; Cor-RRR; Lungs- CTA B; Abd- benign; Ext- no sign of DVT CN- intact; Motor- 5/5 except R D/supraspinatus/B/BR 4+; Sensation- intact LT/ vibration; DTR- 1+; B toes upgoing Neck MRI- C4-5 discitis/osteomyelitis; anterior epidural soft tissue thickening ; posterior cervical ligamentus edema C4-5; prevertebral soft tissue swelling C4-5 discitis/osteomyelitis with epidural? soft tissue anteriorly For emergency C spine MRI with jayme Need ant cervical decompression fusion, instrumentation, L iliac graft Surgical intervention recommended for tissue diagnosis, debridement of infected disc, decompression of neurological element, and stabilization of spine Risks: bleeding, infection, paralysis, nerve injury, hoarseness, swallowing difficulty, non-diagnostic tissue, other risks of GA Her risks are somewhat higher due to medical conditions Pt concurs with plan IVF post IV contrast Will schedule with OR and arrange implants ID input Urine culture
[2017-01-11 08:35] LABS: BASOPHIL 0.9 % (0-2.0); EOSINOPHIL 2.9 % (0-4.5); MCH 29.8 pg (25.7-33.7); MCHC 32.3 g/dl (32.0-36.0); MEAN CELL VOLUME 92.3 fl (80-96); MEAN PLT VOLUME 7.2 fl (7.5-11.1); NEUTROPHILS 64.6 % (42.8-82.8); PLATELET COUNT 191 K/MM3 (134-434); RDW 16.3 % (11.6-15.6); WHITE BLOOD COUNT 3.3 K/mm3 (4.0-10.0)
[2017-01-11 09:09] LABS: ANION GAP 10 (8-16); CALCIUM 8.7 mg/dL (8.5-10.1); CO2 22 mmol/L (21-32); GLUCOSE,RANDOM 112 mg/dL (74-106)
[2017-01-11 09:14] LABS: ALK PHOS 97 U/L (45-117); BILIRUBIN,TOTAL 0.6 mg/dL (0.2-1.0); COCKROFT - GAULT 81.5915; CREATININE 0.8 mg/dL (0.55-1.02); SGOT/AST 11 U/L (15-37); SGPT/ALT 17 U/L (12-78); TOT PROT 6.8 g/dl (6.4-8.2)
[2017-01-11] MEDS: TOPIRAMATE 25 MG TABLET (FP) PO SCH (09:54)
[2017-01-11] MEDS ORDERED: PATIENT'S OWN MEDICATION (NON-FORMULARY) (Topiramate [Topamax] 50 MG) PO SCH (10:00)
[2017-01-11] MEDS: SODIUM CHLORIDE 0.45%/POT 1,000 ML IV SCH ×2 (10:09→21:40)
[2017-01-11] MEDS ORDERED: traMADol HCL 50 MG TABLET PO PRN (10:22)
--- NOTE | 2017-01-11 11:37 | PN ---
Progress Note, Physician Chief Complaint: neck pain History of Present Illness: Pain in neck since early november with progression, than admission for sepsis, UTI. Upon discharge saw Dr. Ojeda who felt that she had brachial neuritis or possibly cevical radiculopathy based on EMG findings, ordered MRI. She had good results from steroid treatment, but MRI showed C4-5 discitis osteomyelitis when it was finally done 2 days ago, a surprise finding. I was called and arranged the current admission emergently. She has had progression of pain and some weakenss on the right side, though its not clear if that has progressed as well. - Current Medication List Current Medications: Active Medications Potassium Chloride/Sodium Chloride (1/2ns+20meq Kcl) 1,000 mls @ 75 mls/hr IV ASDIR [facility] Last Admin: 01/11/17 10:09 Dose: 75 mls/hr Montelukast Sodium (Singulair -) [address] [facility] Last Admin: 01/10/17 23:28 Dose: 10 mg Topiramate (Topamax -) [address] [facility] Last Admin: 01/11/17 09:54 Dose: 50 mg Tramadol HCl (Ultram -) 50 mg PO Q8H PRN PRN Reason: PAIN Last Admin: 01/11/17 10:43 Dose: 50 mg - Objective Vital Signs: Vital Signs Temperature 98.2 F 01/11/17 06:00 Pulse Rate 72 01/11/17 10:00 Respiratory Rate 18 01/11/17 10:00 Blood Pressure 116/80 01/11/17 10:00 O2 Sat by Pulse Oximetry (%) 98 01/11/17 09:00 Neurological: Yes: Alert, Oriented ...Motor Strength: LUE (5/5), LLE (5/5), RUE (4/5 deltoids, triceps), RLE (5/5) Psychiatric: Yes: Alert, Oriented, Other (calm, and appropriately adjusting to the situation) Labs: CBC, BMP 01/11/17 07:30 01/11/17 07:30 INR, PTT INR 1.01 (0.82-1.09) 01/10/17 12:49 - ....Imaging MRI: Report Reviewed, Image Reviewed (c4-5 osteomyelitis, discitis) Problem List - Problems (1) Osteomyelitis Assessment/Plan: Osteomyelitis, discitis, with associated weakness in the right deltoid and triceps muscles, not accounted for by pain. Will need biopsy of area, if not debulking followed by IV antibiotics. Plan is for surgery tomorrow. Identification of organism. I would also ask ID if given that this started in early November, most likely, and that she subsequently also developed a UTI and sepsis, could there be another source of seeding in the body that we need to look for? Code(s): M86.9 - OSTEOMYELITIS, UNSPECIFIED Qualifiers: Osteomyelitis type: subacute Osteomyelitis location: other site Qualified Code(s): M86.28 - Subacute osteomyelitis, other site
[2017-01-11 11:51] LABS: C-REACTIVE PROTEIN < 0.3 MG/DL (0.00-0.3)
--- NOTE | 2017-01-11 12:24 | CONS ---
DATE OF CONSULTATION: 01/11/2017 CHIEF COMPLAINT: Neck pain, right arm weakness, with fever. HISTORY OF PRESENT ILLNESS: The patient is a 61-year-old ambidextrous female with a history of carcinoid tumor, status post chemotherapy treatment, last dose in April of last year, and borderline diabetes, who complains of approximately 1 month history of mild neck pain and right arm weakness. She had a low-grade temperature. She also had developed malaise at the time. The patient attributed to having a flu. About 2 weeks ago, she had presented to the hospital with 103 fever, and at that time was treated for urosepsis. The patient subsequently had defervesced, and went home. She was discharged about a week ago. She now complains of increasing neck pain and right arm weakness. She also feels generalized fatigue. The patient denies Lhermitte sign, has no bowel or bladder dysfunction. There is persistent right arm weakness as well as neck, and left and right scapular pain. She has no ataxia or bowel or bladder incontinence. There is no history of prior infection, by report. Past medical history is significant for carcinoid tumor, borderline diabetes, recent urosepsis. Current medications include Topamax, Singulair. Allergies to ERYTHROMYCIN and EVEROLIMUS. Review of systems is otherwise negative for other major cardiovascular, pulmonary, gastrointestinal, genitourinary, endocrinological, neurological, or psychological problem. Family history is noncontributory. 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 She does not smoke and only drinks alcohol socially. She denied any recreational drugs. PHYSICAL EXAMINATION: Vital Signs: Temperature is 98.2, blood pressure 106/55, with pulse rate 66, O2 saturation is 97% on room air. HEENT: Normocephalic, atraumatic. Anicteric. Neck: Supple, but with decreased range of motion. Cervical spine flexion is 35 degrees and extension is 20 degrees. Lateral rotation is 45 degrees in each direction. There is mild cervical paraspinal muscle spasm bilaterally. Coronary: Regular rhythm. Lungs: Clear bilaterally. Abdomen: Benign. Extremities: No signs of DVT. Neurologic: The patient is awake and alert, oriented x4. Cranial nerves examination is intact, 2-12. Motor examination shows 5/5 strength except for right deltoid, supraspinatus, biceps and brachioradialis, which are 4+. Sensory examination intact to light touch and proprioception, as well as vibratory sensation. Deep tendon reflexes are 1+ throughout. There are no pathologic long tract signs. Bilateral toes were upgoing in the lower extremities. Gait is not tested, for safety reasons. Cerebellar examination demonstrated normal pronation without tremor. Laboratory examination shows BUN 24 and creatinine 0.8. Albumin is 3.1. INR is 1.11. White blood cell count is 4000, hemoglobin is 9.8, and platelet count is 189,000. Urinalysis shows 3+ leukocyte esterase with 4 RBCs and 47 WBCs. Blood culture is pending. MRI of the neck demonstrated C4-5 diskitis with adjacent edema. There profuse prevertebral soft tissue swelling with edema from C2 to C5. There is anterior epidural extension of the soft tissue intensity as well. There is no spinal cord edema or myelomalacia. IMPRESSION: 1. C4-5 diskitis/osteomyelitis. 2. History of carcinoid tumor with history of prior chemotherapy regimen. 3. Borderline diabetes. 4. Recent urosepsis. RECOMMENDATIONS: The patient presents with 4-week history of neck pain, fever, malaise, and right arm weakness. On my examination today she has trace weakness of the right C4, C5, and C6 distribution. There is no associated numbness. She does have bilateral upgoing toes. MRI of the neck demonstrated C4-5 diskitis with edema to C4 and C5 vertebral bodies. There is also prevertebral soft tissue intensity consistent with inflammation and possible infection. The patient is scheduled for emergency MRI shortly, which will better delineate the pathology at C4 and C5. After that, she is a candidate for anterior cervical decompression, fusion, instrumentation, with left anterior iliac crest autologous bone graft. The patient has history of borderline osteoporosis and autologous bone graft may or may not be adequate. In that case, allograft may need to be used instead. This will be done with intraoperative traction as well as SSEP/EMG/MEP monitoring. The risks of procedure include but are not limited to bleeding, infection, dural tear with CSF leak, paralysis, hoarseness, swallowing difficulties, and other risks of general anesthesia. The patient understands the indication for the procedure, procedure in detail, risks and benefits, and alternative modes of treatment for her cervical spine condition. She concurred with the plan. She understands that she is at high risk of developing medical adverse events because of her underlying medical history. All questions were answered. No guarantee was given for a favorable outcome. The goal is to try to obtain a culture diagnosis of the source of infection as well as identification of the organism, remove the infected tissue at C4-5, especially disk material, decompress spinal cord cervical roots, as well as provide stabilization of the unstable infected cervical spine. The patient was informed of the potential alternative of IV antibiotic only, but in light of the advantage of the surgical procedure to confer additional benefits, as well as seriousness of her condition, surgical intervention is warranted. All questions are answered at bedside. DEVORA CISSE M.D. [id number]
--- NOTE | 2017-01-11 12:32 | PN ---
Physical Exam: SUBJECTIVE: Patient seen and examined. She complains of neck pain. OBJECTIVE: Vital Signs Period Temp Pulse Resp BP Sys/Vega Pulse Ox Last 24 Hr 97.9 F-98.2 F 66-72 18-18 106-120/51-80 97-99 GENERAL: The patient is awake, alert, and fully oriented, in no acute distress. NECK: Trachea midline, full range of motion, supple. LUNGS: Breath sounds equal, clear to auscultation bilaterally, no wheezes, no crackles, no accessory muscle use. HEART: Regular rate and rhythm, S1, S2 without murmur, rub or gallop. ABDOMEN: Soft, nontender, nondistended, normoactive bowel sounds, no guarding, no rebound, no hepatosplenomegaly, no masses. EXTREMITIES: 2+ pulses, warm, well-perfused, no edema. Laboratory Results - last 24 hr 01/11/17 01/11/17 01/11/17 03:49 07:30 07:30 WBC 3.3 L RBC 3.33 L Hgb 9.9 L Hct 30.7 L MCV 92.3 MCHC 32.3 RDW 16.3 H Plt Count 191 MPV 7.2 L Neutrophils % 64.6 Lymphocytes % 22.8 Monocytes % 8.8 Eosinophils % 2.9 Basophils % 0.9 PTT (Actin FS) Sodium 143 Potassium 4.1 Chloride 111 H Carbon Dioxide 22 Anion Gap 10 BUN 19 H D Creatinine 0.8 Creat Clearance w eGFR > 60 Random Glucose 112 H Calcium 8.7 Total Bilirubin 0.6 D AST 11 L D ALT 17 Alkaline Phosphatase 97 C-Reactive Protein < 0.3 Total Protein 6.8 Albumin 3.0 L Urine Color Straw Urine Appearance Clear Urine pH 6.0 Ur Specific [place] 1.012 Urine Protein Negative Urine Glucose (UA) Negative Urine Ketones Negative Urine Blood Negative Urine Nitrite Negative Urine Bilirubin Negative Urine Urobilinogen Negative Ur Leukocyte Esterase 3+ H Urine RBC 4 Urine WBC 47 Ur Epithelial Cells Rare Urine Bacteria Rare Urine Mucus Rare Blood Type Antibody Screen 01/11/17 01/11/17 01/11/17 07:30 09:35 09:35 WBC RBC Hgb Hct MCV MCHC RDW Plt Count MPV Neutrophils % Lymphocytes % Monocytes % Eosinophils % Basophils % PTT (Actin FS) 26.9 Sodium Potassium Chloride Carbon Dioxide Anion Gap BUN Creatinine Creat Clearance w eGFR Random Glucose Calcium Total Bilirubin AST ALT Alkaline Phosphatase C-Reactive Protein Cancelled Total Protein Albumin Urine Color Urine Appearance Urine pH Ur Specific [place] Urine Protein Urine Glucose (UA) Urine Ketones Urine Blood Urine Nitrite Urine Bilirubin Urine Urobilinogen Ur Leukocyte Esterase Urine RBC Urine WBC Ur Epithelial Cells Urine Bacteria Urine Mucus Blood Type A POSITIVE Antibody Screen Negative 01/11/17 10:07 WBC RBC Hgb Hct MCV MCHC RDW Plt Count MPV Neutrophils % Lymphocytes % Monocytes % Eosinophils % Basophils % PTT (Actin FS) Sodium Potassium Chloride Carbon Dioxide Anion Gap BUN Creatinine Creat Clearance w eGFR Random Glucose Calcium Total Bilirubin AST ALT Alkaline Phosphatase C-Reactive Protein Total Protein Albumin Urine Color Urine Appearance Urine pH Ur Specific [place] Urine Protein Urine Glucose (UA) Urine Ketones Urine Blood Urine Nitrite Urine Bilirubin Urine Urobilinogen Ur Leukocyte Esterase Urine RBC Urine WBC Ur Epithelial Cells Urine Bacteria Urine Mucus Blood Type A POSITIVE Antibody Screen Active Medications Generic Name Dose Route Start Last Admin Trade Name Freq PRN Reason Stop Dose Admin Potassium Chloride/Sodium Chloride 1,000 mls @ 75 mls/hr 01/11/17 08:15 10:09 1/2ns+20meq Kcl IV 75 mls/hr ASDIR JAMISON Administration Lorazepam 1 mg 01/11/17 21:00 Ativan - PO 01/11/17 21:01 ONCE ONE Montelukast Sodium 10 mg 01/10/17 22:00 01/10/17 23:28 Singulair - PO 10 mg HS JAMISON Administration Topiramate 50 mg 01/11/17 10:00 01/11/17 09:54 Topamax - PO 50 mg DAILY JAMISON Administration ASSESSMENT/PLAN: This is a 61-year-old woman with a history of rectal carcinoid, migraine headaches, GERD who presented to the ER after being found to have cervical discitis/osteomyelitis on MRI. 1. C4-5 discitis and osteomyelitis - Plan for surgery tomorrow - Pain control - C-RP <0.3, ESR pending - Blood cultures negative after 24 hours 2. Migraine headaches - Continue Topamax Visit type - Emergency Visit Emergency Visit: Yes ED Registration Date: 01/10/17 Care time: The patient presented to the Emergency Department on the above date and was hospitalized for further evaluation of their emergent condition. - New Patient This patient is new to me today: Yes Date on this admission: 01/11/17 - Critical Care Critical Care patient: No - Discharge Referral Referred to [facility] Med P.C.: No
--- NOTE | 2017-01-11 14:25 | EKG ---
Test Reason : Blood Pressure : / mmHG Vent. Rate : 065 BPM Atrial Rate : 065 BPM P-R Int : 176 ms QRS Dur : 074 ms QT Int : 402 ms P-R-T Axes : 063 052 027 degrees QTc Int : 418 ms NORMAL SINUS RHYTHM NORMAL ECG WHEN COMPARED WITH ECG OF 22-DEC-2016 12:41, NO SIGNIFICANT CHANGE WAS FOUND Confirmed by RAVI SEVERINO MD ([id number]) on 01/11/2017 2:25:11 PM Referred By: Confirmed By:RAVI SEVERINO MD
--- NOTE | 2017-01-11 14:53 | PN ---
Progress Note, Physician History of Present Illness: stable no issues evaluated by neuro patient for or tomorrow - Current Medication List Current Medications: Active Medications Potassium Chloride/Sodium Chloride (1/2ns+20meq Kcl) 1,000 mls @ 75 mls/hr IV [facility]IR [facility] Last Admin: 01/11/17 10:09 Dose: 75 mls/hr Lorazepam (Ativan -) 1 mg PO ONCE ONE Stop: 01/11/17 21:01 Montelukast Sodium (Singulair -) 10 mg PO HS [facility] Last Admin: 01/10/17 23:28 Dose: 10 mg Oxycodone HCl (Roxicodone -) 5 mg PO Q6H PRN PRN Reason: PAIN Topiramate (Topamax -) 50 mg PO DAILY [facility] Last Admin: 01/11/17 09:54 Dose: 50 mg - Objective Vital Signs: Vital Signs Temperature 98.2 F 01/11/17 06:00 Pulse Rate 72 01/11/17 10:00 Respiratory Rate 18 01/11/17 10:00 Blood Pressure 116/80 01/11/17 10:00 O2 Sat by Pulse Oximetry (%) 98 01/11/17 09:00 Constitutional: Yes: No Distress, Calm HENT: Yes: Other (pain on movement) Cardiovascular: Yes: Regular Rate and Rhythm Respiratory: Yes: Regular, CTA Bilaterally Gastrointestinal: Yes: Normal Bowel Sounds, Soft Musculoskeletal: Yes: WNL Extremities: Yes: WNL Neurological: Yes: Alert, Oriented Psychiatric: Yes: Alert, Oriented Labs: CBC, BMP 01/11/17 07:30 01/11/17 07:30 INR, PTT INR 1.01 (0.82-1.09) 01/10/17 12:49 Assessment/Plan osteo of cervical vertebra pain plan await for surgery once we have tissue and diagnosis we will manage rest no abx until biopsy is done pain mgmt
[2017-01-11] MEDS: oxyCODONE HCL 5 MG TABLET PO PRN ×2 (15:04→21:31)
[2017-01-11] MEDS ORDERED: LORazepam 1 MG TABLET PO ONE (21:00)
[2017-01-11] MEDS: MONTELUKAST NA 10 MG TABLET PO SCH (21:31)
--- NOTE | 2017-01-12 07:53 | PN ---
Physical Exam: SUBJECTIVE: Patient seen and examined at bed side this morning. Complaints of mild pain over the back of the neck on movement. No other complaints. Denies headache, fever, chest pain, sob, cough, palpitation, abdominal pain, nausea or vomiting. Bowel/Bladder habit normal. Sleep/Appetite normal. OBJECTIVE: Vital Signs Period Temp Pulse Resp BP Sys/Vega Pulse Ox Last 24 Hr 97.3 F-98.7 F 70-84 18-20 100-123/59-80 98-98 GENERAL: The patient is awake, alert, and fully oriented, in no acute distress. HEAD: Normal with no signs of trauma. EYES: PERRL, extraocular movements intact, sclera anicteric, conjunctiva clear. No ptosis. ENT: Ears normal, nares patent, oropharynx clear without exudates, moist mucous membranes. NECK: Trachea midline, supple but decreased range of motion, flexion 35 degrees extension 20 degrees, + spasm. LUNGS: Breath sounds equal, clear to auscultation bilaterally, no wheezes, no crackles, no accessory muscle use. HEART: Regular rate and rhythm, S1, S2 without murmur, rub or gallop. ABDOMEN: Soft, nontender, nondistended, normoactive bowel sounds, no guarding, no rebound, no hepatosplenomegaly, no masses. EXTREMITIES: 2+ pulses, warm, well-perfused, no edema. NEUROLOGICAL: Cranial nerves II through XII grossly intact. Normal speech, gait not observed. PSYCH: Normal mood, normal affect. SKIN: Warm, dry, normal turgor, no rashes or lesions noted Laboratory Results - last 24 hr 01/11/17 01/11/17 01/11/17 07:30 07:30 07:30 WBC 3.3 L RBC 3.33 L Hgb 9.9 L Hct 30.7 L MCV 92.3 MCHC 32.3 RDW 16.3 H Plt Count 191 MPV 7.2 L Neutrophils % 64.6 Lymphocytes % 22.8 Monocytes % 8.8 Eosinophils % 2.9 Basophils % 0.9 ESR PTT (Actin FS) Sodium 143 Potassium 4.1 Chloride 111 H Carbon Dioxide 22 Anion Gap 10 BUN 19 H D Creatinine 0.8 Creat Clearance w eGFR > 60 Random Glucose 112 H Calcium 8.7 Total Bilirubin 0.6 D AST 11 L D ALT 17 Alkaline Phosphatase 97 C-Reactive Protein < 0.3 Cancelled Total Protein 6.8 Albumin 3.0 L Blood Type Antibody Screen 01/11/17 01/11/17 01/11/17 07:30 09:35 09:35 WBC RBC Hgb Hct MCV MCHC RDW Plt Count MPV Neutrophils % Lymphocytes % Monocytes % Eosinophils % Basophils % ESR 75 H PTT (Actin FS) 26.9 Sodium Potassium Chloride Carbon Dioxide Anion Gap BUN Creatinine Creat Clearance w eGFR Random Glucose Calcium Total Bilirubin AST ALT Alkaline Phosphatase C-Reactive Protein Total Protein Albumin Blood Type A POSITIVE Antibody Screen Negative 01/11/17 10:07 WBC RBC Hgb Hct MCV MCHC RDW Plt Count MPV Neutrophils % Lymphocytes % Monocytes % Eosinophils % Basophils % ESR PTT (Actin FS) Sodium Potassium Chloride Carbon Dioxide Anion Gap BUN Creatinine Creat Clearance w eGFR Random Glucose Calcium Total Bilirubin AST ALT Alkaline Phosphatase C-Reactive Protein Total Protein Albumin Blood Type A POSITIVE Antibody Screen Active Medications Generic Name Dose Route Start Last Admin Trade Name Freq PRN Reason Stop Dose Admin Potassium Chloride/Sodium Chloride 1,000 mls @ 75 mls/hr 01/11/17 08:15 21:40 1/2ns+20meq Kcl IV 75 mls/hr ASDIR JAMISON Administration Montelukast Sodium 10 mg 01/10/17 22:00 01/11/17 21:31 Singulair - PO 10 mg HS JAMISON Administration Oxycodone HCl 5 mg 01/11/17 12:30 01/11/17 21:31 Roxicodone - PO 5 mg Q6H PRN Administration PAIN Topiramate 50 mg 01/11/17 10:00 01/11/17 09:54 Topamax - PO 50 mg DAILY JAMISON Administration ASSESSMENT/PLAN: Patient is a 62 year old female with significant past medical history of Carcinoid tumor s/p chemo (last chemo in April); GERD and migraine headaches presented to the ED with the chief complaints of neck and bilateral shoulder pain. Recently discharged from the hospital for sepsis secondary to UTI ( proteus mirabilis bateremia) on 01/01/17. # Osteomyelitis of C4/C5 Patient presented with neck and bilateral shoulder pain MRI of the neck showed: C4-5 discitis/osteomyelitis; anterior epidural soft tissue thickening; posterior cervical ligamentus edema C4-5; prevertebral soft tissue swelling; + enhancement. Admitted in Med-Surg Dr. Sherwood consult appreciated Plan: Surgical intervention recommended for tissue diagnosis, debridement of infected disc, decompression of neurological element, and stabilization of spine Surgery at 11:00 am today NPO for surgery IV Ceftriaxone 1gm daily IV Fluids @ 75 mls/hr # GERD- no active symptoms # Migraine- No complaints of headache # Carcinoid tumor s/p chemo (last chemo in April) # FEN IV NS @ 75mls/hr Electrolytes to be repeated NPO # Prophylaxis For DVT: On SCDs, not on anticoagulation since patient is going in for the surgery this morning. For GI: Not indicated # Code status: Full Code # Dispo: Admitted in Med-Surg. Duration of stay unknown. Illness, Investigation and Plan of care explained to the patient. She verbalized understanding. Case discussed with Dr. Mar. Visit type - Emergency Visit Emergency Visit: Yes ED Registration Date: 01/10/17 Care time: The patient presented to the Emergency Department on the above date and was hospitalized for further evaluation of their emergent condition. - New Patient This patient is new to me today: Yes Date on this admission: 01/12/17 - Critical Care Critical Care patient: No
[2017-01-12] MEDS: SODIUM CHLORIDE 0.45%/POT 1,000 ML IV SCH ×3 (08:56→21:04)
[2017-01-12] MEDS: TOPIRAMATE 25 MG TABLET (FP) PO SCH (10:00)
[2017-01-12] MEDS ORDERED: BUPIVACAINE HCL/PF 0.5% (5MG/ML) 10 ML VIAL ONE (10:38)
[2017-01-12] MEDS ORDERED: BACITRACIN 30 GM TUBE TOPICAL OINTMENT ONE (10:38)
[2017-01-12] MEDS ORDERED: THROMBIN (BOVINE) 5,000 UNIT VIAL TP ONE ×2 (10:38→13:12)
--- NOTE | 2017-01-12 11:00 | PN ---
Progress Note (short form) - Note Progress Note: NEUROSURGERY Neck pain PE: AF, VSS HEENT- NC/ACT; Neck- decreased ROM, flexion 35 degrees extension 20 degrees, + spasm; Cor-RRR; Lungs- CTA B; Abd- benign; Ext- no sign of DVT CN- intact; Motor- 5/5 except R D/supraspinatus/B/BR 4+; Sensation- intact LT/ vibration; DTR- 1+; B toes upgoing Neck MRI- C4-5 discitis/osteomyelitis; anterior epidural soft tissue thickening ; posterior cervical ligamentus edema C4-5; prevertebral soft tissue swelling; + enhancement C4-5 discitis/osteomyelitis with epidural soft tissue anteriorly Blood and urine culture pending Need C4-5 ant cervical decompression, fusion, instrumentation, L iliac graft C4- 5, possible corpectomies and fusion needed C3-6 if C4/5 eroded/affected significantly and need to be resected Surgical intervention recommended for tissue diagnosis, debridement of infected disc, decompression of neurological element, and stabilization of spine Risks: bleeding, infection, paralysis, nerve injury, hoarseness, swallowing difficulty, non-diagnostic tissue (prior course of abx), other risks of GA Pros and cons of tx approaches discussed; Pt understands indications for the procedure, procedure in detail, risks/benefits, alternatives and chooses to proceed All questions answered Her risks are somewhat higher due to medical conditions including prior CA and chemo, borderline DM and osteoporosis The above discussed with pt again Pt concurs with plan Care plan discussed with by phone ID [id number]/u- abx held for cultures
[2017-01-12] MEDS ORDERED: MIDAZOLAM HCL 2 MG/2 ML SINGLE DOSE VIAL ONE (11:42)
[2017-01-12] MEDS ORDERED: ROCURONIUM BROMIDE 50 MG/5 ML VIAL ONE (11:42)
[2017-01-12] MEDS ORDERED: PROPOFOL 20 ML ONE ×12 (11:43→14:55)
[2017-01-12] MEDS ORDERED: VANCOMYCIN 1,000 MG VIAL (RESTRICTED TO ID ONLY) IVPB ONE (12:22)
[2017-01-12] MEDS ORDERED: CEFTRIAXONE 50 ML IVPB ONE (13:00)
[2017-01-12] MEDS ORDERED: BACITRACIN 50,000 UNITS VIAL IM ONE (13:12)
[2017-01-12] MEDS ORDERED: cefTRIAXone 1 GM/50 ML BAG (PRE-DOCKED) IVPB ONE (13:20)
[2017-01-12] MEDS ORDERED: DEXAMETHASONE SOD PHOSPHATE 4 MG/1 ML VIAL ONE (15:02)
[2017-01-12] MEDS ORDERED: ONDANSETRON 4 MG/2 ML VIAL ONE (15:02)
[2017-01-12] MEDS ORDERED: ONDANSETRON 4 MG/2 ML VIAL IVPUSH PRN ×2 (15:32→16:38)
[2017-01-12] MEDS ORDERED: HYDROmorphone HCL CARPU-JECT 1 MG/1 ML DISP.SYRIN IVPUSH PRN (15:32)
[2017-01-12] MEDS ORDERED: LACTATED RINGERS SOLUTION 1,000 ML IV SCH ×2 (15:45→16:38)
[2017-01-12] MEDS ORDERED: LIDOCAINE HCL/PF 2% SDV 5ML VIAL ONE (15:45)
[2017-01-12] MEDS ORDERED: HYDROmorphone HCL/PF 1 MG/ML VIAL (FOR PYXIS CHARGING ONLY) ONE (15:48)
--- NOTE | 2017-01-12 16:05 | OP ---
Operative Note - Note: Operative Date: 01/12/17 Pre-Operative Diagnosis: C4-5 discitis/osteomyelitis; bony erosion; cervical stenosis, radiculopathy Operation: C4-5 discectomy, partial C4 and C5 corpectomies, interbody fusion C4- 5, L anterior iliac crest tricortical graft harvest, anterior instrumentation C4 -5 with [employer] Spine Aviator system; microdissection, traction tongs Findings: nearly empty C4-5 disc space with collapse; soft tissue erosion of C5 anterior vertebral body; tissue cultures and path sent; swab cultures sent Implants: [employer] Aviator 14 mm plate and 14 mm screws x2; L anterior iliac tricortical graft Post-Operative Diagnosis: Same as Pre-op Surgeon: Giovany Sherwood Customer Energy Specialist: Thelma Piper Anesthesiologist/GROUP SEGMENT CONSULTANT: Viola Rosenberg MD Anesthesia: General Specimens Removed: C4-5 disc material, eroded bone Estimated Blood Loss (mls): 100
[2017-01-12] MEDS ORDERED: D5-1/2NS+20 MEQ KCL - 1,000 ML IV SCH (16:15)
--- NOTE | 2017-01-12 16:31 | SURG ---
Surgery Single Spindle Screw Machine Operator Note Single Spindle Screw Machine Operator: Thelma Piper PA-C Date of Service: 01/12/17 Diagnosis: C4-5 discitis/osteomyelitis; bony erosion; cervical stenosis, radiculopathy Procedure: C4-5 discectomy, partial C4 and C5 corpectomies, interbody fusion C4-5, L anterior iliac crest tricortical graft harvest, anterior instrumentation C4-5 with [employer] Spine Aviator system; microdissection, traction tongs I was present for the entirety of the operative procedure. For further detail, please refer to operative report. Visit type - Case Type Case Type: ED Admission - Emergency Emergency Visit: Yes ED Registration Date: 01/10/17 Care time: The patient presented to the Emergency Department on the above date and was hospitalized for further evaluation of their emergent condition. - New patient This patient is new to me today: Yes Date on this admission: 01/12/17 - Critical Care Critical Care patient: No
[2017-01-12] MEDS: HYDROmorphone HCL CARPU-JECT 1 MG/1 ML DISP.SYRIN IVPUSH PRN ×2 (16:35→16:45)
[2017-01-12] MEDS ORDERED: HYDROmorphone HCL CARPU-JECT 2 MG/1 ML DISP.SYRIN ONE (16:43)
[2017-01-12 17:25] LABS: MCH 30.4 pg (25.7-33.7); MCHC 32.8 g/dl (32.0-36.0); MEAN CELL VOLUME 92.8 fl (80-96); MEAN PLT VOLUME 6.9 fl (7.5-11.1); PLATELET COUNT 185 K/MM3 (134-434); RDW 16.6 % (11.6-15.6); WHITE BLOOD COUNT 6.8 K/mm3 (4.0-10.0)
--- NOTE | 2017-01-12 17:26 | PN ---
Progress Note (short form) - Note Progress Note: NEUROSURGERY In PACU PE: AF, VSS; O2 sat 100% Minimal incisional pain Motor B UE/ LE 4+-5 B; good UE ROM Sensation intact LT Dressing intact Ordered fungal and AFB cultures also-called lab On Vanco and Ceftriaxone for now- ID to manage iv abx fpc Labs pending Intra-op findings and patient condition reviewed with family
--- NOTE | 2017-01-12 17:46 | PN ---
Teaching Attending Note Name of Resident: Joan Harrington ATTENDING PHYSICIAN STATEMENT I saw and evaluated the patient. I reviewed the resident's note and discussed the case with the resident. I agree with the resident's findings and plan as documented. SUBJECTIVE: Patient complains of neck pain. OBJECTIVE: Vital Signs Period Temp Pulse Resp BP Sys/Vega Pulse Ox Last 24 Hr 97.3 F-98.7 F 70-84 18-20 100-120/59-69 95-98 GENERAL: The patient is awake, alert, and fully oriented, in no acute distress. NECK: Trachea midline, full range of motion, supple. LUNGS: Breath sounds equal, clear to auscultation bilaterally, no wheezes, no crackles, no accessory muscle use. HEART: Regular rate and rhythm, S1, S2 without murmur, rub or gallop. ABDOMEN: Soft, nontender, nondistended, normoactive bowel sounds, no guarding, no rebound, no hepatosplenomegaly, no masses. EXTREMITIES: 2+ pulses, warm, well-perfused, no edema. ASSESSMENT AND PLAN: This is a 61-year-old woman with a history of rectal carcinoid, migraine headaches, GERD who presented to the ER after being found to have cervical discitis/osteomyelitis on MRI. 1. C4-5 discitis and osteomyelitis - Plan for surgery today - anterior cervical decompression, fusion, instrumentation, left iliac graft - Pain control with oxycodone IR as needed - C-RP <0.3, ESR 75 - Blood cultures negative after 48 hours 2. Migraine headaches - Continue Topamax
[2017-01-12 17:54] LABS: ANION GAP 8 (8-16); CALCIUM 9.1 mg/dL (8.5-10.1); CO2 27 mmol/L (21-32); GLUCOSE,RANDOM 119 mg/dL (74-106); SGOT/AST 15 U/L (15-37); SGPT/ALT 18 U/L (12-78)
[2017-01-12 17:56] LABS: ALK PHOS 103 U/L (45-117); BILIRUBIN,TOTAL 0.4 mg/dL (0.2-1.0); CREATININE 0.9 mg/dL (0.55-1.02); TOT PROT 6.8 g/dl (6.4-8.2)
--- NOTE | 2017-01-12 18:12 | PN ---
Progress Note, Physician History of Present Illness: patient post op feels well no complaint neck in collar - Current Medication List Current Medications: Active Medications Ceftriaxone Sodium (Rocephin 1gm Ivpb (Pre-Docked)) 1 gm IVPB DAILY [facility] Diazepam (Valium -) 5 mg PO TID [facility] Docusate Sodium (Colace -) 100 mg PO TID [facility] Vancomycin HCl (Vancomycin (Pre-Docked)) 250 mls @ 250 mls/hr IVPB BID [facility] PRN Reason: Protocol Vancomycin HCl (Vancomycin (Pre-Docked)) 250 mls @ 250 mls/hr IVPB ONCE ONE PRN Reason: Protocol Stop: 01/13/17 00:59 Potassium Chloride/Sodium Chloride (1/2ns+20meq Kcl) 1,000 mls @ 75 mls/hr IV ASDIR [facility] Montelukast Sodium (Singulair -) 10 mg PO HS [facility] Ondansetron HCl (Zofran Injection) 4 mg IVPUSH Q6H PRN PRN Reason: NAUSEA AND/OR VOMITING Stop: 01/12/17 21:33 Oxycodone HCl (Roxicodone -) 5 mg PO Q6H PRN PRN Reason: PAIN Topiramate (Topamax -) 50 mg PO DAILY [facility] - Objective Vital Signs: Vital Signs Temperature 98.1 F 01/12/17 18:07 Pulse Rate 86 01/12/17 18:07 Respiratory Rate 16 01/12/17 18:07 Blood Pressure 131/64 01/12/17 18:07 O2 Sat by Pulse Oximetry (%) 100 01/12/17 17:55 Constitutional: Yes: No Distress, Calm Neck: Yes: Other (neck in collar) Cardiovascular: Yes: Regular Rate and Rhythm Respiratory: Yes: Regular, CTA Bilaterally Gastrointestinal: Yes: Normal Bowel Sounds, Soft Musculoskeletal: Yes: WNL Extremities: Yes: WNL Neurological: Yes: Alert, Oriented, Other (hard collar) Psychiatric: Yes: Alert, Oriented Labs: CBC, BMP 01/12/17 17:05 01/12/17 17:05 INR, PTT INR 1.01 (0.82-1.09) 01/10/17 12:49 Assessment/Plan osteo of cervical vertebra pain plan post op patient given vanco and ceftriaxone all cx send will continue ceftriaxone for now await for tissue cx
--- NOTE | 2017-01-12 19:14 | PN ---
Progress Note, Physician History of Present Illness: due for surgery later today understands reasons for surgery feels minor weakness R arm mild neck pain - Current Medication List Current Medications: Active Medications Ceftriaxone Sodium (Rocephin 1gm Ivpb (Pre-Docked)) 1 gm IVPB DAILY [facility] Diazepam (Valium -) 5 mg PO TID [facility] Docusate Sodium (Colace -) 100 mg PO TID [facility] Vancomycin HCl (Vancomycin (Pre-Docked)) 250 mls @ 250 mls/hr IVPB BID [facility] PRN Reason: Protocol Vancomycin HCl (Vancomycin (Pre-Docked)) 250 mls @ 250 mls/hr IVPB ONCE ONE PRN Reason: Protocol Stop: 01/13/17 00:59 Potassium Chloride/Sodium Chloride (1/2ns+20meq Kcl) 1,000 mls @ 75 mls/hr IV ASDIR [facility] Montelukast Sodium (Singulair -) 10 mg PO HS [facility] Ondansetron HCl (Zofran Injection) 4 mg IVPUSH Q6H PRN PRN Reason: NAUSEA AND/OR VOMITING Stop: 01/12/17 21:33 Oxycodone HCl (Roxicodone -) 5 mg PO Q6H PRN PRN Reason: PAIN Topiramate (Topamax -) 50 mg PO DAILY [facility] - Objective Vital Signs: Vital Signs Temperature 98.1 F 01/12/17 18:56 Pulse Rate 86 01/12/17 18:56 Respiratory Rate 16 01/12/17 18:56 Blood Pressure 131/64 01/12/17 18:56 O2 Sat by Pulse Oximetry (%) 100 01/12/17 18:56 Neurological: Yes: Other (mild weakness R deltoid ; reduced R BI/BR reflex plantars donwgoing) Labs: CBC, BMP 01/12/17 17:05 01/12/17 17:05 INR, PTT INR 1.01 (0.82-1.09) 01/10/17 12:49 Problem List - Problems (1) Osteomyelitis Code(s): M86.9 - OSTEOMYELITIS, UNSPECIFIED Qualifiers: Osteomyelitis type: subacute Osteomyelitis location: other site Qualified Code(s): M86.28 - Subacute osteomyelitis, other site (2) Cervical discitis Code(s): M46.42 - DISCITIS, UNSPECIFIED, CERVICAL REGION Assessment/Plan cervical diskitis, C4-C5 ? source (frequent UTI's) neurologically stable though requires surgical decompression and PICC line thereafter will FU after surgery Dr Ojeda
[2017-01-12] MEDS: oxyCODONE HCL 5 MG TABLET PO PRN (19:40)
[2017-01-12] MEDS: diazePAM 5 MG TABLET PO SCH (21:09)
[2017-01-12] MEDS: DOCUSATE SODIUM 100 MG CAPSULE (FP) PO SCH (21:09)
[2017-01-12] MEDS: MONTELUKAST NA 10 MG TABLET PO SCH (21:09)
[2017-01-13] MEDS ORDERED: VANCOMYCIN 1 GRAM (PRE-DOCKED) 250 ML IVPB ONE
[2017-01-13] MEDS: oxyCODONE HCL 5 MG TABLET PO PRN ×3 (02:09→21:08)
[2017-01-13] MEDS: diazePAM 5 MG TABLET PO SCH ×3 (05:59→21:04)
[2017-01-13] MEDS: DOCUSATE SODIUM 100 MG CAPSULE (FP) PO SCH ×3 (05:59→21:04)
--- NOTE | 2017-01-13 07:41 | PN ---
Progress Note, Physician History of Present Illness: s/p cervical decompression surgery doing well, despite mild pain discomfort with neck brace able to move all exe no fevers - Current Medication List Current Medications: Active Medications Ceftriaxone Sodium (Rocephin 1gm Ivpb (Pre-Docked)) 1 gm IVPB DAILY [facility] Diazepam (Valium -) 5 mg PO TID [facility] Last Admin: 01/13/17 05:59 Dose: 5 mg Docusate Sodium (Colace -) 100 mg PO TID [facility] Last Admin: 01/13/17 05:59 Dose: 100 mg Vancomycin HCl (Vancomycin (Pre-Docked)) 250 mls @ 250 mls/hr IVPB BID [facility] PRN Reason: Protocol Potassium Chloride/Sodium Chloride (1/2ns+20meq Kcl) 1,000 mls @ 75 mls/hr IV ASDIR [facility] Last Admin: 01/12/17 21:04 Dose: 75 mls/hr Montelukast Sodium (Singulair -) 10 mg PO HS [facility] Last Admin: 01/12/17 21:09 Dose: 10 mg Oxycodone HCl (Roxicodone -) 5 mg PO Q6H PRN PRN Reason: PAIN Last Admin: 01/13/17 02:09 Dose: 5 mg Topiramate (Topamax -) 50 mg PO DAILY [facility] - Objective Vital Signs: Vital Signs Temperature 98.9 F 01/13/17 07:06 Pulse Rate 76 01/13/17 07:06 Respiratory Rate 20 01/13/17 07:06 Blood Pressure 118/66 01/13/17 07:06 O2 Sat by Pulse Oximetry (%) 98 01/12/17 21:00 Neurological: Yes: Other (moving UE , minor weakness of the right deltoid has improved ( 5-/5), rest appaers 5/5, limited ROM ogf th left hip s/p graft , reduced R Bi /BR reflex, 2+ TR BL, plantars downgoing) Labs: CBC, BMP 01/12/17 17:05 01/12/17 17:05 INR, PTT INR 1.01 (0.82-1.09) 01/10/17 12:49 Problem List - Problems (1) Osteomyelitis Code(s): M86.9 - OSTEOMYELITIS, UNSPECIFIED Qualifiers: Osteomyelitis type: subacute Osteomyelitis location: other site Qualified Code(s): M86.28 - Subacute osteomyelitis, other site (2) Cervical discitis Code(s): M46.42 - DISCITIS, UNSPECIFIED, CERVICAL REGION Assessment/Plan cervical diskitis C4-C5, recent bacteremia s/p decompression on 01/12 POD 1 neurologically stable and minor weakness of the right UE improved no signs of myelopathy await cultures to decide on senior care ABX regimen pain control PRN oxycodone Dr Ojeda [phone]
--- NOTE | 2017-01-13 07:55 | PN ---
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
--- NOTE | 2017-01-13 08:25 | PN ---
Progress Note (short form) - Note Progress Note: Anesthesia postop note 61y/o F s/p GA for ACDF POD#1, vss, aaox3, pain fairly well controlled No anesthesia complications.
[2017-01-13] MEDS: TOPIRAMATE 25 MG TABLET (FP) PO SCH (09:34)
[2017-01-13] MEDS: cefTRIAXone 1 GM/50 ML BAG (PRE-DOCKED) IVPB SCH (09:35)
[2017-01-13] MEDS: SODIUM CHLORIDE 0.45%/POT 1,000 ML IV SCH ×2 (09:36→18:51)
[2017-01-13] MEDS ORDERED: VANCOMYCIN 1 GRAM (PRE-DOCKED) 250 ML IVPB SCH (10:00)
[2017-01-13] MEDS ORDERED: CEFTRIAXONE 2 GM in DEXTROSE 5%-WATER - 100 ML IVPB SCH (10:00)
[2017-01-13] MEDS: BACITRACIN/POLYMYXIN B SULFATE 15 GM TUBE TP SCH (12:10)
--- NOTE | 2017-01-13 12:28 | OP ---
DATE OF OPERATION: 01/12/2017 PREOPERATIVE DIAGNOSIS: 1. C4-C5 diskitis with osteomyelitis. 2. Cervical stenosis. 3. Cervical radiculopathy. 4. 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 5. Borderline diabetes. 6. Osteoporosis/osteopenia ATTENDING SURGEON: Giovany Sherwood MD ROLLER SKATER: MARGY Ramos ANESTHESIA: General endotracheal ANESTHESIOLOGIST: Viola Rosenberg MD ESTIMATED BLOOD LOSS: 100 mL. PROCEDURE: 1. Preoperative placement and postoperative removal of all cranial traction towels for intraoperative traction (48444). 2. Anterior cervical discectomy C4-C5. 3. Partial corpectomy at C4 and C5 for debridement and decompression at the cervical roof at C4 and C5, biopsy of C4 and C5 (84299, [id number]). 4. [place] of left anterior iliac crest tricortical bone graft (16259) 5. Anterior cervical interbody fusion C4-C5 (70191). 6. Anterior cervical instrumentation C4-C5 with Kendy Spine Aviator 14-mm titanium plate and 14-mm titanium screws at C4-C5 (64860). 7. Microsurgical dissection for operative microscope including microsurgical techniques (36281). FINDINGS: 1. Extremely fibrotic edematous anterior prevertebral tissues. 2. Necrotic C4-C5 disc material with severe disc space narrowing. 3. Erosion in the C5 anterior vertebral body. INDICATIONS: The patient is a 61-year-old female with history of borderline diabetes, carcinoma tumor, and osteoporosis, who complains of approximately 1- month history of neck pain, right arm weakness, and left scapular pain. She has also developed low-grade temperature and eventually spiked a fever about 2 weeks ago when she was admitted for possible urosepsis. She was treated and was defervesced and was discharged home. She now presents with worsening neck pain and MRI of the cervical spine demonstrated diskitis and osteomyelitis. She was admitted through the emergency room and is now consented for anterior cervical debridement, decompression, fusion, instrumentation, with left anterior iliac crest bone graft. The patient understands the risks of surgery include, but are not limited to, bleeding, infection, dural tear with CSF leak, neurological injury, increased thromboembolic risks, hoarseness, swallowing difficulty, nonunion, effusion, non-diagnostic tissues, and other risks of general anesthesia. The patient understands the indications for the procedure, the procedure in detail, risks and benefits, and alternatives for treatment of her cervical spine condition, and she wished to proceed. No guarantees were given for a favorable outcome. PROCEDURE IN DETAIL: After the patient was taken to the operating room, she was placed in supine position. After general anesthesia was induced and appropriate monitoring lines were placed, the arms were tucked on the side, SSEP and EMG electrodes were placed by photogrammetric technician. The head was secured on the [place] in the usual position. The cranial retraction towels were applied with Bacitracin ointment. No traction weight was placed until baseline SSEP, EMG, and MEP signals were obtained, at which time a 5-pound traction weight was placed. Anterior left-sided cervical area was cleaned with alcohol, prepped with Betadine, as was the left anterior iliac crest area. Two sterile menendez were draped. At this point, the left-sided anterior cervical incision was first opened with No. 15 blade after localization was obtained. A self-retaining retractor was inserted. The platysmas muscle was split longitudinally with Metzenbaum scissors. Dissection proceeded medial to the carotid sheath, and lateral to the trachea and esophagus. At this point, anterior prevertebral edema and fibrosis was noted. The longus coli muscle was reflected laterally with periosteal elevator and modified and coagulated with bipolar electrocautery. A needle was inserted into the C4-C5 disc space. It was markedly collapsed. However, there was almost no resistance into intervertebral disc space at all. After position was verified, this angle was incised with a No. 15 blade and thickened prevertebral fascia was removed from the bottom of vertebral body of C4 and top of vertebral body of C5. The disc space was almost completely devoid of disc material. Whatever has remained and the end-plate were removed with angled curette and pituitary rongeur, and was sent for frozen section as well as permanent section. Swab culture as well as tissue culture were sent from the disc material in the disc space. At this point, partial corpectomy of bottom vertebra of C4 and top vertebra of C5 was performed. The partial corpectomies were carried out with a combination of curettes as well as high-speed pneumatic drill. Bilateral foraminotomy was carried out at C4-C5 with angled curettes and Kerrison. The posterior longitudinal ligament was also extremely edematous and was dissected with the angle curette and resected with the Kerrison rongeur. After the foraminotomy was complete with Kerrison rongeur , epidural hemostasis was obtained with thrombin-soaked powdered Gelfoam and bipolar electrocautery. The AP diameter vertebral body was approximately 15 mm, and the height was about 7.5 mm. There is significant erosion of the top anterior portion of the C5 vertebral body. Fair amount of debridement was carried out there as well. There was some soft tissue present, which was also sent for pathology frozen section and was consistent mostly with inflammatory tissues only and no tumor. Therefore, it was decided to preserve what was left of the C5 vertebral body. Decompression was performed with the use of the operating microscope for illumination and magnification. Microsurgical techniques were utilized. Left anterior iliac crest incision was opened and iliac crest was isolated bilaterally with Monopolar electrocautery and periosteal elevator. A piece of an 8-mm high and 10-mm AP diameter tricortical bone graft was harvested with osteotome. It was soaked in antibiotic irrigation to be used later on. After it was soaked for about 5 minutes, the interbody implant was trimmed down to appropriate size with a rongeur to be used for interbody fusion at the C4-C5 level. Under manual traction, the corticocancellous tricortical bone graft was inserted and countersunk by about 5-6 mm. This was necessary because the anterior superior portion of the vertebral body at C5 had been eroded. This area was then packed with Man and autologous bone/bone graft which were harvested from the iliac crest. A 14-mm Kendy Aviator titanium plate was secured with fixation pins and 14-mm self- drilling screws used at C4 and C5. Bicortical purchase and rescue screws were used because of the patients osteopenia/osteoporosis. A regular self-tapping screw was used on the left C4 with some higher cephalad angle in order to avoid the interbody space. The locking mechanism was engaged. Because the right-sided C5 locking mechanism was not engaging properly, it was removed as a precaution. The screws all had satisfactory bone purchase upon insertion. The wounds were copiously irrigated with antibiotic irrigation after cultures were taken. At this point, final bilateral cervical spine x-rays were obtained demonstrating satisfactory position of implants. Both the cervical incision as well as left anterior iliac crest incision was irrigated with copious amount antibiotic containing irrigation. Good hemostasis was obtained. The fascia in the left anterior iliac crest region was closed with 0 Vicryl suture and subcutaneous fascia was closed with 0 Vicryl sutures. Skin was closed with 4-0 Vicryl running subcuticular sutures. Steri-Strips and sterile occlusive dressing were applied. For the left-sided anterior cervical incision, a piece of the Surgicel was laid on the dissection track. There was no injury to the esophagus, trachea or carotid sheath. The platysma was approximated with 3-0 Vicryl suture as well as subcuticular fascia. Skin was closed with 4-0 Vicryl running subcuticular sutures, also. Steri- Strips and a sterile occlusive dressing were applied. SSEP, EMG, and MEP signals remained stable throughout. She was placed in a [place] collar before being extubated. The patient tolerated the procedure well, was extubated in the operating room. She was moving bilateral upper and lower extremities while in the recovery room. All needle and lap counts were correct. Gram stain and culture as well as tissue culture were sent, in addition to routine pathology. The patient received one dose of one gram of Vancomycin and one gram of Rocephin. The OR time-out procedure was followed. The patient was placed in a rigid cervical collar before being awakened without a problem from general anesthesia. The family was updated as to the intraoperative findings, as well as the patients postoperative condition. GIOVANY SHERWOOD M.D. [id number] MTDD
--- NOTE | 2017-01-13 13:24 | PN ---
Progress Note, Physician History of Present Illness: patient post op slightly groggy feels well no complaint neck in collar - Current Medication List Current Medications: Active Medications Acetaminophen (Tylenol -) 650 mg PO Q4H PRN PRN Reason: HEADACHE Bacitracin/Polymyxin B Sulfate (Polysporin Ointment -) 1 applic TP DAILY [facility] Ceftriaxone Sodium (Rocephin 1gm Ivpb (Pre-Docked)) 1 gm IVPB DAILY [facility] Last Admin: 01/13/17 09:35 Dose: 1 gm Diazepam (Valium -) 5 mg PO TID [facility] Last Admin: 01/13/17 05:59 Dose: 5 mg Docusate Sodium (Colace -) 100 mg PO TID [facility] Last Admin: 01/13/17 05:59 Dose: 100 mg Vancomycin HCl (Vancomycin (Pre-Docked)) 250 mls @ 250 mls/hr IVPB BID [facility] PRN Reason: Protocol Potassium Chloride/Sodium Chloride (1/2ns+20meq Kcl) 1,000 mls @ 75 mls/hr IV ASDIR [facility] Last Admin: 01/13/17 09:36 Dose: 75 mls/hr Montelukast Sodium (Singulair -) 10 mg PO HS [facility] Last Admin: 01/12/17 21:09 Dose: 10 mg Oxycodone HCl (Roxicodone -) 5 mg PO Q6H PRN PRN Reason: PAIN Last Admin: 01/13/17 09:33 Dose: 5 mg Topiramate (Topamax -) 50 mg PO DAILY [facility] Last Admin: 01/13/17 09:34 Dose: 50 mg - Objective Vital Signs: Vital Signs Temperature 99.3 F 01/13/17 10:17 Pulse Rate 82 01/13/17 10:17 Respiratory Rate 19 01/13/17 10:17 Blood Pressure 124/66 01/13/17 10:17 O2 Sat by Pulse Oximetry (%) 98 01/12/17 21:00 Constitutional: Yes: Calm HENT: Yes: Atraumatic Neck: Yes: Supple Cardiovascular: Yes: Regular Rate and Rhythm Respiratory: Yes: Regular, CTA Bilaterally Gastrointestinal: Yes: Normal Bowel Sounds, Soft Musculoskeletal: Yes: WNL Extremities: Yes: WNL Neurological: Yes: Alert, Oriented Psychiatric: Yes: Alert, Oriented Labs: CBC, BMP 01/12/17 17:05 01/12/17 17:05 INR, PTT INR 1.01 (0.82-1.09) 01/10/17 12:49 Assessment/Plan osteo of cervical vertebra pain plan post op patient given vanco and ceftriaxone all cx send will continue ceftriaxone for now
--- NOTE | 2017-01-13 15:32 | PN ---
Teaching Attending Note Name of Resident: Peyton Tobin ATTENDING PHYSICIAN STATEMENT I saw and evaluated the patient. I reviewed the resident's note and discussed the case with the resident. I agree with the resident's findings and plan as documented. SUBJECTIVE:continues to have pain but controlled with pain medication. denies CP , SOB,fever, chills OBJECTIVE: Last Vital Signs Temp Pulse Resp BP Pulse Ox 100.1 F H 88 16 140/77 97 01/13/17 14:52 01/13/17 14:52 01/13/17 14:52 01/13/17 14:52 01/13/17 09:00 General NAD, c-collar in place dressing c/d/i CV S1 S2 RRR no murmur/rub/gallop Lungs CTA B/L no wheezing/rales/rhonchi ASSESSMENT AND PLAN: 61yo F with PMH GERD, nugraubes abd rectal carcinoid presented to the ER and was admitted for further evaluation of their emergent condition 1. C4-C5 discitis and osteomyelitis- s/p anterior cervical decompression and fusion POD#2. c-collar in place. dressing intact. c-spine XR pending. bedrest and c-collar placement per neurosurgery. will need care home abx. currently on Vanco/ceftriaxone will need clin nurse spec abx. awaiting WCx to result to determine. ID, neuro and neurosurgery on board. pain control 2. Pre-diabetic- A1c 6.6. will initiate lifestyle changes. will require repeat in 3 months. diabetic counseling 3. normocytic anemia- s/p 1 unit PRBC this admission. no signs of active bleeding. minimal bleeding during surgery. will check iron studies 4. dvt ppx- scd. re-start pharmacologic prophylaxis per neurosurgery
[2017-01-13] MEDS: ACETAMINOPHEN 325 MG TABLET (FP) PO PRN (16:14)
--- NOTE | 2017-01-13 16:33 | PN ---
Physical Exam: SUBJECTIVE: Patient seen and examined, sitting up in bed, with neck brace, slightly groggy s/p pain medication. C/o neck and shoulder pain bilaterally OBJECTIVE: Vital Signs Period Temp Pulse Resp BP Sys/Vega Pulse Ox Last 24 Hr 97.9 F-100.1 F 75-100 14-20 114-142/60-90 97-100 GENERAL: The patient is awake, alert, and fully oriented, in no acute distress. HEAD: Normal with no signs of trauma. EYES: PERRL, extraocular movements intact, sclera anicteric, conjunctiva clear. No ptosis. ENT: Ears normal, nares patent, oropharynx clear without exudates, moist mucous membranes. NECK: in neck brace; Trachea midline, full range of motion, supple. dressing in tact LUNGS: Breath sounds equal, clear to auscultation bilaterally, no wheezes, no crackles, no accessory muscle use. HEART: Regular rate and rhythm, S1, S2 without murmur, rub or gallop. ABDOMEN: Soft, nontender, nondistended, normoactive bowel sounds, no guarding, no rebound, no hepatosplenomegaly, no masses. EXTREMITIES: 2+ pulses, warm, well-perfused, no edema. NEUROLOGICAL: Cranial nerves II through XII grossly intact. Normal speech, gait not observed. PSYCH: Normal mood, normal affect. SKIN: Warm, dry, normal turgor, no rashes or lesions noted Laboratory Results - last 24 hr 01/11/17 01/12/17 01/12/17 10:07 17:05 17:05 WBC 6.8 D RBC 3.34 L Hgb 10.2 L Hct 31.0 L MCV 92.8 MCHC 32.8 RDW 16.6 H Plt Count 185 MPV 6.9 L Sodium 144 Potassium 4.4 Chloride 109 H Carbon Dioxide 27 D Anion Gap 8 BUN 11 D Creatinine 0.9 Creat Clearance w eGFR > 60 Random Glucose 119 H Calcium 9.1 Total Bilirubin 0.4 D AST 15 D ALT 18 Alkaline Phosphatase 103 Total Protein 6.8 Albumin 3.0 L Crossmatch IS Only See Detail Active Medications Generic Name Dose Route Start Last Admin Trade Name Freq PRN Reason Stop Dose Admin Acetaminophen 650 mg 01/13/17 12:35 01/13/17 16:14 Tylenol - PO 650 mg Q4H PRN Administration HEADACHE Bacitracin/Polymyxin B Sulfate 1 applic 01/13/17 10:00 01/13/17 12:10 Polysporin Ointment - TP 1 applic DAILY [facility] Administration Ceftriaxone Sodium 1 gm 01/13/17 10:00 01/13/17 09:35 Rocephin 1gm Ivpb (Pre-Docked) IVPB 1 gm DAILY [facility] Administration Diazepam 5 mg 01/12/17 22:00 01/13/17 14:04 Valium - PO 5 mg TID [facility] Administration Docusate Sodium 100 mg 01/12/17 22:00 01/13/17 14:04 Colace - PO 100 mg TID [facility] Administration Potassium Chloride/Sodium Chloride 1,000 mls @ 75 mls/hr 01/12/17 16:38 09:36 1/2ns+20meq Kcl IV 75 mls/hr ASDIR [facility] Administration Montelukast Sodium 10 mg 01/12/17 22:00 01/12/17 21:09 Singulair - PO 10 mg HS [facility] Administration Oxycodone HCl 5 mg 01/12/17 16:38 01/13/17 09:33 Roxicodone - PO 5 mg Q6H PRN Administration PAIN Topiramate 50 mg 01/13/17 10:00 01/13/17 09:34 Topamax - PO 50 mg DAILY [facility] Administration IMAGING: MRI of the neck showed: C4-5 discitis/osteomyelitis; anterior epidural soft tissue thickening; posterior cervical ligamentus edema C4-5; prevertebral soft tissue swelling; + enhancement. ASSESSMENT/PLAN: Patient is a 62 year old female with significant past medical history of Carcinoid tumor s/p chemo (last chemo in April); GERD and migraine headaches presented to the ED with the chief complaints of neck and bilateral shoulder pain. Recently discharged from the hospital for sepsis secondary to UTI ( proteus mirabilis bateremia) on 01/01/17. #Osteomyelitis of C4/C5 sp cervical decompression surgery POD1 -cont IV Ceftriaxone 1gm daily -culture growing proteus; await sensitivities -c spine today showing widened prevertebral soft tissues with some soft tissue air: wnl -follow neurology recommendations # GERD- no active symptoms # Migraine- No complaints of headache # Carcinoid tumor s/p chemo (last chemo in April) # FEN IV NS @ 75mls/hr Electrolytes to be repeated NPO DVT prophylaxis: scds; hold ac until cleared by neuro Disposition: s/p surgery Visit type - Emergency Visit Emergency Visit: Yes ED Registration Date: 01/10/17 Care time: The patient presented to the Emergency Department on the above date and was hospitalized for further evaluation of their emergent condition. - New Patient This patient is new to me today: Yes Date on this admission: 01/13/17 - Critical Care Critical Care patient: No
[2017-01-13] MEDS: MONTELUKAST NA 10 MG TABLET PO SCH (21:06)
[2017-01-14] MEDS: DOCUSATE SODIUM 100 MG CAPSULE (FP) PO SCH ×3 (06:09→21:22)
[2017-01-14] MEDS: diazePAM 5 MG TABLET PO SCH ×3 (06:15→21:23)
[2017-01-14] MEDS: oxyCODONE HCL 5 MG TABLET PO PRN ×3 (06:15→18:27)
[2017-01-14 08:10] LABS: BASOPHIL 0.9 % (0-2.0); EOSINOPHIL 1.1 % (0-4.5); MCH 31.1 pg (25.7-33.7); MCHC 33.7 g/dl (32.0-36.0); MEAN CELL VOLUME 92.2 fl (80-96); MEAN PLT VOLUME 7.1 fl (7.5-11.1); NEUTROPHILS 76.2 % (42.8-82.8); PLATELET COUNT 169 K/MM3 (134-434); WHITE BLOOD COUNT 6.3 K/mm3 (4.0-10.0)
[2017-01-14 08:44] LABS: CALCIUM 8.5 mg/dL (8.5-10.1)
[2017-01-14 08:50] LABS: ALBUMIN 2.9 g/dl (3.4-5.0); ALK PHOS 121 U/L (45-117); ANION GAP 6 (8-16); BILIRUBIN,TOTAL 0.7 mg/dL (0.2-1.0); CO2 28 mmol/L (21-32); COCKROFT - GAULT 81.5915; CREATININE 0.8 mg/dL (0.55-1.02); GLUCOSE,RANDOM 130 mg/dL (74-106); SGOT/AST 27 U/L (15-37); SGPT/ALT 31 U/L (12-78); TOT PROT 6.5 g/dl (6.4-8.2)
[2017-01-14] MEDS: BACITRACIN/POLYMYXIN B SULFATE 15 GM TUBE TP SCH (09:18)
[2017-01-14] MEDS: cefTRIAXone 1 GM/50 ML BAG (PRE-DOCKED) IVPB SCH (09:18)
[2017-01-14] MEDS: TOPIRAMATE 25 MG TABLET (FP) PO SCH (09:19)
[2017-01-14] MEDS: ACETAMINOPHEN 325 MG TABLET (FP) PO PRN (09:20)
--- NOTE | 2017-01-14 09:57 | PN ---
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
--- NOTE | 2017-01-14 10:51 | PN ---
Progress Note, Physician History of Present Illness: stable pain main issue still in hard collar - Current Medication List Current Medications: Active Medications Acetaminophen (Tylenol -) 650 mg PO Q4H PRN PRN Reason: HEADACHE Last Admin: 01/14/17 09:20 Dose: 650 mg Bacitracin/Polymyxin B Sulfate (Polysporin Ointment -) 1 applic TP DAILY [facility] [place] Last Admin: 01/14/17 09:18 Dose: 1 applic Ceftriaxone Sodium (Rocephin 1gm Ivpb (Pre-Docked)) 1 gm IVPB DAILY [facility] Last Admin: 01/14/17 09:18 Dose: 1 gm Diazepam (Valium -) 5 mg PO TID [facility] Last Admin: 01/14/17 06:15 Dose: 5 mg Docusate Sodium (Colace -) 100 mg PO TID [facility] Last Admin: 01/14/17 06:09 Dose: 100 mg Potassium Chloride/Sodium Chloride (1/2ns+20meq Kcl) 1,000 mls @ 75 mls/hr IV ASDIR [facility] Last Admin: 01/13/17 18:51 Dose: Not Given Montelukast Sodium (Singulair -) 10 mg PO HS [facility] Last Admin: 01/13/17 21:06 Dose: 10 mg Oxycodone HCl (Roxicodone -) 5 mg PO Q6H PRN PRN Reason: PAIN Last Admin: 01/14/17 06:15 Dose: 5 mg Topiramate (Topamax -) 50 mg PO DAILY [facility] Last Admin: 01/14/17 09:19 Dose: 50 mg - Objective Vital Signs: Vital Signs Temperature 99.6 F 01/14/17 08:34 Pulse Rate 90 01/14/17 08:34 Respiratory Rate 20 01/14/17 08:34 Blood Pressure 122/78 01/14/17 08:34 O2 Sat by Pulse Oximetry (%) 97 01/13/17 21:00 Constitutional: Yes: Calm, Mild Distress HENT: Yes: Other (hard collar) Cardiovascular: Yes: Regular Rate and Rhythm Respiratory: Yes: Regular, CTA Bilaterally Gastrointestinal: Yes: Normal Bowel Sounds, Soft Musculoskeletal: Yes: WNL Extremities: Yes: WNL Integumentary: Yes: WNL Wound/Incision: Yes: Dressing Dry and Intact Neurological: Yes: Alert, Oriented Psychiatric: Yes: Alert, Oriented Labs: CBC, BMP 01/14/17 06:30 01/14/17 06:20 INR, PTT INR 1.01 (0.82-1.09) 01/10/17 12:49 Assessment/Plan osteo of cervical vertebra pain plan await for surgery victoriaus in tissue sensitivities noted she will need abx for 6-8 weeks
[2017-01-14] MEDS ORDERED: MAGNESIUM HYDROX 2400MG/30ML ORAL SUSPENSION 30 ML CUP PO ONE (11:00)
--- NOTE | 2017-01-14 11:01 | PN ---
Teaching Attending Note Name of Resident: Peyton Tobin ATTENDING PHYSICIAN STATEMENT I saw and evaluated the patient. I reviewed the resident's note and discussed the case with the resident. I agree with the resident's findings and plan as documented. SUBJECTIVE:c/o [place] since this AM. states pain is more due to uncomfortable c- collar. states only minor relief with pain medication. denies CP, SOB,fever, chills, N/V/C/D, blurred vision OBJECTIVE: Last Vital Signs Temp Pulse Resp BP Pulse Ox 99.6 F 90 20 122/78 97 01/14/17 08:34 01/14/17 08:34 01/14/17 08:34 01/14/17 08:34 01/13/17 21:00 General NAD, c-collar in place dressing c/d/i CV S1 S2 RRR no murmur/rub/gallop Lungs CTA B/L no wheezing/rales/rhonchi ASSESSMENT AND PLAN: 61yo F with PMH GERD, nugraubes abd rectal carcinoid presented to the ER and was admitted for further evaluation of their emergent condition 1. C4-C5 discitis and osteomyelitis- s/p anterior cervical decompression and fusion on 01/12. Cx growing proteus with patterson-sensitivity. on Ceftriaxone will need abx for 6-8 weeks. c-collar switched by neurosurgery. will need on discharge. PT assessment today. start morphine prn pain for next 24H to achieve relief then titrate down to po. stool softeners. if no BM by tomorrow will give enema. ID, neuro and neurosurgery on board. 2. Pre-diabetic- A1c 6.6. will initiate lifestyle changes. will require repeat in 3 months. diabetic counseling 3. normocytic anemia- s/p 1 unit PRBC this admission. no signs of active bleeding. minimal bleeding during surgery. iron studies 4. dvt ppx- scd. re-start pharmacologic prophylaxis per neurosurgery
[2017-01-14] MEDS ORDERED: morphine CARPU-JECT 2 MG/1 ML DISP.SYRIN IVPUSH PRN (11:46)
--- NOTE | 2017-01-14 15:23 | PATH ---
Surgical Pathology Report Patient Name: HAL GAVIN Med. Rec. #: [id number] /Age/Gender: 1955 (Age: 61) / F Account: [id number] Location: [facility] MED/SURG Taken: 01/12/2017 Received: 01/12/2017 Reported: 01/14/2017 Physicians: Rashad Orantes Specimen(s) Received A: C4-C5 TISSUE-FROZEN B: C5 VERTEBRAL LESION BIOPSY-FROZEN C: C4-C5 DISC D: C5 VERTEBRA Clinical History Osteomyelitis Intraoperative Consult Diagnosis A. C4-5 tissue: Bone and soft tissue with inflammatory infiltrate. B. C5 vertebral lesion: Soft tissue and bone with inflammatory infiltrate. Defer to permanent for final interpretation. Opal Ruiz, 01/12/17 Final Diagnosis A. BONE AND SOFT TISSUE, C4-C5, BIOPSY: BONE AND ADJACENT SOFT TISSUE WITH ACUTE AND CHRONIC INFLAMMATION. NO MALIGNANCY IDENTIFIED IN THE EXAMINED MATERIAL. SEE COMMENT. B. C5 VERTEBRAL LESION, BIOPSY: BONE AND SOFT TISSUE WITH ACUTE AND CHRONIC INFLAMMATION. NO MALIGNANCY IDENTIFIED IN THE EXAMINED MATERIAL. SEE COMMENT. C. INTERVERTEBRAL DISC, C4-C5, ANTERIOR CERVICAL DECOMPRESSION FUSION: BONE AND CARTILAGE WITH ACUTE AND CHRONIC INFLAMMATION. NO MALIGNANCY IDENTIFIED IN THE EXAMINED MATERIAL. SEE COMMENT. D. C5 VERTEBRA, BIOPSY: FRAGMENTS OF BONE WITH ACUTE AND CHRONIC INFLAMMATION. NO MALIGNANCY IDENTIFIED IN THE EXAMINED MATERIAL. SEE COMMENT. Comment: The histologic findings are compatible with acute and chronic osteomyelitis/discitis. Reported history of rectal carcinoid tumor is noted. Immunohistochemical stains performed and interpreted on blocks A2 and B1 at the [facility] show no specific reactivity for Ae1/Ae3 keratin, synaptophysin and chromogranin. These results are supportive of the interpretation above. Clinical and imaging correlations are suggested. Electronically Signed Nelson Ruiz M.D. Gross Description A. Received fresh labeled "C4-5 tissue frozen" and a 1.7 x 1.2 x 0.3 cm aggregate of [place] soft tissue and bone fragments. The softer portions are submitted for frozen section. The specimen is entirely submitted in 2 cassettes as follows: 1-frozen section residue; 2-remaining bone fragments, following decalcification. B. Received fresh labeled "C5 vertebral lesion frozen" is a 0.3 cm in greatest dimension [place] soft tissue fragment. The specimen is submitted in total in one cassette. C. Received in formalin labeled "C4-5 disc" is a 0.9 x 0.7 x 0.2 cm aggregate of [place] fragments of fibrocartilaginous tissue and possible bone. The specimen is entirely submitted in one cassette, following decalcification. D. Received in formalin labeled "C5 vertebrae" is a 0.1 cm in greatest dimension [place] fragment of possible bone. The specimen is submitted in toto in one cassette, following decalcification. 01/12/2017 [facility]01/12/2017
[2017-01-14] MEDS ORDERED: DEXAMETHASONE SOD PHOSPHATE 4 MG/1 ML VIAL IVPUSH ONE (18:30)
--- NOTE | 2017-01-14 20:41 | PN ---
Physical Exam: SUBJECTIVE: Patient seen and examined, pain due to nack brace; hard collar very uncomfortable. Some pain still from graft site. Afebrile. Has not had Bm since surgery OBJECTIVE: Vital Signs Period Temp Pulse Resp BP Sys/Vega Pulse Ox Last 24 Hr 97.9 F-99.6 F 79-92 16-20 111-128/59-78 97-97 GENERAL: The patient is awake, alert, and fully oriented, in no acute distress. HEAD: Normal with no signs of trauma. NECK: Trachea midline, on neck brace; dressing intact LUNGS: Breath sounds equal, clear to auscultation bilaterally, no wheezes, no crackles, no accessory muscle use. HEART: Regular rate and rhythm, S1, S2 without murmur, rub or gallop. ABDOMEN: Soft, nontender, nondistended, normoactive bowel sounds, no guarding, no rebound, no hepatosplenomegaly, no masses. EXTREMITIES: 2+ pulses, warm, well-perfused, no edema. NEUROLOGICAL: Cranial nerves II through XII grossly intact. Normal speech, gait not observed. PSYCH: Normal mood, normal affect. SKIN: Warm, dry, normal turgor, no rashes or lesions noted Laboratory Results - last 24 hr 01/11/17 01/14/17 01/14/17 10:07 06:20 06:20 WBC RBC Hgb Hct MCV MCHC RDW Plt Count MPV Neutrophils % Lymphocytes % Monocytes % Eosinophils % Basophils % Sodium 141 Potassium 4.0 Chloride 107 Carbon Dioxide 28 Anion Gap 6 L BUN 9 Creatinine 0.8 Creat Clearance w eGFR > 60 Random Glucose 130 H Calcium 8.5 Ferritin 176.494 Total Bilirubin 0.7 D AST 27 D ALT 31 D Alkaline Phosphatase 121 H Total Protein 6.5 Albumin 2.9 L Blood Type A POSITIVE Crossmatch IS Only See Detail 01/14/17 06:30 WBC 6.3 RBC 3.12 L Hgb 9.7 L Hct 28.7 L MCV 92.2 MCHC 33.7 RDW 16.0 H Plt Count 169 MPV 7.1 L Neutrophils % 76.2 Lymphocytes % 13.4 D Monocytes % 8.4 Eosinophils % 1.1 Basophils % 0.9 Sodium Potassium Chloride Carbon Dioxide Anion Gap BUN Creatinine Creat Clearance w eGFR Random Glucose Calcium Ferritin Total Bilirubin AST ALT Alkaline Phosphatase Total Protein Albumin Blood Type Crossmatch IS Only Active Medications Generic Name Dose Route Start Last Admin Trade Name Freq PRN Reason Stop Dose Admin Acetaminophen 650 mg 01/13/17 12:35 01/14/17 09:20 Tylenol - PO 650 mg Q4H PRN Administration HEADACHE Bacitracin/Polymyxin B Sulfate 1 applic 01/13/17 10:00 01/14/17 09:18 Polysporin Ointment - TP 1 applic DAILY [facility] Administration Ceftriaxone Sodium 1 gm 01/13/17 10:00 01/14/17 09:18 Rocephin 1gm Ivpb (Pre-Docked) IVPB 1 gm DAILY [facility] Administration Diazepam 5 mg 01/12/17 22:00 01/14/17 14:03 Valium - PO 5 mg TID [facility] Administration Docusate Sodium 100 mg 01/12/17 22:00 01/14/17 14:03 Colace - PO 100 mg TID [facility] Administration Montelukast Sodium 10 mg 01/12/17 22:00 01/13/17 21:06 Singulair - PO 10 mg HS [facility] Administration Morphine Sulfate 1 mg 01/14/17 11:46 01/14/17 14:53 Morphine Injection - IVPUSH 1 mg Q4H PRN Administration PAIN Oxycodone HCl 5 mg 01/12/17 16:38 01/14/17 16:31 Roxicodone - PO 5 mg Q6H PRN Administration PAIN Oxycodone HCl 10 mg 01/14/17 18:21 01/14/17 18:27 Roxicodone - PO 10 mg Q4H PRN Administration PAIN Topiramate 50 mg 01/13/17 10:00 01/14/17 09:19 Topamax - PO 50 mg DAILY [facility] Administration IMAGING: MRI of the neck showed: C4-5 discitis/osteomyelitis; anterior epidural soft tissue thickening; posterior cervical ligamentus edema C4-5; prevertebral soft tissue swelling; + enhancement. ASSESSMENT/PLAN: Patient is a 62 year old female with significant past medical history of Carcinoid tumor s/p chemo (last chemo in April); GERD and migraine headaches presented to the ED with the chief complaints of neck and bilateral shoulder pain. Recently discharged from the hospital for sepsis secondary to UTI ( proteus mirabilis bateremia) on 01/01/17. #Osteomyelitis of C4/C5 sp cervical decompression surgery POD2 -cont IV Ceftriaxone 1gm daily -culture growing proteus; patterson sensitive; will need 6-8 weeks antibiotics -c spine showing widened prevertebral soft tissues with some soft tissue air: wnl -follow neurology recommendations # GERD- no active symptoms # Migraine-no active symptoms # Carcinoid tumor s/p chemo (last chemo in April) # FEN IV NS @ 75mls/hr Electrolytes to be repeated NPO DVT prophylaxis: scds; hold ac until cleared by neuro Visit type - Emergency Visit Emergency Visit: Yes ED Registration Date: 01/10/17 Care time: The patient presented to the Emergency Department on the above date and was hospitalized for further evaluation of their emergent condition. - New Patient This patient is new to me today: No - Critical Care Critical Care patient: No
--- NOTE | 2017-01-14 21:14 | PN ---
Progress Note (short form) - Note Progress Note: Progress Note, Physician History of Present Illness: s/p cervical decompression surgery POD day 2 doing well , though was in pain today discomfort with neck brace able to move all exe no fevers - Current Medication List Current Medications: Active Medications Ceftriaxone Sodium (Rocephin 1gm Ivpb (Pre-Docked)) 1 gm IVPB DAILY [facility] Diazepam (Valium -) 5 mg PO TID [facility] Last Admin: 01/13/17 05:59 Dose: 5 mg Docusate Sodium (Colace -) 100 mg PO TID [facility] Last Admin: 01/13/17 05:59 Dose: 100 mg Vancomycin HCl (Vancomycin (Pre-Docked)) 250 mls @ 250 mls/hr IVPB BID [facility] PRN Reason: Protocol Potassium Chloride/Sodium Chloride (1/2ns+20meq Kcl) 1,000 mls @ 75 mls/hr IV ASDIR [facility] Last Admin: 01/12/17 21:04 Dose: 75 mls/hr Montelukast Sodium (Singulair -) 10 mg PO HS [facility] Last Admin: 01/12/17 21:09 Dose: 10 mg Oxycodone HCl (Roxicodone -) 5 mg PO Q6H PRN PRN Reason: PAIN Last Admin: 01/13/17 02:09 Dose: 5 mg Topiramate (Topamax -) 50 mg PO DAILY [facility] - Objective Vital Signs: afebrile Neurological: Yes: Other (moving UE , appaers 5/5, limited ROM ogf th left hip s/p graft , reduced R Bi /BR reflex, 2+ TR BL, plantars downgoing) Labs: CBC, BMP 01/12/17 17:05 01/12/17 17:05 INR, PTT INR 1.01 (0.82-1.09) 01/10/17 12:49 Problem List - Problems (1) Osteomyelitis Code(s): M86.9 - OSTEOMYELITIS, UNSPECIFIED Qualifiers: Osteomyelitis type: subacute Osteomyelitis location: other site Qualified Code(s): M86.28 - Subacute osteomyelitis, other site (2) Cervical discitis Code(s): M46.42 - DISCITIS, UNSPECIFIED, CERVICAL REGION Assessment/Plan cervical diskitis C4-C5, recent bacteremia s/p decompression on 01/12 POD 2 neurologically stable and no deficits on neuro exam no signs of myelopathy FU CLTX , for sesntivities and ABX regimen pain control PRN oxycodone /valium PRN, colace for BM plan for rehab Dr Ojeda [phone] Problem List - Problems (1) Osteomyelitis Code(s): M86.9 - OSTEOMYELITIS, UNSPECIFIED Qualifiers: Osteomyelitis type: subacute Osteomyelitis location: other site Qualified Code(s): M86.28 - Subacute osteomyelitis, other site (2) Cervical discitis Code(s): M46.42 - DISCITIS, UNSPECIFIED, CERVICAL REGION
[2017-01-14] MEDS: MONTELUKAST NA 10 MG TABLET PO SCH (21:23)
[2017-01-15 06:06] LABS: SERUM IRON 12 ug/dL (27-139); TOTAL IRON BINDING CAPACITY 182 ug/dL (250-450); UIBC 170 ug/dL (118-369)
[2017-01-15] MEDS: DOCUSATE SODIUM 100 MG CAPSULE (FP) PO SCH ×3 (06:15→21:28)
[2017-01-15] MEDS: diazePAM 5 MG TABLET PO SCH ×3 (06:15→21:28)
[2017-01-15 08:34] LABS: MCH 30.9 pg (25.7-33.7); MCHC 33.6 g/dl (32.0-36.0); MEAN PLT VOLUME 7.2 fl (7.5-11.1); PLATELET COUNT 171 K/MM3 (134-434); RDW 15.8 % (11.6-15.6); WHITE BLOOD COUNT 6.2 K/mm3 (4.0-10.0)
[2017-01-15 08:36] LABS: CALCIUM 8.6 mg/dL (8.5-10.1); COCKROFT - GAULT 93.245; CREATININE 0.7 mg/dL (0.55-1.02)
--- NOTE | 2017-01-15 08:54 | PN ---
Progress Note (short form) - Note Progress Note: NEUROSURGERY POD #3 [place] collar less irritating scalp and chin Did not feel adequate support with soft collar Tolerating regular diet Sore throat better PE: Tmax 98, AF, VSS Some incisional pain Scalp with no erosion Anterior neck/chin skin abrasion better Motor B UE/ LE 4+-5 B; good UE ROM Sensation intact LT Dressing intact- no drainage C spine x-rays: satisfactory position of C4-5 implants On Ceftriaxone per ID ID to manage iv abx residential 6-8 weeks Need PIC line prior to discharge Outpatient Rx given for [place] collar Discharge instructions given
[2017-01-15] MEDS ORDERED: PICC LINE 8 ML FLUSH PROTOCOL IVPUSH PRN (09:02)
[2017-01-15] MEDS: TOPIRAMATE 25 MG TABLET (FP) PO SCH (10:06)
[2017-01-15] MEDS: cefTRIAXone 1 GM/50 ML BAG (PRE-DOCKED) IVPB SCH (10:07)
[2017-01-15] MEDS: POLYETHYLENE GLYCOL 3350 119 GM BTL PO SCH (10:09)
[2017-01-15] MEDS: BACITRACIN/POLYMYXIN B SULFATE 15 GM TUBE TP SCH (10:09)
--- NOTE | 2017-01-15 13:00 | PN ---
Teaching Attending Note Name of Resident: Peyton Tobin ATTENDING PHYSICIAN STATEMENT I saw and evaluated the patient. I reviewed the resident's note and discussed the case with the resident. I agree with the resident's findings and plan as documented. SUBJECTIVE:continues to have neck discomfort from the collar, did not feel "sturdy" in the other collar provided. denies CP, SOb, fever, chills, N/V/C/D ambulated well with PT OBJECTIVE: Last Vital Signs Temp Pulse Resp BP Pulse Ox 97.6 F 91 H 20 125/70 98 01/15/17 07:23 01/15/17 11:05 01/15/17 07:23 01/15/17 07:23 01/15/17 11:05 General NAD, c-collar in place dressing c/d/i ASSESSMENT AND PLAN: 61yo F with PMH GERD, nugraubes abd rectal carcinoid presented to the ER and was admitted for further evaluation of their emergent condition 1. C4-C5 discitis and osteomyelitis- s/p anterior cervical decompression and fusion on 01/12. Cx growing proteus with patterson-sensitivity. on Ceftriaxone will need abx for 6-8 weeks. pain controlled. ID, neuro and neurosurgery on board. 2. Pre-diabetic- A1c 6.6. will initiate lifestyle changes. will require repeat in 3 months. diabetic counseling 3. normocytic anemia- s/p 1 unit PRBC this admission. no signs of active bleeding. iron deficient. will start iron supplementation. counseled on risks of constipation and dark stools. 4. dvt ppx- re-start hep sq 5. d/c planning tomorrow, SW notified and arranging for infusions and VNS
--- NOTE | 2017-01-15 13:01 | PN ---
Progress Note, Physician History of Present Illness: patient doing well neurosurgery note noted patient feeling better - Current Medication List Current Medications: Active Medications Acetaminophen (Tylenol -) 650 mg PO Q4H PRN PRN Reason: HEADACHE Last Admin: 01/14/17 09:20 Dose: 650 mg Bacitracin/Polymyxin B Sulfate (Polysporin Ointment -) 1 applic TP DAILY [facility] Last Admin: 01/15/17 10:09 Dose: 1 applic Ceftriaxone Sodium (Rocephin 1gm Ivpb (Pre-Docked)) 1 gm IVPB DAILY [facility] Last Admin: 01/15/17 10:07 Dose: 1 gm Diazepam (Valium -) 5 mg PO TID [facility] Last Admin: 01/15/17 06:15 Dose: 5 mg Docusate Sodium (Colace -) 100 mg PO TID [facility] Last Admin: 01/15/17 06:15 Dose: 100 mg Ferrous Sulfate (Feosol -) 325 mg PO TIDCM [facility] IV Flush (Picc Line Flush) 8 ml IVPUSH PRN PRN PRN Reason: Protocol Montelukast Sodium (Singulair -) 10 mg PO [facility] Last Admin: 01/14/17 21:23 Dose: 10 mg Morphine Sulfate (Morphine Injection -) 1 mg IVPUSH Q4H PRN PRN Reason: PAIN Last Admin: 01/14/17 14:53 Dose: 1 mg Oxycodone HCl (Roxicodone -) 5 mg PO Q6H PRN PRN Reason: PAIN Last Admin: 01/14/17 16:31 Dose: 5 mg Oxycodone HCl (Roxicodone -) 10 mg PO Q4H PRN PRN Reason: PAIN Last Admin: 01/14/17 18:27 Dose: 10 mg Polyethylene Glycol (Miralax (For Daily Use) -) 17 gm PO DAILY [facility] Last Admin: 01/15/17 10:09 Dose: Not Given Topiramate (Topamax -) 50 mg PO DAILY [facility] Last Admin: 01/15/17 10:06 Dose: 50 mg - Objective Vital Signs: Vital Signs Temperature 97.6 F 01/15/17 07:23 Pulse Rate 91 H 01/15/17 11:05 Respiratory Rate 20 01/15/17 07:23 Blood Pressure 125/70 01/15/17 07:23 O2 Sat by Pulse Oximetry (%) 98 01/15/17 11:05 Constitutional: Yes: No Distress, Calm HENT: Yes: Other (hard collar) Cardiovascular: Yes: Regular Rate and Rhythm Respiratory: Yes: Regular, CTA Bilaterally Gastrointestinal: Yes: Normal Bowel Sounds, Soft Musculoskeletal: Yes: WNL Extremities: Yes: WNL Wound/Incision: Yes: Dressing Dry and Intact Neurological: Yes: Alert, Oriented Psychiatric: Yes: Alert, Oriented Labs: CBC, BMP 01/15/17 07:00 01/15/17 07:00 INR, PTT INR 1.01 (0.82-1.09) 01/10/17 12:49 Assessment/Plan osteo of cervical vertebra bacteremia pain plan await for surgery proteus in tissue sensitivities noted she will need abx for 6-8 weeks patient needs picc line
--- NOTE | 2017-01-15 14:03 | PN ---
Physical Exam: SUBJECTIVE: Patient seen and examined, feels better, not comfortable in soft collar, does not feel neck is secure. Pain improved with decadron given last night. OBJECTIVE: Vital Signs Period Temp Pulse Resp BP Sys/Vega Pulse Ox Last 24 Hr 97.3 F-98 F 73-94 20-20 125-140/70-78 97-98 GENERAL: The patient is awake, alert, and fully oriented, in no acute distress. HEAD: Normal with no signs of trauma. ENT: Ears normal, nares patent, oropharynx clear without exudates, moist mucous membranes. NECK: brace in place, dressing intact; LUNGS: Breath sounds equal, clear to auscultation bilaterally, no wheezes, no crackles, no accessory muscle use. HEART: Regular rate and rhythm, S1, S2 without murmur, rub or gallop. ABDOMEN: Soft, nontender, nondistended, normoactive bowel sounds, no guarding, no rebound, no hepatosplenomegaly, no masses. EXTREMITIES: 2+ pulses, warm, well-perfused, no edema. left hip graft area, clean dry, no swelling, erythema, edema NEUROLOGICAL: Cranial nerves II through XII grossly intact. Normal speech, gait not observed. PSYCH: Normal mood, normal affect. SKIN: Warm, dry, normal turgor, no rashes or lesions noted Laboratory Results - last 24 hr 01/11/17 01/14/17 01/15/17 10:07 06:20 07:00 WBC 6.2 RBC 3.20 L Hgb 9.9 L Hct 29.5 L MCV 92.0 MCHC 33.6 RDW 15.8 H Plt Count 171 MPV 7.2 L Sodium Potassium Chloride Carbon Dioxide Anion Gap BUN Creatinine Random Glucose Calcium Iron 12 L TIBC 182 L Iron Saturation 7 L Crossmatch IS Only See Detail 01/15/17 07:00 WBC RBC Hgb Hct MCV MCHC RDW Plt Count MPV Sodium 140 Potassium 4.2 Chloride 108 H Carbon Dioxide 24 Anion Gap 8 BUN 14 D Creatinine 0.7 Random Glucose 116 H Calcium 8.6 Iron TIBC Iron Saturation Crossmatch IS Only Active Medications Generic Name Dose Route Start Last Admin Trade Name Freq PRN Reason Stop Dose Admin Acetaminophen 650 mg 01/13/17 12:35 01/14/17 09:20 Tylenol - PO 650 mg Q4H PRN Administration HEADACHE Bacitracin/Polymyxin B Sulfate 1 applic 01/13/17 10:00 01/15/17 10:09 Polysporin Ointment - TP 1 applic DAILY [facility] Administration Ceftriaxone Sodium 1 gm 01/13/17 10:00 01/15/17 10:07 Rocephin 1gm Ivpb (Pre-Docked) IVPB 1 gm DAILY [facility] Administration Diazepam 5 mg 01/12/17 22:00 01/15/17 06:15 Valium - PO 5 mg TID [facility] Administration Docusate Sodium 100 mg 01/12/17 22:00 01/15/17 06:15 Colace - PO 100 mg TID [facility] Administration Ferrous Sulfate 325 mg 01/15/17 12:30 Feosol - PO TIDCM [facility] IV Flush 8 ml 01/15/17 09:02 Picc Line Flush IVPUSH PRN PRN Protocol Montelukast Sodium 10 mg 01/12/17 22:00 01/14/17 21:23 Singulair - PO 10 mg HS [facility] Administration Morphine Sulfate 1 mg 01/14/17 11:46 01/14/17 14:53 Morphine Injection - IVPUSH 1 mg Q4H PRN Administration PAIN Oxycodone HCl 5 mg 01/12/17 16:38 01/14/17 16:31 Roxicodone - PO 5 mg Q6H PRN Administration PAIN Oxycodone HCl 10 mg 01/14/17 18:21 01/14/17 18:27 Roxicodone - PO 10 mg Q4H PRN Administration PAIN Polyethylene Glycol 17 gm 01/15/17 10:00 01/15/17 10:09 Miralax (For Daily Use) - PO Not Given DAILY [facility] Topiramate 50 mg 01/13/17 10:00 01/15/17 10:06 Topamax - PO 50 mg DAILY [facility] Administration ASSESSMENT/PLAN: IMAGING: MRI of the neck showed: C4-5 discitis/osteomyelitis; anterior epidural soft tissue thickening; posterior cervical ligamentus edema C4-5; prevertebral soft tissue swelling; + enhancement. ASSESSMENT/PLAN: Patient is a 62 year old female with significant past medical history of Carcinoid tumor s/p chemo (last chemo in April); GERD and migraine headaches presented to the ED with the chief complaints of neck and bilateral shoulder pain. Recently discharged from the hospital for sepsis secondary to UTI ( proteus mirabilis bateremia) on 01/01/17. #Osteomyelitis of C4/C5 sp cervical decompression surgery POD3 -cont IV Ceftriaxone 1gm daily for 6-8 weeks -picc line upon DC -culture growing proteus; patterson sensitive; -follow neurology recommendations # GERD- no active symptoms # Migraine-no active symptoms # Carcinoid tumor s/p chemo (last chemo in April) # FEN IV NS @ 75mls/hr Electrolytes to be repeated NPO DVT prophylaxis: ambulate; Disposition: dc home in am; s/p picc line Visit type - Emergency Visit Emergency Visit: Yes ED Registration Date: 01/10/17 Care time: The patient presented to the Emergency Department on the above date and was hospitalized for further evaluation of their emergent condition. - New Patient This patient is new to me today: No - Critical Care Critical Care patient: No
[2017-01-15] MEDS: ACETAMINOPHEN 325 MG TABLET (FP) PO PRN (14:16)
[2017-01-15] MEDS: FERROUS SO4 325 MG TABLET (FP) PO SCH ×2 (15:08→18:42)
[2017-01-15] MEDS: oxyCODONE HCL 5 MG TABLET PO PRN ×2 (15:14→21:28)
--- NOTE | 2017-01-15 17:38 | PN ---
Progress Note (short form) - Note Progress Note: s/p cervical decompression surgery POD day 3 doing well , pain better , some chills /swetas last night but no fever +proteus in tissue culture able to move all exe no fevers - Current Medication List Current Medications: Active Medications Ceftriaxone Sodium (Rocephin 1gm Ivpb (Pre-Docked)) 1 gm IVPB DAILY [facility] Diazepam (Valium -) 5 mg PO TID JAMISON Last Admin: 01/13/17 05:59 Dose: 5 mg Docusate Sodium (Colace -) 100 mg PO TID JAMISON Last Admin: 01/13/17 05:59 Dose: 100 mg Vancomycin HCl (Vancomycin (Pre-Docked)) 250 mls @ 250 mls/hr IVPB BID JAMISON PRN Reason: Protocol Potassium Chloride/Sodium Chloride (1/2ns+20meq Kcl) 1,000 mls @ 75 mls/hr IV ASDIR JAMISON Last Admin: 01/12/17 21:04 Dose: 75 mls/hr Montelukast Sodium (Singulair -) 10 mg PO HS JAMISON Last Admin: 01/12/17 21:09 Dose: 10 mg Oxycodone HCl (Roxicodone -) 5 mg PO Q6H PRN PRN Reason: PAIN Last Admin: 01/13/17 02:09 Dose: 5 mg Topiramate (Topamax -) 50 mg PO DAILY [facility] - Objective Vital Signs: afebrile Neurological: Yes: Other (moving UE , appaers 5/5, limited ROM ogf th left hip s/p graft , reduced R Bi /BR reflex, 2+ TR BL, plantars downgoing) Labs: CBC, BMP 01/12/17 17:05 01/12/17 17:05 INR, PTT INR 1.01 (0.82-1.09) 01/10/17 12:49 Problem List Assessment/Plan cervical diskitis C4-C5, recent bacteremia s/p decompression on 01/12 POD 3 neurologically stable and no deficits on neuro exam , afebrile, doing well no signs of myelopathy as per ID 6-8 weeks of ABX via PICC stable for outpt FU from neuro standpoint Dr Ojeda [phone] Problem List - Problems (1) Osteomyelitis Code(s): M86.9 - OSTEOMYELITIS, UNSPECIFIED Qualifiers: Osteomyelitis type: subacute Osteomyelitis location: other site Qualified Code(s): M86.28 - Subacute osteomyelitis, other site (2) Cervical discitis Code(s): M46.42 - DISCITIS, UNSPECIFIED, CERVICAL REGION
[2017-01-15] MEDS: MONTELUKAST NA 10 MG TABLET PO SCH (21:28)
--- NOTE | 2017-01-16 06:04 | PN ---
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
[2017-01-16] MEDS: DOCUSATE SODIUM 100 MG CAPSULE (FP) PO SCH ×2 (06:40→15:46)
[2017-01-16] MEDS: diazePAM 5 MG TABLET PO SCH ×2 (06:40→15:46)
[2017-01-16 07:29] LABS: MCH 30.9 pg (25.7-33.7); MCHC 33.5 g/dl (32.0-36.0); MEAN CELL VOLUME 92.4 fl (80-96); MEAN PLT VOLUME 7.2 fl (7.5-11.1); PLATELET COUNT 183 K/MM3 (134-434); RDW 15.9 % (11.6-15.6); WHITE BLOOD COUNT 4.7 K/mm3 (4.0-10.0)
[2017-01-16] MEDS: cefTRIAXone 1 GM/50 ML BAG (PRE-DOCKED) IVPB SCH (09:31)
[2017-01-16] MEDS: FERROUS SO4 325 MG TABLET (FP) PO SCH ×3 (09:31→17:40)
[2017-01-16] MEDS: POLYETHYLENE GLYCOL 3350 119 GM BTL PO SCH (09:36)
[2017-01-16] MEDS: TOPIRAMATE 25 MG TABLET (FP) PO SCH (09:40)
--- NOTE | 2017-01-16 09:48 | PN ---
Progress Note, Physician History of Present Illness: stable still with philadel collar no issues - Current Medication List Current Medications: Active Medications Acetaminophen (Tylenol -) 650 mg PO Q4H PRN PRN Reason: HEADACHE Last Admin: 01/15/17 14:16 Dose: 650 mg Bacitracin/Polymyxin B Sulfate (Polysporin Ointment -) 1 applic TP DAILY [facility] Last Admin: 01/15/17 10:09 Dose: 1 applic Ceftriaxone Sodium (Rocephin 1gm Ivpb (Pre-Docked)) 1 gm IVPB DAILY [facility] Last Admin: 01/16/17 09:31 Dose: 1 gm Diazepam (Valium -) 5 mg PO TID [facility] Last Admin: 01/16/17 06:40 Dose: 5 mg Docusate Sodium (Colace -) 100 mg PO TID [facility] Last Admin: 01/16/17 06:40 Dose: 100 mg Ferrous Sulfate (Feosol -) 325 mg PO TIDCM [facility] Last Admin: 01/16/17 09:31 Dose: 325 mg IV Flush (Picc Line Flush) 8 ml IVPUSH PRN PRN PRN Reason: Protocol Montelukast Sodium (Singulair -) 10 mg PO HS [facility] Last Admin: 01/15/17 21:28 Dose: 10 mg Morphine Sulfate (Morphine Injection -) 1 mg IVPUSH Q4H PRN PRN Reason: PAIN Last Admin: 01/14/17 14:53 Dose: 1 mg Oxycodone HCl (Roxicodone -) 5 mg PO Q6H PRN PRN Reason: PAIN Last Admin: 01/15/17 15:14 Dose: 5 mg Oxycodone HCl (Roxicodone -) 10 mg PO Q4H PRN PRN Reason: PAIN Last Admin: 01/15/17 21:28 Dose: 10 mg Polyethylene Glycol (Miralax (For Daily Use) -) 17 gm PO DAILY [facility] Last Admin: 01/16/17 09:36 Dose: Not Given Topiramate (Topamax -) 50 mg PO DAILY [facility] Last Admin: 01/16/17 09:40 Dose: 50 mg - Objective Vital Signs: Vital Signs Temperature 97.9 F 01/16/17 06:02 Pulse Rate 75 01/16/17 06:02 Respiratory Rate 20 01/16/17 06:02 Blood Pressure 112/76 01/15/17 23:00 O2 Sat by Pulse Oximetry (%) 98 01/15/17 21:00 Constitutional: Yes: No Distress, Calm HENT: Yes: Other (hard collar) Neck: Yes: Supple Cardiovascular: Yes: Regular Rate and Rhythm Respiratory: Yes: Regular, CTA Bilaterally Gastrointestinal: Yes: Normal Bowel Sounds, Soft Musculoskeletal: Yes: WNL Extremities: Yes: WNL Neurological: Yes: Alert, Oriented Psychiatric: Yes: Alert, Oriented Labs: CBC, BMP 01/16/17 06:15 01/15/17 07:00 INR, PTT INR 1.01 (0.82-1.09) 01/10/17 12:49 Assessment/Plan osteo of cervical vertebra bacteremia pain plan await for surgery proteus in tissue sensitivities noted await for picc line 6 weeks of abx patient to get crp weekly with esr
[2017-01-16] MEDS: BACITRACIN/POLYMYXIN B SULFATE 15 GM TUBE TP SCH (10:01)
[2017-01-16 10:35] VITALS: BP 131/70; PULSE 86; TEMP 98.1
--- NOTE | 2017-01-16 15:32 | DS ---
[id number] pain. Adjusting to the neck brace. OBJECTIVE: Vital Signs Period Temp Pulse Resp BP Sys/Vega Pulse Ox Last 24 Hr 97.9 F-98.8 F 74-90 18-20 112-135/70-76 98-98 PHYSICAL EXAM GENERAL: The patient is awake, alert, and fully oriented, in no acute distress. HEAD: Normal with no signs of trauma. NECK: NEck brace secure; dressings clean dr intactTrachea midline, full range of motion, supple. LUNGS: Breath sounds equal, clear to auscultation bilaterally, no wheezes, no crackles, no accessory muscle use. HEART: Regular rate and rhythm, S1, S2 without murmur, rub or gallop. ABDOMEN: Soft, nontender, nondistended, normoactive bowel sounds, no guarding, no rebound, no hepatosplenomegaly, no masses. EXTREMITIES: 2+ pulses, warm, well-perfused, no edema. Left hip regiod, incision clean, dry, no surrounding erythema or edema NEUROLOGICAL: Cranial nerves II through XII grossly intact. Normal speech, gait not observed. PSYCH: Normal mood, normal affect. SKIN: Warm, dry, normal turgor, no rashes or lesions noted. LABS Laboratory Results - last 24 hr 01/16/17 06:15 WBC 4.7 RBC 3.34 L Hgb 10.3 L Hct 30.9 L MCV 92.4 MCHC 33.5 RDW 15.9 H Plt Count 183 MPV 7.2 L IMAGING: MRI of the neck showed: C4-5 discitis/osteomyelitis; anterior epidural soft tissue thickening; posterior cervical ligamentus edema C4-5; prevertebral soft tissue swelling; + enhancement. HOSPITAL COURSE: Date of Admission:01/10/17 Date of Discharge: 01/16/17 Patient is a 62 year old female with significant past medical history of Carcinoid tumor s/p chemo (last chemo in April); GERD and migraine headaches presented to the ED with the chief complaints of neck and bilateral shoulder pain. Recently discharged from the hospital for sepsis secondary to UTI ( proteus mirabilis bateremia) on 01/01/17. #Osteomyelitis of C4/C5 sp cervical decompression surgery POD4 -IV Ceftriaxone 1gm daily for 6 weeks -picc line -culture proteus; patterson sensitive; -follow neurology recommendations # GERD- no active symptoms # Migraine-no active symptoms # Carcinoid tumor s/p chemo (last chemo in April) Minutes to complete discharge: 35 <Peyton Tobin - Last Filed: 01/16/17 15:36> Physical Exam: iron deficiency anemia- started on iron supplements Pre-diabetic- educated on lifestyle changes. evaluated by restaurant busser and educated on diabetic diet. informed will need repeat A1c in 3 months to evaluate if medications need to be initiated. <Jaja Smith - Last Filed: 01/21/17 15:25> Discharge Summary Reason For Visit: OSTEOMYELITIS Current Active Problems Cervical discitis (Acute) Diskitis (Acute) Osteomyelitis (Acute) - Home Medications Comprehensive Discharge Medication List: Ambulatory Orders Montelukast Na [Singulair -] 10 mg PO HS 12/22/16 Topiramate [Topamax] 50 mg PO DAILY 12/22/16 Lorazepam [Ativan] 2 mg PO HS 01/10/17 Ceftriaxone 1 gm/D5w [Rocephin 1 gm Premix Ivpb -] 1 gm IV DAILY #44 bag Ceftriaxone [Rocephin 1Gm Ivpb (Pre-Docked)] 1 gm IVPB DAILY bag 01/16/17 Ferrous Sulfate [Feosol] 325 mg PO BID #60 tablet 01/16/17 Oxycodone HCl [Roxicodone -] 5 mg PO Q6H PRN #20 tablet MDD 4 01/16/17 <Peyton Tobin - Last Filed: 01/16/17 15:36> - Home Medications Comprehensive Discharge Medication List: Ambulatory Orders Montelukast Na [Singulair -] 10 mg PO HS 12/22/16 Topiramate [Topamax] 50 mg PO DAILY 12/22/16 Lorazepam [Ativan] 2 mg PO HS 01/10/17 Ceftriaxone 1 gm/D5w [Rocephin 1 gm Premix Ivpb -] 1 gm IV DAILY #44 bag Ceftriaxone [Rocephin 1Gm Ivpb (Pre-Docked)] 1 gm IVPB DAILY bag 01/16/17 Ferrous Sulfate [Feosol] 325 mg PO BID #60 tablet 01/16/17 Oxycodone HCl [Roxicodone -] 5 mg PO Q6H PRN #20 tablet MDD 4 01/16/17 <Jaja Smith - Last Filed: 01/21/17 15:25> Condition: Stable - Instructions Diet, Activity, Other Instructions: Post-op Instructions Diet: Diabetic diet. follow hand out and instruction provided by restaurant busser. Activity:May shower but keep incision line dry. Change dressing afterwards. Restrictions: Do not lift anything over 10lbs. Wear collar at all time except in shower. Additional Instructions: Keep incision line clean and dry. Change dressing daily. Report any chills, fever (100 or greater), any wound drainage, or any neurological changes to Dr. Sherwood. Do not drive for two weeks. Initial post-op appt: Call Dr Sherwood's office to be seen in about 10 days Follow up with your primary care doctor in 1 week. You will need to have ESR/ CRP levels checked weekly. You will need to have your diabetic number (A1c) checked in 3 months. If it does not improve you may need to start medications. You have also been started on iron supplements, this can make you constipated and turn your stools black. ensure you are having daily bowel movements. Do not drive or operate heavy machinery when using percocet. This medication can cause you to be drowsy and can cause constipation. If you develop numbness/tingling in your extremities or your symptoms worsen return to the ER. PICC line to Right arm,instructions given to pt. Referrals: Giovany Sherwood MD [Staff Physician] - Davi Santiago MD [Primary Care Provider] - Disposition: HOME This patient is new to me today: No Emergency Visit: Yes ED Registration Date: 01/10/17 Care time: The patient presented to the Emergency Department on the above date and was hospitalized for further evaluation of their emergent condition. Critical Care patient: No - Discharge Referral Referred to [facility] Med [facility].C[facility] No <Peyton Tobin - Last Filed: 01/16/17 15:36>
[2017-01-16] MEDS: oxyCODONE HCL 5 MG TABLET PO PRN (15:46)
--- NOTE | 2017-01-16 16:53 | PN ---
Teaching Attending Note Name of Resident: Peyton Tobin ATTENDING PHYSICIAN STATEMENT I saw and evaluated the patient. I reviewed the resident's note and discussed the case with the resident. I agree with the resident's findings and plan as documented. SUBJECTIVE:c/o R shoulder pain. worse on movement. limited to anterior deltoid region. no numbness/tingling denies CP, SOB,fever, chills OBJECTIVE: Last Vital Signs Temp Pulse Resp BP Pulse Ox 98.1 F 86 18 131/70 98 01/16/17 10:00 01/16/17 10:00 01/16/17 10:00 01/16/17 10:00 01/16/17 10:00 General NAD, c-collar in place dressing c/d/i back- no bone point tenderness along the cervical spine. some muscle spasms inferior border of scapula. full ROM of RUE active and passive movements. ASSESSMENT AND PLAN: 61yo F with PMH GERD, nugraubes abd rectal carcinoid presented to the ER and was admitted for further evaluation of their emergent condition 1. C4-C5 discitis and osteomyelitis- s/p anterior cervical decompression and fusion on 01/12. Cx growing proteus with patterson-sensitivity. on Ceftriaxone. PICC line today for additional 6-8 weeks. pain controlled. ID, neuro and neurosurgery on board. 2. Muscle spasm- XR done of cervical spine. no subluxation from surgical site. pain most likely muscular and from C-collar pressure 3. Pre-diabetic- A1c 6.6. will initiate lifestyle changes. will require repeat in 3 months. diabetic counseling 4. normocytic anemia- s/p 1 unit PRBC this admission. no signs of active bleeding. iron deficient. on iron supplementation. counseled on risks of constipation and dark stools. 5. dvt ppx- hep sq 6. d/c home. will need weekly ESR/CRP checks.
== END 2017-01-16 17:37 | disposition home or self-care (01) | DRG 473 ==
LOC: JER 11:13 → JERFT 11:13 → JERBED 14:01 → J5S 22:16 → JSAMEDAYSX 01-12 15:00 → J8W 01-12 18:30
PROVIDERS: ADMIT Internal Medicine; ATTEND Internal Medicine
PROC: 0RG1070 Fusion of Cervical Vertebral Joint with Autologous Tissue Substitute, Anterior Approach, Anterior Column, Open Approach (ICD-10-PCS; 2017-01-12)
PROC: 0RT30ZZ Resection of Cervical Vertebral Disc, Open Approach (ICD-10-PCS; principal; 2017-01-12 10:45)
PROC: 02HV33Z Insertion of Infusion Device into Superior Vena Cava, Percutaneous Approach (ICD-10-PCS; 2017-01-16)
PROC: B548ZZA Ultrasonography of Superior Vena Cava, Guidance (ICD-10-PCS; 2017-01-16)
DX: M46.22 Osteomyelitis of vertebra, cervical region (principal); M85.88 Other specified disorders of bone density and structure, other site; M81.0 Age-related osteoporosis without current pathological fracture; K21.9 Gastro-esophageal reflux disease without esophagitis; G43.909 Migraine, unspecified, not intractable, without status migrainosus; Z85.048 Personal history of other malignant neoplasm of rectum, rectosigmoid junction, and anus; M54.2 Cervicalgia; M25.512 Pain in left shoulder; M25.511 Pain in right shoulder; M54.12 Radiculopathy, cervical region; B96.4 Proteus (mirabilis) (morganii) as the cause of diseases classified elsewhere; R73.9 Hyperglycemia, unspecified; D64.9 Anemia, unspecified
CPT/HCPCS: 36415; 36430; 36569; 72050-TC; 72142-TC; 77001-TC; 80048; 80053; 81003; 81015; 82728; 83540; 83550; 85025; 85027; 85610; 85651; 85730; 86140; 86850; 86900; 86901; 86922; 87040; 87070; 87075; 87086; 87102; 87186; 87205; 87210; 88304-TC; 88305-TC; 88311-TC; 88331-TC; 88341-TC; 93005; 93010; 94760; 97116-GP; 97161-GP; 99283-25; C1751; J3480

== ENCOUNTER 2017-07-19 11:57 | Emergency (ER) | payer MEDICARE, OTHER ==
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
[2017-07-19 12:18] VITALS: BP 122/73; PULSE 82; TEMP 97.9; BMI 24.9
[2017-07-19 12:40] LABS: BASOPHIL 1.2 % (0-2.0); EOSINOPHIL 1.3 % (0-4.5); MCH 29.5 pg (25.7-33.7); MEAN CELL VOLUME 89.6 fl (80-96); MEAN PLT VOLUME 7.7 fl (7.5-11.1); NEUTROPHILS 85.3 % (42.8-82.8); PLATELET COUNT 348 K/MM3 (134-434); RDW 16.8 % (11.6-15.6)
[2017-07-19 12:48] LABS: INR 1.02 (0.82-1.09); PROTHROMBIN TIME (PATIENT) 11.4 SEC (10.2-13.0)
[2017-07-19 12:52] LABS: ALBUMIN 3.9 g/dl (3.5-5.0); ALK PHOS 217 U/L (32-92); ANION GAP 7 (8-16); BILIRUBIN,TOTAL 0.5 mg/dl (0.2-1.0); CALCIUM 9.2 mg/dl (8.4-10.2); CO2 23 mmol/L (22-28); CREATININE 0.9 mg/dl (0.6-1.3); GLUCOSE,RANDOM 142 mg/dl (74-106); SGOT/AST 36 U/L (10-42); SGPT/ALT 65 U/L (10-40); TOT PROT 7.1 g/dl (6.4-8.3)
[2017-07-19 15:04] LABS: ERYTHROCYTE SEDIMENTATION RATE 7 mm/hr (0-30)
[2017-07-19 15:09] LABS: C-REACTIVE PROTEIN < 0.3 MG/DL (0.00-0.3)
== END 2017-07-19 14:35 | disposition home or self-care (01) ==
LOC: FER 11:57
DX: S16.1XXA Strain of muscle, fascia and tendon at neck level, initial encounter (principal); S29.019A Strain of muscle and tendon of unspecified wall of thorax, initial encounter; V43.62XA Car passenger injured in collision with other type car in traffic accident, initial encounter; Y93.89 Activity, other specified; Y92.410 Unspecified street and highway as the place of occurrence of the external cause; Z85.048 Personal history of other malignant neoplasm of rectum, rectosigmoid junction, and anus; K21.9 Gastro-esophageal reflux disease without esophagitis
CPT/HCPCS: 36415; 70450-TC; 72125-TC; 72128-TC; 80053; 85025; 85610; 85651; 86140; 99282-25

== ENCOUNTER 2018-11-19 21:59 | Inpatient (IN) | payer OTHER ==
[2018-11-19 22:17] VITALS: BMI 24.9
--- NOTE | 2018-11-19 22:21 | PDOC ---
History of Present Illness - General History Source: Patient Exam Limitations: No Limitations - History of Present Illness Initial Comments: 11/19/18 23:19 The patient is a 63 year old female, with a significant past medical history of rectal CA, GERD and migraine headaches, who presents to the emergency department with chest, epigastric and left sided flank pain, radiating to her back since 6:30pm. The patient notes her symptoms are associated with nausea, one episode of vomiting and SOB. The patient describes the pain as a burning sensation. The patient notes she took pepto bismol with no relief. The patient states she had some episodes of diarrhea for the past 4 days (on medication) and has since gotten better. The patient notes she has had a cough and runny nose for the past 2 weeks. The patient states she has never experienced pain like this before. The patient denies fever, chills, or constipation. The patient denies dysuria, frequency, urgency or hematuria. FAMILY HISTORY: no pertinent history SOCIAL HISTORY: Pt lives with family and is employed. MEDICATIONS: reviewed ALLERGIES: As per nursing notes <Larry Molina - Last Filed: 11/19/18 23:19> - General History Source: Patient Exam Limitations: No Limitations - History of Present Illness Initial Comments: 11/19/18 23:16 A portion of this note was documented by scribe services under my direction. I have reviewed the details of the note, within reason, and agree with the documentation with the following case summary and management plan written by me. Patient treated in the ED. Nursing notes are reviewed and incorporated into the medical decision-making. Vital signs reviewed. Assessment and plan: This is a 63-year-old female who comes in complaining of abdominal pain radiating to her back. Patient also had some nausea and vomited times once, also complaining of shortness of breath and dizziness. Patient has history significant for carcinoid. Workup initiated including EKG, CBC, comp, lipase, d-dimer, blood cultures and urinalysis and urine cultures. 11/20/18 00:07 Reevaluation patient feels better still with some pain. Pending EKG shows normal sinus rhythm at a rate of [address]-T wave changes. <Jennyfer Wilcox I - Last Filed: 11/20/18 01:14> - General Chief Complaint: Chest Pain Stated Complaint: CHEST & FLANK PAIN Time Seen by Provider: 11/19/18 22:03 Past History <Larry Molina - Last Filed: 11/19/18 23:19> - Past Medical History Cancer: Yes (RECTAL) COPD: No GI Disorders: Yes (GERD) Other medical history: SEASONAL ALLERGIES SEASONAL ALLERGIES. - Surgical History Gastric Stapling: Yes - Suicide/Smoking/Psychosocial Hx Smoking History: Unknown if ever smoked Have you smoked in the past 12 months: Yes Hx Alcohol Use: No Drug/Substance Use Hx: No Substance Use Type: None <Jennyfer Wilcox I - Last Filed: 11/20/18 01:14> - Past Medical History Allergies/Adverse Reactions: Allergies Allergy/AdvReac Type Severity Reaction Status Date / Time everolimus [From Afinitor] AdvReac Severe SOB, Verified 07/19/17 12:39 Myalgias, Arthralgias,Edema erythromycin base AdvReac Verified 07/19/17 12:39 [Erythromycin Base] Home Medications: Ambulatory Orders Montelukast Na [Singulair -] 10 mg PO HS 12/22/16 Topiramate [Topamax] 50 mg PO DAILY 12/22/16 Lorazepam [Ativan] 2 mg PO HS 01/10/17 Octreotide Acetate [Sandostatin] 30 mcg IJ MONTHLY ampul 05/28/17 Nilda Katz 3,000 Units Capsule 11/19/18 Telotristat Etiprate [Xermelo] 250 mg PO DAILY 11/19/18 Review of Systems - Review of Systems Able to Perform ROS?: Yes Comments:: 11/19/18 23:19 General: No fevers or chills, no weakness, no weight loss HEENT: (+) cough. (+) runny nose. No change in vision. No sore throat,. No ear pain CardioVascular: (+)shortness of breath Respiratory:No cough, or wheezing. Gastrointestinal: (+)nausea, (+) diarrhea. (+) vomiting, no constipation, No rectal bleeding Genitourinary: No dysuria, hematuria, or frequency Musculoskeletal:(+) chest pain (+) epigastric pain. (+) left sided flank pain. No joint swelling Neurologic: No headache, vertigo, dizziness or loss of consciousness Psychiatric: nor depression Skin: No rashes or easy bruising Endocrine: no increased thirst or abnormal weight change Allergic: no skin or latex allergy All other systems reviewed and normal <Larry Molina - Last Filed: 11/19/18 23:19> *Physical Exam - Vital Signs Last Vital Signs Temp Pulse Resp BP Pulse Ox 99.1 F 65 16 129/66 100 11/19/18 22:11 11/19/18 22:11 11/19/18 22:11 11/19/18 22:11 11/19/18 22:11 - Physical Exam Comments: 11/19/18 23:20 General: Well-nourished well-developed individual, no acute distress HEENT: Throat: Normal, tonsils normal, no erythema or exudate Neck: Supple, no meningeal signs, no lymphadenopathy Eyes::Pupils equal reactive and round, extraocular motion intact Chest: Nontender to palpation Cardiac: S1-S2 normal, regular rate and rhythm, no murmurs rubs or gallops Respiratory: Lungs clear to auscultation bilateral Abdomen: (+) tenderness to palpation on the epigastric region and mild tenderness on the rest of the abdomen. Soft, nondistended, normal bowel sounds. Extremities: (+) 1+ edema of feet and ankles. Warm, dry, no cyanosis, no clubbing. Skin: No rashes Neuro: Alert and oriented x3, nonfocal exam, grossly intact, normal gait Psych: Normal mood and affect <Larry Molina - Last Filed: 11/19/18 23:19> - Vital Signs Last Vital Signs Temp Pulse Resp BP Pulse Ox 99.1 F 65 16 129/66 100 11/19/18 22:11 11/19/18 22:11 11/19/18 22:11 11/19/18 22:11 11/19/18 22:11 <Jennyfer Wilcox I - Last Filed: 11/20/18 01:14> Moderate Sedation - Procedure Monitoring Vital Signs: Procedure Monitoring Vital Signs Temperature 99.1 F 11/19/18 22:11 Pulse Rate 65 11/19/18 22:11 Respiratory Rate 16 11/19/18 22:11 Blood Pressure 129/66 11/19/18 22:11 O2 Sat by Pulse Oximetry (%) 100 11/19/18 22:11 <Larry Molina - Last Filed: 11/19/18 23:19> - Procedure Monitoring Vital Signs: Procedure Monitoring Vital Signs Temperature 99.1 F 11/19/18 22:11 Pulse Rate 65 11/19/18 22:11 Respiratory Rate 16 11/19/18 22:11 Blood Pressure 129/66 11/19/18 22:11 O2 Sat by Pulse Oximetry (%) 100 11/19/18 22:11 <Jennyfer Wilcox I - Last Filed: 11/20/18 01:14> ED Treatment Course - LABORATORY CBC & Chemistry Diagram: 11/19/18 22:35 11/19/18 22:30 - ADDITIONAL ORDERS Additional order review: Laboratory Results 11/19/18 11/19/18 11/19/18 22:30 22:30 22:23 Sodium 138 Potassium 4.0 Chloride 106 Carbon Dioxide 22 Anion Gap 10 BUN 22 H Creatinine 0.9 Creat Clearance w eGFR > 60 Random Glucose 246 H Calcium 9.0 Total Bilirubin 0.8 AST 36 ALT 57 Alkaline Phosphatase 100 Creatine Kinase 83 Troponin I < 0.03 Total Protein 7.0 Albumin 4.0 11/19/18 22:35 RBC 4.40 MCV 93.5 MCHC 32.3 RDW 16.4 H MPV 8.2 Neutrophils % No Result Required. Lymphocytes % No Result Required. - Medications Given in the ED: ED Medications Discontinued Medications Generic Name Dose Route Start Last Admin Trade Name Kiranq PRN Reason Stop Dose Admin Ketorolac Tromethamine 30 mg 11/19/18 22:42 11/19/18 23:03 Toradol Injection - IVPUSH 11/19/18 22:43 30 mg ONCE ONE Administration Morphine Sulfate 4 mg 11/19/18 22:42 11/19/18 23:03 Morphine Injection - IVPUSH 11/19/18 22:43 4 mg ONCE ONE Administration <Larry Molina - Last Filed: 11/19/18 23:19> - LABORATORY CBC & Chemistry Diagram: 11/19/18 22:35 11/19/18 22:30 <Jennyfer Wilcox I - Last Filed: 11/20/18 01:14> *DC/Admit/Observation/Transfer - Attestations Scribe Attestion: 11/19/18 23:20 Documentation prepared by Larry Molina, acting as chief medical physicist for Jennyfer Wilcox MD <Larry Molina - Last Filed: 11/19/18 23:19> - Discharge Dispostion Decision to Admit order: Yes <Jennyfer Wilcox I - Last Filed: 11/20/18 01:14> Diagnosis at time of Disposition: Abdominal pain Qualifiers: Abdominal location: upper abdomen, unspecified Qualified Code(s): R10.10 - Upper abdominal pain, unspecified Leukocytosis Qualifiers: Leukocytosis type: other Qualified Code(s): D72.828 - Other elevated white blood cell count - Discharge Dispostion Condition at time of disposition: Good - Referrals Referrals: Mayo Mckeon MD [Primary Care Provider] - - Patient Instructions - Post Discharge Activity
[2018-11-19] MEDS ORDERED: morphine CARPU-JECT 4 MG/1 ML DISP.SYRIN IVPUSH ONE (22:42)
[2018-11-19] MEDS ORDERED: KETOROLAC TROMETHAMINE 30 MG/1 ML VIAL IVPUSH ONE (22:42)
[2018-11-19] MEDS ORDERED: SODIUM CHLORIDE 1,000 ML IV ONE (22:42)
[2018-11-19] MEDS ORDERED: morphine SULFATE 4 MG/ML VIAL ONE (22:59)
[2018-11-19] MEDS ORDERED: KETOROLAC TROMETHAMINE 30 MG/1 ML VIAL ONE (22:59)
[2018-11-19 23:01] LABS: ALK PHOS 100 U/L (45-117); ANION GAP 10 MMOL/L (8-16); BILIRUBIN,TOTAL 0.8 mg/dl (0.2-1); BLOOD UREA NITROGEN 22 mg/dl (7-18); CHLORIDE 106 mmol/L (98-107); CO2 22 mmol/L (21-32); CREATININE 0.9 mg/dl (0.55-1.3); GLUCOSE,RANDOM 246 mg/dl (74-106); SGOT/AST 36 U/L (15-37); SGPT/ALT 57 U/L (13-61); SODIUM 138 mmol/L (136-145)
[2018-11-19 23:03] LABS: HEMATOCRIT 41.2 % (32.4-45.2); HEMOGLOBIN 13.3 GM/dl (10.7-15.3); MCH 30.2 pg (25.7-33.7); MCHC 32.3 g/dl (32.0-36.0); MEAN CELL VOLUME 93.5 fl (80-96); MEAN PLT VOLUME 8.2 fl (7.5-11.1); RDW 16.4 % (11.6-15.6)
[2018-11-19] MEDS ORDERED: FAMOTIDINE 20 MG/50 ML IVPB 20 MG/50 ML MG IVPB ONE ×2 (23:09→23:11)
[2018-11-19 23:11] LABS: PLATELET COUNT 748 K/MM3 (134-434); WHITE BLOOD COUNT 28.9 K/mm3 (4.0-10.8)
[2018-11-19 23:23] LABS: PLATELET ESTIMATE INCREASED
[2018-11-19 23:54] LABS: VENOUS PC02 41.6 mmHg (38-52); VENOUS PH 7.36 (7.32-7.42); VENOUS PO2 43.7 mmHg (28-48)
[2018-11-20 00:08] LABS: LIPASE 103 U/L (73-393)
[2018-11-20 00:47] LABS: URINE APPEARANCE CLEAR; URINE BILIRUBIN NEGATIVE (<2.0 mg/dL); URINE COLOR STRAW; URINE GLUCOSE (UA) 3+ (NEGATIVE); URINE KETONE NEGATIVE (NEGATIVE); URINE LEUK ESTERASE TRACE (NEGATIVE); URINE NITRITE NEGATIVE (NEGATIVE); URINE PROTEIN NEGATIVE (NEGATIVE); URINE UROBILINOGEN NEGATIVE mg/dL (0.2-1.0)
[2018-11-20 00:54] LABS: EPI CELLS RARE /HPF (FEW); URINE MUCUS RARE
[2018-11-20] MEDS ORDERED: morphine CARPU-JECT 4 MG/1 ML DISP.SYRIN IVPUSH ONE (01:16)
[2018-11-20] MEDS ORDERED: morphine SULFATE 4 MG/ML VIAL ONE (01:18)
[2018-11-20] MEDS ORDERED: PIPERACILLIN/TAZOB 4.5 GM 4.5 GM in DEXTROSE 5%-WATER 100 ML IVPB ONE (01:29)
[2018-11-20] MEDS ORDERED: PIPERACILLIN/TAZOBACTAM 4.5 GM VIAL IVPB ONE (01:36)
[2018-11-20] MEDS ORDERED: OCTREOTIDE ACETATE IJ SCH (01:45)
[2018-11-20] MEDS ORDERED: PATIENT'S OWN MEDICATION (NON-FORMULARY) (Alendronate Sodium [Alendronate Sodium] 70 MG) PO SCH (01:45)
[2018-11-20] MEDS ORDERED: SODIUM CHLORIDE 1,000 ML IV SCH (02:00)
[2018-11-20] MEDS: HEPARIN NA (PORCINE) 5,000 UNITS/ML 1ML VIAL SQ SCH ×3 (06:31→21:55)
[2018-11-20 07:59] LABS: BASO % 1.5 % (0-2.0); EOS % 0.4 % (0-4.5); HEMOGLOBIN 12.7 GM/dL (10.7-15.3); LYMPH % 5.4 % (8-40); MCH 31.3 pg (25.7-33.7); MCHC 33.3 g/dl (32.0-36.0); MEAN CELL VOLUME 93.9 fl (80-96); MEAN PLT VOLUME 8.1 fl (7.5-11.1); MONO % 0.5 % (3.8-10.2); NEUT % 92.2 % (42.8-82.8); PLATELET COUNT 591 K/MM3 (134-434); RBC 4.05 M/mm3 (3.60-5.2); RDW 17.2 % (11.6-15.6); WHITE BLOOD COUNT 28.2 K/mm3 (4.0-10.0)
[2018-11-20] MEDS ORDERED: SODIUM CHLORIDE 1,000 ML IV STA ×3 (08:18→14:24)
[2018-11-20 08:22] LABS: ALBUMIN 3.3 g/dl (3.4-5.0); ALK PHOS 102 U/L (45-117); ANION GAP 8 MMOL/L (8-16); BILIRUBIN,TOTAL 0.2 mg/dL (0.2-1); BLOOD UREA NITROGEN 14 mg/dL (7-18); CALCIUM 7.9 mg/dL (8.5-10.1); CHLORIDE 112 mmol/L (98-107); CO2 22 mmol/L (21-32); CREATININE 0.9 mg/dL (0.55-1.3); GLUCOSE,RANDOM 188 mg/dL (74-106); POTASSIUM 3.9 mmol/L (3.5-5.1); SGOT/AST 23 U/L (15-37); SGPT/ALT 60 U/L (13-61); SODIUM 142 mmol/L (136-145); TOT PROT 6.2 g/dl (6.4-8.2)
[2018-11-20] MEDS: INSULIN SLIDING SCALE (NOVOLOG) 1 VIAL SQ SCH ×4 (08:26→21:55)
--- NOTE | 2018-11-20 08:50 | HP ---
Admitting History and Physical - Admission Chief Complaint: epigastric pain radiating to the left lower quadratnt pain and back associated with fever, nausea and vomiting History of Present Illness: this is a 63 y/o female with neuroendocrine tumor presented to the hospital for epigastric pain, LLQ pain, and lower back pain, according to the patient the pain started after dinner but it didn't resolve she took some peptobismol without the resolution of her symptoms. patient denied any chills but she did state that she was warm. patient had several bowl movements that are muddy brown that resolved, she stated that those were after the patient had the injection for the neruoendocine tumor. denied any weight changes, vision, or appetite changes, patient denied any chest pain, or chest discomfort. History Source: Patient Limitations to Obtaining History: No Limitations - Past Medical History Heme/Onc: Yes: Other (Neuroendocrine tumor) Infectious Disease: Yes: Other (Osteomyelitis of the neck) - Smoking History Smoking history: Unknown if ever smoked Have you smoked in the past 12 months: Yes - Alcohol/Substance Use Hx Alcohol Use: No Home Medications - Allergies Allergies/Adverse Reactions: Allergies Allergy/AdvReac Type Severity Reaction Status Date / Time everolimus [From Afinitor] AdvReac Severe SOB, Verified 07/19/17 12:39 Myalgias, Arthralgias,Edema erythromycin base AdvReac Verified 07/19/17 12:39 [Erythromycin Base] - Home Medications Home Medications: Ambulatory Orders Montelukast Na [Singulair -] 10 mg PO HS 12/22/16 Topiramate [Topamax] 50 mg PO DAILY 12/22/16 Lorazepam [Ativan] 2 mg PO HS 01/10/17 Octreotide Acetate [Sandostatin] 30 mcg IJ MONTHLY ampul 05/28/17 Nilad Katz 3,000 Units Capsule 11/19/18 Telotristat Etiprate [Xermelo] 250 mg PO DAILY 11/19/18 Review of Systems - Review of Systems Constitutional: reports: Fever Eyes: reports: No Symptoms HENT: reports: No Symptoms Neck: reports: No Symptoms Cardiovascular: reports: No Symptoms Respiratory: reports: No Symptoms Gastrointestinal: reports: Abdominal Pain, Constipation, Diarrhea, Vomiting Genitourinary: reports: No Symptoms Breasts: reports: No Symptoms Reported Musculoskeletal: reports: No Symptoms Integumentary: reports: No Symptoms Neurological: reports: No Symptoms Endocrine: reports: No Symptoms Hematology/Lymphatic: reports: No Symptoms Psychiatric: reports: No Symptoms Physical Examination Vital Signs: Vital Signs Temperature 98.6 F 11/20/18 05:36 Pulse Rate 86 11/20/18 05:36 Respiratory Rate 19 11/20/18 05:36 Blood Pressure 138/57 L 11/20/18 05:36 O2 Sat by Pulse Oximetry (%) 99 11/20/18 07:03 Constitutional: Yes: Well Nourished, No Distress, Calm Eyes: Yes: WNL, Conjunctiva Clear, EOM Intact HENT: Yes: WNL, Atraumatic, Normocephalic Neck: Yes: WNL, Supple, Trachea Midline Cardiovascular: Yes: WNL, Regular Rate and Rhythm, S1, S2 Respiratory: Yes: WNL, Regular, CTA Bilaterally Gastrointestinal: Yes: Normal Bowel Sounds, Soft, Tenderness, Tenderness, Epigastrium, Other (left lower quadrant tenderness) Musculoskeletal: Yes: WNL Extremities: Yes: WNL Edema: No Peripheral Pulses WNL: Yes Integumentary: Yes: WNL Neurological: Yes: WNL, Alert, Oriented ...Motor Strength: WNL Psychiatric: Yes: WNL, Alert, Oriented Labs: CBC, BMP 11/20/18 06:00 11/20/18 06:00 Imaging - Results Chest X-ray: Image Reviewed Cat Scan: Image Reviewed Problem List - Problems (1) SIRS (systemic inflammatory response syndrome) Assessment/Plan: start the patient on Vancomycin 1 g stat start the patient on pipercillin stat trend the Lactic acid until it clears IVF hydration 150cc/hr give 1L bolus x 3 or until the Lactic acid clears consult ID consult GI for the diarrhea and abdominal pain Code(s): R65.10 - SIRS OF NON-INFECTIOUS ORIGIN W/O ACUTE ORGAN DYSFUNCTION (2) Abdominal pain Assessment/Plan: tenderness with palpation f/u CT scan monitor the patient for acute changes in her bowel movements cw IV antibiotics GI consult Code(s): R10.9 - UNSPECIFIED ABDOMINAL PAIN Qualifiers: Abdominal location: upper abdomen, unspecified Qualified Code(s): R10.10 - Upper abdominal pain, unspecified (3) Leukocytosis Assessment/Plan: Trend CBC c/w IV antibiotics ID consultation FEN Fluids: NS@75mL/hr Electrolytes: replete as indicated Nutrition: low sodium, diabetic Code(s): D72.829 - ELEVATED WHITE BLOOD CELL COUNT, UNSPECIFIED Qualifiers: Leukocytosis type: other Qualified Code(s): D72.828 - Other elevated white blood cell count (4) Migraines Assessment/Plan: c/w topimarate Code(s): G43.909 - MIGRAINE, UNSP, NOT INTRACTABLE, WITHOUT STATUS MIGRAINOSUS (5) Pre-diabetes Assessment/Plan: insulin sliding scale Code(s): R73.03 - PREDIABETES Assessment/Plan DVT ppx enoxaparin 40mg daily GI ppx - pantaprozle 40mg daily
[2018-11-20] MEDS: PANTOPRAZOLE 40 MG TABLET (FP) PO SCH (09:23)
[2018-11-20] MEDS ORDERED: [UNRECOGNIZED DRUG - OTHER] PO SCH (10:00)
[2018-11-20] MEDS ORDERED: PATIENT'S OWN MEDICATION (NON-FORMULARY) (Topiramate [Topamax] 50 MG) PO SCH (10:00)
[2018-11-20] MEDS: PIPERACILLIN/TAZOB 3.375 GM 3.375 GM in DEXTROSE 5%-WATER - 50 ML IVPB SCH ×2 (10:03→17:58)
--- NOTE | 2018-11-20 10:05 | PN ---
Progress Note (short form) - Note Progress Note: ID CONSULT DICTATED ABDOMINAL PAIN SYNDROME, UNCLEAR ETIOLOGY HX CARCINOID LEUKOCYTOSIS, LACTIC ACIDOSIS R/O SEPSIS AWAIT C/S CONTINUE ZOSYN EMPIRICALLY GI CONSULT
[2018-11-20] MEDS ORDERED: traMADol HCL 50 MG TABLET PO PRN (10:06)
--- NOTE | 2018-11-20 10:40 | CONS ---
DATE OF CONSULTATION: DATE OF DICTATION: 11/20/2018 The patient is a 62-year-old female with a long history of carcinoid syndrome. She is followed by Dr. Henry Randle in [place]. She was admitted last night with complaints of abdominal pain, nausea, vomiting, a diarrhea. The patient reports that after dinner she experienced epigastric pain which radiated to the suprapubic area and to the left lower quadrant. She also had associated nausea and vomiting. She has had loose bowel movements which have been not abnormal for her with her carcinoid syndrome. She presented to the emergency room where she was evaluated. She was noted to have abdominal tenderness in the epigastrium and left flank. A CAT scan of the abdomen and pelvis was performed and preliminarily was negative for acute pathology. Official reading is pending. She was noted to have an elevated white blood cell count of 28,000, and a lactic acidosis of 3.3. Cultures were obtained and she was given a dose of Zosyn. At the present time she is awake and alert. She continues to complain of pain primarily in the epigastrium and the left upper quadrant. She denies any recurrent nausea or vomiting. She has had loose bowel movements. She denies any urinary tract symptoms. No dysuria or hematuria. She has been afebrile. PAST MEDICAL HISTORY: Positive for carcinoid diagnosed years ago. She last received chemotherapy in April of 2016. She is presently on Sandostatin monthly and Xermelo. Past medical history also includes gastroesophageal reflux and migraine. She was seen by Dr. Mckeon last week and had undergone an upper endoscopy in August of 2018 which she reports was normal. Past medical history also positive for Proteus mirabilis osteomyelitis of C4, C5 in 2016. She was diagnosed with Proteus mirabilis urinary tract infection and bacteremia, subsequently developed osteomyelitis C4 , C5 and received a course of IV antibiotic therapy. ALLERGIES: AFINITOR and ERYTHROMYCIN. MEDICATIONS: Singulair, Topamax, Ativan, Sandostatin, Creon, Xermelo. SOCIAL HISTORY: She resides in the community. She is a nonsmoker, nondrinker. REVIEW OF SYSTEMS: Neurologic: No loss of consciousness, seizure activity, focal weakness. Cardiac: Negative chest pain or palpitations. Respiratory: Negative cough or sputum production. Gastrointestinal: As per HPI. Genitourinary: Negative for urinary tract infection. LABORATORY DATA: White count 28.9, 94 neutrophils, 4 lymphocytes, 1 monocyte. Hematocrit 41.2. Platelet count 748. Urinalysis: Two white cells. Liver enzymes normal. BUN 14, creatinine 0.9. Blood and urine cultures are pending. Chest x -ray negative for acute infiltrate. PHYSICAL EXAMINATION: General: She is awake and alert. She is supine in bed, no acute distress. Vital Signs: Temperature 98.6, blood pressure 138/57, pulse 86, regular. Respirations 19 per minute. HEENT: Sclerae are anicteric. Cardiovascular: Heart sounds S1, S2. Lungs: Clear bilaterally. No rhonchi, rales, or wheezing. Abdomen: Positive bowel sounds. There is tenderness present in the epigastrium and left lower quadrant as well as left flank. No CVA tenderness. Extremities: Edema 1+. No rashes noted. IMPRESSION: 1. Abdominal pain syndrome of unclear etiology. 2. History of carcinoid syndrome. 3. Leukocytosis/lactic acidosis, rule out sepsis secondary to gastrointestinal source. PLAN: Await cultures. Obtain GI consult today. Empiric antibiotic coverage for GI pathogens with Zosyn 3.375 g IV piggyback every 8 hours. Follow up cultures. Will follow. Thank you for the kind referral. SHARAN HERNANDEZ M.D. [id number] MTDD
[2018-11-20] MEDS: TOPIRAMATE 25 MG TABLET (FP) PO SCH (11:30)
[2018-11-20 13:00] LABS: ANISOCYTOSIS 0; HELMET CELLS 0; HOWELL-JOLLY BODIES 0; MACROCYTOSIS 0; OVALOCYTE 0; PLATELET ESTIMATE INCREASED; ROULEAU 0; SICKELED CELLS 0; TARGET CELLS 0; TEAR DROP CELLS 0; TOXIC GRANULATION 0
[2018-11-20] MEDS ORDERED: PIPERACILLIN/TAZOBACTAM 3.375 GM VIAL IVPB ONE (15:35)
[2018-11-20] MEDS ORDERED: DEXTROSE 5%-WATER - 50 ML IVPB ONE (15:35)
[2018-11-20 18:40] LABS: BASO % 0.4 % (0-2.0); EOS % 0.7 % (0-4.5); HEMATOCRIT 36.5 % (32.4-45.2); HEMOGLOBIN 11.6 GM/dl (10.7-15.3); LYMPH % 4.1 % (8-40); MCH 29.9 pg (25.7-33.7); MCHC 31.8 g/dl (32.0-36.0); MEAN CELL VOLUME 93.7 fl (80-96); MEAN PLT VOLUME 7.7 fl (7.5-11.1); MONO % 1.5 % (3.8-10.2); NEUT % 93.3 % (42.8-82.8); PLATELET COUNT 564 K/MM3 (134-434); RBC 3.89 M/mm3 (3.60-5.2); RDW 16.8 % (11.6-15.6); WHITE BLOOD COUNT 22.3 K/mm3 (4.0-10.8)
[2018-11-20 18:46] LABS: ALBUMIN 3.1 g/dl (3.4-5.0); ALK PHOS 100 U/L (45-117); ANION GAP 6 MMOL/L (8-16); BILIRUBIN,TOTAL 0.5 mg/dl (0.2-1); BLOOD UREA NITROGEN 7 mg/dl (7-18); CALCIUM 7.7 mg/dl (8.5-10); CHLORIDE 114 mmol/L (98-107); CO2 20 mmol/L (21-32); CREATININE 0.6 mg/dl (0.55-1.3); GLUCOSE,RANDOM 184 mg/dl (74-106); POTASSIUM 3.7 mmol/L (3.5-5.1); SGOT/AST 129 U/L (15-37); SGPT/ALT 104 U/L (13-61); SODIUM 140 mmol/L (136-145); TOT PROT 5.4 g/dl (6.4-8.2)
[2018-11-20] MEDS: traMADol HCL 50 MG TABLET PO PRN (20:10)
[2018-11-20] MEDS ORDERED: LORazepam 0.5 MG TABLET ONE (21:39)
[2018-11-20] MEDS: LORazepam 1 MG TABLET PO SCH (21:54)
[2018-11-20] MEDS: MONTELUKAST NA 10 MG TABLET PO SCH (21:55)
--- NOTE | 2018-11-20 22:16 | EKG ---
Test Reason : Blood Pressure : / mmHG Vent. Rate : 068 BPM Atrial Rate : 068 BPM P-R Int : 158 ms QRS Dur : 084 ms QT Int : 420 ms P-R-T Axes : 073 054 042 degrees QTc Int : 446 ms NORMAL SINUS RHYTHM NORMAL ECG WHEN COMPARED WITH ECG OF 10-JAN-2017 15:45, NO SIGNIFICANT CHANGE WAS FOUND Confirmed by FRANDY PELLETIER MD ([id number]) on 11/20/2018 10:15:43 PM Referred By: MD QUINTEROS Confirmed By:FRANDY PELLETIER MD
[2018-11-21] MEDS ORDERED: PIPERACILLIN/TAZOBACTAM 3.375 GM VIAL IVPB ONE ×4 (01:03→19:59)
[2018-11-21] MEDS ORDERED: DEXTROSE 5%-WATER - 50 ML IVPB ONE ×4 (01:04→19:59)
[2018-11-21] MEDS: PIPERACILLIN/TAZOB 3.375 GM 3.375 GM in DEXTROSE 5%-WATER - 50 ML IVPB SCH ×3 (01:18→17:19)
[2018-11-21] MEDS: ACETAMINOPHEN 500 MG TABLET (FP) PO PRN ×2 (01:36→08:30)
[2018-11-21] MEDS: traMADol HCL 50 MG TABLET PO PRN ×2 (01:36→11:02)
[2018-11-21] MEDS: HEPARIN NA (PORCINE) 5,000 UNITS/ML 1ML VIAL SQ SCH ×2 (06:17→13:58)
[2018-11-21] MEDS: INSULIN SLIDING SCALE (NOVOLOG) 1 VIAL SQ SCH ×4 (06:17→21:04)
[2018-11-21 09:03] LABS: BASO % 0.2 % (0-2.0); EOS % 0.4 % (0-4.5); HEMOGLOBIN 11.8 GM/dl (10.7-15.3); LYMPH % 4.2 % (8-40); MCH 30.4 pg (25.7-33.7); MCHC 32.7 g/dl (32.0-36.0); MEAN PLT VOLUME 8.1 fl (7.5-11.1); MONO % 3.7 % (3.8-10.2); NEUT % 91.5 % (42.8-82.8); PLATELET COUNT 479 K/MM3 (134-434); RBC 3.86 M/mm3 (3.60-5.2); RDW 16.3 % (11.6-15.6); WHITE BLOOD COUNT 26.5 K/mm3 (4.0-10.8)
[2018-11-21 09:11] LABS: ALBUMIN 3.1 g/dl (3.4-5.0); ALK PHOS 123 U/L (45-117); ANION GAP 9 MMOL/L (8-16); BILIRUBIN,TOTAL 0.9 mg/dl (0.2-1); BLOOD UREA NITROGEN 6 mg/dl (7-18); CALCIUM 8.4 mg/dl (8.5-10); CHLORIDE 107 mmol/L (98-107); CO2 20 mmol/L (21-32); CREATININE 0.6 mg/dl (0.55-1.3); GLUCOSE,RANDOM 132 mg/dl (74-106); POTASSIUM 4.1 mmol/L (3.5-5.1); SGOT/AST 202 U/L (15-37); SGPT/ALT 184 U/L (13-61); SODIUM 136 mmol/L (136-145); TOT PROT 5.7 g/dl (6.4-8.2)
[2018-11-21] MEDS: PANTOPRAZOLE 40 MG TABLET (FP) PO SCH (09:18)
[2018-11-21] MEDS: TOPIRAMATE 25 MG TABLET (FP) PO SCH (09:18)
--- NOTE | 2018-11-21 09:37 | PN ---
Progress Note, Physician History of Present Illness: AWAKE, SUPINE IN BED NO ACUTE DISTRESS THIS AM C/O R FLANK PAIN DENIES DYSURIA/ HEMATURIA REPORTS TO ME NO BM OR FLATUS SINCE ADMISSION LOW GRADE FEVER NOTED WBC REMAINS ELEVATED LFTS RISING BC NO GROWTH - Current Medication List Current Medications: Active Medications Acetaminophen (Tylenol -) 500 mg PO Q6H PRN PRN Reason: PAIN Last Admin: 11/21/18 08:30 Dose: 500 mg Heparin Sodium (Porcine) (Heparin -) 5,000 unit SQ TID JAMISON Last Admin: 11/21/18 06:17 Dose: 5,000 unit Piperacillin Sod/Tazobactam (Sod 3.375 gm/ Dextrose) 50 mls @ 100 mls/hr IVPB Q8H-IV JAMISON; Protocol Last Admin: 11/21/18 09:18 Dose: 100 mls/hr Insulin Aspart (Novolog Vial Sliding Scale -) 1 vial SQ ACHS JAMISON; Protocol Last Admin: 11/21/18 06:17 Dose: 2 units Lorazepam (Ativan -) 2 mg PO HS JAMISON Last Admin: 11/20/18 21:54 Dose: 2 mg Montelukast Sodium (Singulair -) 10 mg PO HS JAMISON Last Admin: 11/20/18 21:55 Dose: 10 mg Non-Formulary Medication (Octreotide Acetate [Sandostatin]) 30 mcg IJ MONTHLY [facility] Non-Formulary Medication (Telotristat Etiprate [Xermelo]) 250 mg PO DAILY [facility] Pantoprazole Sodium (Protonix -) 40 mg PO DAILY [facility] Last Admin: 11/21/18 09:18 Dose: 40 mg Topiramate (Topamax -) 50 mg PO DAILY [facility] Last Admin: 11/21/18 09:18 Dose: 50 mg Tramadol HCl (Ultram -) 50 mg PO Q4H PRN PRN Reason: PAIN LEVEL 4 - 6 Last Admin: 11/21/18 01:36 Dose: 50 mg - Objective Vital Signs: Vital Signs Temperature 99.2 F 11/21/18 06:00 Pulse Rate 76 11/21/18 06:00 Respiratory Rate 17 11/21/18 08:11 Blood Pressure 130/58 L 11/21/18 06:00 O2 Sat by Pulse Oximetry (%) 96 11/21/18 08:11 Constitutional: Yes: No Distress Eyes: Yes: Conjunctiva Clear Cardiovascular: Yes: Regular Rate and Rhythm, S1, S2 Respiratory: Yes: CTA Bilaterally Gastrointestinal: Yes: Normal Bowel Sounds, Soft, Other (+ BOWEL SOUNDS NO ABDOMINAL TENDERNESS ELICITED). No: Tenderness Extremities: No: Calf Tenderness Edema: Yes Labs: CBC, BMP 11/21/18 07:00 11/21/18 07:00 Assessment/Plan ABDOMINAL PAIN SYNDROME, LEUKOCYTOSIS, LOW GRADE FEVER, ELEVATED LFTS, GASTRIC DISTENTION/ ? DILATED HEPATIC DUCTS ON CT HX CARCINOID AWAITING GI EVALUATION. RECALL CONSULT. ADVISE SURGICAL CONSULT CONTINUE ZOSYN CASE DISCUSSED WITH HOSPITALIST AND ABOVE RECOMMENDATIONS MADE CLEAR IF ABOVE CONSULTATIONS CAN NOT BE DONE TODAY TRANSFER PT TO ANOTHER FACILITY
--- NOTE | 2018-11-21 10:34 | PN ---
Physical Exam: SUBJECTIVE: Patient seen and examined. She complains of nausea and RLQ pain and R back pain. OBJECTIVE: Vital Signs Period Temp Pulse Resp BP Sys/Vega Pulse Ox Last 24 Hr 99.2 F-99.9 F 64-76 16-19 130-143/47-63 96-100 PE Neuro: alert, awake, cn 2-12intact Pulm: CTAB CV: s1 s2 rrr no mrg Abd: RLQ tenderness to palpation, R back tenderness to palpation, - Park soft abd, LLQ pain resolved Ext: no le edema Laboratory Results - last 24 hr 11/20/18 11/20/18 11/21/18 18:00 21:43 06:15 WBC RBC Hgb Hct MCV MCH MCHC RDW Plt Count MPV Absolute Neuts (auto) Neutrophils % Neutrophils % (Manual) Band Neutrophils % Lymphocytes % Lymphocytes % (Manual) Monocytes % Monocytes % (Manual) Eosinophils % Eosinophils % (Manual) Basophils % Basophils % (Manual) Myelocytes % (Man) Promyelocytes % (Man) Blast Cells % (Manual) Metamyelocytes Hypochromia Toxic Granulation Dohle Bodies Platelet Estimate Polychromasia Poikilocytosis Basophilic Stippling Anisocytosis Microcytosis Macrocytosis Spherocytes Sickle Cells Target Cells Tear Drop Cells Ovalocytes Stomatocytes Helmet Cells Menendez-Natur[place] Bodies Corona Rings Downey Cells Acanthocytes (Spur) Rouleaux Fragmented RBCs Schistocytes Sodium Potassium Chloride Carbon Dioxide Anion Gap BUN Creatinine Creat Clearance w eGFR POC Glucometer 134 155 Random Glucose Lactic Acid 2.6 H* Calcium Total Bilirubin AST ALT Alkaline Phosphatase Total Protein Albumin 11/21/18 11/21/18 07:00 07:00 WBC 26.5 H RBC 3.86 Hgb 11.8 Hct 36.0 MCV 93.0 MCH 30.4 MCHC 32.7 RDW 16.3 H Plt Count 479 H MPV 8.1 Absolute Neuts (auto) 24.2 Neutrophils % 91.5 H Neutrophils % (Manual) Band Neutrophils % Lymphocytes % 4.2 L Lymphocytes % (Manual) Monocytes % 3.7 L Monocytes % (Manual) Eosinophils % 0.4 Eosinophils % (Manual) Basophils % 0.2 Basophils % (Manual) Myelocytes % (Man) Promyelocytes % (Man) Blast Cells % (Manual) Metamyelocytes Hypochromia Toxic Granulation Dohle Bodies Platelet Estimate Polychromasia Poikilocytosis Basophilic Stippling Anisocytosis Microcytosis Macrocytosis Spherocytes Sickle Cells Target Cells Tear Drop Cells Ovalocytes Stomatocytes Helmet Cells Menendez-Naturita Bodies Corona Rings Downey Cells Acanthocytes (Spur) Rouleaux Fragmented RBCs Schistocytes Sodium 136 Potassium 4.1 Chloride 107 Carbon Dioxide 20 L Anion Gap 9 BUN 6 L Creatinine 0.6 Creat Clearance w eGFR > 60 POC Glucometer Random Glucose 132 H Lactic Acid Calcium 8.4 L Total Bilirubin 0.9 AST 202 H ALT 184 H Alkaline Phosphatase 123 H D Total Protein 5.7 L Albumin 3.1 L Active Medications Generic Name Dose Route Start Last Admin Trade Name Freq PRN Reason Stop Dose Admin Acetaminophen 500 mg 11/20/18 06:04 11/21/18 08:30 Tylenol - PO 500 mg Q6H PRN Administration PAIN Heparin Sodium (Porcine) 5,000 unit 11/20/18 06:00 11/21/18 06:17 Heparin - SQ 5,000 unit TID JAMISON Administration Piperacillin Sod/Tazobactam 50 mls @ 100 mls/hr 11/20/18 10:15 11/21/18 09:18 Sod 3.375 gm/ Dextrose IVPB 100 mls/hr Q8H-IV JAMISON Administration Protocol Insulin Aspart 1 vial 11/20/18 07:00 11/21/18 06:17 Novolog Vial Sliding Scale - SQ 2 units ACHS JAMISON Administration Protocol Lorazepam 2 mg 11/20/18 22:00 11/20/18 21:54 Ativan - PO 2 mg HS JAMISON Administration Montelukast Sodium 10 mg 11/20/18 22:00 11/20/18 21:55 Singulair - PO 10 mg HS JAMISON Administration Non-Formulary Medication 30 mcg 11/20/18 01:45 Octreotide Acetate [Sandostatin] IJ MONTHLY JAMISON Non-Formulary Medication 250 mg 11/20/18 10:00 Telotristat Etiprate [Xermelo] PO DAILY JAMISON Pantoprazole Sodium 40 mg 11/20/18 10:00 11/21/18 09:18 Protonix - PO 40 mg DAILY JAMISON Administration Topiramate 50 mg 11/20/18 11:33 11/21/18 09:18 Topamax - PO 50 mg DAILY JAMISON Administration Tramadol HCl 50 mg 11/20/18 15:42 11/21/18 01:36 Ultram - PO 50 mg Q4H PRN Administration PAIN LEVEL 4 - 6 Assessment: 63 year old female with neuroendocrine tumor presented to the hospital for epigastric pain, LLQ pain, and lower back pain. Plan: 1. SIRS - Unclear etiology, however likely GI in nature, LFTs rising - Pt takes somatostain possible side effect of drug - AM Lactic 1.2 - Cont IVF - Leukocytosis mildly improved - Cont Zosyn, vanco - ID following 2. Abdominal pain, transaminitis - Pt will be transferred to [facility], GI evaluation and Surgery consulted - CT shows - Stop Tylenol, protonix - pt states she had 4 days of diarrhea, which have now stopped 3. Migraines - Cont Topimarate 4. DVT ppx - Heparin sq Dispo - Transfer to [facility] today Visit type - Emergency Visit Emergency Visit: Yes ED Registration Date: 11/20/18 Care time: The patient presented to the Emergency Department on the above date and was hospitalized for further evaluation of their emergent condition. - New Patient This patient is new to me today: Yes Date on this admission: 11/21/18 - Critical Care Critical Care patient: No
[2018-11-21] MEDS ORDERED: ONDANSETRON *ODT* 4 MG TABLET SL PRN (10:35)
[2018-11-21] MEDS ORDERED: LORazepam 0.5 MG TABLET PO PRN (10:36)
[2018-11-21] MEDS ORDERED: MORPHINE SULFATE 2 MG/ML VIAL IVPUSH PRN (13:07)
[2018-11-21] MEDS ORDERED: PANTOPRAZOLE SODIUM 40 MG VIAL IVPUSH ONE (13:08)
--- NOTE | 2018-11-21 13:10 | HOSP ---
Subjective - Review of Symptoms General: Yes: Chills HEENT: Yes: Head Aches Pulmonary: Yes: Cough Gastrointestinal: Yes: Nausea, Abdominal Pain Musculoskeletal: Yes: No Symptoms Neurological: Yes: Weakness Physical Examination Vital Signs: Vital Signs Temperature 100.6 F H 11/21/18 12:59 Pulse Rate 96 H 11/21/18 12:59 Respiratory Rate 18 11/21/18 12:59 Blood Pressure 131/70 11/21/18 12:59 O2 Sat by Pulse Oximetry (%) 96 11/21/18 08:11 Constitutional: Yes: No Distress Eyes: Yes: WNL HENT: Yes: WNL Neck: Yes: WNL Cardiovascular: Yes: WNL Respiratory: Yes: WNL Gastrointestinal: Yes: Normal Bowel Sounds Labs: CBC, BMP 11/21/18 07:00 11/21/18 07:00 Hospitalist Encounter Assessment: Received patient from [facility]. Patient awake and alert verbalizing malaise and some abdominal pain and mild cough. Patient has a surgical and GI consult for acute abdominal symptoms. On antibiotics and IVF. Having low grade temps.
[2018-11-21] MEDS: SODIUM CHLORIDE 1,000 ML IV SCH (13:57)
[2018-11-21] MEDS: ACETAMINOPHEN 1000 MG/100 ML VIAL (NON FORMULARY) IVPB PRN ×2 (13:57→20:46)
--- NOTE | 2018-11-21 14:31 | CON.GI ---
Consult Consult Specialty:: Gastroenterology Referred by:: Binh Mondragon NP Reason for Consultation:: Abdominal pain, fever and abnormal LFTs - History of Present Illness Chief Complaint: Burning epigastric,lower retrosternal pain,chills and vomiting History of Present Illness: 63F developed severe lower retrosternal and epigastric pain ( not colicky) radiating into her back and leading to an episode of vomiting after dinner on . Her ate the same salmon meal and is fine. She had a WBC of 28K with normal LFTs on admission but now has rising transaminases, chills and a fever of 100.6. CT scan reveals a dilated CBD and stomach. She had a diarrheal illness preceeding these symptoms. The burning in this presentation is different from that which brought her to have an EGD with Dr Jessica Rodriguez in 09/14 that revealed a hiatal hernia and GERD at [facility] and which had resolved with omeprazole which she has continued to take. She has not had a BM since the pain began. She was tolerating solids yesterday while hospitalized at [facility]. She was just transferred here from [facility]. Her history is complex and includes having her last colonoscopy in [address] Jessica Rodriguez which revealed a large rectal carcinoid. She saw Dr Martino at [facility] who advised surgical excision. She chose not to have this done when the possibility of a permanent colostomy was raised. She was then seen at Dr Ravi at [facility] in 2010 who treated her with RT which failed to shrink the tumor. She then came under the care of Dr. Jack Randle who treated her with Xeloda, Temodar 2011 to 2015 when they were stopped. She could not tolerate Affinitor. She is now followed by Dr. Narendra David at [facility] in coordination with Dr. Randle who gives her somatostatin injections every 4 weeks. Xermelo was added in 2016 to control her diarrhea. These agents allow her to have a single semisolid BM daily. She was told that some liver lesions were found a few years ago. She has not never developed hot flushes or palpitations. She had C4-C5 anterior discectomy and fusion with Dr Giovany Sherwood in 01/12 for osteomyelitis. - History Source History Provided By: Patient Limitations to Obtaining History: No Limitations - Past Medical History Gastrointestinal: Yes: GERD, Hiatal Hernia, Other (large rectal carcinoid dx'ed 2010, never resected, had RT & chemorx, has liver lesions ) Infectious Disease: Yes: Other (Osteomyelitis of C4-C5) Musculoskeletal: Yes: Osteoarthritis, Other (spinal stenosis, C4-C5 fusion after osteomyelitis) Endocrine: Yes: Other (thyroid nodule) - Past Surgical History Past Surgical History: Yes: Arthrosocopy (left knee), Colonoscopy, (x 2), Tonsillectomy, Upper Endoscopy Additional Surgical History: C4-C5 anterior discectomy and fusion for osteomyelitis 01/12. right rotator cuff surgery. Benign breast biopsies. 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 Place of : [facility] History of Recent Travel: No Home Medications - Allergies Allergies/Adverse Reactions: Allergies Allergy/AdvReac Type Severity Reaction Status Date / Time everolimus [From Afinitor] AdvReac Severe SOB, Verified 07/19/17 12:39 Myalgias, Arthralgias,Edema erythromycin base AdvReac Verified 07/19/17 12:39 [Erythromycin Base] - Home Medications Home Medications: Ambulatory Orders Montelukast Na [Singulair -] 10 mg PO HS 12/22/16 Topiramate [Topamax] 50 mg PO DAILY 12/22/16 Lorazepam [Ativan] 2 mg PO HS 01/10/17 Octreotide Acetate [Sandostatin] 30 mcg IJ MONTHLY ampul 05/28/17 Nilda Katz 3,000 Units Capsule 11/19/18 Telotristat Etiprate [Xermelo] 250 mg PO DAILY 11/19/18 Family Disease History - Family Disease History Family Disease History: CA: Mother (CLL, 81), Other: Father (alive 96) Review of Systems - Review of Systems Constitutional: reports: Chills, Fever, Lethargy Eyes: reports: No Symptoms HENT: reports: No Symptoms Neck: reports: No Symptoms Cardiovascular: reports: Chest Pain (burning) Respiratory: reports: No Symptoms Gastrointestinal: reports: Abdominal Pain, Constipation, Diarrhea, Other (acid reflux) Genitourinary: reports: No Symptoms Musculoskeletal: reports: Back Pain Physical Exam-GI Vital Signs: Vital Signs Temperature 100.6 F H 11/21/18 12:59 Pulse Rate 96 H 11/21/18 12:59 Respiratory Rate 18 11/21/18 12:59 Blood Pressure 131/70 11/21/18 12:59 O2 Sat by Pulse Oximetry (%) 96 11/21/18 08:11 CBC,CMP WBC 26.5 K/mm3 (4.0-10.8) H 11/21/18 07:00 RBC 3.86 M/mm3 (3.60-5.2) 11/21/18 07:00 Hgb 11.8 GM/dl (10.7-15.3) 11/21/18 07:00 Hct 36.0 % (32.4-45.2) 11/21/18 07:00 MCV 93.0 fl (80-96) 11/21/18 07:00 MCH 30.4 pg (25.7-33.7) 11/21/18 07:00 MCHC 32.7 g/dl (32.0-36.0) 11/21/18 07:00 RDW 16.3 % (11.6-15.6) H 11/21/18 07:00 Plt Count 479 K/MM3 (134-434) H 11/21/18 07:00 MPV 8.1 fl (7.5-11.1) 11/21/18 07:00 Absolute Neuts (auto) 24.2 K/mm3 11/21/18 07:00 Neutrophils % 91.5 % (42.8-82.8) H 11/21/18 07:00 Neutrophils % (Manual) 94.0 % (42.8-82.8) H 11/20/18 06:00 Band Neutrophils % 0.0 % 11/20/18 06:00 Lymphocytes % 4.2 % (8-40) L 11/21/18 07:00 Lymphocytes % (Manual) 3.0 % (8-40) L 11/20/18 06:00 Monocytes % 3.7 % (3.8-10.2) L 11/21/18 07:00 Monocytes % (Manual) 0 % (3.8-10.2) L 11/20/18 06:00 Eosinophils % 0.4 % (0-4.5) 11/21/18 07:00 Eosinophils % (Manual) 1.0 % (0-4.5) 11/20/18 06:00 Basophils % 0.2 % (0-2.0) 11/21/18 07:00 Basophils % (Manual) 2.0 % (0-2.0) 11/20/18 06:00 Myelocytes % (Man) 0 % (0-2) 11/20/18 06:00 Promyelocytes % (Man) 0 % (0-2) 11/20/18 06:00 Blast Cells % (Manual) 0 % (0-0) 11/20/18 06:00 Nucleated RBC % 0 % (0-0) 11/20/18 06:00 Metamyelocytes 0 % (0-2) 11/20/18 06:00 Hypochromia 0 11/20/18 06:00 Toxic Granulation 0 11/20/18 06:00 Dohle Bodies 0 11/20/18 06:00 Platelet Estimate Increased 11/20/18 06:00 Platelet Comment Rare giant plts 11/19/18 22:35 Platelet Comment Few large platelets 11/19/18 22:35 Polychromasia 0 11/20/18 06:00 Poikilocytosis 0 11/20/18 06:00 Basophilic Stippling 0 11/20/18 06:00 Anisocytosis 0 11/20/18 06:00 Microcytosis 0 11/20/18 06:00 Macrocytosis 0 11/20/18 06:00 Spherocytes 0 11/20/18 06:00 Sickle Cells 0 11/20/18 06:00 Target Cells 0 11/20/18 06:00 Tear Drop Cells 0 11/20/18 06:00 Ovalocytes 0 11/20/18 06:00 Stomatocytes 0 11/20/18 06:00 Helmet Cells 0 11/20/18 06:00 Menendez-Edroy Bodies 0 11/20/18 06:00 Coggon Rings 0 11/20/18 06:00 Jasiel Cells 0 11/20/18 06:00 Acanthocytes (Spur) 0 11/20/18 06:00 Rouleaux 0 11/20/18 06:00 Fragmented RBCs 0 11/20/18 06:00 Schistocytes 0 11/20/18 06:00 Sodium 136 mmol/L (136-145) 11/21/18 07:00 Potassium 4.1 mmol/L (3.5-5.1) 11/21/18 07:00 Chloride 107 mmol/L (98-107) 11/21/18 07:00 Carbon Dioxide 20 mmol/L (21-32) L 11/21/18 07:00 Anion Gap 9 MMOL/L (8-16) 11/21/18 07:00 BUN 6 mg/dl (7-18) L 11/21/18 07:00 Creatinine 0.6 mg/dl (0.55-1.3) 11/21/18 07:00 Creat Clearance w eGFR > 60 (>60) 11/21/18 07:00 POC Glucometer 155 UNITS (80-120) 11/21/18 06:15 Random Glucose 132 mg/dl (74-106) H 11/21/18 07:00 Lactic Acid 1.2 mmol/L (0.4-2.0) 11/21/18 07:00 Calcium 8.4 mg/dl (8.5-10) L 11/21/18 07:00 Total Bilirubin 0.9 mg/dl (0.2-1) 11/21/18 07:00 AST 202 U/L (15-37) H 11/21/18 07:00 ALT 184 U/L (13-61) H 11/21/18 07:00 Alkaline Phosphatase 123 U/L (45-117) H D 11/21/18 07:00 Creatine Kinase 83 U/L (26-192) 11/19/18 22:30 Troponin I 0.02 ng/ml (0.00-0.05) 11/20/18 07:55 Total Protein 5.7 g/dl (6.4-8.2) L 11/21/18 07:00 Albumin 3.1 g/dl (3.4-5.0) L 11/21/18 07:00 Lipase 103 U/L (73-393) 11/19/18 22:30 Current Medications Generic Name Dose Route Start Last Admin Trade Name Freq PRN Reason Stop Dose Admin Acetaminophen 1,000 mg 11/21/18 13:10 11/21/18 13:57 Ofirmev Injection - IVPB 1,000 mg Q6H PRN Administration PAIN OR FEVER Heparin Sodium (Porcine) 5,000 unit 11/20/18 06:00 11/21/18 13:58 Heparin - SQ 5,000 unit TID JAMISON Administration Piperacillin Sod/Tazobactam 50 mls @ 100 mls/hr 11/20/18 10:15 11/21/18 09:18 Sod 3.375 gm/ Dextrose IVPB 100 mls/hr Q8H-IV JAMISON Administration Protocol Sodium Chloride 1,000 mls @ 100 mls/hr 11/21/18 13:15 11/21/18 13:57 Normal Saline - IV 100 mls/hr ASDIR JAMISON Administration Insulin Aspart 1 vial 11/20/18 07:00 11/21/18 12:57 Novolog Vial Sliding Scale - SQ Not Given ACHS [facility] Protocol Lorazepam 2 mg 11/20/18 22:00 11/20/18 21:54 Ativan - PO 2 mg HS JAMISON Administration Lorazepam 0.5 mg 11/21/18 10:36 Ativan - PO BID PRN NAUSEA Montelukast Sodium 10 mg 11/20/18 22:00 11/20/18 21:55 Singulair - PO 10 mg HS JAMISON Administration Morphine Sulfate 2 mg 11/21/18 13:07 Morphine Sulfate IVPUSH Q4H PRN PAIN LEVEL 7 - 10 Non-Formulary Medication 30 mcg 11/20/18 01:45 Octreotide Acetate [Sandostatin] IJ MONTHLY [facility] Non-Formulary Medication 250 mg 11/20/18 10:00 Telotristat Etiprate [Xermelo] PO DAILY [facility] Ondansetron HCl 4 mg 11/21/18 10:35 11/21/18 11:30 Zofran Odt - SL 4 mg Q6H PRN Administration NAUSEA AND/OR VOMITING Constitutional: Yes: Anxious Eyes: Yes: Conjunctiva Clear HENT: Yes: Atraumatic Neck: Yes: Supple Cardiovascular: Yes: Regular Rate and Rhythm Respiratory: Yes: CTA Bilaterally Gastrointestinal Inspection: Yes: Scars (healed [place]) ...Auscultate: Yes: Hypoactive Bowel Sounds ...Palpate: Yes: Soft, Other (nontender) ...Rectal Exam: Yes: Guaiac Negative (no masses, brown guaiac negative stool) Edema: No Peripheral Pulses WNL: Yes Neurological: Yes: Alert, Oriented Labs: CBC, BMP 11/21/18 07:00 11/21/18 07:00 Laboratory Tests 11/19/18 11/19/18 11/20/18 22:30 22:35 06:00 WBC 28.9 H Hgb Hct Total Bilirubin 0.8 0.2 AST 36 23 ALT 57 60 Alkaline Phosphatase 100 102 Lipase 103 11/20/18 11/20/18 11/20/18 06:00 18:00 18:00 WBC 28.2 H 22.3 H Hgb Hct Total Bilirubin 0.5 AST 129 H ALT 104 H Alkaline Phosphatase 100 Lipase 11/21/18 11/21/18 07:00 07:00 WBC 26.5 H Hgb 11.8 Hct 36.0 Total Bilirubin 0.9 AST 202 H ALT 184 H Alkaline Phosphatase 123 H D Lipase Imaging - Results Cat Scan: Report Reviewed ( Study Date: 19-Nov-2018 23:42 [facility] Name: LORENA GAVIN DEPARTMENT OF RADIOLOGY Phys: Jennyfer Wilcox MD : 1955 Age: 63 Sex: F [facility] Acct: [id number] Loc: /S [address] [place] [address]. Exam Date: 11/19/18 Status: [place] [address] Unit Number: [id number] EXAM#: TYPE/EXAM: RESULT: [id number] CT/ ABDOMEN PELVIS CT WITH CONTR History : abdominal pain CT Scan of the abdomen and pelvis with oral and IV contrast; 100 cc Omnipaque 350 FINDINGS : Significant distention of stomach The liver, spleen, and pancreas are unremarkable. Prominent left adrenal gland There are no gallstones.. Possible mild biliary ductal dilatation There is no hydronephrosis, solid renal masses or renal calculi. 6 cm right renal cyst There is no retroperitoneal lymphadenopathy. There is no abdominal aortic aneurysm. Appendix not identified There are no fluid collections in the abdomen or pelvis. There is no bowel obstruction. The urinary bladder is unremarkable. Uterus is either atrophic or surgically absent IMPRESSION: Significant gastric distention. Possible mild biliary duct dilatation. Right renal cysts Appendix not identified If symptoms persist consider surgical consultation and/or additional imaging PRELIMINARY REPORT PROVIDED BY RADIOLOGIST REGULATORY ATTORNEY Reported By: Yousif Bernard MD 11/20/18 1001 Technologist: Lorenzo Irving Transcribed Date/Time: 11/20/18 1001 Millinery Blocker: Yousif Bernard Printed Date/Time: By: Signed by: Yousif Bernard Signed on: 20-Nov-2018 10:03) Problem List - Problems (1) Abnormal liver enzymes Assessment/Plan: Given the array of symptoms with ductal dilation and fever I am concerned that Lorena may have ascending cholangitis. I will order a MRCP. I have discussed the possible need for an ERCP with sphincterotomy and stone removal or stenting. I informed her of the potential for such complications as perforation, hemorrhage and ERCP induced pancreatitis that can led to lung and renal failure. We discussed the option of having this done at a tertiary care center. These could alternatively reflect a reactive hepatopathy to a recent viral gastroenteritis or bacterial sepsis. Code(s): R74.8 - ABNORMAL LEVELS OF OTHER SERUM ENZYMES (2) Rectal carcinoid tumor Code(s): D3A.026 - BENIGN CARCINOID TUMOR OF THE RECTUM (3) Carcinoid syndrome Code(s): E34.0 - CARCINOID SYNDROME (4) Chronic diarrhea Code(s): K52.9 - NONINFECTIVE GASTROENTERITIS AND COLITIS, UNSPECIFIED (5) Acid reflux disease Code(s): K21.9 - GASTRO-ESOPHAGEAL REFLUX DISEASE WITHOUT ESOPHAGITIS (6) Dilated bile duct Code(s): K83.8 - OTHER SPECIFIED DISEASES OF BILIARY TRACT (7) Dilation of stomach, acute Assessment/Plan: This could reflect cholangitis or perhaps a post viral gastroparesis. Code(s): K31.0 - ACUTE DILATATION OF STOMACH (8) Abdominal pain Code(s): R10.9 - UNSPECIFIED ABDOMINAL PAIN Qualifiers: Abdominal location: upper abdomen, unspecified Qualified Code(s): R10.10 - Upper abdominal pain, unspecified (9) Leukocytosis Code(s): D72.829 - ELEVATED WHITE BLOOD CELL COUNT, UNSPECIFIED Qualifiers: Leukocytosis type: other Qualified Code(s): D72.828 - Other elevated white blood cell count (10) SIRS (systemic inflammatory response syndrome) Code(s): R65.10 - SIRS OF NON-INFECTIOUS ORIGIN W/O ACUTE ORGAN DYSFUNCTION (11) Osteomyelitis Code(s): M86.9 - OSTEOMYELITIS, UNSPECIFIED Qualifiers: Osteomyelitis type: subacute Osteomyelitis location: other site Qualified Code(s): M86.28 - Subacute osteomyelitis, other site (12) Sepsis Code(s): A41.9 - SEPSIS, UNSPECIFIED ORGANISM (13) Constipation Assessment/Plan: I suspect this is ileus associated with cholangitis or perhap post viral. I will start Miralax Code(s): K59.00 - CONSTIPATION, UNSPECIFIED Assessment/Plan Impression: Given her rising liver enzymes, dilated CBD, fever, pain and vomiting, ascending cholangitis needs to be excluded May alternatively has a postviral reactive hepatopathy and gastroparesis Constipation is likely ileus as she usually has carcinoid syndrome diarrhea Rectal carcinoid- not clear what role this is playing but it could be a portal of bacteremia GERD Plan: Antibiotics as per Dr Gutierrez. I discussed the case with him MRCP Miralax Follow LFTs Soft diet tonight but NPO after midnight should ERCP become necessary Continue PPI Echocardiogram to exclude SBE
[2018-11-21] MEDS ORDERED: MAG HYDROX/AL HYDROX/SIMETH 30 ML UNIT-DOSE CUP PO PRN (15:23)
--- NOTE | 2018-11-21 19:06 | CONSULT ---
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 She has not had a bowel movement since last diarrhea Thursday morning, and pain in abdomen has been better in hospital since medication and some bowel rest. She denies F/C at home, no urinary complaints, but did have a URI about 3 wks ago with cough, nasal congestion and took a Z-felix which was done around 11/07. Residual symptoms are mild. She had missed her monthly octreotide injection week before last while out of town, but got it last , hoping it would help with the severe diarrhea, which did start to get better. She has had wbc in mid-high 20s, left shifted, elevated AST/ALT and alk phos mildly up, with normal bilirubin and lipase. CT was done with no oral contrast showing very dilated stomach, stool in colon, possible dilated biliary ducts, R renal cyst, and no obstruction. She had been at [facility], and was started on IVF and antibiotics per ID, but this morning developed fever, chills, rigors and was transferred to [facility]. GI saw her today, and has MRCP and echo pending. Surgery was asked to evaluate. She is seen and examined in bed. She is resting comfortably. She had meatloaf, mashed potatoes and peas for dinner, and was finally hungry for it, which she tolerated well. (This am at breakfast, she was not hungry and had only a few sips of tea.) She is passing gas, but has not had BM yet, and feels some "gas pains" at times. She is not currently nauseated and her pain is much better than Alek. Last temperature was 98.3; she notes a bitemporal headache today, which is not like the migraines she used to get (but has not for a long time). - History Source History Provided By: Patient, Medical Record Limitations to Obtaining History: No Limitations - Past Medical History Pulmonary: Yes: Other (recent URI (3wks ago, Z-felix finished around 11/07)) Gastrointestinal: Yes: Cancer (rectal carcinoid), GERD, Hiatal Hernia, Other ( large rectal carcinoid dx'ed 2010, never resected, had RT & chemorx, has liver lesions, on octreotide, diarrhea managed with Xermelo ) Reproductive: Yes: Postmenopausal Heme/Onc: No: Current Chemotherapy (just monthly octreotide and Xermelo for diarrhea) Infectious Disease: Yes: Other (Osteomyelitis of C4-C5) Musculoskeletal: Yes: Osteoarthritis, Other (spinal stenosis, C4-C5 fusion after osteomyelitis) Endocrine: Yes: Other (thyroid nodule) - Past Surgical History Past Surgical History: Yes: Arthrosocopy (left knee), Colonoscopy, (x 2), Tonsillectomy, Upper Endoscopy Additional Surgical History: C4-C5 anterior discectomy and fusion for osteomyelitis 01/12. right rotator cuff surgery. Benign breast biopsies. 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 History of Recent Travel: No Home Medications - Allergies Allergies/Adverse Reactions: Allergies Allergy/AdvReac Type Severity Reaction Status Date / Time everolimus [From Afinitor] AdvReac Severe SOB, Verified 07/19/17 12:39 Myalgias, Arthralgias,Edema erythromycin base AdvReac Verified 07/19/17 12:39 [Erythromycin Base] - Home Medications Home Medications: Ambulatory Orders Montelukast Na [Singulair -] 10 mg PO HS 12/22/16 Topiramate [Topamax] 50 mg PO DAILY 12/22/16 Lorazepam [Ativan] 2 mg PO HS 01/10/17 Octreotide Acetate [Sandostatin] 30 mcg IJ MONTHLY ampul 05/28/17 Creon 3,000 Units Capsule 11/19/18 Telotristat Etiprate [Xermelo] 250 mg PO DAILY 11/19/18 Family Disease History - Family Disease History Family Disease History: CA: Mother (CLL, 81), Other: Father (alive 96) Review of Systems - Review of Systems Constitutional: reports: Chills (today in hospital), Fever (just today in hospital), Loss of Appetite Eyes: reports: Other (wears glasses). denies: Recent Change in Vision HENT: reports: Nasal Congestion (some residual from URI 3wks ago). denies: Difficult Swallowing, Throat Pain Neck: denies: Swollen Glands, Tenderness Cardiovascular: denies: Chest Pain, Palpitations Respiratory: reports: Cough (URI 3 wks ago, little residual left), Other (some central chest pressure/discomfort with deep breathing, but no SOB). denies: SOB Gastrointestinal: reports: Abdominal Pain (with hpi), Diarrhea (chronic - more significant this last week than ever before, last was Thursday am), Nausea, Vomiting (had once Thursday night after pepto-bismol, just that came back up). denies: Constipation (no BM last 2 days only), Melena, Rectal Bleeding, Vomiting Blood Genitourinary: denies: Burning, Dysuria Musculoskeletal: reports: Back Pain (some lower left tenderness). denies: Joint Pain, Joint Swelling Integumentary: denies: Change in Color, Rash Neurological: reports: Dizziness (just a little with hpi), Headache (bitemporal) . denies: Unsteady Gait Hematology/Lymphatic: reports: Easily Bruised. denies: Excessive Bleeding Psychiatric: denies: Anxiety, Depression Physical Exam Vital Signs: Vital Signs Temperature 98.4 F 11/21/18 17:52 Pulse Rate 71 11/21/18 17:52 Respiratory Rate 18 11/21/18 17:52 Blood Pressure 133/63 11/21/18 17:52 O2 Sat by Pulse Oximetry (%) 96 11/21/18 08:11 Constitutional: Yes: Well Nourished, No Distress, Calm Eyes: Yes: Conjunctiva Clear, EOM Intact HENT: Yes: Atraumatic, Normocephalic, Nasal Congestion Neck: Yes: Supple, Trachea Midline Cardiovascular: Yes: Regular Rate and Rhythm. No: Murmur Respiratory: Yes: Regular, CTA Bilaterally Gastrointestinal: Yes: Normal Bowel Sounds, Soft, Tenderness (mild epigastric, RUQ, and LLQ - no rebound or guarding), Other (well-healed Pfannenstiel scar). No: Distention, Vomiting ...Rectal Exam: Yes: Deferred Renal/: No: CVA Tenderness - Left (no tenderness to percussion, but mild local direct tenderness in left lower back/flank), CVA Tenderness - Right Musculoskeletal: No: Joint Stiffness, Joint Swelling Extremities: No: Cool, Cyanosis Edema: No Peripheral Pulses WNL: Yes Integumentary: Yes: Tattoos. No: Jaundice, Rash Neurological: Yes: Alert, Oriented Psychiatric: Yes: Alert, Oriented Labs: CBC, BMP 11/21/18 07:00 11/21/18 07:00 CMP Sodium 136 mmol/L (136-145) 11/21/18 07:00 Potassium 4.1 mmol/L (3.5-5.1) 11/21/18 07:00 Chloride 107 mmol/L (98-107) 11/21/18 07:00 Carbon Dioxide 20 mmol/L (21-32) L 11/21/18 07:00 Anion Gap 9 MMOL/L (8-16) 11/21/18 07:00 BUN 6 mg/dl (7-18) L 11/21/18 07:00 Creatinine 0.6 mg/dl (0.55-1.3) 11/21/18 07:00 Creat Clearance w eGFR > 60 (>60) 11/21/18 07:00 POC Glucometer 123 UNITS (80-120) 11/21/18 16:04 Random Glucose 132 mg/dl (74-106) H 11/21/18 07:00 Lactic Acid 1.2 mmol/L (0.4-2.0) 11/21/18 07:00 Calcium 8.4 mg/dl (8.5-10) L 11/21/18 07:00 Total Bilirubin 0.9 mg/dl (0.2-1) 11/21/18 07:00 AST 202 U/L (15-37) H 11/21/18 07:00 ALT 184 U/L (13-61) H 11/21/18 07:00 Alkaline Phosphatase 123 U/L (45-117) H D 11/21/18 07:00 Creatine Kinase 83 U/L (26-192) 11/19/18 22:30 Troponin I 0.02 ng/ml (0.00-0.05) 11/20/18 07:55 Total Protein 5.7 g/dl (6.4-8.2) L 11/21/18 07:00 Albumin 3.1 g/dl (3.4-5.0) L 11/21/18 07:00 Lipase 103 U/L (73-393) 11/19/18 22:30 Urine Test Results Urine Color Straw 11/20/18 00:05 Urine Appearance Clear 11/20/18 00:05 Urine pH 6.0 (5.0-8.0) 11/20/18 00:05 Ur Specific Ethel 1.039 (1.010-1.035) H 11/20/18 00:05 Urine Protein Negative (NEGATIVE) 11/20/18 00:05 Urine Glucose (UA) 3+ (NEGATIVE) H 11/20/18 00:05 Urine Ketones Negative (NEGATIVE) 11/20/18 00:05 Urine Blood Negative (NEGATIVE) 11/20/18 00:05 Urine Nitrite Negative (NEGATIVE) 11/20/18 00:05 Urine Bilirubin Negative (<2.0 mg/dL) 11/20/18 00:05 Ur Leukocyte Esterase Trace (NEGATIVE) 11/20/18 00:05 Ur Epithelial Cells Rare /HPF (FEW) 11/20/18 00:05 Urine Mucus Rare 11/20/18 00:05 Microbiology 11/20/18 00:05 Urine Culture - Final Urine - Urine Clean Catch NO GROWTH OBTAINED 11/19/18 22:45 Blood Culture - Preliminary Blood - Peripheral Venous NO GROWTH OBTAINED AFTER 24 HOURS, INCUBATION TO CONTINUE FOR 4 DAYS. 11/19/18 22:45 Blood Culture - Preliminary Blood - Peripheral Venous NO GROWTH OBTAINED AFTER 24 HOURS, INCUBATION TO CONTINUE FOR 4 DAYS. no coags, no T&S Imaging - Results Cat Scan: Report Reviewed, Image Reviewed (images reviewed - very dilated stomach, no enteral contrast, no clear transition or obstructive point, + stool in colon, more R than L, + R renal cyst, possibly mild biliary ductal dilation) MRI: Pending (MRCP/MRI) Problem List - Problems (1) Epigastric pain Code(s): R10.13 - EPIGASTRIC PAIN (2) Abnormal liver enzymes Code(s): R74.8 - ABNORMAL LEVELS OF OTHER SERUM ENZYMES (3) Leukocytosis Code(s): D72.829 - ELEVATED WHITE BLOOD CELL COUNT, UNSPECIFIED Qualifiers: Leukocytosis type: other Qualified Code(s): D72.828 - Other elevated white blood cell count (4) Dilation of stomach, acute Code(s): K31.0 - ACUTE DILATATION OF STOMACH (5) Dilated bile duct Code(s): K83.8 - OTHER SPECIFIED DISEASES OF BILIARY TRACT (6) Carcinoid syndrome Code(s): E34.0 - CARCINOID SYNDROME (7) Carcinoid tumor, rectal, malignant Code(s): C7A.026 - MALIGNANT CARCINOID TUMOR OF THE RECTUM Assessment/Plan admitted to medicine pt still has mild residual symptoms from URI 3 wks ago and had antibiotics at that time GI consultation noted tolerated soft diet for dinner and was hungry, unlike early this am - no n/v, no bloating not particularly distended, stomach has likely emptied since Thursday's CT if N/V recur, would keep NPO and consider reimaging, at least AXR fever curve is down - continue to follow unclear why pt has mild LLQ tenderness at this time no BM 2 days only, but stool in colon, and no Xermelo for few days - anticipate bowel function will resume soon (had severe diarrhea all week till Thursday) leukocytosis, upper abdominal pain, possible dilated bile ducts - agree with MRCP to evaluate biliary tract may also need US, as CT did not show stones per GI note, if ERCP indicated, may pursue at tertiary center trend labs get PT/PTT, T&S in am serial exams NPO after midnight in case procedure indicated after MRI/MRCP antibiotics per ID blood cultures negative to date no acute surgical issues identified at this time will follow with you and remain available for questions as needed Thank you for the opportunity to participate in the care of this patient.
[2018-11-21] MEDS: POLYETHYLENE GLYCOL 3350 119 GM BTL PO SCH (21:03)
[2018-11-21] MEDS: LORazepam 1 MG TABLET PO SCH (21:03)
[2018-11-21] MEDS: MONTELUKAST NA 10 MG TABLET PO SCH (21:04)
[2018-11-22] MEDS: PIPERACILLIN/TAZOB 3.375 GM 3.375 GM in DEXTROSE 5%-WATER - 50 ML IVPB SCH ×3 (03:14→17:38)
[2018-11-22] MEDS: ACETAMINOPHEN 1000 MG/100 ML VIAL (NON FORMULARY) IVPB PRN (04:57)
[2018-11-22] MEDS: INSULIN SLIDING SCALE (NOVOLOG) 1 VIAL SQ SCH ×3 (06:08→17:21)
[2018-11-22 08:11] LABS: INR 1.1 (0.83-1.09)
[2018-11-22 08:54] LABS: ALK PHOS 172 U/L (45-117); AMYLASE 19 U/L (25-115); ANION GAP 7 MMOL/L (8-16); BILIRUBIN,DIRECT 0.2 mg/dL (0.0-0.2); BILIRUBIN,TOTAL 0.5 mg/dL (0.2-1); BLOOD UREA NITROGEN 8 mg/dL (7-18); CALCIUM 7.9 mg/dL (8.5-10.1); CHLORIDE 112 mmol/L (98-107); CO2 22 mmol/L (21-32); CREATININE 0.6 mg/dL (0.55-1.3); GLUCOSE,RANDOM 109 mg/dL (74-106); LIPASE 69 U/L (73-393); POTASSIUM 3.8 mmol/L (3.5-5.1); SGOT/AST 135 U/L (15-37); SGPT/ALT 237 U/L (13-61); SODIUM 141 mmol/L (136-145); TOT PROT 6.1 g/dl (6.4-8.2)
[2018-11-22] MEDS ORDERED: PIPERACILLIN/TAZOBACTAM 3.375 GM VIAL IVPB ONE ×2 (09:13→17:18)
[2018-11-22] MEDS ORDERED: DEXTROSE 5%-WATER - 50 ML IVPB ONE ×2 (09:13→17:19)
[2018-11-22] MEDS: POLYETHYLENE GLYCOL 3350 119 GM BTL PO SCH (10:14)
[2018-11-22 10:43] LABS: BASO % 1.5 % (0-2.0); EOS % 0.9 % (0-4.5); HEMATOCRIT 40.2 % (32.4-45.2); HEMOGLOBIN 13.5 GM/dL (10.7-15.3); LYMPH % 4.7 % (8-40); MCH 31.3 pg (25.7-33.7); MCHC 33.7 g/dl (32.0-36.0); MEAN CELL VOLUME 92.9 fl (80-96); MEAN PLT VOLUME 7.9 fl (7.5-11.1); MONO % 0.5 % (3.8-10.2); NEUT % 92.4 % (42.8-82.8); PLATELET COUNT 443 K/MM3 (134-434); RBC 4.32 M/mm3 (3.60-5.2); RDW 17.3 % (11.6-15.6); WHITE BLOOD COUNT 26.4 K/mm3 (4.0-10.0)
--- NOTE | 2018-11-22 11:31 | PN ---
Progress Note, Physician History of Present Illness: AWAKE, SUPINE IN BED NO ACUTE DISTRESS TODAY C/O B/L FLANK PAIN NO C/O ABDOMINAL PAIN NO N/V REPORTS NO BM SINCE ADMISSION. +PASSING FLATUS LOW GRADE FEVER PAST 24HR WBC REMAINS ELEVATED LFTS ELEVATED BC NO GROWTH MRCP, US PENDING - Current Medication List Current Medications: Active Medications Acetaminophen (Ofirmev Injection -) 1,000 mg IVPB Q6H PRN PRN Reason: PAIN OR FEVER Last Admin: 11/22/18 04:57 Dose: 1,000 mg Al Hydroxide/Mg Hydroxide (Mylanta Oral Suspension -) 30 ml PO Q6H PRN PRN Reason: DYSPEPSIA Heparin Sodium (Porcine) (Heparin -) 5,000 unit SQ TID JAMISON Last Admin: 11/21/18 13:58 Dose: 5,000 unit Piperacillin Sod/Tazobactam (Sod 3.375 gm/ Dextrose) 50 mls @ 100 mls/hr IVPB Q8H-IV JAMISON; Protocol Last Admin: 11/22/18 10:14 Dose: 100 mls/hr Sodium Chloride (Normal Saline -) 1,000 mls @ 100 mls/hr IV ASDIR JAMISON Last Admin: 11/21/18 13:57 Dose: 100 mls/hr Insulin Aspart (Novolog Vial Sliding Scale -) 1 vial SQ ACHS JAMISON; Protocol Last Admin: 11/22/18 06:08 Dose: Not Given Lorazepam (Ativan -) 2 mg PO HS JAMISON Last Admin: 11/21/18 21:03 Dose: 2 mg Montelukast Sodium (Singulair -) 10 mg PO HS JAMISON Last Admin: 11/21/18 21:04 Dose: 10 mg Morphine Sulfate (Morphine Sulfate) 2 mg IVPUSH Q4H PRN PRN Reason: PAIN LEVEL 7 - 10 Last Admin: 11/22/18 10:13 Dose: 2 mg Non-Formulary Medication (Octreotide Acetate [Sandostatin]) 30 mcg IJ MONTHLY [facility] Non-Formulary Medication (Telotristat Etiprate [Xermelo]) 250 mg PO DAILY [facility] Ondansetron HCl (Zofran Odt -) 4 mg SL Q6H PRN PRN Reason: NAUSEA AND/OR VOMITING Last Admin: 11/21/18 11:30 Dose: 4 mg Polyethylene Glycol (Miralax (For Daily Use) -) 17 gm PO BID JAMISON Last Admin: 11/22/18 10:14 Dose: Not Given - Objective Vital Signs: Vital Signs Temperature 98.8 F 11/22/18 09:32 Pulse Rate 75 11/22/18 09:32 Respiratory Rate 20 11/22/18 09:32 Blood Pressure 135/72 11/22/18 09:32 O2 Sat by Pulse Oximetry (%) 98 11/21/18 21:00 Constitutional: Yes: No Distress Eyes: Yes: Conjunctiva Clear Cardiovascular: Yes: Regular Rate and Rhythm, S1, S2 Respiratory: Yes: CTA Bilaterally Gastrointestinal: Yes: Normal Bowel Sounds, Soft. No: Tenderness Edema: Yes Edema: LLE: 1+, RLE: 1+ Labs: CBC, BMP 11/22/18 10:12 11/22/18 06:45 INR, PTT INR 1.10 (0.83-1.09) H 11/22/18 06:45 Assessment/Plan ABDOMINAL PAIN SYNDROME, LEUKOCYTOSIS, LOW GRADE FEVER, ELEVATED LFTS, GASTRIC DISTENTION/ ? DILATED HEPATIC DUCTS HX CARCINOID AWAIT MRCP, US CONTINUE ZOSYN GI/ SURGICAL FOLLOW UP IF SCANS UREVEALING, OBTAIN HEM/ONC CONSULT FOR PERSISTANT LEUKOCYTOSIS/ HX CARCINOID
--- NOTE | 2018-11-22 11:44 | PN ---
Physical Exam: SUBJECTIVE: Patient seen and examined OBJECTIVE: Vital Signs Period Temp Pulse Resp BP Sys/Vega Pulse Ox Last 24 Hr 98.3 F-100.6 F 71-96 18-20 131-139/63-74 98 GENERAL: The patient is awake, alert, and fully oriented, in no acute distress. HEAD: Normal with no signs of trauma. EYES: PERRL, extraocular movements intact, sclera anicteric, conjunctiva clear. No ptosis. ENT: Ears normal, nares patent, oropharynx clear without exudates, moist mucous membranes. NECK: Trachea midline, full range of motion, supple. LUNGS: Breath sounds equal, clear to auscultation bilaterally, no wheezes, no crackles, no accessory muscle use. HEART: Regular rate and rhythm, S1, S2 without murmur, rub or gallop. ABDOMEN: Soft, nontender, nondistended, normoactive bowel sounds, no guarding, no rebound, no hepatosplenomegaly, no masses. EXTREMITIES: 2+ pulses, warm, well-perfused, no edema. NEUROLOGICAL: Cranial nerves II through XII grossly intact. Normal speech, gait not observed. PSYCH: Normal mood, normal affect. SKIN: Warm, dry, normal turgor, no rashes or lesions noted Laboratory Results - last 24 hr 11/21/18 11/21/18 11/22/18 16:04 20:50 06:04 WBC RBC Hgb Hct MCV MCH MCHC RDW Plt Count MPV Absolute Neuts (auto) Neutrophils % Neutrophils % (Manual) Lymphocytes % Monocytes % Eosinophils % Basophils % Nucleated RBC % PT with INR INR PTT (Actin FS) Sodium Potassium Chloride Carbon Dioxide Anion Gap BUN Creatinine Creat Clearance w eGFR POC Glucometer 123 111 130 Random Glucose Hemoglobin A1c % Calcium Total Bilirubin Direct Bilirubin AST ALT Alkaline Phosphatase C-Reactive Protein Total Protein Albumin Total Amylase Lipase Blood Type Antibody Screen 11/22/18 11/22/18 11/22/18 06:45 06:45 06:45 WBC RBC Hgb Hct MCV MCH MCHC RDW Plt Count MPV Absolute Neuts (auto) Neutrophils % Neutrophils % (Manual) No Result Required. Lymphocytes % Monocytes % Eosinophils % Basophils % Nucleated RBC % 0 PT with INR 13.00 INR 1.10 H PTT (Actin FS) 20.0 L Sodium 141 Potassium 3.8 Chloride 112 H Carbon Dioxide 22 Anion Gap 7 L BUN 8 Creatinine 0.6 Creat Clearance w eGFR > 60 POC Glucometer Random Glucose 109 H Hemoglobin A1c % Calcium 7.9 L Total Bilirubin 0.5 Direct Bilirubin 0.2 AST 135 H ALT 237 H Alkaline Phosphatase 172 H C-Reactive Protein 8.3 H Total Protein 6.1 L Albumin 3.0 L Total Amylase 19 L Lipase 69 L Blood Type Antibody Screen 11/22/18 11/22/18 11/22/18 06:45 06:47 10:12 WBC 26.4 H RBC 4.32 Hgb 13.5 Hct 40.2 MCV 92.9 MCH 31.3 MCHC 33.7 RDW 17.3 H Plt Count 443 H D MPV 7.9 Absolute Neuts (auto) 24.4 H Neutrophils % 92.4 H Neutrophils % (Manual) Lymphocytes % 4.7 L Monocytes % 0.5 L Eosinophils % 0.9 D Basophils % 1.5 Nucleated RBC % 0 PT with INR INR PTT (Actin FS) Sodium Potassium Chloride Carbon Dioxide Anion Gap BUN Creatinine Creat Clearance w eGFR POC Glucometer Random Glucose Hemoglobin A1c % Cancelled Calcium Total Bilirubin Direct Bilirubin AST ALT Alkaline Phosphatase C-Reactive Protein Total Protein Albumin Total Amylase Lipase Blood Type A POSITIVE Antibody Screen Negative 11/22/18 11:16 WBC RBC Hgb Hct MCV MCH MCHC RDW Plt Count MPV Absolute Neuts (auto) Neutrophils % Neutrophils % (Manual) Lymphocytes % Monocytes % Eosinophils % Basophils % Nucleated RBC % PT with INR INR PTT (Actin FS) Sodium Potassium Chloride Carbon Dioxide Anion Gap BUN Creatinine Creat Clearance w eGFR POC Glucometer 81 Random Glucose Hemoglobin A1c % Calcium Total Bilirubin Direct Bilirubin AST ALT Alkaline Phosphatase C-Reactive Protein Total Protein Albumin Total Amylase Lipase Blood Type Antibody Screen Active Medications Generic Name Dose Route Start Last Admin Trade Name Freq PRN Reason Stop Dose Admin Acetaminophen 1,000 mg 11/21/18 13:10 11/22/18 04:57 Ofirmev Injection - IVPB 1,000 mg Q6H PRN Administration PAIN OR FEVER Al Hydroxide/Mg Hydroxide 30 ml 11/21/18 15:23 Mylanta Oral Suspension - PO Q6H PRN DYSPEPSIA Heparin Sodium (Porcine) 5,000 unit 11/20/18 06:00 11/21/18 13:58 Heparin - SQ 5,000 unit TID JAMISON Administration Piperacillin Sod/Tazobactam 50 mls @ 100 mls/hr 11/20/18 10:15 11/22/18 10:14 Sod 3.375 gm/ Dextrose IVPB 100 mls/hr Q8H-IV JAMISON Administration Protocol Sodium Chloride 1,000 mls @ 100 mls/hr 11/21/18 13:15 11/21/18 13:57 Normal Saline - IV 100 mls/hr ASDIR JAMISON Administration Insulin Aspart 1 vial 11/20/18 07:00 11/22/18 06:08 Novolog Vial Sliding Scale - SQ Not Given ACHS JAMISON Protocol Lorazepam 2 mg 11/20/18 22:00 11/21/18 21:03 Ativan - PO 2 mg HS JAMISON Administration Montelukast Sodium 10 mg 11/20/18 22:00 11/21/18 21:04 Singulair - PO 10 mg HS JAMISON Administration Morphine Sulfate 2 mg 11/21/18 13:07 11/22/18 10:13 Morphine Sulfate IVPUSH 2 mg Q4H PRN Administration PAIN LEVEL 7 - 10 Non-Formulary Medication 30 mcg 11/20/18 01:45 Octreotide Acetate [Sandostatin] IJ MONTHLY [facility] Non-Formulary Medication 250 mg 11/20/18 10:00 Telotristat Etiprate [Xermelo] PO DAILY [facility] Ondansetron HCl 4 mg 11/21/18 10:35 11/21/18 11:30 Zofran Odt - SL 4 mg Q6H PRN Administration NAUSEA AND/OR VOMITING Polyethylene Glycol 17 gm 11/21/18 22:00 11/22/18 10:14 Miralax (For Daily Use) - PO Not Given BID [facility] ASSESSMENT/PLAN:
[2018-11-22] MEDS ORDERED: TOPIRAMATE 25 MG TABLET (FP) PO SCH (12:30)
[2018-11-22 13:22] LABS: ANISOCYTOSIS 1+; MACROCYTOSIS 1+; PLATELET ESTIMATE NORMAL
[2018-11-22] MEDS: SODIUM CHLORIDE 1,000 ML IV SCH ×2 (13:45→15:46)
[2018-11-22] MEDS ORDERED: ACETAMINOPHEN/CAFFEINE/BUTALBITAL 1 TAB PO ONE (13:45)
[2018-11-22 14:12] VITALS: PULSE 73
--- NOTE | 2018-11-22 15:33 | CONSULT ---
Consultation: REQUESTING PROVIDER: CONSULT REQUEST: We have been asked to medically evaluate this patient for leukocytosis HISTORY OF PRESENT ILLNESS: 63 year old female with a history of rectal carcinoid tumor diagnosed 2010, s/p RT and chemotherapy (no resection), currently being treated with q monthly somatostatin injections who presents with abdominal pain that radiated to back, nausea, vomiting, fevers, we were called to evaluate for leukocytosis. Abdominal imaging revealing dilated CBD; cholecystitis. PMH: GERD, Hiatal Hernia, Other (large rectal carcinoid dx'ed 2010, never resected, had RT & chemorx, has liver lesions, Osteoarthritis, Other (spinal stenosis, C4 -C5 fusion after osteomyelitis,thyroid nodule; Basal cell Ca excision REVIEW OF SYSTEMS: CONSTITUTIONAL: Positive: fever, generalized weakness, malaise, loss of appetite Absent: fever, chills, diaphoresis,e, weight change HEENT: Absent: rhinorrhea, nasal congestion, throat pain, throat swelling, difficulty swallowing, mouth swelling, ear pain, eye pain, visual changes CARDIOVASCULAR: Absent: chest pain, syncope, palpitations, irregular heart rate, lightheadedness , peripheral edema RESPIRATORY: Absent: cough, shortness of breath, dyspnea with exertion, orthopnea, wheezing, stridor, hemoptysis GASTROINTESTINAL: Positive: abdominal pain, abdominal distension, nausea, vomiting Absent:, diarrhea, constipation, melena, hematochezia GENITOURINARY: Absent: dysuria, frequency, urgency, hesitancy, hematuria, flank pain, genital pain MUSCULOSKELETAL: Absent: myalgia, arthralgia, joint swelling, back pain, neck pain SKIN: Absent: rash, itching, pallor HEMATOLOGIC/IMMUNOLOGIC: Absent: easy bleeding, easy bruising, lymphadenopathy, frequent infections ENDOCRINE: Absent: unexplained weight gain, unexplained weight loss, heat intolerance, cold intolerance NEUROLOGIC: Absent: headache, focal weakness or paresthesias, dizziness, unsteady gait, seizure, mental status changes, bladder or bowel incontinence PSYCHIATRIC: Absent: anxiety, depression, suicidal or homicidal ideation, hallucinations. PHYSICAL EXAMINATION Vital Signs - 24 hr 11/21/18 11/21/18 11/21/18 17:52 21:00 21:21 Temperature 98.4 F 98.3 F Pulse Rate 71 74 Respiratory 18 18 20 Rate Blood Pressure 133/63 139/74 O2 Sat by Pulse 98 Oximetry (%) 02/11/22/18 11/22/18 09:00 09:32 14:10 Temperature 98.8 F 99.2 F Pulse Rate 75 73 Respiratory 20 20 20 Rate Blood Pressure 135/72 144/75 O2 Sat by Pulse 98 Oximetry (%) GENERAL: Awake, alert, and fully oriented, in no acute distress. LUNGS: decreased breath sounds Breast/axilla: no masses/lumps or nipple discharge HEART: Regular rate and rhythm, normal S1 and S2 without murmur, rub or gallop. ABDOMEN:soft; tender to light palpation MUSCULOSKELETAL: Normal range of motion at all joints. No bony deformities or tenderness. No CVA tenderness. UPPER EXTREMITIES: 2+ pulses, warm, well-perfused. No cyanosis. No clubbing. Cap refill <2 seconds. No peripheral edema. LOWER EXTREMITIES: 2+ pulses, warm, well-perfused. No calf tenderness. No peripheral edema. NEUROLOGICAL: Cranial nerves II-XII intact. Normal speech. PSYCHIATRIC: Cooperative. Good eye contact. Appropriate mood and affect. SKIN: Warm, dry, normal turgor, no rashes or lesions noted. Laboratory Results - last 24 hr 11/21/18 11/21/18 11/22/18 16:04 20:50 06:04 WBC RBC Hgb Hct MCV MCH MCHC RDW Plt Count MPV Absolute Neuts (auto) Neutrophils % Neutrophils % (Manual) Band Neutrophils % Lymphocytes % Lymphocytes % (Manual) Monocytes % Monocytes % (Manual) Eosinophils % Eosinophils % (Manual) Basophils % Basophils % (Manual) Myelocytes % (Man) Promyelocytes % (Man) Blast Cells % (Manual) Nucleated RBC % Metamyelocytes Hypochromia Platelet Estimate Polychromasia Poikilocytosis Anisocytosis Microcytosis Macrocytosis PT with INR INR PTT (Actin FS) Sodium Potassium Chloride Carbon Dioxide Anion Gap BUN Creatinine Creat Clearance w eGFR POC Glucometer 123 111 130 Random Glucose Hemoglobin A1c % Calcium Total Bilirubin Direct Bilirubin AST ALT Alkaline Phosphatase C-Reactive Protein Total Protein Albumin Total Amylase Lipase Blood Type Antibody Screen 11/22/18 11/22/18 11/22/18 06:45 06:45 06:45 WBC RBC Hgb Hct MCV MCH MCHC RDW Plt Count MPV Absolute Neuts (auto) Neutrophils % Neutrophils % (Manual) No Result Required. Band Neutrophils % Lymphocytes % Lymphocytes % (Manual) Monocytes % Monocytes % (Manual) Eosinophils % Eosinophils % (Manual) Basophils % Basophils % (Manual) Myelocytes % (Man) Promyelocytes % (Man) Blast Cells % (Manual) Nucleated RBC % 0 Metamyelocytes Hypochromia Platelet Estimate Polychromasia Poikilocytosis Anisocytosis Microcytosis Macrocytosis PT with INR 13.00 INR 1.10 H PTT (Actin FS) 20.0 L Sodium 141 Potassium 3.8 Chloride 112 H Carbon Dioxide 22 Anion Gap 7 L BUN 8 Creatinine 0.6 Creat Clearance w eGFR > 60 POC Glucometer Random Glucose 109 H Hemoglobin A1c % Calcium 7.9 L Total Bilirubin 0.5 Direct Bilirubin 0.2 AST 135 H ALT 237 H Alkaline Phosphatase 172 H C-Reactive Protein 8.3 H Total Protein 6.1 L Albumin 3.0 L Total Amylase 19 L Lipase 69 L Blood Type Antibody Screen 11/22/18 11/22/18 11/22/18 06:45 06:47 10:12 WBC 26.4 H RBC 4.32 Hgb 13.5 Hct 40.2 MCV 92.9 MCH 31.3 MCHC 33.7 RDW 17.3 H Plt Count 443 H D MPV 7.9 Absolute Neuts (auto) 24.4 H Neutrophils % 92.4 H Neutrophils % (Manual) 96.0 H Band Neutrophils % 0.0 Lymphocytes % 4.7 L Lymphocytes % (Manual) 3.0 L Monocytes % 0.5 L Monocytes % (Manual) 1 L D Eosinophils % 0.9 D Eosinophils % (Manual) 0.0 D Basophils % 1.5 Basophils % (Manual) 0.0 Myelocytes % (Man) 0 Promyelocytes % (Man) 0 Blast Cells % (Manual) 0 Nucleated RBC % 0 Metamyelocytes 0 Hypochromia 0 Platelet Estimate Normal Polychromasia 0 Poikilocytosis 0 Anisocytosis 1+ Microcytosis 0 Macrocytosis 1+ PT with INR INR PTT (Actin FS) Sodium Potassium Chloride Carbon Dioxide Anion Gap BUN Creatinine Creat Clearance w eGFR POC Glucometer Random Glucose Hemoglobin A1c % Cancelled Calcium Total Bilirubin Direct Bilirubin AST ALT Alkaline Phosphatase C-Reactive Protein Total Protein Albumin Total Amylase Lipase Blood Type A POSITIVE Antibody Screen Negative 11/22/18 11/22/18 10:12 11:16 WBC RBC Hgb Hct MCV MCH MCHC RDW Plt Count MPV Absolute Neuts (auto) Neutrophils % Neutrophils % (Manual) Band Neutrophils % Lymphocytes % Lymphocytes % (Manual) Monocytes % Monocytes % (Manual) Eosinophils % Eosinophils % (Manual) Basophils % Basophils % (Manual) Myelocytes % (Man) Promyelocytes % (Man) Blast Cells % (Manual) Nucleated RBC % Metamyelocytes Hypochromia Platelet Estimate Polychromasia Poikilocytosis Anisocytosis Microcytosis Macrocytosis PT with INR INR PTT (Actin FS) Sodium Potassium Chloride Carbon Dioxide Anion Gap BUN Creatinine Creat Clearance w eGFR POC Glucometer 81 Random Glucose Hemoglobin A1c % 6.3 Calcium Total Bilirubin Direct Bilirubin AST ALT Alkaline Phosphatase C-Reactive Protein Total Protein Albumin Total Amylase Lipase Blood Type Antibody Screen Active Medications Generic Name Dose Route Start Last Admin Trade Name Freq PRN Reason Stop Dose Admin Acetaminophen 1,000 mg 11/21/18 13:10 11/22/18 04:57 Ofirmev Injection - IVPB 1,000 mg Q6H PRN Administration PAIN OR FEVER Al Hydroxide/Mg Hydroxide 30 ml 11/21/18 15:23 Mylanta Oral Suspension - PO Q6H PRN DYSPEPSIA Heparin Sodium (Porcine) 5,000 unit 11/20/18 06:00 11/21/18 13:58 Heparin - SQ 5,000 unit TID JAMISON Administration Piperacillin Sod/Tazobactam 50 mls @ 100 mls/hr 11/20/18 10:15 11/22/18 10:14 Sod 3.375 gm/ Dextrose IVPB 100 mls/hr Q8H-IV JAMISON Administration Protocol Sodium Chloride 1,000 mls @ 100 mls/hr 11/21/18 13:15 11/22/18 13:45 Normal Saline - IV Not Given ASDIR JAMISON Insulin Aspart 1 vial 11/20/18 07:00 11/22/18 13:13 Novolog Vial Sliding Scale - SQ Not Given ACHS JAMISON Protocol Lorazepam 2 mg 11/20/18 22:00 11/21/18 21:03 Ativan - PO 2 mg HS JAMISON Administration Montelukast Sodium 10 mg 11/20/18 22:00 11/21/18 21:04 Singulair - PO 10 mg HS JAMISON Administration Morphine Sulfate 2 mg 11/21/18 13:07 11/22/18 10:13 Morphine Sulfate IVPUSH 2 mg Q4H PRN Administration PAIN LEVEL 7 - 10 Non-Formulary Medication 30 mcg 11/20/18 01:45 Octreotide Acetate [Sandostatin] IJ MONTHLY [facility] Non-Formulary Medication 250 mg 11/20/18 10:00 Telotristat Etiprate [Xermelo] PO DAILY [facility] Ondansetron HCl 4 mg 11/21/18 10:35 11/21/18 11:30 Zofran Odt - SL 4 mg Q6H PRN Administration NAUSEA AND/OR VOMITING Polyethylene Glycol 17 gm 11/21/18 22:00 11/22/18 10:14 Miralax (For Daily Use) - PO Not Given BID [facility] Topiramate 50 mg 11/22/18 12:30 11/22/18 13:13 Topamax - PO 50 mg DAILY JAMISON Administration ASSESSMENT/PLAN: This is a 63 y/o female with neuroendocrine tumor presented to the hospital for epigastric pain; leukocytosis, found to have cholecystitis Rectal Carcinoind tumor acute cholecystitis -leukocytosis secondary to cholecystitis; treat infection -being transferred to [facility] for ERCP; Dispo: We will continue to follow the patient. Thank you for this consultative opportunity. Visit type - Emergency Visit Emergency Visit: Yes ED Registration Date: 11/21/18 Care time: The patient presented to the Emergency Department on the above date and was hospitalized for further evaluation of their emergent condition. - New Patient This patient is new to me today: Yes Date on this admission: 11/22/18 - Critical Care Critical Care patient: No
--- NOTE | 2018-11-22 15:35 | PN ---
Progress Note (short form) - Note Progress Note: GI NOte: MRCP confirms a CBD stone. Lorena does not want me to attempt ERCP. I have arranged transfer to [facility] to Dr Darrel Washington who has accepted her and who will do her ERCP. I informed Poppy her nurse. Problem List - Problems (1) Abnormal liver enzymes Code(s): R74.8 - ABNORMAL LEVELS OF OTHER SERUM ENZYMES (2) Rectal carcinoid tumor Code(s): D3A.026 - BENIGN CARCINOID TUMOR OF THE RECTUM (3) Carcinoid syndrome Code(s): E34.0 - CARCINOID SYNDROME (4) Chronic diarrhea Code(s): K52.9 - NONINFECTIVE GASTROENTERITIS AND COLITIS, UNSPECIFIED (5) Acid reflux disease Code(s): K21.9 - GASTRO-ESOPHAGEAL REFLUX DISEASE WITHOUT ESOPHAGITIS (6) Dilated bile duct Code(s): K83.8 - OTHER SPECIFIED DISEASES OF BILIARY TRACT (7) Dilation of stomach, acute Code(s): K31.0 - ACUTE DILATATION OF STOMACH (8) Abdominal pain Code(s): R10.9 - UNSPECIFIED ABDOMINAL PAIN Qualifiers: Abdominal location: upper abdomen, unspecified Qualified Code(s): R10.10 - Upper abdominal pain, unspecified (9) Leukocytosis Code(s): D72.829 - ELEVATED WHITE BLOOD CELL COUNT, UNSPECIFIED Qualifiers: Leukocytosis type: other Qualified Code(s): D72.828 - Other elevated white blood cell count (10) SIRS (systemic inflammatory response syndrome) Code(s): R65.10 - SIRS OF NON-INFECTIOUS ORIGIN W/O ACUTE ORGAN DYSFUNCTION (11) Osteomyelitis Code(s): M86.9 - OSTEOMYELITIS, UNSPECIFIED Qualifiers: Osteomyelitis type: subacute Osteomyelitis location: other site Qualified Code(s): M86.28 - Subacute osteomyelitis, other site (12) Sepsis Code(s): A41.9 - SEPSIS, UNSPECIFIED ORGANISM (13) Constipation Code(s): K59.00 - CONSTIPATION, UNSPECIFIED
--- NOTE | 2018-11-22 16:07 | ECHO ---
Name: HAL GAVIN Exam:Adult Echocardiogram Study Date: 11/22/2018 02:25 PM Age: 63 yrs Reason For Study: fever,wbc 28k exclude sbe Height: 64 in Weight: 146 lb BSA: 1.7 m2 Procedure A complete two-dimensional transthoracic echocardiogram was performed (2D, M-mode, Doppler and color flow Doppler). Left Ventricle The left ventricle is normal in size. Left ventricular systolic function is normal. Ejection Fraction = >70%. No regional wall motion abnormalities noted. Right Ventricle The right ventricle is normal size. The right ventricular systolic function is normal. Atria The left atrial size is normal. Right atrial size is normal. Mitral Valve There is mild mitral annular calcification. There is trace to mild mitral regurgitation. Tricuspid Valve The tricuspid valve is normal in structure and function. There is mild tricuspid regurgitation. Right ventricular systolic pressure is normal. Aortic Valve There is mild aortic sclerosis.;. No aortic regurgitation is present. Pulmonic Valve The pulmonic valve is not well visualized. Great Vessels The aortic root is normal size. Pericardium/Pleura There is no pericardial effusion. Interpretation Summary The left ventricle is normal in size. Left ventricular systolic function is normal. No regional wall motion abnormalities noted. Ejection Fraction = >70%. The right ventricular systolic function is normal. The left atrial size is normal. Right atrial size is normal. There is mild mitral annular calcification. There is trace to mild mitral regurgitation. There is mild tricuspid regurgitation. Right ventricular systolic pressure is normal. There is mild aortic sclerosis.; There is no pericardial effusion. Previous study is not available for comparison Lee Munson MD 11/22/2018 04:06 PM
--- NOTE | 2018-11-22 18:40 | PN ---
Progress Note, Physician History of Present Illness: Pt had MRCP showing CBD stones and peripancreatic inflammation with probable cholecystitis. Still with some lower abdominal pain; had soft BM today. Tolerating clears. GI note reviewed - plan is for transfer for ERCP at [facility]. Pt seen and examined in bed, comfortable. Discussed likelihood that lap aram will be offered to her after ERCP before she is discharged home, after ensuring no chemical pancreatitis after ERCP. - Current Medication List Current Medications: Active Medications Acetaminophen (Ofirmev Injection -) 1,000 mg IVPB Q6H PRN PRN Reason: PAIN OR FEVER Last Admin: 11/22/18 04:57 Dose: 1,000 mg Al Hydroxide/Mg Hydroxide (Mylanta Oral Suspension -) 30 ml PO Q6H PRN PRN Reason: DYSPEPSIA Heparin Sodium (Porcine) (Heparin -) 5,000 unit SQ TID [facility] Last Admin: 11/21/18 13:58 Dose: 5,000 unit Piperacillin Sod/Tazobactam (Sod 3.375 gm/ Dextrose) 50 mls @ 100 mls/hr IVPB Q8H-IV JAMISON; Protocol Last Admin: 11/22/18 17:38 Dose: 100 mls/hr Sodium Chloride (Normal Saline -) 1,000 mls @ 100 mls/hr IV ASDIR JAMISON Last Admin: 11/22/18 15:46 Dose: 100 mls/hr Lorazepam (Ativan -) 2 mg PO HS [facility] Last Admin: 11/21/18 21:03 Dose: 2 mg Montelukast Sodium (Singulair -) 10 mg PO HS [facility] Last Admin: 11/21/18 21:04 Dose: 10 mg Morphine Sulfate (Morphine Sulfate) 2 mg IVPUSH Q4H PRN PRN Reason: PAIN LEVEL 7 - 10 Last Admin: 11/22/18 10:13 Dose: 2 mg Non-Formulary Medication (Octreotide Acetate [Sandostatin]) 30 mcg IJ MONTHLY [facility] Non-Formulary Medication (Telotristat Etiprate [Xermelo]) 250 mg PO DAILY [facility] Ondansetron HCl (Zofran Odt -) 4 mg SL Q6H PRN PRN Reason: NAUSEA AND/OR VOMITING Last Admin: 11/21/18 11:30 Dose: 4 mg Polyethylene Glycol (Miralax (For Daily Use) -) 17 gm PO BID [facility] Last Admin: 11/22/18 10:14 Dose: Not Given Topiramate (Topamax -) 50 mg PO DAILY [facility] Last Admin: 11/22/18 13:13 Dose: 50 mg - Objective Vital Signs: Vital Signs Temperature 99.2 F 11/22/18 14:10 Pulse Rate 73 11/22/18 14:10 Respiratory Rate 20 11/22/18 14:10 Blood Pressure 144/75 11/22/18 14:10 O2 Sat by Pulse Oximetry (%) 98 11/22/18 09:00 Constitutional: Yes: Well Nourished, No Distress, Calm Eyes: Yes: Conjunctiva Clear, EOM Intact. No: Sclera Icterus HENT: Yes: Atraumatic, Normocephalic Gastrointestinal: Yes: Soft, Tenderness (epigastric and RUQ, RLQ without rebound or guarding). No: Distention Extremities: No: Cool, Cyanosis Integumentary: No: Jaundice, Rash Neurological: Yes: Alert, Oriented Labs: CBC, BMP 11/22/18 10:12 11/22/18 06:45 INR, PTT INR 1.10 (0.83-1.09) H 11/22/18 06:45 CMP Sodium 141 mmol/L (136-145) 11/22/18 06:45 Potassium 3.8 mmol/L (3.5-5.1) 11/22/18 06:45 Chloride 112 mmol/L (98-107) H 11/22/18 06:45 Carbon Dioxide 22 mmol/L (21-32) 11/22/18 06:45 Anion Gap 7 MMOL/L (8-16) L 11/22/18 06:45 BUN 8 mg/dL (7-18) 11/22/18 06:45 Creatinine 0.6 mg/dL (0.55-1.3) 11/22/18 06:45 Creat Clearance w eGFR > 60 (>60) 11/22/18 06:45 POC Glucometer 81 UNITS (80-120) 11/22/18 11:16 Random Glucose 109 mg/dL (74-106) H 11/22/18 06:45 Hemoglobin A1c % 6.3 % (4.2-6.3) 11/22/18 10:12 Lactic Acid 1.2 mmol/L (0.4-2.0) 11/21/18 07:00 Calcium 7.9 mg/dL (8.5-10.1) L 11/22/18 06:45 Total Bilirubin 0.5 mg/dL (0.2-1) 11/22/18 06:45 Direct Bilirubin 0.2 mg/dL (0.0-0.2) 11/22/18 06:45 AST 135 U/L (15-37) H 11/22/18 06:45 ALT 237 U/L (13-61) H 11/22/18 06:45 Alkaline Phosphatase 172 U/L (45-117) H 11/22/18 06:45 Creatine Kinase 83 U/L (26-192) 11/19/18 22:30 Troponin I 0.02 ng/ml (0.00-0.05) 11/20/18 07:55 C-Reactive Protein 8.3 MG/DL (0.00-0.3) H 11/22/18 06:45 Total Protein 6.1 g/dl (6.4-8.2) L 11/22/18 06:45 Albumin 3.0 g/dl (3.4-5.0) L 11/22/18 06:45 Total Amylase 19 U/L (25-115) L 11/22/18 06:45 Lipase 69 U/L (73-393) L 11/22/18 06:45 Microbiology 11/19/18 22:45 Blood Culture - Preliminary Blood - Peripheral Venous NO GROWTH OBTAINED AFTER 48 HOURS, INCUBATION TO CONTINUE FOR 3 DAYS. 11/19/18 22:45 Blood Culture - Preliminary Blood - Peripheral Venous NO GROWTH OBTAINED AFTER 48 HOURS, INCUBATION TO CONTINUE FOR 3 DAYS. - ....Imaging MRI: Report Reviewed (see hpi), Image Reviewed Problem List - Problems (1) Calculus of gallbladder and bile duct w/cholecystitis w/o obstruction Code(s): K80.60 - CALCULUS OF GB AND BILE DUCT W CHOLECYST, UNSP, W/O OBST Qualifiers: Cholecystitis acuity: acute Qualified Code(s): K80.62 - Calculus of gallbladder and bile duct with acute cholecystitis without obstruction (2) Epigastric pain Code(s): R10.13 - EPIGASTRIC PAIN (3) Abnormal liver enzymes Code(s): R74.8 - ABNORMAL LEVELS OF OTHER SERUM ENZYMES (4) Leukocytosis Code(s): D72.829 - ELEVATED WHITE BLOOD CELL COUNT, UNSPECIFIED Qualifiers: Leukocytosis type: other Qualified Code(s): D72.828 - Other elevated white blood cell count (5) Dilation of stomach, acute Code(s): K31.0 - ACUTE DILATATION OF STOMACH (6) Dilated bile duct Code(s): K83.8 - OTHER SPECIFIED DISEASES OF BILIARY TRACT (7) Carcinoid syndrome Code(s): E34.0 - CARCINOID SYNDROME (8) Carcinoid tumor, rectal, malignant Code(s): C7A.026 - MALIGNANT CARCINOID TUMOR OF THE RECTUM Assessment/Plan agree with GI plan for transfer to tertiary center pt currently waiting for bed availability pt aware that cholecystectomy is likely to be discussed/offered prior to discharge home from [facility], after ERCP, which she believes is planned for tomorrow will sign off please recall with any change in plans or questions
[2018-11-22 19:26] VITALS: BP 128/70; TEMP 99
--- NOTE | 2018-11-22 20:45 | DS ---
Physical Exam: SUBJECTIVE: Patient seen and examined OBJECTIVE: transfer to [facility] GI service. Dr. Washington is accepting physician Vital Signs Period Temp Pulse Resp BP Sys/Vega Pulse Ox Last 24 Hr 98.3 F-99.2 F 73-75 18-20 128-144/70-75 98-98 PHYSICAL EXAM GENERAL: The patient is awake, alert, and fully oriented, in no acute distress. HEAD: Normal with no signs of trauma. EYES: PERRL, extraocular movements intact, sclera anicteric, conjunctiva clear. ENT: Ears normal, nares patent, oropharynx clear without exudates, moist mucous membranes. NECK: Trachea midline, full range of motion, supple. LUNGS: Breath sounds equal, clear to auscultation bilaterally, no wheezes, no crackles, no accessory muscle use. HEART: Regular rate and rhythm, S1, S2 without murmur, rub or gallop. ABDOMEN: Soft, nontender, nondistended, normoactive bowel sounds, no guarding, no rebound, no hepatosplenomegaly, no masses. EXTREMITIES: 2+ pulses, warm, well-perfused, no edema. NEUROLOGICAL: Cranial nerves II through XII grossly intact. Normal speech, gait not observed. PSYCH: Normal mood, normal affect. SKIN: Warm, dry, normal turgor, no rashes or lesions noted. LABS Laboratory Results - last 24 hr 11/21/18 11/22/18 11/22/18 20:50 06:04 06:45 WBC RBC Hgb Hct MCV MCH MCHC RDW Plt Count MPV Absolute Neuts (auto) Neutrophils % Neutrophils % (Manual) No Result Required. Band Neutrophils % Lymphocytes % Lymphocytes % (Manual) Monocytes % Monocytes % (Manual) Eosinophils % Eosinophils % (Manual) Basophils % Basophils % (Manual) Myelocytes % (Man) Promyelocytes % (Man) Blast Cells % (Manual) Nucleated RBC % 0 Metamyelocytes Hypochromia Platelet Estimate Polychromasia Poikilocytosis Anisocytosis Microcytosis Macrocytosis PT with INR INR PTT (Actin FS) Sodium Potassium Chloride Carbon Dioxide Anion Gap BUN Creatinine Creat Clearance w eGFR POC Glucometer 111 130 Random Glucose Hemoglobin A1c % Calcium Total Bilirubin Direct Bilirubin AST ALT Alkaline Phosphatase C-Reactive Protein Total Protein Albumin Total Amylase Lipase Blood Type Antibody Screen 11/22/18 11/22/18 11/22/18 06:45 06:45 06:45 WBC RBC Hgb Hct MCV MCH MCHC RDW Plt Count MPV Absolute Neuts (auto) Neutrophils % Neutrophils % (Manual) Band Neutrophils % Lymphocytes % Lymphocytes % (Manual) Monocytes % Monocytes % (Manual) Eosinophils % Eosinophils % (Manual) Basophils % Basophils % (Manual) Myelocytes % (Man) Promyelocytes % (Man) Blast Cells % (Manual) Nucleated RBC % Metamyelocytes Hypochromia Platelet Estimate Polychromasia Poikilocytosis Anisocytosis Microcytosis Macrocytosis PT with INR 13.00 INR 1.10 H PTT (Actin FS) 20.0 L Sodium 141 Potassium 3.8 Chloride 112 H Carbon Dioxide 22 Anion Gap 7 L BUN 8 Creatinine 0.6 Creat Clearance w eGFR > 60 POC Glucometer Random Glucose 109 H Hemoglobin A1c % Calcium 7.9 L Total Bilirubin 0.5 Direct Bilirubin 0.2 AST 135 H ALT 237 H Alkaline Phosphatase 172 H C-Reactive Protein 8.3 H Total Protein 6.1 L Albumin 3.0 L Total Amylase 19 L Lipase 69 L Blood Type A POSITIVE Antibody Screen Negative 11/22/18 11/22/18 11/22/18 06:47 10:12 10:12 WBC 26.4 H RBC 4.32 Hgb 13.5 Hct 40.2 MCV 92.9 MCH 31.3 MCHC 33.7 RDW 17.3 H Plt Count 443 H D MPV 7.9 Absolute Neuts (auto) 24.4 H Neutrophils % 92.4 H Neutrophils % (Manual) 96.0 H Band Neutrophils % 0.0 Lymphocytes % 4.7 L Lymphocytes % (Manual) 3.0 L Monocytes % 0.5 L Monocytes % (Manual) 1 L D Eosinophils % 0.9 D Eosinophils % (Manual) 0.0 D Basophils % 1.5 Basophils % (Manual) 0.0 Myelocytes % (Man) 0 Promyelocytes % (Man) 0 Blast Cells % (Manual) 0 Nucleated RBC % 0 Metamyelocytes 0 Hypochromia 0 Platelet Estimate Normal Polychromasia 0 Poikilocytosis 0 Anisocytosis 1+ Microcytosis 0 Macrocytosis 1+ PT with INR INR PTT (Actin FS) Sodium Potassium Chloride Carbon Dioxide Anion Gap BUN Creatinine Creat Clearance w eGFR POC Glucometer Random Glucose Hemoglobin A1c % Cancelled 6.3 Calcium Total Bilirubin Direct Bilirubin AST ALT Alkaline Phosphatase C-Reactive Protein Total Protein Albumin Total Amylase Lipase Blood Type Antibody Screen 11/22/18 11:16 WBC RBC Hgb Hct MCV MCH MCHC RDW Plt Count MPV Absolute Neuts (auto) Neutrophils % Neutrophils % (Manual) Band Neutrophils % Lymphocytes % Lymphocytes % (Manual) Monocytes % Monocytes % (Manual) Eosinophils % Eosinophils % (Manual) Basophils % Basophils % (Manual) Myelocytes % (Man) Promyelocytes % (Man) Blast Cells % (Manual) Nucleated RBC % Metamyelocytes Hypochromia Platelet Estimate Polychromasia Poikilocytosis Anisocytosis Microcytosis Macrocytosis PT with INR INR PTT (Actin FS) Sodium Potassium Chloride Carbon Dioxide Anion Gap BUN Creatinine Creat Clearance w eGFR POC Glucometer 81 Random Glucose Hemoglobin A1c % Calcium Total Bilirubin Direct Bilirubin AST ALT Alkaline Phosphatase C-Reactive Protein Total Protein Albumin Total Amylase Lipase Blood Type Antibody Screen HOSPITAL COURSE: Date of Admission:11/21/18 Date of Discharge: 11/22/18 Discharge Summary Reason For Visit: ABDOMINAL PAIN/LEUKOCYTOSIS Current Active Problems Abdominal pain (Acute) Abnormal liver enzymes (Acute) Acid reflux disease (Acute) Calculus of gallbladder and bile duct w/cholecystitis w/o obstruction (Acute) Carcinoid syndrome (Acute) Carcinoid tumor, rectal, malignant (Acute) Chronic diarrhea (Acute) Constipation (Acute) Dilated bile duct (Acute) Dilation of stomach, acute (Acute) Epigastric pain (Acute) Leukocytosis (Acute) Pre-diabetes (Acute) Rectal carcinoid tumor (Acute) SIRS (systemic inflammatory response syndrome) (Acute) Condition: Guarded - Instructions Diet, Activity, Other Instructions: transfer to [facility] GI service Referrals: Mayo Mckeon MD [Primary Care Provider] - Disposition: TRANSFER ACUTE CARE/OTHER HOSP - Home Medications Comprehensive Discharge Medication List: Ambulatory Orders Montelukast Na [Singulair -] 10 mg PO HS 12/22/16 Topiramate [Topamax] 50 mg PO DAILY 12/22/16 Lorazepam [Ativan] 2 mg PO HS 01/10/17 Octreotide Acetate [Sandostatin] 30 mcg IJ MONTHLY ampul 05/28/17 Nilda Katz 3,000 Units Capsule 11/19/18 Telotristat Etiprate [Xermelo] 250 mg PO DAILY 11/19/18
--- NOTE | 2018-11-22 21:24 | PN ---
Progress Note (short form) - Note Progress Note: 63yo F with complicated medical history, including C4-5 osteomyelitis (now s/p fusion), and significant for rectal carcinoid with carcinoid syndrome, chronic diarrhea, managed with octreotide , who had severe diarrhea last week, developed acute abdominal pain radiating toward LLQ and around to back, associated with an episode of N/V . CT was done with no oral contrast showing very dilated stomach, stool in colon, possible dilated biliary ducts, R renal cyst, and no obstruction. She had been at [facility], and was started on IVF and antibiotics per ID, but this morning developed fever, chills, rigors and was transferred to [facility]. GI saw her today , and has MRCP and echo pending. Surgery was asked to evaluate. - Past Medical History Pulmonary: Yes: Other (recent URI (3wks ago, Z-felix finished around 11/07)) Gastrointestinal: Yes: Cancer (rectal carcinoid), GERD, Hiatal Hernia, Other ( large rectal carcinoid dx'ed 2010, had RT & chemorx, has liver lesions, on octreotide, diarrhea managed with octreotide ) Reproductive: Yes: Postmenopausal Infectious Disease: Yes: Other (Osteomyelitis of C4-C5) Musculoskeletal: Yes: Osteoarthritis, Other (spinal stenosis, C4-C5 fusion after osteomyelitis) Endocrine: Yes: Other (thyroid nodule) - Past Surgical History Past Surgical History: Yes: Arthrosocopy (left knee), Colonoscopy, (x 2), Tonsillectomy, Upper Endoscopy Additional Surgical History: C4-C5 anterior discectomy and fusion for osteomyelitis 01/12. right rotator cuff surgery. Benign breast biopsies. 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 - Allergies Allergies/Adverse Reactions: Allergies Allergy/AdvReac Type Severity Reaction Status Date / Time everolimus [From Afinitor] AdvReac Severe SOB, Verified 07/19/17 12:39 Myalgias, Arthralgias,Edema erythromycin base AdvReac Verified 07/19/17 12:39 [Erythromycin Base] - Home Medications Home Medications: Ambulatory Orders Montelukast Na [Singulair -] 10 mg PO HS 12/22/16 Topiramate [Topamax] 50 mg PO DAILY 12/22/16 Lorazepam [Ativan] 2 mg PO HS 01/10/17 Octreotide Acetate [Sandostatin] 30 mcg IJ MONTHLY ampul 05/28/17 Nilda Katz 3,000 Units Capsule 11/19/18 Telotristat Etiprate [Xermelo] 250 mg PO DAILY 11/19/18 Family Disease History - Family Disease History Family Disease History: CA: Mother (CLL, 81), Other: Father (alive 96) Physical Exam Vital Signs: Vital Signs Temperature 98.4 F 11/21/18 17:52 Pulse Rate 71 11/21/18 17:52 Respiratory Rate 18 11/21/18 17:52 Blood Pressure 133/63 11/21/18 17:52 O2 Sat by Pulse Oximetry (%) 96 11/21/18 08:11 Cor: RSR, No murmurs, No gallops Lungs: Clear to P&A Abd: Soft, Normal bowel sounds, No organomegaly Ext:No significant edema Sodium 136 mmol/L (136-145) 11/21/18 07:00 Potassium 4.1 mmol/L (3.5-5.1) 11/21/18 07:00 Chloride 107 mmol/L (98-107) 11/21/18 07:00 Carbon Dioxide 20 mmol/L (21-32) L 11/21/18 07:00 Anion Gap 9 MMOL/L (8-16) 11/21/18 07:00 BUN 6 mg/dl (7-18) L 11/21/18 07:00 Creatinine 0.6 mg/dl (0.55-1.3) 11/21/18 07:00 Creat Clearance w eGFR > 60 (>60) 11/21/18 07:00 POC Glucometer 123 UNITS (80-120) 11/21/18 16:04 Random Glucose 132 mg/dl (74-106) H 11/21/18 07:00 Lactic Acid 1.2 mmol/L (0.4-2.0) 11/21/18 07:00 Calcium 8.4 mg/dl (8.5-10) L 11/21/18 07:00 Total Bilirubin 0.9 mg/dl (0.2-1) 11/21/18 07:00 AST 202 U/L (15-37) H 11/21/18 07:00 ALT 184 U/L (13-61) H 11/21/18 07:00 Alkaline Phosphatase 123 U/L (45-117) H D 11/21/18 07:00 Creatine Kinase 83 U/L (26-192) 11/19/18 22:30 Troponin I 0.02 ng/ml (0.00-0.05) 11/20/18 07:55 Total Protein 5.7 g/dl (6.4-8.2) L 11/21/18 07:00 Albumin 3.1 g/dl (3.4-5.0) L 11/21/18 07:00 Lipase 103 U/L (73-393) 11/19/18 22:30 Imaging - Results Cat Scan: Report Reviewed, Image Reviewed (images reviewed - very dilated stomach, no enteral contrast, no clear transition or obstructive point, + stool in colon, more R than L, + R renal cyst, possibly mild biliary ductal dilation) MRI: Pending (MRCP/MRI) Assessment/Plan 63yo F with complicated medical history, including C4-5 osteomyelitis (now s/p fusion), and significant for rectal carcinoid with carcinoid syndrome, chronic diarrhea, managed with octreotide , who had severe diarrhea last week, developed acute abdominal pain radiating toward LLQ and around to back, associated with an episode of N/V . CT was done with no oral contrast showing very dilated stomach, stool in colon, possible dilated biliary ducts, R renal cyst, and no obstruction. She had been at [facility], and was started on IVF and antibiotics per ID, but this morning developed fever, chills, rigors and was transferred to [facility]. MRI abdomen shows cholelithiasis/choledocholithiasis/cholecystitis/pancreatitis Being transferred to [facility] for ERCP On antibiotics Carcinoid--rectal, s/p Xeloda/RT, s/p temodar, s/p eerolimus. Has been on octreotide for 8yrs. Follow[address] by Dr. Andres David. Last octreotide dose was last week
[2018-11-22] MEDS ORDERED: SODIUM CHLORIDE 1,000 ML IV SCH (21:30)
== END 2018-11-22 21:27 | disposition short-term general hospital (02) | DRG 445 ==
LOC: FER 21:59 → FM/S 11-20 02:19 → J7W 11-21 12:52 → OBSVTOIN 11-21 14:16
PROVIDERS: ADMIT Internal Medicine; ATTEND Nurse Practitioner Family
DX: K80.62 Calculus of gallbladder and bile duct with acute cholecystitis without obstruction (principal); R65.10 Systemic inflammatory response syndrome (SIRS) of non-infectious origin without acute organ dysfunction; E87.2 Acidosis; M46.22 Osteomyelitis of vertebra, cervical region; K31.0 Acute dilatation of stomach; E34.0 Carcinoid syndrome; C7A.026 Malignant carcinoid tumor of the rectum; K81.0 Acute cholecystitis; R10.10 Upper abdominal pain, unspecified; D72.829 Elevated white blood cell count, unspecified; G43.909 Migraine, unspecified, not intractable, without status migrainosus; R73.03 Prediabetes; K21.9 Gastro-esophageal reflux disease without esophagitis; K44.9 Diaphragmatic hernia without obstruction or gangrene; E04.1 Nontoxic single thyroid nodule; R74.8 Abnormal levels of other serum enzymes; K83.8 Other specified diseases of biliary tract; K52.9 Noninfective gastroenteritis and colitis, unspecified; K59.00 Constipation, unspecified; Z85.040 Personal history of malignant carcinoid tumor of rectum
CPT/HCPCS: 36415; 71045-TC-FY; 74177-TC; 74181-TC; 76700-TC; 80053; 81003; 81015; 82150; 82248; 82550; 82803; 82962; 83036; 83605; 83690; 84484; 85025; 85379; 85610; 85730; 86140; 86850; 86900; 86901; 87040; 87045; 87046; 87086; 87324; 87449; 93005; 93306-TC; 99283-25; G0378; J0131; J1644; J7030; Q0162

== ENCOUNTER 2018-12-05 12:34 | Emergency (ER) | payer OTHER ==
[2018-12-05 12:53] VITALS: BP 112/70; PULSE 82; TEMP 97.8; BMI 25.0
[2018-12-05] MEDS ORDERED: KETOROLAC TROMETHAMINE 30 MG/1 ML VIAL IM ONE (13:10)
[2018-12-05] MEDS ORDERED: KETOROLAC TROMETHAMINE 30 MG/1 ML VIAL ONE (13:14)
[2018-12-05] MEDS ORDERED: diazePAM 5 MG TABLET PO ONE (13:18)
--- NOTE | 2018-12-05 13:18 | PDOC ---
History of Present Illness - General Chief Complaint: Pain Stated Complaint: RIGHT BACK/FLANK PAIN History Source: Patient Exam Limitations: No Limitations - History of Present Illness Initial Comments: 12/05/18 13:13 63 yo F h/o recent laprascopic cholecystectomy 2 weeks ago at [facility] here with c/o right flank pain. 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 pt states upper back pain it started few days ago. is worse with walking, turning and lying on her side. states has noted difference in her urine stream, goes and then stops. no dysuria. no f/c no n/v has been eating ok. no other complaints. no new leg weakness or numbness. no mod factors. no ho prior back injury denies trauma. 12/05/18 14:44 Past History - Past Medical History Allergies/Adverse Reactions: Allergies Allergy/AdvReac Type Severity Reaction Status Date / Time everolimus [From Afinitor] AdvReac Severe SOB, Verified 07/19/17 12:39 Myalgias, Arthralgias,Edema erythromycin base AdvReac Verified 07/19/17 12:39 [Erythromycin Base] Home Medications: Ambulatory Orders Montelukast Na [Singulair -] 10 mg PO HS 12/22/16 Topiramate [Topamax] 50 mg PO DAILY 12/22/16 Lorazepam [Ativan] 2 mg PO HS 01/10/17 Octreotide Acetate [Sandostatin] 30 mcg IJ MONTHLY ampul 05/28/17 Telotristat Etiprate [Xermelo] 250 mg PO DAILY 11/19/18 Diazepam [Valium] 5 mg PO Q8H PRN #15 tablet MDD 3 12/05/18 Fluticasone Prop 0.05% Nasal [Flonase -] 1 - 2 spray NS BID 12/05/18 Ibuprofen [Motrin -] 600 mg PO TID PRN #90 tablet 12/05/18 Lipase/Protease/Amylase [Nilda Katz 24,000 Units Capsule] 4 each PO AC 12/05/18 Omeprazole 20 mg PO HS 12/05/18 Oxycodone HCl 5 mg PO QID PRN 12/05/18 Oxycodone HCl/Acetaminophen [Percocet 5-325 mg Tablet] 1 - 2 tab PO Q6H PRN #15 tablet MDD 6 12/05/18 Sulfamethoxazole/Trimethoprim [Bactrim Ds -] 1 tab PO BID #14 tablet 12/05/18 Cancer: Yes (RECTAL) COPD: No GI Disorders: Yes (GERD) - Surgical History Cholecystectomy: Yes (11/25/18) Gastric Stapling: Yes - Suicide/Smoking/Psychosocial Hx Smoking History: Never smoked Have you smoked in the past 12 months: No Hx Alcohol Use: No Drug/Substance Use Hx: No Substance Use Type: None Review of Systems - Review of Systems Constitutional: No: Chills, Diaphoresis HEENTM: No: Eye Pain Respiratory: No: Cough, Orthopnea Cardiac (ROS): No: Chest Pain : Yes: Other (see hpi). No: Burning, Dysuria Musculoskeletal: Yes: Back Pain Integumentary: No: Bruising, Change in Color Neurological: No: Headache, Numbness, Tingling, Tremors All Other Systems: Reviewed and Negative *Physical Exam - Vital Signs Last Vital Signs Temp Pulse Resp BP Pulse Ox 97.8 F 82 16 112/70 100 12/05/18 12:36 12/05/18 12:36 12/05/18 12:36 12/05/18 12:36 12/05/18 12:36 - Physical Exam Comments: 12/05/18 13:16 awake alert lungs clear bilaterally heart rr no mrg abd soft nt incisions CDI. right cva ttp. no rebound no guarding. no midline thoracic or lumba spinal ttp. lower ext 5/5 strength, sensation intact throughout. skin warm and dry incision as described. nuero intact. Moderate Sedation - Procedure Monitoring Vital Signs: Procedure Monitoring Vital Signs Temperature 97.8 F 12/05/18 12:36 Pulse Rate 82 12/05/18 12:36 Respiratory Rate 16 12/05/18 12:36 Blood Pressure 112/70 12/05/18 12:36 O2 Sat by Pulse Oximetry (%) 100 12/05/18 12:36 Medical Decision Making - Medical Decision Making 12/05/18 13:17 63 yo F s/p lap aram here with c/o right flank pain , worse wtih movement. no nuero compromise. no f/c no abd pain. exam with lumbosacral ttp, no midline tenderness and nuero intact. differential msk strain, uti/ pyelo, no abd tenderness to suggest operative complication such as abcess , leak or infection. plan ua toradol, muscle relaxers. reassess. 12/05/18 14:45 pt pain unimproved with meds, will obtain ct a/p r/o stone, ro other pathology post op. pt has mild uti wtih blood in urine. 12/05/18 15:[address] wtih no renal stone, no obvious fluid collection. still has pneumobilia in central hepatic duct [facility] postsurgical. will call pt surgeon dr alexis brambila. she has folllowup with him on 12/07/18 n 48 hrs. pt told to return fo n/v fever or abd pain. given rx for bactrim for mild uit. dc with rx for percocet, valium and motrin. *DC/Admit/Observation/Transfer Diagnosis at time of Disposition: Low back strain, UTI (urinary tract infection) - Discharge Dispostion Disposition: HOME Condition at time of disposition: Improved - Prescriptions Prescriptions: Diazepam [Valium] 5 mg PO Q8H PRN #15 tablet MDD 3 PRN Reason: Back Pain Ibuprofen [Motrin -] 600 mg PO TID PRN #90 tablet PRN Reason: Pain Oxycodone HCl/Acetaminophen [Percocet 5-325 mg Tablet] 1 - 2 tab PO Q6H PRN #15 tablet MDD 6 PRN Reason: Pain Sulfamethoxazole/Trimethoprim [Bactrim Ds -] 1 tab PO BID #14 tablet - Referrals Referrals: Mayo Mckeon MD [Primary Care Provider] - - Patient Instructions Printed Discharge Instructions: Back Pain (Alternative Therapy), Urinary Tract Infection Additional Instructions: you have a mild UTI. you should take bactrim twice dailly x 7 days. you can take motrin 600 mg every 8 hrs as needed for your pain. take with food. you can also take percocet one every 6 hrs as needed for pain. you should understand this is a controlled substance, and is addictive. should only be used if pain is not relieved by motrin. you should take a stool softner while on this medication as it causes constipation. do not drive after taking medication. in addition you can take valium 5 mg every 8 hrs as needed for back pain and muscle spasm. this is also addictive and is a controlled substance. do not mix with alcohol, or drive after taking medication. you should space out medication with percocet by 1 - 2 hours as both can be sedating. follow up with your doctor , call to schedule. you should also follow up with dr Javier feliz as scheduled for 12/07. return for vomiting, fever worsening pain, weakness numbness or any concerns. - Post Discharge Activity
[2018-12-05] MEDS ORDERED: diazePAM 5 MG TABLET ONE (13:19)
[2018-12-05 13:23] LABS: URINE APPEARANCE Clear; URINE BILIRUBIN Negative (NEGATIVE); URINE COLOR Yellow; URINE GLUCOSE (UA) Negative (NEGATIVE); URINE KETONE Negative (NEGATIVE); URINE LEUK ESTERASE 2+ (NEGATIVE); URINE NITRITE Negative (NEGATIVE); URINE PROTEIN Negative (NEGATIVE); URINE UROBILINOGEN 0.2 (0.2-1.0)
[2018-12-05 13:45] LABS: EPI CELLS 1+ /HPF
== END 2018-12-05 16:05 | disposition home or self-care (01) ==
LOC: FER 12:34
PROC: 3E0233Z Introduction of Anti-inflammatory into Muscle, Percutaneous Approach (ICD-10-PCS; principal; 2018-12-05)
DX: M54.5 Low back pain (principal); N39.0 Urinary tract infection, site not specified; Z85.048 Personal history of other malignant neoplasm of rectum, rectosigmoid junction, and anus; K21.9 Gastro-esophageal reflux disease without esophagitis
CPT/HCPCS: 74176-TC; 81003; 81015; 99282-25

== ENCOUNTER 2019-06-27 13:00 | Inpatient (IN) | payer OTHER ==
--- NOTE | 2019-06-27 13:57 | PDOC ---
History of Present Illness - General Chief Complaint: Pain, Acute Stated Complaint: LEFT UPPER ABD PAIN Time Seen by Provider: 06/27/19 13:00 History Source: Patient Exam Limitations: No Limitations - History of Present Illness Initial Comments: 06/27/19 13:52 63y/o F h/o GERD, lap aram last year, rectal carcinoid on monthly treatment ( [facility]), leukocytosis of unclear etiology maintained on hydrea ([facility]) presents for evaluation of worsening L rib/flank pain since yesterday. Pt was in her usonh, last night developed gradual onset mild L lower flank/rib pain, did not take anything and slept throughout the night but awoke this morning with increased pain, now positional and worse with deep inspiration. radiates to L shoulder but no cough/f/c, no GI/ complaints. Has been balancing diet due to gluten allergy, has h/o non-bloody diarrhea but now normal, last BM 2d ago. Has normal appetite and ate breakfast this morning without change in her pain. Did not take pain meds, presents for evaluation. No rash/injury. no cough/f/c/palpitations. baseline b/l leg edema. no h/o kidney stones/pneumonia. Past History - Past Medical History Allergies/Adverse Reactions: Allergies Allergy/AdvReac Type Severity Reaction Status Date / Time everolimus [From Afinitor] AdvReac Severe SOB, Verified 06/27/19 14:40 Myalgias, Arthralgias,Edema erythromycin base AdvReac Verified 06/27/19 14:40 [Erythromycin Base] Home Medications: Ambulatory Orders Montelukast Na [Singulair -] 10 mg PO HS 12/22/16 Topiramate [Topamax] 50 mg PO DAILY 12/22/16 Lorazepam [Ativan] 2 mg PO HS 01/10/17 Octreotide Acetate [Sandostatin] 30 mcg IJ MONTHLY ampul 05/28/17 Telotristat Etiprate [Xermelo] 250 mg PO DAILY 11/19/18 Lipase/Protease/Amylase [Nilda Katz 24,000 Units Capsule] 4 each PO TID 12/05/18 Omeprazole 20 mg PO HS 12/05/18 Hydroxyurea [Hydrea -] 500 mg PO DAILY 06/27/19 Cancer: Yes (RECTAL CARCINOID) COPD: No GI Disorders: Yes (GERD) - Surgical History Cholecystectomy: Yes (11/25/18) Gastric Stapling: Yes - Psycho Social/Smoking Cessation Hx Smoking History: Never smoked Have you smoked in the past 12 months: No Information on smoking cessation initiated: No Hx Alcohol Use: No Drug/Substance Use Hx: No Substance Use Type: None Review of Systems - Review of Systems Constitutional: No: Chills, Fever, Night Sweats, Unexplained wgt Loss Respiratory: No: Cough, Shortness of Breath Cardiac (ROS): Yes: See HPI, Edema (baseline chronic). No: Palpitations ABD/GI: Yes: See HPI. No: Constipated, Diarrhea, Vomiting : No: Burning, Dysuria, Frequency, Hematuria Musculoskeletal: Yes: See HPI Integumentary: No: Bruising, Rash Neurological: No: Headache All Other Systems: Reviewed and Negative *Physical Exam - Vital Signs Last Vital Signs Temp Pulse Resp BP Pulse Ox 98 F 94 H 18 131/79 98 06/27/19 13:00 06/27/19 13:00 06/27/19 13:00 06/27/19 13:00 06/27/19 13:00 - Physical Exam Comments: 06/27/19 13:58 Vital signs as noted and within normal limits, O2 sat 98% on room air GENERAL: The patient is awake, alert, and fully oriented, in mild to moderate distress with deep inspiration or positional changes. HEAD: Normal with no signs of trauma. EYES: PERRL, EOMI, sclera anicteric, conjunctiva clear with no pallor. ENT: oropharynx clear without exudates. Moist mucous membranes. NECK: Normal range of motion, supple without lymphadenopathy, JVD, or masses. CHEST: exquisite reproducible tenderness pinpoint in the L posterior 8/10 intercostal spaces, less tender and without deformity over ribs. No crepitus. No rash, no bruising. LUNGS: Breath sounds equal, splints to L base but clear to auscultation bilaterally. No wheeze/crackles. HEART: Regular rate and rhythm, normal S1 and S2 without murmur or rub. ABDOMEN: Soft/nontender/nondistended. BS wnl. No guarding or rebound. No palpable masses. No palpable hepatosplenomegaly. No CVAT. Healed incisional scars without palpable hernia. EXTREMITIES: Normal range of motion, 2-3+ edema b/l ankles. 2+ distal pulses. No cords, erythema, or tenderness. NEUROLOGICAL: Cranial nerves II through XII grossly intact. Normal speech, normal gait. PSYCH: Normal mood, normal affect. SKIN: Warm, Dry, no rashes or lesions noted. Heart Score/ECG Review #1 ECG reviewed & interpreted by me at: 13:13 General ECG Interpretation: Sinus Rhythm, Normal Rate (90), Normal Intervals ( qtc 425), No acute ischemic changes ED Treatment Course - LABORATORY CBC & Chemistry Diagram: 06/27/19 13:45 06/27/19 14:20 - RADIOLOGY Radiology Studies Ordered: Category Date Time Status CHEST X-RAY PORTABLE* [RAD] Stat Radiology 06/27/19 13:43 Ordered Medical Decision Making - Medical Decision Making 06/27/19 14:02 63y/o F rectal carcinoid, leukocytosis p/w gradual L intercostal/flank discomfort, HD stable here without cardiopulmonary distress, focal reproducible ttp over L posterior chest wall intercostal space. Clinically not consistent with acute GI etiology, ? splenic process given her unknown heme issue, ? explained by renal colic. no rash to suggest shingles. r/o pna/pleural effusion. labs, ua cxr, ekg likely ctap pain control, trial toradol (pt able to take nsaids) reassess 06/27/19 15:05 wbc 105k, double her previous baseline in the 40s and concerning for hyperleukocytosis. No evidence of leukostasis given no neuro complaints, no hypoxia. chem/ua otherwise unremarkable (even rbc/wbc on ua). feels better after toradol, plts normal. ctap pending, possible splenic involvement. will d/w Heme pending results. 06/27/19 17:29 case d/w Dr. Sandra Dukes at [facility], recommends hydrea 1000mg q12h x 4-5 doses, iv hydration and pain management, then f/u in office. CTAP pending, but no evidence of splenic hemorrhage on my prelim review. Will admit to [facility], accepted for inpt med/surg by Dr. Mar, signout given to COLE Ames. 06/27/19 18:37 CTAP with homogenously enlarged spleen but no infarct/hemorrhage. clinically unchanged and stable, IVF started and hydrea ordered per heme recommendations. pt proceeded to inpatient bed. Discharge - Discharge Information Problems reviewed: Yes Clinical Impression/Diagnosis: Left flank pain, Hyperleukocytosis Condition: Guarded - Admission Yes - Follow up/Referral - Patient Discharge Instructions - Post Discharge Activity
[2019-06-27] MEDS ORDERED: KETOROLAC TROMETHAMINE 30 MG/1 ML VIAL IVPUSH ONE (14:06)
[2019-06-27] MEDS ORDERED: KETOROLAC TROMETHAMINE 30 MG/1 ML VIAL ONE (14:09)
[2019-06-27 14:17] LABS: HEMATOCRIT 36.8 % (32.4-45.2); HEMOGLOBIN 12.3 GM/dl (10.7-15.3); MCH 33.5 pg (25.7-33.7); MCHC 33.5 g/dl (32.0-36.0); MEAN CELL VOLUME 100.1 fl (80-96); MEAN PLT VOLUME 7.4 fl (7.5-11.1); PLATELET COUNT 241 K/MM3 (134-434); RBC 3.68 M/mm3 (3.60-5.2); RDW 20.6 % (11.6-15.6)
[2019-06-27 14:22] LABS: ADD RBC MORPHOLOGY YES
[2019-06-27 14:44] LABS: MAGNESIUM 1.9 mg/dL (1.8-2.4)
[2019-06-27 14:46] LABS: CALCIUM OXALATE CRYSTALS FEW /hpf (NONE SEEN); EPITHELIAL CELLS MODERATE /hpf; URIC ACID CRYSTALS FEW /hpf (NONE SEEN)
[2019-06-27 14:47] LABS: ALBUMIN 3.6 g/dl (3.4-5.0); BILIRUBIN,TOTAL 0.7 mg/dl (0.2-1); CREATININE 0.9 mg/dl (0.55-1.3); POTASSIUM 3.9 mmol/L (3.5-5.1); TOT PROT 6.6 g/dl (6.4-8.2)
[2019-06-27 14:47] LABS: URINE HYALINE CAST 0-2 /lpf; URINE MUCUS 1+
[2019-06-27] MEDS ORDERED: SODIUM CHLORIDE 500 ML IV ONE (15:04)
[2019-06-27 15:23] LABS: ANISOCYTOSIS 2+; MACROCYTOSIS 1+
[2019-06-27] MEDS ORDERED: morphine CARPU-JECT 2 MG/1 ML DISP.SYRIN IVPUSH ONE (16:57)
[2019-06-27] MEDS ORDERED: ACETAMINOPHEN 1000 MG/100 ML VIAL (NON FORMULARY) IVPB ONE (16:57)
[2019-06-27] MEDS ORDERED: morphine SULFATE 4 MG/ML VIAL ONE (17:02)
[2019-06-27] MEDS ORDERED: ACETAMINOPHEN INJECTION 100 ML IVPB ONE (17:02)
[2019-06-27] MEDS ORDERED: HYDROXYUREA 500 MG CAPSULE PO ONE (17:26)
[2019-06-27] MEDS ORDERED: SODIUM CHLORIDE 1,000 ML IV ONE (17:29)
--- NOTE | 2019-06-27 17:38 | HP ---
CHIEF COMPLAINT: Left intercostal/flank pain PCP: Dr. Mckeon Heme: Dr. Jack Botello [place]; Dr. Narendra David, [facility]; Dr. Sandra Dukes at [facility] HISTORY OF PRESENT ILLNESS: 63 year-old female with a PMH significant for myeloproliferative neoplasm (February 2019), rectal carcinoid, leukocytosis, GERD, migraines, recurrent UTIs, osteomyeltitis C4-C5 s/p C4-C5 discectomy and fusion (2016), and cholecystitis s /p lap aram (10/2018). Presented to the ED with left rib/flank pain x 24 hours. Pt was in her USOH, last night developed gradual onset mild left lower flank/rib pain, did not take anything and slept throughout the night but awoke this morning with increased pain, positional and worse with deep inspiration. The pain radiates to the left shoulder. Denies fever, sweats, chills; denies nausea, vomiting, diarrhea; denies dysuria, urgency, frequency. Last BM 2days ago, normal. 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[employer], [facility] Smoking: never Alcohol: social Drugs: marijuna Family history: mother 81 CLL; father alive 96 Allergies everolimus [From Afinitor] Adverse Reaction (Severe, Verified 06/27/19 14:40) SOB, Myalgias, Arthralgias,Edema erythromycin base [Erythromycin Base] Adverse Reaction (Verified 06/27/19 14:40) NAUSEA HOME MEDICATIONS: Home Medications Medication Instructions Recorded Montelukast Na [Singulair -] 10 mg PO HS 12/22/16 Topiramate [Topamax] 50 mg PO DAILY 12/22/16 Lorazepam [Ativan] 2 mg PO HS 01/10/17 Octreotide Acetate [Sandostatin] 30 mcg IJ MONTHLY ampul 05/28/17 Telotristat Etiprate [Xermelo] 250 mg PO DAILY 11/19/18 Lipase/Protease/Amylase [Creon Dr 4 each PO TID 12/05/18 24,000 Units Capsule] Omeprazole 20 mg PO HS 12/05/18 Hydroxyurea [Hydrea -] 500 mg PO DAILY 06/27/19 REVIEW OF SYSTEMS CONSTITUTIONAL: Absent: fever, chills, diaphoresis, generalized weakness, malaise, loss of appetite, weight change HEENT: Absent: rhinorrhea, nasal congestion, throat pain, throat swelling, difficulty swallowing, mouth swelling, ear pain, eye pain, visual changes CARDIOVASCULAR: Absent: chest pain, syncope, palpitations, irregular heart rate, lightheadedness , peripheral edema RESPIRATORY: Absent: cough, shortness of breath, dyspnea with exertion, orthopnea, wheezing, stridor, hemoptysis GASTROINTESTINAL: Absent: abdominal pain, abdominal distension, nausea, vomiting, diarrhea, constipation, melena, hematochezia GENITOURINARY: Absent: dysuria, frequency, urgency, hesitancy, hematuria, flank pain, genital pain MUSCULOSKELETAL: +left flank, left intercostal pain Absent: myalgia, arthralgia, joint swelling, back pain, neck pain SKIN: Absent: rash, itching, pallor HEMATOLOGIC/IMMUNOLOGIC: Absent: easy bleeding, easy bruising, lymphadenopathy, frequent infections ENDOCRINE: Absent: unexplained weight gain, unexplained weight loss, heat intolerance, cold intolerance NEUROLOGIC: Absent: headache, focal weakness or paresthesias, dizziness, unsteady gait, seizure, mental status changes, bladder or bowel incontinence PSYCHIATRIC: Absent: anxiety, depression, suicidal or homicidal ideation, hallucinations. PHYSICAL EXAMINATION Vital Signs - 24 hr 06/27/19 06/27/19 13:00 15:28 Temperature 98 F Pulse Rate 94 H Pulse Rate [ 87 Left Apical] Respiratory 18 18 Rate Blood Pressure 131/79 Blood Pressure 115/79 [Right Arm] O2 Sat by Pulse 98 99 Oximetry (%) GENERAL: Awake, alert, and fully oriented, in no acute distress. HEAD: Normal with no signs of trauma. EYES: Pupils equal, round and reactive to light, extraocular movements intact, sclera anicteric, conjunctiva clear. No lid lag. LUNGS: Breath sounds equal, clear to auscultation bilaterally. No wheezes, and no crackles. No accessory muscle use. HEART: Regular rate and rhythm, S1 and S2 ABDOMEN: Soft, nontender, not distended, normoactive bowel sounds; palpable splenic edge +tenderness MUSCULOSKELETAL: Normal range of motion at all joints. No bony deformities or tenderness. +mild left CVA tenderness UPPER EXTREMITIES: 2+ pulses, warm, well-perfused. No cyanosis. No clubbing. No peripheral edema. LOWER EXTREMITIES: 2+ pulses, warm, well-perfused. No calf tenderness. No peripheral edema. NEUROLOGICAL: Cranial nerves II-XII intact. Normal speech. SKIN: Warm, dry, normal turgor Laboratory Results - last 24 hr 06/27/19 06/27/19 06/27/19 13:45 13:50 14:20 WBC 105.0 H* RBC 3.68 Hgb 12.3 Hct 36.8 MCV 100.1 H MCH 33.5 MCHC 33.5 RDW 20.6 H Plt Count 241 MPV 7.4 L Absolute Neuts (auto) 101.0 Neutrophils % No Result Required. Neutrophils % (Manual) 77.0 Band Neutrophils % 13.0 H Lymphocytes % No Result Required. Lymphocytes % (Manual) 1.0 L Monocytes % (Manual) 1 L Eosinophils % (Manual) 1.0 Basophils % (Manual) 2.0 Myelocytes % (Man) 3 H Metamyelocytes 2 Anisocytosis 2+ Macrocytosis 1+ Sodium Potassium Chloride Carbon Dioxide Anion Gap BUN Creatinine Est GFR (CKD-EPI)AfAm Est GFR (CKD-EPI)NonAf Random Glucose Calcium Magnesium Total Bilirubin AST ALT Alkaline Phosphatase Creatine Kinase Troponin I < 0.03 Total Protein Albumin Lipase Urine Color Yellow Urine Appearance Clear Urine pH 6.0 Urine Protein Negative Urine Glucose (UA) Negative Urine Ketones Negative Urine Blood 2+ H Urine Nitrite Negative Urine Bilirubin Negative Urine Urobilinogen 0.2 Ur Leukocyte Esterase 1+ Urine RBC 5-10 Urine WBC 5-10 Ur Transition Epith Cell Moderate Calcium Oxalate Crystal Few Uric Acid Crystals Few Hyaline Casts 0-2 Urine Mucus 1+ 06/27/19 06/27/19 14:20 14:20 WBC RBC Hgb Hct MCV MCH MCHC RDW Plt Count MPV Absolute Neuts (auto) Neutrophils % Neutrophils % (Manual) Band Neutrophils % Lymphocytes % Lymphocytes % (Manual) Monocytes % (Manual) Eosinophils % (Manual) Basophils % (Manual) Myelocytes % (Man) Metamyelocytes Anisocytosis Macrocytosis Sodium 140 Potassium 3.9 Chloride 106 Carbon Dioxide 25 Anion Gap 9 BUN 13.0 Creatinine 0.9 Est GFR (CKD-EPI)AfAm 78.87 Est GFR (CKD-EPI)NonAf 68.05 Random Glucose 87 Calcium 9.0 Magnesium 1.9 Total Bilirubin 0.7 AST 24 ALT 19 Alkaline Phosphatase 431 H D Creatine Kinase 46 Troponin I Total Protein 6.6 Albumin 3.6 Lipase 78 Urine Color Urine Appearance Urine pH Urine Protein Urine Glucose (UA) Urine Ketones Urine Blood Urine Nitrite Urine Bilirubin Urine Urobilinogen Ur Leukocyte Esterase Urine RBC Urine WBC Ur Transition Epith Cell Calcium Oxalate Crystal Uric Acid Crystals Hyaline Casts Urine Mucus ASSESSMENT/PLAN 63 year-old female with a PMH significant for myeloproliferative neoplasm (February 2019), rectal carcinoid, leukocytosis, GERD, migraines, recurrent UTIs, osteomyeltitis C4-C5 s/p C4-C5 discectomy and fusion (2016), and cholecystitis s /p lap aram (10/2018). Admitted for hyperleukocytosis and splenomegaly. Splenomegaly --interval development since 12/05/18 Hyperleukocytosis Myeloproliferative neoplasm Elevated alk phos --WBC has been elevated since October 2018, significant spike since March (40 -->105k) --has been on hyroxyurea 500mg daily --per Dr. Sandra Dukes at [facility], increase hydroxyurea to 1000mg q12h x 4- 5 doses; IV hydration, pain management, then f/u in office --IV tylenol scheduled x 4 doses; morphine PRN Rectal carcinoid --continue Xermelo GERD --ppi Migraines --continue Topomax Anxiety --continue lorazepam FEN Fluids: NS @ 150mL/hr Electrolytes: replete as indicated Nutrition: regular diet DVT prophylaxis: subq heparin Dispo: continues to require inpatient care. Full code. Visit type - Emergency Visit Emergency Visit: Yes ED Registration Date: 06/27/19 Care time: The patient presented to the Emergency Department on the above date and was hospitalized for further evaluation of their emergent condition. - New Patient This patient is new to me today: Yes Date on this admission: 06/27/19 - Critical Care Critical Care patient: No
[2019-06-27 18:50] VITALS: BMI 26.4
[2019-06-27] MEDS ORDERED: MORPHINE SULFATE 2 MG/ML VIAL IVPUSH PRN (19:04)
[2019-06-27] MEDS ORDERED: ACETAMINOPHEN 1000 MG/100 ML VIAL (NON FORMULARY) IVPB SCH (19:15)
[2019-06-27] MEDS ORDERED: LORazepam 0.5 MG TABLET ONE (21:25)
[2019-06-27] MEDS: PANTOPRAZOLE 20 MG TABLET (FP) PO SCH (21:27)
[2019-06-27] MEDS: MONTELUKAST NA 10 MG TABLET PO SCH (21:27)
[2019-06-27] MEDS: HEPARIN NA (PORCINE) 5,000 UNITS/ML 1ML VIAL SQ SCH (21:43)
[2019-06-27] MEDS ORDERED: LORazepam 1 MG TABLET PO SCH (22:00)
[2019-06-27] MEDS ORDERED: PATIENT'S OWN MEDICATION (NON-FORMULARY) (Lipase/Protease/Amylase [Creon Dr 24,000 Units C PO SCH (22:00)
[2019-06-27] MEDS: ACETAMINOPHEN 1000 MG/100 ML VIAL (NON FORMULARY) IVPB SCH (23:17)
[2019-06-27] MEDS: morphine CARPU-JECT 2 MG/1 ML DISP.SYRIN IVPUSH PRN (23:33)
[2019-06-28] MEDS ORDERED: MELATONIN 5 MG TABLETS PO PRN (03:03)
[2019-06-28] MEDS ORDERED: MORPHINE SULFATE 2 MG/ML VIAL IVPUSH ONE (03:06)
[2019-06-28] MEDS: ACETAMINOPHEN 1000 MG/100 ML VIAL (NON FORMULARY) IVPB SCH ×3 (05:19→17:36)
[2019-06-28] MEDS: HEPARIN NA (PORCINE) 5,000 UNITS/ML 1ML VIAL SQ SCH ×3 (06:09→21:47)
--- NOTE | 2019-06-28 09:31 | PN ---
Physical Exam: SUBJECTIVE: Patient seen and examined at bedside. Left flank pain is 5/10, persistent, dull. OBJECTIVE: Vital Signs Period Temp Pulse Resp BP Sys/Vega Pulse Ox Last 24 Hr 97.6 F-98.3 F 65-94 16-18 105-131/59-88 95-99 GENERAL: Awake, alert, and fully oriented, in no acute distress. HEAD: Normal with no signs of trauma. EYES: Pupils equal, round and reactive to light, extraocular movements intact, sclera anicteric, conjunctiva clear. No lid lag. LUNGS: Breath sounds equal, clear to auscultation bilaterally. No wheezes, and no crackles. No accessory muscle use. HEART: Regular rate and rhythm, S1 and S2 ABDOMEN: Soft, nontender, not distended, normoactive bowel sounds; palpable splenic edge +tenderness MUSCULOSKELETAL: Normal range of motion at all joints. No bony deformities or tenderness. +mild left CVA tenderness UPPER EXTREMITIES: 2+ pulses, warm, well-perfused. No cyanosis. No clubbing. No peripheral edema. LOWER EXTREMITIES: 2+ pulses, warm, well-perfused. No calf tenderness. No peripheral edema. NEUROLOGICAL: Cranial nerves II-XII intact. Normal speech. SKIN: Warm, dry, normal turgor Laboratory Results - last 24 hr 06/27/19 06/27/19 06/27/19 13:45 13:50 14:20 WBC 105.0 H* RBC 3.68 Hgb 12.3 Hct 36.8 MCV 100.1 H MCH 33.5 MCHC 33.5 RDW 20.6 H Plt Count 241 MPV 7.4 L Absolute Neuts (auto) 101.0 Neutrophils % No Result Required. Neutrophils % (Manual) 77.0 Band Neutrophils % 13.0 H Lymphocytes % No Result Required. Lymphocytes % (Manual) 1.0 L Monocytes % (Manual) 1 L Eosinophils % (Manual) 1.0 Basophils % (Manual) 2.0 Myelocytes % (Man) 3 H Metamyelocytes 2 Anisocytosis 2+ Macrocytosis 1+ Sodium Potassium Chloride Carbon Dioxide Anion Gap BUN Creatinine Est GFR (CKD-EPI)AfAm Est GFR (CKD-EPI)NonAf Random Glucose Calcium Magnesium Total Bilirubin AST ALT Alkaline Phosphatase Creatine Kinase Troponin I < 0.03 Total Protein Albumin Lipase Urine Color Yellow Urine Appearance Clear Urine pH 6.0 Urine Protein Negative Urine Glucose (UA) Negative Urine Ketones Negative Urine Blood 2+ H Urine Nitrite Negative Urine Bilirubin Negative Urine Urobilinogen 0.2 Ur Leukocyte Esterase 1+ Urine RBC 5-10 Urine WBC 5-10 Ur Transition Epith Cell Moderate Calcium Oxalate Crystal Few Uric Acid Crystals Few Hyaline Casts 0-2 Urine Mucus 1+ 06/27/19 06/27/19 14:20 14:20 WBC RBC Hgb Hct MCV MCH MCHC RDW Plt Count MPV Absolute Neuts (auto) Neutrophils % Neutrophils % (Manual) Band Neutrophils % Lymphocytes % Lymphocytes % (Manual) Monocytes % (Manual) Eosinophils % (Manual) Basophils % (Manual) Myelocytes % (Man) Metamyelocytes Anisocytosis Macrocytosis Sodium 140 Potassium 3.9 Chloride 106 Carbon Dioxide 25 Anion Gap 9 BUN 13.0 Creatinine 0.9 Est GFR (CKD-EPI)AfAm 78.87 Est GFR (CKD-EPI)NonAf 68.05 Random Glucose 87 Calcium 9.0 Magnesium 1.9 Total Bilirubin 0.7 AST 24 ALT 19 Alkaline Phosphatase 431 H D Creatine Kinase 46 Troponin I Total Protein 6.6 Albumin 3.6 Lipase 78 Urine Color Urine Appearance Urine pH Urine Protein Urine Glucose (UA) Urine Ketones Urine Blood Urine Nitrite Urine Bilirubin Urine Urobilinogen Ur Leukocyte Esterase Urine RBC Urine WBC Ur Transition Epith Cell Calcium Oxalate Crystal Uric Acid Crystals Hyaline Casts Urine Mucus Active Medications Generic Name Dose Route Start Last Admin Trade Name Freq PRN Reason Stop Dose Admin Acetaminophen 1,000 mg 06/27/19 23:00 06/28/19 05:19 Ofirmev Injection - IVPB 06/28/19 17:01 1,000 mg Q6H JAMISON Administration Heparin Sodium (Porcine) 5,000 unit 06/27/19 22:00 06/28/19 06:09 Heparin - SQ Not Given TID JAMISON Hydroxyurea 1,000 mg 06/28/19 10:00 Hydrea - PO 06/29/19 22:01 Q12H JAMISON Lorazepam 2 mg 06/28/19 22:00 Ativan - PO HS JAMISON Melatonin 5 mg 06/28/19 03:03 06/28/19 03:18 Melatonin PO 5 mg HS PRN Administration INSOMNIA Montelukast Sodium 10 mg 06/27/19 22:00 06/27/19 21:27 Singulair - PO 10 mg HS JAMISON Administration Morphine Sulfate 2 mg 06/27/19 23:24 06/27/19 23:33 Morphine Injection - IVPUSH 2 mg Q6H PRN Administration PAIN LEVEL 6-10 Non-Formulary Medication 250 mg 06/28/19 10:00 Telotristat Etiprate [Xermelo] PO DAILY JAMISON Pantoprazole Sodium 20 mg 06/27/19 22:00 06/27/19 21:27 Protonix - PO 20 mg HS JAMISON Administration Topiramate 50 mg 06/28/19 10:00 Topamax - PO DAILY JAMISON ASSESSMENT/PLAN: 63 year-old female with a PMH significant for myeloproliferative neoplasm (February 2019), rectal carcinoid, leukocytosis, GERD, migraines, recurrent UTIs, osteomyeltitis C4-C5 s/p C4-C5 discectomy and fusion (2016), and cholecystitis s /p lap aram (10/2018). Admitted for hyperleukocytosis and splenomegaly. Splenomegaly --interval development since 12/05/18 --pain persists --heme consult placed Hyperleukocytosis Myeloproliferative neoplasm Elevated alk phos --WBC has been elevated since October 2018, significant spike since March (40 -->105k) --has been on hyroxyurea 500mg daily --per Dr. Sandra Dukes at [facility], increase hydroxyurea to 1000mg q12h x 4- 5 doses; IV hydration, pain management, then f/u in office --IV tylenol scheduled x 4 doses; morphine PRN Rectal carcinoid --continue Xermelo for control of diarrhea--non-formulary, patient needs to bring from home GERD --continue protonix Migraines --continue Topamax Anxiety --continue lorazepam FEN Fluids: NS @ 150mL/hr Electrolytes: replete as indicated Nutrition: regular diet DVT prophylaxis: subq heparin Dispo: continues to require inpatient care. Full code. Visit type - Emergency Visit Emergency Visit: Yes ED Registration Date: 06/27/19 Care time: The patient presented to the Emergency Department on the above date and was hospitalized for further evaluation of their emergent condition. - New Patient This patient is new to me today: No - Critical Care Critical Care patient: No
[2019-06-28] MEDS ORDERED: PT OWN MED DRAWER 7, Y5N ONE ×2 (09:35→23:32)
[2019-06-28] MEDS: TOPIRAMATE 25 MG TABLET (FP) PO SCH (09:37)
[2019-06-28] MEDS: HYDROXYUREA 500 MG CAPSULE PO SCH ×2 (09:38→21:46)
[2019-06-28] MEDS: FLUTICASONE PROP 0.05% 16 GM NASAL SPRAY NS SCH ×2 (09:50→21:47)
[2019-06-28] MEDS ORDERED: [UNRECOGNIZED DRUG - OTHER] PO SCH (10:00)
[2019-06-28] MEDS: SODIUM CHLORIDE 1,000 ML IV SCH (10:00)
--- NOTE | 2019-06-28 10:14 | EKG ---
Test Reason : Blood Pressure : / mmHG Vent. Rate : 088 BPM Atrial Rate : 088 BPM P-R Int : 146 ms QRS Dur : 068 ms QT Int : 346 ms P-R-T Axes : 071 025 029 degrees QTc Int : 418 ms NORMAL SINUS RHYTHM POSSIBLE LEFT ATRIAL ENLARGEMENT SEPTAL INFARCT , AGE UNDETERMINED ABNORMAL ECG WHEN COMPARED WITH ECG OF 19-NOV-2018 22:31, NO SIGNIFICANT CHANGE WAS FOUND Confirmed by Shyam Rico MD ([id number]) on 06/28/2019 10:13:34 AM Referred By: DR STEPHENSON Confirmed By:Shyam Rico MD
[2019-06-28 11:16] LABS: BASO % 0.1 % (0-2.0); LYMPH % 1.1 % (8-40); MCH 34.5 pg (25.7-33.7)
[2019-06-28 11:22] LABS: EOS % 0.9 % (0-4.5); HEMATOCRIT 32.9 % (32.4-45.2); HEMOGLOBIN 11.3 GM/dl (10.7-15.3); MCHC 34.3 g/dl (32.0-36.0); MEAN CELL VOLUME 100.7 fl (80-96); MEAN PLT VOLUME 6.7 fl (7.5-11.1); MONO % 0.1 % (3.8-10.2); NEUT % 97.8 % (42.8-82.8); PLATELET COUNT 207 K/MM3 (134-434); RBC 3.27 M/mm3 (3.60-5.2); RDW 19.8 % (11.6-15.6); WHITE BLOOD COUNT 95.3 K/mm3 (4.0-10.8)
[2019-06-28 11:33] LABS: BILIRUBIN,TOTAL 0.5 mg/dl (0.2-1); CREATININE 0.8 mg/dl (0.55-1.3); MAGNESIUM 1.8 mg/dL (1.8-2.4); POTASSIUM 3.9 mmol/L (3.5-5.1); TOT PROT 5.8 g/dl (6.4-8.2)
[2019-06-28] MEDS: morphine CARPU-JECT 2 MG/1 ML DISP.SYRIN IVPUSH PRN ×2 (17:35→23:04)
[2019-06-28] MEDS: ALLOPURINOL 300 MG TABLET (FP) PO SCH ×2 (19:19→21:52)
[2019-06-28] MEDS: PANTOPRAZOLE 20 MG TABLET (FP) PO SCH (21:45)
[2019-06-28] MEDS: MONTELUKAST NA 10 MG TABLET PO SCH (21:45)
[2019-06-28] MEDS: LORazepam 0.5 MG TABLET PO SCH (21:45)
[2019-06-29] MEDS ORDERED: morphine CARPU-JECT 2 MG/1 ML DISP.SYRIN IVPUSH ONE (03:23)
[2019-06-29] MEDS: HEPARIN NA (PORCINE) 5,000 UNITS/ML 1ML VIAL SQ SCH ×3 (06:36→22:00)
[2019-06-29 08:30] LABS: BASO % 0.3 % (0-2.0); HEMATOCRIT 35.1 % (32.4-45.2); HEMOGLOBIN 11.7 GM/dl (10.7-15.3); LYMPH % 1.3 % (8-40); MCH 33.7 pg (25.7-33.7); MCHC 33.3 g/dl (32.0-36.0); MEAN CELL VOLUME 101.3 fl (80-96); MEAN PLT VOLUME 6.9 fl (7.5-11.1); MONO % 0.1 % (3.8-10.2); NEUT % 97.3 % (42.8-82.8); PLATELET COUNT 198 K/MM3 (134-434); RBC 3.46 M/mm3 (3.60-5.2); RDW 20.2 % (11.6-15.6)
[2019-06-29 08:36] LABS: ALBUMIN 3.1 g/dl (3.4-5.0); BILIRUBIN,TOTAL 0.4 mg/dl (0.2-1); CALCIUM 8.2 mg/dl (8.5-10); CREATININE 0.8 mg/dl (0.55-1.3); MAGNESIUM 1.8 mg/dL (1.8-2.4); POTASSIUM 3.9 mmol/L (3.5-5.1); TOT PROT 5.9 g/dl (6.4-8.2)
[2019-06-29 08:41] LABS: WHITE BLOOD COUNT 95.8 K/mm3 (4.0-10.8)
[2019-06-29] MEDS ORDERED: PT OWN MED DRAWER 7, Y5N ONE ×3 (09:22→21:48)
[2019-06-29] MEDS: FLUTICASONE PROP 0.05% 16 GM NASAL SPRAY NS SCH ×2 (09:25→22:01)
[2019-06-29] MEDS: morphine CARPU-JECT 2 MG/1 ML DISP.SYRIN IVPUSH PRN ×3 (09:25→21:45)
[2019-06-29] MEDS: HYDROXYUREA 500 MG CAPSULE PO SCH ×3 (09:39→21:49)
[2019-06-29] MEDS: TOPIRAMATE 25 MG TABLET (FP) PO SCH ×2 (09:40→10:44)
[2019-06-29] MEDS: ALLOPURINOL 300 MG TABLET (FP) PO SCH ×2 (09:40→10:45)
[2019-06-29] MEDS: SODIUM CHLORIDE 1,000 ML IV SCH (15:31)
[2019-06-29] MEDS ORDERED: SODIUM CHLORIDE 1,000 ML IV SCH ×2 (18:03→19:44)
[2019-06-29] MEDS ORDERED: ACETAMINOPHEN 325 MG TABLET (FP) PO PRN (18:29)
--- NOTE | 2019-06-29 19:45 | DS ---
Physical Exam: SUBJECTIVE: Patient seen and examined OBJECTIVE: Vital Signs Period Temp Pulse Resp BP Sys/Vega Pulse Ox Last 24 Hr 98.0 F-99.0 F 73-91 16-18 123-140/55-67 94-97 PHYSICAL EXAM GENERAL: The patient is awake, alert, and fully oriented, in no acute distress. HEAD: Normal with no signs of trauma. EYES: PERRL, extraocular movements intact, sclera anicteric, conjunctiva clear. ENT: Ears normal, nares patent, oropharynx clear without exudates, moist mucous membranes. NECK: Trachea midline, full range of motion, supple. LUNGS: Breath sounds equal, clear to auscultation bilaterally, no wheezes, no crackles, no accessory muscle use. HEART: Regular rate and rhythm, S1, S2 without murmur, rub or gallop. ABDOMEN: Soft, nontender, nondistended, normoactive bowel sounds, no guarding, no rebound, no hepatosplenomegaly, no masses. EXTREMITIES: 2+ pulses, warm, well-perfused, no edema. NEUROLOGICAL: Cranial nerves II through XII grossly intact. Normal speech, gait not observed. PSYCH: Normal mood, normal affect. SKIN: Warm, dry, normal turgor, no rashes or lesions noted. LABS Laboratory Results - last 24 hr 06/29/19 06/29/19 08:07 08:07 WBC 95.8 H* RBC 3.46 L Hgb 11.7 Hct 35.1 MCV 101.3 H MCH 33.7 MCHC 33.3 RDW 20.2 H Plt Count 198 MPV 6.9 L Absolute Neuts (auto) 93.2 Neutrophils % 97.3 H Lymphocytes % 1.3 L Monocytes % 0.1 L Eosinophils % 1.0 Basophils % 0.3 Sodium 141 Potassium 3.9 Chloride 113 H Carbon Dioxide 23 Anion Gap 5 L BUN 11.0 Creatinine 0.8 Est GFR (CKD-EPI)AfAm 90.30 Est GFR (CKD-EPI)NonAf 77.91 Random Glucose 133 H Calcium 8.2 L Magnesium 1.8 Total Bilirubin 0.4 AST 59 H ALT 48 Alkaline Phosphatase 483 H D Total Protein 5.9 L Albumin 3.1 L HOSPITAL COURSE: Date of Admission:06/27/19 Date of Discharge: 06/29/19 Minutes to complete discharge: 35 Discharge Summary Problems reviewed: Yes Reason For Visit: HYPERLEUKOCYTOSIS Current Active Problems Hyperleukocytosis (Acute) Left flank pain (Acute) Condition: Guarded - Instructions - Home Medications Comprehensive Discharge Medication List: Ambulatory Orders Montelukast Na [Singulair -] 10 mg PO HS 12/22/16 Topiramate [Topamax] 50 mg PO DAILY 12/22/16 Lorazepam [Ativan] 2 mg PO HS 01/10/17 Octreotide Acetate [Sandostatin] 30 mcg IJ MONTHLY ampul 05/28/17 Telotristat Etiprate [Xermelo] 250 mg PO DAILY 11/19/18 Lipase/Protease/Amylase [Creon Dr 24,000 Units Capsule] 4 each PO TID 12/05/18 Omeprazole 20 mg PO HS 12/05/18 Hydroxyurea [Hydrea -] 500 mg PO DAILY 06/27/19 This patient is new to me today: No Emergency Visit: Yes ED Registration Date: 06/27/19 Care time: The patient presented to the Emergency Department on the above date and was hospitalized for further evaluation of their emergent condition. Critical Care patient: No - Discharge Referral Referred to [facility] Med P.C.: No
[2019-06-29] MEDS: LORazepam 0.5 MG TABLET PO SCH (21:46)
[2019-06-29] MEDS: PANTOPRAZOLE 20 MG TABLET (FP) PO SCH (21:46)
[2019-06-29] MEDS: MONTELUKAST NA 10 MG TABLET PO SCH (21:46)
[2019-06-30] MEDS: HEPARIN NA (PORCINE) 5,000 UNITS/ML 1ML VIAL SQ SCH ×3 (06:34→21:28)
[2019-06-30] MEDS: morphine CARPU-JECT 2 MG/1 ML DISP.SYRIN IVPUSH PRN ×2 (06:35→15:03)
[2019-06-30 07:59] LABS: BASO % 0.2 % (0-2.0); EOS % 1.4 % (0-4.5); HEMATOCRIT 34.9 % (32.4-45.2); HEMOGLOBIN 11.7 GM/dl (10.7-15.3); LYMPH % 1.7 % (8-40); MCHC 33.7 g/dl (32.0-36.0); MEAN PLT VOLUME 7.4 fl (7.5-11.1); MONO % 0.1 % (3.8-10.2); NEUT % 96.6 % (42.8-82.8); PLATELET COUNT 155 K/MM3 (134-434); RBC 3.46 M/mm3 (3.60-5.2); RDW 19.8 % (11.6-15.6); WHITE BLOOD COUNT 83.5 K/mm3 (4.0-10.8)
[2019-06-30 08:04] LABS: ALBUMIN 3.2 g/dl (3.4-5.0); BILIRUBIN,TOTAL 0.8 mg/dl (0.2-1); CALCIUM 8.5 mg/dl (8.5-10); CREATININE 0.8 mg/dl (0.55-1.3); MAGNESIUM 1.8 mg/dL (1.8-2.4); POTASSIUM 3.9 mmol/L (3.5-5.1); TOT PROT 6.3 g/dl (6.4-8.2)
[2019-06-30] MEDS ORDERED: BISACODYL 10 MG SUPP.RECT RC ONE (09:00)
--- NOTE | 2019-06-30 09:40 | PN ---
Physical Exam: SUBJECTIVE: Patient seen and examined. Left flank pain is worse, feels some SOB. Some chills last night. OBJECTIVE: Vital Signs Period Temp Pulse Resp BP Sys/Vega Pulse Ox Last 24 Hr 98.1 F-100.0 F 72-82 17-18 118-140/55-64 93-97 GENERAL: The patient is awake, alert, and fully oriented, in mild distress secondary to left flank pain LUNGS: Breath sounds equal, clear to auscultation HEART: Regular rate and rhythm, S1, S2 ABDOMEN: Tenderness under left breast, left flank; splenic edge palpable EXTREMITIES: 2+ pulses, warm, well-perfused, no edema. NEUROLOGICAL: Cranial nerves II through XII grossly intact. Normal speech, steady gait SKIN: Warm, dry, normal turgor, no rashes or lesions noted Laboratory Results - last 24 hr 06/30/19 06/30/19 06:57 06:57 WBC 83.5 H* RBC 3.46 L Hgb 11.7 Hct 34.9 MCV 101.0 H MCH 34.0 H MCHC 33.7 RDW 19.8 H Plt Count 155 MPV 7.4 L Absolute Neuts (auto) 80.6 Neutrophils % 96.6 H Lymphocytes % 1.7 L Monocytes % 0.1 L Eosinophils % 1.4 Basophils % 0.2 Sodium 140 Potassium 3.9 Chloride 109 H Carbon Dioxide 22 Anion Gap 9 BUN 13.0 Creatinine 0.8 Est GFR (CKD-EPI)AfAm 90.30 Est GFR (CKD-EPI)NonAf 77.91 Random Glucose 150 H Calcium 8.5 Magnesium 1.8 Total Bilirubin 0.8 AST 40 H ALT 47 Alkaline Phosphatase 511 H D Total Protein 6.3 L Albumin 3.2 L Active Medications Generic Name Dose Route Start Last Admin Trade Name Freq PRN Reason Stop Dose Admin Acetaminophen 650 mg 06/29/19 18:29 06/29/19 18:34 Tylenol - PO 650 mg Q6H PRN Administration PAIN LEVEL 1-5 Allopurinol 300 mg 06/29/19 10:45 06/29/19 10:45 Zyloprim - PO 300 mg DAILY JAMISON Administration Fluticasone Propionate 1 spray 06/28/19 10:00 06/29/19 22:01 Flonase - NS 1 spray BID JAMISON Administration Heparin Sodium (Porcine) 5,000 unit 06/27/19 22:00 06/30/19 06:34 Heparin - SQ 5,000 unit TID JAMISON Administration Meropenem 1 gm/ Dextrose 100 mls @ 200 mls/hr 06/30/19 10:00 IVPB Q8H-IV JAMISON Lorazepam 2 mg 06/28/19 22:00 06/29/19 21:46 Ativan - PO 2 mg HS JAMISON Administration Melatonin 5 mg 06/28/19 03:03 06/28/19 03:18 Melatonin PO 5 mg HS PRN Administration INSOMNIA Montelukast Sodium 10 mg 06/27/19 22:00 06/29/19 21:46 Singulair - PO 10 mg HS JAMISON Administration Morphine Sulfate 2 mg 06/27/19 23:24 06/30/19 06:35 Morphine Injection - IVPUSH 2 mg Q6H PRN Administration PAIN LEVEL 6-10 Non-Formulary Medication 250 mg 06/28/19 10:00 Telotristat Etiprate [Xermelo] PO DAILY JAMISON Pantoprazole Sodium 20 mg 06/27/19 22:00 06/29/19 21:46 Protonix - PO 20 mg HS JAMISON Administration Senna/Docusate Sodium 1 tablet 06/30/19 10:00 Pericolace - PO BID JAMISON Topiramate 50 mg 06/29/19 10:45 06/29/19 10:44 Topamax - PO 50 mg DAILY JAMISON Administration ASSESSMENT/PLAN: 63 year-old female with a PMH significant for myeloproliferative disorder (February 2019), rectal carcinoid, leukocytosis, GERD, migraines, recurrent UTIs, osteomyeltitis C4-C5 s/p C4-C5 discectomy and fusion (2016), and cholecystitis s /p lap aram (10/2018). Admitted for hyperleukocytosis and splenomegaly. Splenomegaly --interval development since 12/05/18 --left upper quadrant/flank pain worsening Hyperleukocytosis Myeloproliferative disorder --WBC 105k on admission, today 83.5k; continue hydroxyurea 1g q24h --stopped IV fluids due to volume overload (pleural effusions, mild diffuse mesenteric and subq edema seen on MRI) but will hold off diuresis pending heme input --continue pain management with IV tylenol and morphine --accepted for transfer to [facility], pending bed assignment --Heme Dr. Sood following Rule out pneumonia --low grade temp, possible infiltrates on MRI on 05/30 and CXR on 05/31 --culture --start meropenem --ID following Rectal carcinoid --continue Xermelo GERD --continue protonix Migraines --continue Topomax Anxiety --continue lorazepam FEN Fluids: PO intake adequate Electrolytes: replete as indicated Nutrition: regular diet DVT prophylaxis: subq heparin Dispo: continues to require inpatient care. Pending transfer to [facility]. Full code. Fever to 100.0 rectal Feels SOB CXR: left pleural effusion MRI: bilateral pleural effusions v. infiltrates Culture Start meropenem; ID following Stop IV fluids; no diuresis Pre post Visit type - Emergency Visit Emergency Visit: Yes ED Registration Date: 06/27/19 Care time: The patient presented to the Emergency Department on the above date and was hospitalized for further evaluation of their emergent condition. - New Patient This patient is new to me today: No - Critical Care Critical Care patient: No
[2019-06-30] MEDS: TOPIRAMATE 25 MG TABLET (FP) PO SCH (09:59)
[2019-06-30] MEDS ORDERED: HYDROXYUREA 500 MG CAPSULE PO SCH ×2 (10:00)
[2019-06-30] MEDS: ALLOPURINOL 300 MG TABLET (FP) PO SCH (10:00)
[2019-06-30] MEDS: SENNOSIDES/DOCUSATE COMBO (SENNA PLUS) TABLET (UD) PO SCH ×2 (10:00→21:24)
[2019-06-30] MEDS ORDERED: MEROPENEM 1 GM VIAL (RESTRICTED TO ID) IVPB ONE ×3 (10:10→23:15)
[2019-06-30] MEDS ORDERED: DEXTROSE 5%-WATER 100 ML IVPB ONE ×3 (10:10→23:15)
[2019-06-30] MEDS: FLUTICASONE PROP 0.05% 16 GM NASAL SPRAY NS SCH ×2 (10:13→21:28)
[2019-06-30] MEDS: MEROPENEM 1 GM in DEXTROSE 5%-WATER 100 ML IVPB SCH ×2 (10:13→17:42)
--- NOTE | 2019-06-30 11:37 | PN ---
Physical Exam: SUBJECTIVE: Patient seen and examined. Left flank pain persists. Denies any difficulty breathing. OBJECTIVE: Vital Signs Period Temp Pulse Resp BP Sys/Vega Pulse Ox Last 24 Hr 98.0 F-99.0 F 73-91 16-18 123-140/55-67 94-97 GENERAL: The patient is awake, alert, and fully oriented, in no acute distress. LUNGS: Breath sounds equal, clear to auscultation HEART: Regular rate and rhythm, S1, S2 ABDOMEN: Tenderness under left breast, left flank; splenic edge palpable EXTREMITIES: 2+ pulses, warm, well-perfused, no edema. NEUROLOGICAL: Cranial nerves II through XII grossly intact. Normal speech, steady gait SKIN: Warm, dry, normal turgor, no rashes or lesions noted Laboratory Results - last 24 hr 06/29/19 06/29/19 08:07 08:07 WBC 95.8 H* RBC 3.46 L Hgb 11.7 Hct 35.1 MCV 101.3 H MCH 33.7 MCHC 33.3 RDW 20.2 H Plt Count 198 MPV 6.9 L Absolute Neuts (auto) 93.2 Neutrophils % 97.3 H Lymphocytes % 1.3 L Monocytes % 0.1 L Eosinophils % 1.0 Basophils % 0.3 Sodium 141 Potassium 3.9 Chloride 113 H Carbon Dioxide 23 Anion Gap 5 L BUN 11.0 Creatinine 0.8 Est GFR (CKD-EPI)AfAm 90.30 Est GFR (CKD-EPI)NonAf 77.91 Random Glucose 133 H Calcium 8.2 L Magnesium 1.8 Total Bilirubin 0.4 AST 59 H ALT 48 Alkaline Phosphatase 483 H D Total Protein 5.9 L Albumin 3.1 L ASSESSMENT/PLAN: 63 year-old female with a PMH significant for myeloproliferative disorder (February 2019), rectal carcinoid, leukocytosis, GERD, migraines, recurrent UTIs, osteomyeltitis C4-C5 s/p C4-C5 discectomy and fusion (2016), and cholecystitis s /p lap aram (10/2018). Admitted for hyperleukocytosis and splenomegaly. Splenomegaly --interval development since 12/05/18 --left upper quadrant/flank pain persists Hyperleukocytosis Myeloproliferative disorder --WBC 105k on admission, today 95.8k; continue hydroxyurea q12h, IV hydration --continue pain management with IV tylenol and morphine --discussed with PA per Dr. Dukes office, accepted for transfer to [facility] Rectal carcinoid --continue Xermelo GERD --continue protonix Migraines --continue Topomax Anxiety --continue lorazepam FEN Fluids: NS @ 75mL/hr Electrolytes: replete as indicated Nutrition: regular diet DVT prophylaxis: subq heparin Dispo: continues to require inpatient care. Full code. Pending transfer to [facility], waiting for bed assignment. Visit type - Emergency Visit Emergency Visit: Yes ED Registration Date: 06/27/19 Care time: The patient presented to the Emergency Department on the above date and was hospitalized for further evaluation of their emergent condition. - New Patient This patient is new to me today: No - Critical Care Critical Care patient: No
[2019-06-30 12:30] LABS: EPITHELIAL CELLS FEW /hpf
--- NOTE | 2019-06-30 17:33 | DS ---
Physical Exam: SUBJECTIVE: Patient seen and examined. Left flank pain is worse, feels some SOB. Some chills last night. OBJECTIVE: Vital Signs Period Temp Pulse Resp BP Sys/Vega Pulse Ox Last 24 Hr 98.3 F-100.0 F 72-90 17-18 118-135/55-64 93-98 PHYSICAL EXAM GENERAL: The patient is awake, alert, and fully oriented, in mild distress secondary to left flank pain LUNGS: Breath sounds equal, clear to auscultation HEART: Regular rate and rhythm, S1, S2 ABDOMEN: Tenderness under left breast, left flank; splenic edge palpable EXTREMITIES: 2+ pulses, warm, well-perfused, no edema. NEUROLOGICAL: Cranial nerves II through XII grossly intact. Normal speech, steady gait SKIN: Warm, dry, normal turgor, no rashes or lesions noted LABS Laboratory Results - last 24 hr 06/30/19 06/30/19 06/30/19 06:57 06:57 08:00 WBC 83.5 H* RBC 3.46 L Hgb 11.7 Hct 34.9 MCV 101.0 H MCH 34.0 H MCHC 33.7 RDW 19.8 H Plt Count 155 MPV 7.4 L Absolute Neuts (auto) 80.6 Neutrophils % 96.6 H Lymphocytes % 1.7 L Monocytes % 0.1 L Eosinophils % 1.4 Basophils % 0.2 Sodium 140 Potassium 3.9 Chloride 109 H Carbon Dioxide 22 Anion Gap 9 BUN 13.0 Creatinine 0.8 Est GFR (CKD-EPI)AfAm 90.30 Est GFR (CKD-EPI)NonAf 77.91 Random Glucose 150 H Calcium 8.5 Magnesium 1.8 Total Bilirubin 0.8 AST 40 H ALT 47 Alkaline Phosphatase 511 H D Total Protein 6.3 L Albumin 3.2 L Urine Color Yellow Urine Appearance Clear Urine pH 6.5 Urine Protein Negative Urine Glucose (UA) Negative Urine Ketones Negative Urine Blood 2+ H Urine Nitrite Negative Urine Bilirubin Negative Urine Urobilinogen 0.2 Ur Leukocyte Esterase Negative Urine RBC 2-5 Urine WBC 0-2 Ur Transition Epith Cell Few HOSPITAL COURSE: Date of Admission:06/27/19 Date of Discharge: 06/30/19 Pre hospital course 63 year-old female with a PMH significant for myeloproliferative neoplasm (February 2019), rectal carcinoid, leukocytosis, GERD, migraines, recurrent UTIs, osteomyeltitis C4-C5 s/p C4-C5 discectomy and fusion (2016), and cholecystitis s /p lap aram (10/2018). Presented to the ED with left rib/flank pain x 24 hours. Pt was in her USOH, last night developed gradual onset mild left lower flank/rib pain, did not take anything and slept throughout the night but awoke this morning with increased pain, positional and worse with deep inspiration. The pain radiates to the left shoulder. Denies fever, sweats, chills; denies nausea, vomiting, diarrhea; denies dysuria, urgency, frequency. Last BM 2days ago, normal. ER course (1) WBC 105k (2) Alk phos 431 (3) CTAP: since 12/05/18 interval development of splenomegaly Subsequent hospital course 63 year-old female with a PMH significant for myeloproliferative disorder (February 2019), rectal carcinoid, leukocytosis, GERD, migraines, recurrent UTIs, osteomyeltitis C4-C5 s/p C4-C5 discectomy and fusion (2016), and cholecystitis s /p lap aram (10/2018). Admitted for hyperleukocytosis and splenomegaly. Splenomegaly --interval development since 12/05/18; increase in size from [id number] to [id number] --left upper quadrant/flank pain worsening Hyperleukocytosis Myeloproliferative disorder --WBC 105k on admission (40s in March 2019); trending down since admission, today 83.5k on hydroxyurea 1g q12h --stopped IV fluids today due to volume overload (pleural effusions, mild diffuse mesenteric and subq edema seen on MRI) --increased morphine for worsening discomfort, continue IV Tylenol --accepted for transfer to [facility], pending bed assignment --Heme Dr. Sood following Rule out pneumonia --low grade temp, possible infiltrates on MRI on 05/30 and CXR on 05/31 --cultures pending --start meropenem (day #1) --ID following Rectal carcinoid --continue Xermelo GERD --continue protonix Migraines --continue Topomax Anxiety --continue lorazepam FEN Fluids: PO intake adequate Electrolytes: replete as indicated Nutrition: regular diet DVT prophylaxis: subq heparin Dispo: continues to require inpatient care. Pending transfer to [facility]. Full code. Minutes to complete discharge: 35 Discharge Summary Problems reviewed: Yes Reason For Visit: HYPERLEUKOCYTOSIS Current Active Problems Hyperleukocytosis (Acute) Left flank pain (Acute) Condition: Stable - Instructions Disposition: TRANSFER ACUTE CARE/OTHER HOSP - Home Medications Comprehensive Discharge Medication List: Ambulatory Orders Octreotide Acetate [Sandostatin] 30 mcg IJ MONTHLY ampul 05/28/17 Lipase/Protease/Amylase [Creon Dr 24,000 Units Capsule] 4 each PO TID 12/05/18 Hydroxyurea [Hydrea 500Mg Capsule -] 500 mg PO DAILY 06/27/19 Acetaminophen [Tylenol .Regular Strength -] 650 mg PO Q6H PRN tablet 06/30/19 Allopurinol [Zyloprim -] 300 mg PO DAILY tablet 06/30/19 Fluticasone Prop 0.05% Nasal [Flonase -] 1 spray NS BID spray 06/30/19 Heparin - 5,000 unit SQ TID vial 06/30/19 Hydroxyurea [Hydrea 500Mg Capsule -] 1,000 mg PO BID capsule 06/30/19 LORazepam [Ativan] 2 mg PO HS #2 tablet MDD 1 06/30/19 Melatonin 5 mg PO HS PRN tab 06/30/19 Meropenem [Merrem (Restricted To Id) -] 1 gm IVPB Q8H-IV vial 06/30/19 Montelukast Na [Singulair -] 10 mg PO HS tablet 06/30/19 Morphine Sulfate 4 mg IVPUSH Q6H PRN #1 vial MDD 4 06/30/19 Pantoprazole Sodium [Protonix -] 20 mg PO HS tablet.ec 06/30/19 Sennosides/Docusate Sodium [Pericolace -] 1 tablet PO BID tablet 06/30/19 Telotristat Etiprate [Xermelo] 250 mg PO DAILY #30 tab 06/30/19 Topiramate [Topamax -] 50 mg PO DAILY tablet 06/30/19 This patient is new to me today: No Emergency Visit: Yes ED Registration Date: 06/27/19 Care time: The patient presented to the Emergency Department on the above date and was hospitalized for further evaluation of their emergent condition. Critical Care patient: Yes Total Critical Care Time (in minutes): 45 Critical Care Statement: The care of this patient involved high complexity decision making to prevent further life threatening deterioration of the patient 's condition and/or to evaluate & treat vital organ system(s) failure or risk of failure. - Discharge Referral Referred to [facility] No
--- NOTE | 2019-06-30 18:03 | CONSULT ---
Consult Consult Specialty:: heme onc Referred by:: avinash mary Reason for Consultation:: hyperleukocytosis - History of Present Illness Chief Complaint: abd pain History of Present Illness: 64 yof w MPN dxd 3mos ago in setting of persistent elev wbc and txd w HU 500 mg daily adm w 1 d onset severe L abd pain. Found to have hyperleukocytosis w wbc 105K no blasts vs her usual 40K, reported Imaging evidenced new splenomeg Started on ivf, allopurinol, analgesia,and HU dosing increased,currently 1g bid reports that L abd feels softer. Noteworthy is also h/o rectal carcinoid dxd 2009. No resection. Currently txd w sandostatin and is s/p xeloda/temodar/afinitor. Also takes xermelo as needed for intermittent diarrhea - History Source History Provided By: Patient, Medical Record Limitations to Obtaining History: No Limitations - Past Medical History Pulmonary: Yes: Other (recent URI (3wks ago, Z-felix finished around 11/07)) Gastrointestinal: Yes: Cancer (rectal carcinoid), GERD, Hiatal Hernia, Other ( large rectal carcinoid dx'ed 2010, never resected, had RT & chemorx, has liver lesions, on octreotide, diarrhea managed with Xermelo ) Infectious Disease: Yes: Other (Osteomyelitis of C4-C5) Musculoskeletal: Yes: Osteoarthritis, Other (spinal stenosis, C4-C5 fusion after osteomyelitis) Endocrine: Yes: Other (thyroid nodule) - Past Surgical History Past Surgical History: Yes: Arthrosocopy (left knee), Cholecystectomy, Colonoscopy, (x 2), Tonsillectomy, Upper Endoscopy - Alcohol/Substance Use Hx Alcohol Use: No History of Substance Use: reports: Marijuana (few times a month) - Smoking History Smoking history: Never smoked Have you smoked in the past 12 months: No - Social History Usual Living Arrangement: With Spouse ADL: Independent 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 History of Recent Travel: No Home Medications - Allergies Allergies/Adverse Reactions: Allergies Allergy/AdvReac Type Severity Reaction Status Date / Time everolimus [From Afinitor] AdvReac Severe SOB, Verified 06/27/19 14:40 Myalgias, Arthralgias,Edema erythromycin base AdvReac Verified 06/27/19 14:40 [Erythromycin Base] - Home Medications Home Medications: Ambulatory Orders Octreotide Acetate [Sandostatin] 30 mcg IJ MONTHLY ampul 05/28/17 Lipase/Protease/Amylase [Creon Dr 24,000 Units Capsule] 4 each PO TID 12/05/18 Hydroxyurea [Hydrea 500Mg Capsule -] 500 mg PO DAILY 06/27/19 Acetaminophen [Tylenol .Regular Strength -] 650 mg PO Q6H PRN tablet 06/30/19 Allopurinol [Zyloprim -] 300 mg PO DAILY tablet 06/30/19 Fluticasone Prop 0.05% Nasal [Flonase -] 1 spray NS BID spray 06/30/19 Heparin - 5,000 unit SQ TID vial 06/30/19 Hydroxyurea [Hydrea 500Mg Capsule -] 1,000 mg PO BID capsule 06/30/19 LORazepam [Ativan] 2 mg PO HS #2 tablet MDD 1 06/30/19 Melatonin 5 mg PO HS PRN tab 06/30/19 Meropenem [Merrem (Restricted To Id) -] 1 gm IVPB Q8H-IV vial 06/30/19 Montelukast Na [Singulair -] 10 mg PO HS tablet 06/30/19 Morphine Sulfate 4 mg IVPUSH Q6H PRN #1 vial MDD 4 06/30/19 Pantoprazole Sodium [Protonix -] 20 mg PO HS tablet.ec 06/30/19 Sennosides/Docusate Sodium [Pericolace -] 1 tablet PO BID tablet 06/30/19 Telotristat Etiprate [Xermelo] 250 mg PO DAILY #30 tab 06/30/19 Topiramate [Topamax -] 50 mg PO DAILY tablet 06/30/19 Physical Exam Vital Signs: Vital Signs Temperature 100.8 F H 06/30/19 17:32 Pulse Rate 85 06/30/19 14:00 Respiratory Rate 17 06/30/19 14:00 Blood Pressure 130/57 L 06/30/19 14:00 O2 Sat by Pulse Oximetry (%) 96 06/30/19 14:00 Constitutional: Yes: Well Nourished, Moderate Distress Eyes: Yes: WNL HENT: Yes: Atraumatic Neck: Yes: Supple Cardiovascular: Yes: Regular Rate and Rhythm Respiratory: Yes: Other (dec bs b/b) Gastrointestinal: Yes: Other (soft, palp splenic edge, exquisite tendernessLQ splenic region) Edema: No Neurological: Yes: WNL Psychiatric: Yes: WNL, Alert, Oriented Labs: CBC, BMP 06/30/19 06:57 06/30/19 06:57 Assessment/Plan acute onset severe LQ pain, bkd mpn w new SM, hyperleukocytosis c/w splenic infarct While this is not evidenced on imaging, picture is clin c/w this no thromboses noted agree w current mgmt: HU increased and will titrate to counts; titrate analgesia to her pain; resume ivf pend fluid status in AM; allopurinol started cont abx for possib pna tho I suspect low gr temp and small effns are related to splenic process Have communicated w Dr. Dukes
[2019-06-30] MEDS: ACETAMINOPHEN 1000 MG/100 ML VIAL (NON FORMULARY) IVPB PRN ×2 (18:55→23:23)
[2019-06-30] MEDS: PANTOPRAZOLE 20 MG TABLET (FP) PO SCH (21:24)
[2019-06-30] MEDS: MONTELUKAST NA 10 MG TABLET PO SCH (21:24)
[2019-06-30] MEDS: LORazepam 0.5 MG TABLET PO SCH (21:24)
[2019-06-30] MEDS: HYDROXYUREA 500 MG CAPSULE PO SCH (21:25)
[2019-07-01] MEDS: MEROPENEM 1 GM in DEXTROSE 5%-WATER 100 ML IVPB SCH ×3 (02:35→21:19)
[2019-07-01] MEDS: morphine SULFATE 4 MG/ML VIAL IVPUSH PRN ×2 (03:40→21:33)
[2019-07-01] MEDS: HEPARIN NA (PORCINE) 5,000 UNITS/ML 1ML VIAL SQ SCH ×3 (06:54→21:27)
[2019-07-01] MEDS ORDERED: DEXTROSE 5%-WATER 100 ML IVPB ONE ×2 (09:32→17:36)
[2019-07-01] MEDS ORDERED: PT OWN MED DRAWER 7, Y5N ONE (09:32)
[2019-07-01] MEDS ORDERED: MEROPENEM 1 GM VIAL (RESTRICTED TO ID) IVPB ONE ×2 (09:32→17:37)
[2019-07-01] MEDS: HYDROXYUREA 500 MG CAPSULE PO SCH ×2 (09:45→21:20)
[2019-07-01] MEDS: FLUTICASONE PROP 0.05% 16 GM NASAL SPRAY NS SCH ×2 (09:45→21:29)
[2019-07-01] MEDS: TOPIRAMATE 25 MG TABLET (FP) PO SCH (09:46)
[2019-07-01] MEDS: ALLOPURINOL 300 MG TABLET (FP) PO SCH (09:46)
[2019-07-01] MEDS: SENNOSIDES/DOCUSATE COMBO (SENNA PLUS) TABLET (UD) PO SCH ×2 (09:46→21:27)
[2019-07-01 12:24] LABS: HEMOGLOBIN 11.2 GM/dl (10.7-15.3); MCH 34.6 pg (25.7-33.7); MCHC 33.9 g/dl (32.0-36.0); MEAN CELL VOLUME 101.9 fl (80-96); MEAN PLT VOLUME 7.5 fl (7.5-11.1); PLATELET COUNT 119 K/MM3 (134-434); RBC 3.23 M/mm3 (3.60-5.2); RDW 19.5 % (11.6-15.6); WHITE BLOOD COUNT 63.8 K/mm3 (4.0-10.8)
[2019-07-01 12:33] LABS: BILIRUBIN,TOTAL 0.5 mg/dl (0.2-1); CREATININE 0.8 mg/dl (0.55-1.3); MAGNESIUM 1.8 mg/dL (1.8-2.4); POTASSIUM 3.3 mmol/L (3.5-5.1); TOT PROT 5.8 g/dl (6.4-8.2)
--- NOTE | 2019-07-01 12:58 | PN ---
Physical Exam: SUBJECTIVE: Patient seen and examined at bedside. Left-sided pain is much improved. Has nasal congestion from allergies, requesting anti-histamine. OBJECTIVE: Vital Signs Period Temp Pulse Resp BP Sys/Vega Pulse Ox Last 24 Hr 98.1 F-100.8 F 73-91 16-18 112-130/56-65 93-96 GENERAL: The patient is awake, alert, and fully oriented, in no acute distress. LUNGS: Breath sounds equal, clear to auscultation HEART: Regular rate and rhythm, S1, S2 ABDOMEN: Tenderness under left breast, left flank; splenic edge palpable EXTREMITIES: 2+ pulses, warm, well-perfused, no edema. NEUROLOGICAL: Cranial nerves II through XII grossly intact. Normal speech. Laboratory Results - last 24 hr 07/01/19 07/01/19 11:30 11:30 WBC 63.8 H* RBC 3.23 L Hgb 11.2 Hct 33.0 MCV 101.9 H MCH 34.6 H MCHC 33.9 RDW 19.5 H Plt Count 119 L MPV 7.5 Absolute Neuts (auto) 61.3 Neutrophils % No Result Required. Lymphocytes % No Result Required. Sodium 137 Potassium 3.3 L Chloride 110 H Carbon Dioxide 21 Anion Gap 6 L BUN 15.0 Creatinine 0.8 Est GFR (CKD-EPI)AfAm 90.30 Est GFR (CKD-EPI)NonAf 77.91 Random Glucose 180 H Calcium 8.0 L Magnesium 1.8 Total Bilirubin 0.5 AST 44 H ALT 49 Alkaline Phosphatase 505 H Total Protein 5.8 L Albumin 3.0 L Active Medications Generic Name Dose Route Start Last Admin Trade Name Freq PRN Reason Stop Dose Admin Acetaminophen 1,000 mg 06/30/19 17:37 06/30/19 23:23 Ofirmev Injection - IVPB 1,000 mg Q6H PRN Administration PAIN LEVEL 1-5 Allopurinol 300 mg 06/29/19 10:45 07/01/19 09:46 Zyloprim - PO 300 mg DAILY JAMISON Administration Fluticasone Propionate 1 spray 06/28/19 10:00 07/01/19 09:45 Flonase - NS 1 spray BID JAMISON Administration Heparin Sodium (Porcine) 5,000 unit 06/27/19 22:00 07/01/19 06:54 Heparin - SQ 5,000 unit TID JAMISON Administration Hydroxyurea 1,000 mg 06/30/19 22:00 07/01/19 09:45 Hydrea - PO 1,000 mg BID JAMISON Administration Meropenem 1 gm/ Dextrose 100 mls @ 200 mls/hr 06/30/19 10:00 07/01/19 09:44 IVPB 200 mls/hr Q8H-IV JAMISON Administration Loratadine 10 mg 07/01/19 13:00 Claritin - PO DAILY JAMISON Lorazepam 2 mg 06/28/19 22:00 06/30/19 21:24 Ativan - PO 2 mg HS JAMISON Administration Melatonin 5 mg 06/28/19 03:03 06/28/19 03:18 Melatonin PO 5 mg HS PRN Administration INSOMNIA Montelukast Sodium 10 mg 06/27/19 22:00 06/30/19 21:24 Singulair - PO 10 mg HS JAMISON Administration Morphine Sulfate 4 mg 06/30/19 16:43 07/01/19 03:40 Morphine Sulfate IVPUSH 4 mg Q6H PRN Administration PAIN LEVEL 6-10 Non-Formulary Medication 250 mg 06/28/19 10:00 Telotristat Etiprate [Xermelo] PO DAILY JAMISON Pantoprazole Sodium 20 mg 06/27/19 22:00 06/30/19 21:24 Protonix - PO 20 mg HS JAMISON Administration Senna/Docusate Sodium 1 tablet 06/30/19 10:00 07/01/19 09:46 Pericolace - PO 1 tablet BID JAMISON Administration Topiramate 50 mg 06/29/19 10:45 07/01/19 09:46 Topamax - PO 50 mg DAILY JAMISON Administration ASSESSMENT/PLAN 63 year-old female with a PMH significant for myeloproliferative disorder (February 2019), rectal carcinoid, leukocytosis, GERD, migraines, recurrent UTIs, osteomyeltitis C4-C5 s/p C4-C5 discectomy and fusion (2016), and cholecystitis s /p lap aram (10/2018). Admitted for hyperleukocytosis and splenomegaly. Splenomegaly Hyperleukocytosis Myeloproliferative disorder --since 12/05/18 spleen increase in size from [id number] to [id number] --WBC 105k on admission (40s in March 2019); started higher dose hydroxyurea 1g q12h on 06/27, WBC 63.8k today; patient also reports significant clinical improvement today, pain is much better --repeat cxr today, assess for pulmonary congestion; consider restarting IV fluids --morphine, IV Tylenol for pain management --accepted for transfer to [facility], pending bed assignment --Heme Dr. Sood following Rule out pneumonia --Tm100.8 possible infiltrates on MRI on 05/30 and CXR on 05/31 --cultures pending --continue meropenem (day #2) --ID following Rectal carcinoid --continue Xermelo GERD --continue protonix Migraines --continue Topomax Anxiety --continue lorazepam FEN Fluids: PO intake adequate Electrolytes: replete as indicated Nutrition: regular diet DVT prophylaxis: subq heparin Dispo: continues to require inpatient care. Pending transfer to [facility]. Full code. Visit type - Emergency Visit Emergency Visit: Yes ED Registration Date: 06/27/19 Care time: The patient presented to the Emergency Department on the above date and was hospitalized for further evaluation of their emergent condition. - New Patient This patient is new to me today: No - Critical Care Critical Care patient: No
--- NOTE | 2019-07-01 13:59 | PN ---
Progress Note, Physician History of Present Illness: starting to feel much better still pain in the left flank - Current Medication List Current Medications: Active Medications Acetaminophen (Ofirmev Injection -) 1,000 mg IVPB Q6H PRN PRN Reason: PAIN LEVEL 1-5 Last Admin: 06/30/19 23:23 Dose: 1,000 mg Allopurinol (Zyloprim -) 300 mg PO DAILY [facility] Last Admin: 07/01/19 09:46 Dose: 300 mg Fluticasone Propionate (Flonase -) 1 spray NS BID [facility] Last Admin: 07/01/19 09:45 Dose: 1 spray Heparin Sodium (Porcine) (Heparin -) 5,000 unit SQ TID [facility] Last Admin: 07/01/19 06:54 Dose: 5,000 unit Hydroxyurea (Hydrea -) 1,000 mg PO BID [facility] Last Admin: 07/01/19 09:45 Dose: 1,000 mg Meropenem 1 gm/ Dextrose 100 mls @ 200 mls/hr IVPB Q8H-IV [facility] Last Admin: 07/01/19 09:44 Dose: 200 mls/hr Loratadine (Claritin -) 10 mg PO DAILY [facility] Lorazepam (Ativan -) 2 mg PO HS [facility] Last Admin: 06/30/19 21:24 Dose: 2 mg Melatonin (Melatonin) 5 mg PO HS PRN PRN Reason: INSOMNIA Last Admin: 06/28/19 03:18 Dose: 5 mg Montelukast Sodium (Singulair -) 10 mg PO HS [facility] Last Admin: 06/30/19 21:24 Dose: 10 mg Morphine Sulfate (Morphine Sulfate) 4 mg IVPUSH Q6H PRN PRN Reason: PAIN LEVEL 6-10 Last Admin: 07/01/19 03:40 Dose: 4 mg Non-Formulary Medication (Telotristat Etiprate [Xermelo]) 250 mg PO DAILY [facility] Pantoprazole Sodium (Protonix -) 20 mg PO HS [facility] Last Admin: 06/30/19 21:24 Dose: 20 mg Potassium Chloride (K-Dur -) 40 meq PO ONCE ONE Stop: 07/01/19 13:38 Senna/Docusate Sodium (Pericolace -) 1 tablet PO BID [facility] Last Admin: 07/01/19 09:46 Dose: 1 tablet Topiramate (Topamax -) 50 mg PO DAILY [facility] Last Admin: 07/01/19 09:46 Dose: 50 mg - Objective Vital Signs: Vital Signs Temperature 99.1 F 07/01/19 13:54 Pulse Rate 83 07/01/19 13:54 Respiratory Rate 16 07/01/19 13:54 Blood Pressure 121/57 L 07/01/19 13:54 O2 Sat by Pulse Oximetry (%) 97 07/01/19 13:54 Constitutional: Yes: No Distress, Calm Cardiovascular: Yes: S1, S2 Respiratory: Yes: Regular, CTA Bilaterally Gastrointestinal: Yes: Normal Bowel Sounds, Soft, Tenderness (left upper quadrant) Musculoskeletal: Yes: WNL Extremities: Yes: WNL Neurological: Yes: Alert, Oriented Psychiatric: Yes: Alert, Oriented Labs: CBC, BMP 07/01/19 11:30 07/01/19 11:30 Assessment/Plan 63 year-old female with a PMH significant for myeloproliferative disorder (February 2019), rectal carcinoid, leukocytosis, GERD, migraines, recurrent UTIs, osteomyeltitis C4-C5 s/p C4-C5 discectomy and fusion (2016), and cholecystitis s /p lap aram (10/2018). Admitted for hyperleukocytosis and splenomegaly. Splenomegaly Hyperleukocytosis Myeloproliferative disorder pneumonia Rectal carcinoid GERD Migraines Anxiety plan continue current mgmt hydration heam on board abx rest as per th eteam
[2019-07-01 14:24] LABS: ANISOCYTOSIS 2+
[2019-07-01 14:25] LABS: PLATELET ESTIMATE SLT DECREASE
[2019-07-01] MEDS ORDERED: POTASSIUM CHLORIDE TABS 20 MEQ TABLET.ER (FP) PO ONE (14:30)
[2019-07-01] MEDS: LORATADINE 10 MG TABLET PO SCH (14:48)
[2019-07-01] MEDS: ACETAMINOPHEN 1000 MG/100 ML VIAL (NON FORMULARY) IVPB PRN (16:12)
[2019-07-01] MEDS: LORazepam 0.5 MG TABLET PO SCH (21:19)
[2019-07-01] MEDS: PANTOPRAZOLE 20 MG TABLET (FP) PO SCH (21:20)
[2019-07-01] MEDS: MONTELUKAST NA 10 MG TABLET PO SCH (21:21)
[2019-07-02] MEDS ORDERED: DEXTROSE 5%-WATER 100 ML IVPB ONE ×3 (00:49→17:51)
[2019-07-02] MEDS ORDERED: MEROPENEM 1 GM VIAL (RESTRICTED TO ID) IVPB ONE ×3 (00:50→17:51)
[2019-07-02] MEDS: MEROPENEM 1 GM in DEXTROSE 5%-WATER 100 ML IVPB SCH ×3 (01:00→18:22)
[2019-07-02] MEDS: HEPARIN NA (PORCINE) 5,000 UNITS/ML 1ML VIAL SQ SCH ×3 (06:09→22:00)
--- NOTE | 2019-07-02 08:24 | PN ---
Progress Note, Physician Chief Complaint: Examined in bed. Pain to left upper quadrant remains History of Present Illness: 63 year-old female with a PMH significant for myeloproliferative disorder (February 2019), rectal carcinoid, leukocytosis, GERD, migraines, recurrent UTIs, osteomyeltitis C4-C5 s/p C4-C5 discectomy and fusion (2016), and cholecystitis s /p lap aram (10/2018). Admitted for hyperleukocytosis and splenomegaly. - Current Medication List Current Medications: Active Medications Acetaminophen (Ofirmev Injection -) 1,000 mg IVPB Q6H PRN PRN Reason: PAIN LEVEL 1-5 Last Admin: 07/01/19 16:12 Dose: 1,000 mg Allopurinol (Zyloprim -) 300 mg PO DAILY [facility] Last Admin: 07/01/19 09:46 Dose: 300 mg Fluticasone Propionate (Flonase -) 1 spray NS BID [facility] Last Admin: 07/01/19 21:29 Dose: 1 spray Heparin Sodium (Porcine) (Heparin -) 5,000 unit SQ TID [facility] Last Admin: 07/02/19 06:09 Dose: Not Given Hydroxyurea (Hydrea -) 1,000 mg PO BID [facility] Last Admin: 07/01/19 21:20 Dose: 1,000 mg Meropenem 1 gm/ Dextrose 100 mls @ 200 mls/hr IVPB Q8H-IV [facility] Last Admin: 07/02/19 01:00 Dose: 200 mls/hr Loratadine (Claritin -) 10 mg PO DAILY [facility] Last Admin: 07/01/19 14:48 Dose: 10 mg Lorazepam (Ativan -) 2 mg PO HS [facility] Last Admin: 07/01/19 21:19 Dose: 2 mg Melatonin (Melatonin) 5 mg PO HS PRN PRN Reason: INSOMNIA Last Admin: 06/28/19 03:18 Dose: 5 mg Montelukast Sodium (Singulair -) 10 mg PO HS [facility] Last Admin: 07/01/19 21:21 Dose: 10 mg Morphine Sulfate (Morphine Sulfate) 4 mg IVPUSH Q6H PRN PRN Reason: PAIN LEVEL 6-10 Last Admin: 07/01/19 21:33 Dose: 4 mg Non-Formulary Medication (Telotristat Etiprate [Xermelo]) 250 mg PO DAILY [facility] Pantoprazole Sodium (Protonix -) 20 mg PO HS [facility] Last Admin: 07/01/19 21:20 Dose: 20 mg Senna/Docusate Sodium (Pericolace -) 1 tablet PO BID [facility] Last Admin: 07/01/19 21:27 Dose: Not Given Topiramate (Topamax -) 50 mg PO DAILY [facility] Last Admin: 07/01/19 09:46 Dose: 50 mg - Objective Vital Signs: Vital Signs Temperature 99.9 F H 07/02/19 05:00 Pulse Rate 72 07/02/19 05:00 Respiratory Rate 18 07/02/19 05:00 Blood Pressure 115/60 07/02/19 05:00 O2 Sat by Pulse Oximetry (%) 96 07/02/19 05:00 Constitutional: Yes: Well Nourished, No Distress, Calm Eyes: Yes: WNL, Conjunctiva Clear HENT: Yes: WNL, Atraumatic, Normocephalic Neck: Yes: WNL, Supple, Trachea Midline Cardiovascular: Yes: WNL, Regular Rate and Rhythm Respiratory: Yes: Diminished (at bases) Gastrointestinal: Yes: Normal Bowel Sounds, Soft, Splenomegaly, Tenderness (to left upper quad) ...Rectal Exam: Yes: Deferred Genitourinary: Yes: WNL Breast(s): Yes: WNL Musculoskeletal: Yes: WNL Extremities: Yes: WNL Edema: Yes Edema: LLE: 1+, RLE: 1+ Peripheral Pulses WNL: Yes Peripheral Pulses: Left Radial: 2+, Right Radial: 2+, Left Doralis Pedis: 2+, Right Dorsalis Pedis: 2+, Left Femoral: 2+, Right Femoral: 2+ Integumentary: Yes: WNL Neurological: Yes: WNL, Alert, Oriented ...Motor Strength: WNL Psychiatric: Yes: WNL - ....Imaging Chest X-ray: Image Reviewed (BL effusion, atelectasis to left base) Cat Scan: Report Reviewed (A/P: splenomegaly) Problem List - Problems (1) Myeloproliferative neoplasm Assessment/Plan: since 12/05/18 increased splenpomegaly WBC 105k on admission (40s in March 2019), today 59 c/w hydroxyurea Heme Dr. Sood following accepted for transfer to [facility], pending bed Code(s): D47.1 - CHRONIC MYELOPROLIFERATIVE DISEASE (2) Prophylactic measure Assessment/Plan: FEN Fluids:adequate PO intake Electrolytes: replete as indicated Nutrition: regular diet DVT prophylaxis heparin Dispo maintain a inpatient Full code. Pending transfer to [facility],(Dr. Dukes) waiting for bed assignment Code(s): Z29.9 - ENCOUNTER FOR PROPHYLACTIC MEASURES, UNSPECIFIED (3) Leukocytosis Assessment/Plan: WBC 105k on admission, today 59 c/w hydroxyurea q12h pending transfer [facility] Code(s): D72.829 - ELEVATED WHITE BLOOD CELL COUNT, UNSPECIFIED Qualifiers: Leukocytosis type: other Qualified Code(s): D72.828 - Other elevated white blood cell count (4) Migraines Assessment/Plan: c/w topimax Code(s): G43.909 - MIGRAINE, UNSP, NOT INTRACTABLE, WITHOUT STATUS MIGRAINOSUS (5) Osteomyelitis Code(s): M86.9 - OSTEOMYELITIS, UNSPECIFIED Qualifiers: Osteomyelitis type: subacute Osteomyelitis location: other site Qualified Code(s): M86.28 - Subacute osteomyelitis, other site (6) Rectal carcinoid tumor Code(s): D3A.026 - BENIGN CARCINOID TUMOR OF THE RECTUM (7) Transaminitis Assessment/Plan: LFTs elevated no hepatomegaly reported on CT avoid hepatotoxic agents, will limit amount of tylenol for pain tramadol for pain monitor LFTs if cont to trend up with order u/s Code(s): R74.0 - NONSPEC ELEV OF LEVELS OF TRANSAMNS & LACTIC ACID DEHYDRGNSE Visit type - Emergency Visit Emergency Visit: Yes ED Registration Date: 06/27/19 Care time: The patient presented to the Emergency Department on the above date and was hospitalized for further evaluation of their emergent condition. - New Patient This patient is new to me today: Yes Date on this admission: 07/02/19 - Critical Care Critical Care patient: No - Discharge Referral Referred to [facility] Med P.C.: No
[2019-07-02 08:44] LABS: BASO % 0.7 % (0-2.0); HEMATOCRIT 32.1 % (32.4-45.2); HEMOGLOBIN 11.2 GM/dl (10.7-15.3); LYMPH % 2.1 % (8-40); MCHC 34.8 g/dl (32.0-36.0); MEAN CELL VOLUME 100.7 fl (80-96); MEAN PLT VOLUME 7.4 fl (7.5-11.1); MONO % 0.2 % (3.8-10.2); PLATELET COUNT 102 K/MM3 (134-434); RBC 3.19 M/mm3 (3.60-5.2); RDW 19.5 % (11.6-15.6)
[2019-07-02 08:51] LABS: WHITE BLOOD COUNT 59.1 K/mm3 (4.0-10.8)
[2019-07-02 09:20] LABS: CALCIUM 8.5 mg/dl (8.5-10); CREATININE 0.6 mg/dl (0.55-1.3); MAGNESIUM 1.9 mg/dL (1.8-2.4); POTASSIUM 4.1 mmol/L (3.5-5.1)
[2019-07-02 09:21] LABS: BILIRUBIN,TOTAL 0.6 mg/dl (0.2-1); TOT PROT 5.8 g/dl (6.4-8.2)
[2019-07-02] MEDS ORDERED: traMADol HCL 50 MG TABLET PO PRN ×2 (09:48→12:08)
--- NOTE | 2019-07-02 10:22 | CON.ID ---
Consult Consult Specialty:: infectious diseases Referred by:: [email or web address] Reason for Consultation:: weakness,fever,sob - History of Present Illness Chief Complaint: fever,weakness abd pain History of Present Illness: 63 year-old female with a PMH significant for myeloproliferative neoplasm (February 2019), rectal carcinoid, leukocytosis, GERD, migraines, recurrent UTIs, osteomyeltitis C4-C5 s/p C4-C5 discectomy and fusion (2016), and cholecystitis s /p lap aram (10/2018). Presented to the ED with left rib/flank pain x 24 hours. Pt was in her USOH, last night developed gradual onset mild left lower flank/rib pain, did not take anything and slept throughout the night but awoke this morning with increased pain, positional and worse with deep inspiration. The pain radiates to the left shoulder. Denies fever, sweats, chills; denies nausea, vomiting, diarrhea; denies dysuria, urgency, frequency. Last BM 2days ago, normal. was called in because patient became sob and fever currently patient does nto feel too good and is c/o of abd pain - History Source History Provided By: Patient Limitations to Obtaining History: No Limitations - Past Medical History Pulmonary: Yes: Other (recent URI (3wks ago, Z-felix finished around 11/07)) Gastrointestinal: Yes: Cancer (rectal carcinoid), GERD, Hiatal Hernia, Other ( large rectal carcinoid dx'ed 2010, never resected, had RT & chemorx, has liver lesions, on octreotide, diarrhea managed with Xermelo ) Infectious Disease: Yes: Other (Osteomyelitis of C4-C5) Musculoskeletal: Yes: Osteoarthritis, Other (spinal stenosis, C4-C5 fusion after osteomyelitis) Endocrine: Yes: Other (thyroid nodule) - Past Surgical History Past Surgical History: Yes: Arthrosocopy (left knee), Cholecystectomy, Colonoscopy, (x 2), Tonsillectomy, Upper Endoscopy - Alcohol/Substance Use Hx Alcohol Use: No History of Substance Use: reports: Marijuana (few times a month) - Smoking History Smoking history: Never smoked Have you smoked in the past 12 months: No - Social History Usual Living Arrangement: With Spouse ADL: Independent 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 History of Recent Travel: No Home Medications - Allergies Allergies/Adverse Reactions: Allergies Allergy/AdvReac Type Severity Reaction Status Date / Time everolimus [From Afinitor] AdvReac Severe SOB, Verified 06/27/19 14:40 Myalgias, Arthralgias,Edema erythromycin base AdvReac Verified 06/27/19 14:40 [Erythromycin Base] - Home Medications Home Medications: Ambulatory Orders Octreotide Acetate [Sandostatin] 30 mcg IJ MONTHLY ampul 05/28/17 Lipase/Protease/Amylase [Creon Dr 24,000 Units Capsule] 4 each PO TID 12/05/18 Hydroxyurea [Hydrea 500Mg Capsule -] 500 mg PO DAILY 06/27/19 Acetaminophen [Tylenol .Regular Strength -] 650 mg PO Q6H PRN tablet 06/30/19 Allopurinol [Zyloprim -] 300 mg PO DAILY tablet 06/30/19 Fluticasone Prop 0.05% Nasal [Flonase -] 1 spray NS BID spray 06/30/19 Heparin - 5,000 unit SQ TID vial 06/30/19 Hydroxyurea [Hydrea 500Mg Capsule -] 1,000 mg PO BID capsule 06/30/19 LORazepam [Ativan] 2 mg PO HS #2 tablet MDD 1 06/30/19 Melatonin 5 mg PO HS PRN tab 06/30/19 Meropenem [Merrem (Restricted To Id) -] 1 gm IVPB Q8H-IV vial 06/30/19 Montelukast Na [Singulair -] 10 mg PO HS tablet 06/30/19 Morphine Sulfate 4 mg IVPUSH Q6H PRN #1 vial MDD 4 06/30/19 Pantoprazole Sodium [Protonix -] 20 mg PO HS tablet.ec 06/30/19 Sennosides/Docusate Sodium [Pericolace -] 1 tablet PO BID tablet 06/30/19 Telotristat Etiprate [Xermelo] 250 mg PO DAILY #30 tab 06/30/19 Topiramate [Topamax -] 50 mg PO DAILY tablet 06/30/19 Review of Systems - Review of Systems Constitutional: reports: Fever Eyes: reports: No Symptoms HENT: reports: No Symptoms Neck: reports: No Symptoms Cardiovascular: reports: No Symptoms Respiratory: reports: SOB, SOB on Exertion Gastrointestinal: reports: Abdominal Pain Genitourinary: reports: No Symptoms Musculoskeletal: reports: No Symptoms Integumentary: reports: No Symptoms Neurological: reports: No Symptoms Endocrine: reports: No Symptoms Hematology/Lymphatic: reports: No Symptoms Psychiatric: reports: No Symptoms Physical Exam Vital Signs: Vital Signs Temperature 99.9 F H 07/02/19 05:00 Pulse Rate 72 07/02/19 05:00 Respiratory Rate 18 07/02/19 05:00 Blood Pressure 115/60 07/02/19 05:00 O2 Sat by Pulse Oximetry (%) 96 07/02/19 05:00 Constitutional: Yes: Well Nourished, Calm, Mild Distress Cardiovascular: Yes: Regular Rate and Rhythm Respiratory: Yes: Regular, On Nasal O2, Poor Air Entry Gastrointestinal: Yes: Normal Bowel Sounds, Soft, Tenderness (ruq) Musculoskeletal: Yes: WNL Extremities: Yes: WNL Neurological: Yes: Alert, Oriented Psychiatric: Yes: Alert, Oriented Labs: CBC, BMP 07/02/19 07:42 07/02/19 07:42 Imaging - Results Chest X-ray: Report Reviewed, Image Reviewed Cat Scan: Report Reviewed, Image Reviewed Assessment/Plan 63 year-old female with a PMH significant for myeloproliferative disorder (February 2019), rectal carcinoid, leukocytosis, GERD, migraines, recurrent UTIs, osteomyeltitis C4-C5 s/p C4-C5 discectomy and fusion (2016), and cholecystitis s /p lap aram (10/2018). Admitted for hyperleukocytosis and splenomegaly. Splenomegaly Hyperleukocytosis Myeloproliferative disorder pneumonia Rectal carcinoid GERD Migraines Anxiety patient is very immunocompromised and also now with sob i am going to initiate abx after looking at the findings incentive mark anthony monitor for fever monitor for wbc very close watch on the patient rest as per team heam to see the patient
--- NOTE | 2019-07-02 10:29 | PN ---
Progress Note, Physician History of Present Illness: does not feel so good wbc trending down still with pain says spasms which come and go - Current Medication List Current Medications: Active Medications Acetaminophen (Ofirmev Injection -) 1,000 mg IVPB Q6H PRN PRN Reason: PAIN LEVEL 1-5 Last Admin: 07/01/19 16:12 Dose: 1,000 mg Allopurinol (Zyloprim -) 300 mg PO DAILY [facility] Last Admin: 07/01/19 09:46 Dose: 300 mg Fluticasone Propionate (Flonase -) 1 spray NS BID [facility] Last Admin: 07/01/19 21:29 Dose: 1 spray Heparin Sodium (Porcine) (Heparin -) 5,000 unit SQ TID [facility] Last Admin: 07/02/19 06:09 Dose: Not Given Hydroxyurea (Hydrea -) 1,000 mg PO BID [facility] Last Admin: 07/01/19 21:20 Dose: 1,000 mg Meropenem 1 gm/ Dextrose 100 mls @ 200 mls/hr IVPB Q8H-IV [facility] Last Admin: 07/02/19 01:00 Dose: 200 mls/hr Loratadine (Claritin -) 10 mg PO DAILY [facility] Last Admin: 07/01/19 14:48 Dose: 10 mg Lorazepam (Ativan -) 2 mg PO HS [facility] Last Admin: 07/01/19 21:19 Dose: 2 mg Melatonin (Melatonin) 5 mg PO HS PRN PRN Reason: INSOMNIA Last Admin: 06/28/19 03:18 Dose: 5 mg Montelukast Sodium (Singulair -) 10 mg PO HS [facility] Last Admin: 07/01/19 21:21 Dose: 10 mg Morphine Sulfate (Morphine Sulfate) 4 mg IVPUSH Q6H PRN PRN Reason: PAIN LEVEL 6-10 Last Admin: 07/01/19 21:33 Dose: 4 mg Non-Formulary Medication (Telotristat Etiprate [Xermelo]) 250 mg PO DAILY [facility] Pantoprazole Sodium (Protonix -) 20 mg PO HS [facility] Last Admin: 07/01/19 21:20 Dose: 20 mg Senna/Docusate Sodium (Pericolace -) 1 tablet PO BID [facility] Last Admin: 07/01/19 21:27 Dose: Not Given Topiramate (Topamax -) 50 mg PO DAILY [facility] Last Admin: 07/01/19 09:46 Dose: 50 mg Tramadol HCl (Ultram -) 50 mg PO Q6H PRN PRN Reason: PAIN LEVEL 6-10 - Objective Vital Signs: Vital Signs Temperature 99.9 F H 07/02/19 05:00 Pulse Rate 72 07/02/19 05:00 Respiratory Rate 18 07/02/19 05:00 Blood Pressure 115/60 07/02/19 05:00 O2 Sat by Pulse Oximetry (%) 96 07/02/19 05:00 Constitutional: Yes: Calm, Mild Distress Cardiovascular: Yes: Regular Rate and Rhythm Respiratory: Yes: Regular, CTA Bilaterally Gastrointestinal: Yes: Normal Bowel Sounds, Soft, Tenderness (ruq) Musculoskeletal: Yes: WNL Extremities: Yes: WNL Neurological: Yes: Alert, Oriented Psychiatric: Yes: Alert, Oriented Labs: CBC, BMP 07/02/19 07:42 07/02/19 07:42 Assessment/Plan 63 year-old female with a PMH significant for myeloproliferative disorder (February 2019), rectal carcinoid, leukocytosis, GERD, migraines, recurrent UTIs, osteomyeltitis C4-C5 s/p C4-C5 discectomy and fusion (2016), and cholecystitis s /p lap aram (10/2018). Admitted for hyperleukocytosis and splenomegaly. Splenomegaly Hyperleukocytosis Myeloproliferative disorder pneumonia Rectal carcinoid GERD Migraines Anxiety plan continue abx wbc trending down incentive mark anthony rest as per the team
[2019-07-02] MEDS: HYDROXYUREA 500 MG CAPSULE PO SCH ×2 (10:36→21:59)
[2019-07-02] MEDS: SENNOSIDES/DOCUSATE COMBO (SENNA PLUS) TABLET (UD) PO SCH (10:37)
[2019-07-02] MEDS: TOPIRAMATE 25 MG TABLET (FP) PO SCH (10:37)
[2019-07-02] MEDS: FLUTICASONE PROP 0.05% 16 GM NASAL SPRAY NS SCH ×2 (10:38→22:02)
[2019-07-02] MEDS: LORATADINE 10 MG TABLET PO SCH (10:38)
[2019-07-02] MEDS: ALLOPURINOL 300 MG TABLET (FP) PO SCH (10:38)
[2019-07-02] MEDS ORDERED: DIPHENOXYLATE 2.5/ATROPINE.025 1 COMBO TABLET PO PRN (13:36)
[2019-07-02] MEDS: PANTOPRAZOLE 20 MG TABLET (FP) PO SCH ×2 (18:52→22:00)
[2019-07-02] MEDS: LORazepam 0.5 MG TABLET PO SCH (21:59)
[2019-07-02] MEDS: MONTELUKAST NA 10 MG TABLET PO SCH (22:02)
[2019-07-03] MEDS ORDERED: MEROPENEM 1 GM VIAL (RESTRICTED TO ID) IVPB ONE ×4 (01:20→23:50)
[2019-07-03] MEDS ORDERED: DEXTROSE 5%-WATER 100 ML IVPB ONE ×4 (01:20→23:50)
[2019-07-03] MEDS: MEROPENEM 1 GM in DEXTROSE 5%-WATER 100 ML IVPB SCH ×3 (01:30→18:11)
[2019-07-03] MEDS: morphine SULFATE 4 MG/ML VIAL IVPUSH PRN ×3 (01:31→21:18)
[2019-07-03] MEDS: HEPARIN NA (PORCINE) 5,000 UNITS/ML 1ML VIAL SQ SCH ×3 (06:24→21:18)
--- NOTE | 2019-07-03 08:08 | PN ---
Progress Note, Physician Chief Complaint: Left upper quad pain less today, did need MSO4 x 1 dose last night History of Present Illness: 63 year-old female with a PMH significant for myeloproliferative disorder (February 2019), rectal carcinoid, leukocytosis, GERD, migraines, recurrent UTIs, osteomyeltitis C4-C5 s/p C4-C5 discectomy and fusion (2016), and cholecystitis s /p lap aram (10/2018). Admitted for hyperleukocytosis and splenomegaly. - Current Medication List Current Medications: Active Medications Acetaminophen (Ofirmev Injection -) 1,000 mg IVPB Q6H PRN PRN Reason: PAIN LEVEL 1-5 Last Admin: 07/01/19 16:12 Dose: 1,000 mg Allopurinol (Zyloprim -) 300 mg PO DAILY [facility] Last Admin: 07/02/19 10:38 Dose: 300 mg Diphenoxylate HCl/Atropine (Lomotil -) 1 combo PO Q8H PRN PRN Reason: DIARRHEA Last Admin: 07/02/19 22:04 Dose: 1 combo Fluticasone Propionate (Flonase -) 1 spray NS BID [facility] Last Admin: 07/02/19 22:02 Dose: 1 spray Heparin Sodium (Porcine) (Heparin -) 5,000 unit SQ TID [facility] Last Admin: 07/03/19 06:24 Dose: Not Given Hydroxyurea (Hydrea -) 1,000 mg PO BID [facility] Last Admin: 07/02/19 21:59 Dose: 1,000 mg Meropenem 1 gm/ Dextrose 100 mls @ 200 mls/hr IVPB Q8H-IV [facility] Last Admin: 07/03/19 01:30 Dose: 200 mls/hr Loratadine (Claritin -) 10 mg PO DAILY [facility] Last Admin: 07/02/19 10:38 Dose: 10 mg Lorazepam (Ativan -) 2 mg PO HS [facility] Last Admin: 07/02/19 21:59 Dose: 2 mg Melatonin (Melatonin) 5 mg PO HS PRN PRN Reason: INSOMNIA Last Admin: 06/28/19 03:18 Dose: 5 mg Montelukast Sodium (Singulair -) 10 mg PO HS [facility] Last Admin: 07/02/19 22:02 Dose: 10 mg Morphine Sulfate (Morphine Sulfate) 4 mg IVPUSH Q6H PRN PRN Reason: PAIN LEVEL 6-10 Last Admin: 07/03/19 01:31 Dose: 4 mg Non-Formulary Medication (Telotristat Etiprate [Xermelo]) 250 mg PO DAILY [facility] Pantoprazole Sodium (Protonix -) 20 mg PO HS [facility] Last Admin: 07/02/19 22:00 Dose: Not Given Topiramate (Topamax -) 50 mg PO DAILY [facility] Last Admin: 07/02/19 10:37 Dose: 50 mg Tramadol HCl (Ultram -) 50 mg PO Q6H PRN PRN Reason: PAIN LEVEL 6-10 Stop: 07/05/19 12:07 - Objective Vital Signs: Vital Signs Temperature 98.5 F 07/03/19 06:00 Pulse Rate 74 07/03/19 06:00 Respiratory Rate 19 07/03/19 06:00 Blood Pressure 114/60 07/03/19 06:00 O2 Sat by Pulse Oximetry (%) 96 07/03/19 06:00 Constitutional: Yes: Well Nourished, No Distress, Calm Eyes: Yes: WNL, Conjunctiva Clear HENT: Yes: WNL, Atraumatic, Normocephalic Neck: Yes: WNL, Supple, Trachea Midline Cardiovascular: Yes: WNL, Regular Rate and Rhythm Respiratory: Yes: WNL, Regular, CTA Bilaterally Gastrointestinal: Yes: Normal Bowel Sounds, Soft, Tenderness (left upper quad) ...Rectal Exam: Yes: Deferred Genitourinary: Yes: WNL Musculoskeletal: Yes: WNL Extremities: Yes: WNL Edema: Yes Edema: LLE: 1+, RLE: 1+ Peripheral Pulses WNL: Yes Peripheral Pulses: Left Radial: 2+, Right Radial: 2+, Left Doralis Pedis: 2+, Right Dorsalis Pedis: 2+, Left Femoral: 2+, Right Femoral: 2+ Integumentary: Yes: WNL, Other (ecchymotic area to left lower inner arm) Neurological: Yes: WNL, Alert, Oriented ...Motor Strength: WNL Psychiatric: Yes: WNL Labs: CBC, BMP 07/02/19 07:42 07/02/19 07:42 - ....Imaging Chest X-ray: Report Reviewed, Image Reviewed (BL effusion, atelectasis to left base) Cat Scan: Report Reviewed (A/P: splenomegaly) Problem List - Problems (1) Myeloproliferative neoplasm Assessment/Plan: CT scan since 12/05/18 with increased splenpomegaly WBC 105k on admission (40s in March 2019), today 45 c/w hydroxyurea @ 1000mg bid Heme Dr. Sood following pt does not wish to be transferred to [facility] any longer Problems reviewed: Yes Code(s): D47.1 - CHRONIC MYELOPROLIFERATIVE DISEASE (2) Prophylactic measure Assessment/Plan: FEN Fluids:adequate PO intake Electrolytes: replete as indicated Nutrition: regular diet DVT prophylaxis heparin Dispo maintain a inpatient Full code. discharge planning to home Problems reviewed: Yes Code(s): Z29.9 - ENCOUNTER FOR PROPHYLACTIC MEASURES, UNSPECIFIED (3) Leukocytosis Assessment/Plan: WBC 105k on admission, today 45 c/w hydroxyurea q12h Problems reviewed: Yes Code(s): D72.829 - ELEVATED WHITE BLOOD CELL COUNT, UNSPECIFIED Qualifiers: Leukocytosis type: other Qualified Code(s): D72.828 - Other elevated white blood cell count (4) Migraines Assessment/Plan: c/w topimax Problems reviewed: Yes Code(s): G43.909 - MIGRAINE, UNSP, NOT INTRACTABLE, WITHOUT STATUS MIGRAINOSUS (5) Osteomyelitis Problems reviewed: Yes Code(s): M86.9 - OSTEOMYELITIS, UNSPECIFIED Qualifiers: Osteomyelitis type: subacute Osteomyelitis location: other site Qualified Code(s): M86.28 - Subacute osteomyelitis, other site (6) Rectal carcinoid tumor Problems reviewed: Yes Code(s): D3A.026 - BENIGN CARCINOID TUMOR OF THE RECTUM (7) Transaminitis Assessment/Plan: LFTs trending down no hepatomegaly reported on CT avoid hepatotoxic agents, will limit amount of tylenol for pain tramadol for pain monitor LFTs Code(s): R74.0 - NONSPEC ELEV OF LEVELS OF TRANSAMNS & LACTIC ACID DEHYDRGNSE Visit type - Emergency Visit Emergency Visit: Yes ED Registration Date: 06/27/19 Care time: The patient presented to the Emergency Department on the above date and was hospitalized for further evaluation of their emergent condition. - New Patient This patient is new to me today: No - Critical Care Critical Care patient: No - Discharge Referral Referred to [facility] Med P.C.: No
[2019-07-03 09:20] LABS: HEMOGLOBIN 10.8 GM/dl (10.7-15.3); MCH 34.6 pg (25.7-33.7); MCHC 33.8 g/dl (32.0-36.0); MEAN CELL VOLUME 102.5 fl (80-96); PLATELET COUNT 82 K/MM3 (134-434); RBC 3.12 M/mm3 (3.60-5.2); RDW 19.3 % (11.6-15.6)
[2019-07-03 09:21] LABS: ALBUMIN 2.9 g/dl (3.4-5.0); BILIRUBIN,TOTAL 0.4 mg/dl (0.2-1); CALCIUM 8.2 mg/dl (8.5-10); CREATININE 0.7 mg/dl (0.55-1.3); MAGNESIUM 2.1 mg/dL (1.8-2.4)
[2019-07-03] MEDS: TOPIRAMATE 25 MG TABLET (FP) PO SCH (09:24)
[2019-07-03] MEDS: HYDROXYUREA 500 MG CAPSULE PO SCH ×2 (09:24→21:18)
[2019-07-03 09:25] LABS: ADD RBC MORPHOLOGY YES
[2019-07-03] MEDS: FLUTICASONE PROP 0.05% 16 GM NASAL SPRAY NS SCH ×2 (09:25→21:16)
[2019-07-03] MEDS: LORATADINE 10 MG TABLET PO SCH (09:25)
[2019-07-03] MEDS: ALLOPURINOL 300 MG TABLET (FP) PO SCH (09:25)
[2019-07-03 09:31] LABS: WHITE BLOOD COUNT 45.8 K/mm3 (4.0-10.8)
--- NOTE | 2019-07-03 11:03 | PN ---
Progress Note, Physician History of Present Illness: stable no new issues feels better - Current Medication List Current Medications: Active Medications Acetaminophen (Ofirmev Injection -) 1,000 mg IVPB Q6H PRN PRN Reason: PAIN LEVEL 1-5 Last Admin: 07/01/19 16:12 Dose: 1,000 mg Allopurinol (Zyloprim -) 300 mg PO DAILY [facility] Last Admin: 07/03/19 09:25 Dose: 300 mg Diphenoxylate HCl/Atropine (Lomotil -) 1 combo PO Q8H PRN PRN Reason: DIARRHEA Last Admin: 07/02/19 22:04 Dose: 1 combo Fluticasone Propionate (Flonase -) 1 spray NS BID [facility] Last Admin: 07/03/19 09:25 Dose: 1 spray Heparin Sodium (Porcine) (Heparin -) 5,000 unit SQ TID [facility] Last Admin: 07/03/19 06:24 Dose: Not Given Hydroxyurea (Hydrea -) 1,000 mg PO BID [facility] Last Admin: 07/03/19 09:24 Dose: 1,000 mg Meropenem 1 gm/ Dextrose 100 mls @ 200 mls/hr IVPB Q8H-IV [facility] Last Admin: 07/03/19 09:24 Dose: 200 mls/hr Loratadine (Claritin -) 10 mg PO DAILY [facility] Last Admin: 07/03/19 09:25 Dose: 10 mg Lorazepam (Ativan -) 2 mg PO HS [facility] Last Admin: 07/02/19 21:59 Dose: 2 mg Melatonin (Melatonin) 5 mg PO HS PRN PRN Reason: INSOMNIA Last Admin: 06/28/19 03:18 Dose: 5 mg Montelukast Sodium (Singulair -) 10 mg PO HS [facility] Last Admin: 07/02/19 22:02 Dose: 10 mg Morphine Sulfate (Morphine Sulfate) 4 mg IVPUSH Q6H PRN PRN Reason: PAIN LEVEL 6-10 Last Admin: 07/03/19 01:31 Dose: 4 mg Non-Formulary Medication (Telotristat Etiprate [Xermelo]) 250 mg PO DAILY [facility] Pantoprazole Sodium (Protonix -) 20 mg PO HS [facility] Last Admin: 07/02/19 22:00 Dose: Not Given Topiramate (Topamax -) 50 mg PO DAILY [facility] Last Admin: 07/03/19 09:24 Dose: 50 mg Tramadol HCl (Ultram -) 50 mg PO Q6H PRN PRN Reason: PAIN LEVEL 6-10 Stop: 07/05/19 12:07 - Objective Vital Signs: Vital Signs Temperature 98.5 F 07/03/19 06:00 Pulse Rate 74 07/03/19 06:00 Respiratory Rate 19 07/03/19 06:00 Blood Pressure 114/60 07/03/19 06:00 O2 Sat by Pulse Oximetry (%) 96 07/03/19 08:24 Constitutional: Yes: No Distress, Calm Cardiovascular: Yes: S1, S2 Respiratory: Yes: Regular, CTA Bilaterally Gastrointestinal: Yes: Normal Bowel Sounds, Soft, Tenderness (ruq) Musculoskeletal: Yes: WNL Extremities: Yes: WNL Neurological: Yes: Alert, Oriented Psychiatric: Yes: Alert, Oriented Labs: CBC, BMP 07/03/19 06:15 07/03/19 06:15 Assessment/Plan 63 year-old female with a PMH significant for myeloproliferative disorder (February 2019), rectal carcinoid, leukocytosis, GERD, migraines, recurrent UTIs, osteomyeltitis C4-C5 s/p C4-C5 discectomy and fusion (2016), and cholecystitis s /p lap aram (10/2018). Admitted for hyperleukocytosis and splenomegaly. Splenomegaly Hyperleukocytosis Myeloproliferative disorder pneumonia Rectal carcinoid GERD Migraines Anxiety plan continue abx wbc trending down incentive mark anthony rest as per the team
[2019-07-03 11:09] LABS: ANISOCYTOSIS 2+; MACROCYTOSIS 1+
[2019-07-03 11:10] LABS: PLATELET ESTIMATE DECREASED
[2019-07-03] MEDS ORDERED: PT OWN MED DRAWER 7, Y5N ONE (21:08)
[2019-07-03] MEDS: LORazepam 0.5 MG TABLET PO SCH (21:17)
[2019-07-03] MEDS: MONTELUKAST NA 10 MG TABLET PO SCH (21:18)
[2019-07-03] MEDS: PANTOPRAZOLE 20 MG TABLET (FP) PO SCH (21:18)
[2019-07-04] MEDS: MEROPENEM 1 GM in DEXTROSE 5%-WATER 100 ML IVPB SCH ×2 (01:22→09:05)
[2019-07-04] MEDS: HEPARIN NA (PORCINE) 5,000 UNITS/ML 1ML VIAL SQ SCH ×2 (05:56→14:04)
--- NOTE | 2019-07-04 08:01 | DS ---
Physical Exam: SUBJECTIVE: Patient seen and examined. Pain is minimal. Feels ready to go home. OBJECTIVE: Vital Signs Period Temp Pulse Resp BP Sys/Vega Pulse Ox Last 24 Hr 98.3 F-98.8 F 78-92 18-18 105-120/53-56 94-98 PHYSICAL EXAM GENERAL: The patient is awake, alert, and fully oriented, in no acute distress. LUNGS: Breath sounds equal, clear to auscultation HEART: Regular rate and rhythm, S1, S2 ABDOMEN: Tenderness under left breast, left flank; splenic edge palpable EXTREMITIES: 2+ pulses, warm, well-perfused, no edema. NEUROLOGICAL: Cranial nerves II through XII grossly intact. Normal speech. LABS CBCD WBC 37.6 K/mm3 (4.0-10.8) H* 07/04/19 06:57 RBC 3.12 M/mm3 (3.60-5.2) L 07/04/19 06:57 Hgb 10.7 GM/dl (10.7-15.3) 07/04/19 06:57 Hct 32.0 % (32.4-45.2) L 07/04/19 06:57 MCV 102.5 fl (80-96) H 07/04/19 06:57 MCHC 33.4 g/dl (32.0-36.0) 07/04/19 06:57 RDW 19.7 % (11.6-15.6) H 07/04/19 06:57 Plt Count 110 K/MM3 (134-434) L 07/04/19 06:57 MPV 7.5 fl (7.5-11.1) 07/04/19 06:57 CMP Sodium 137 mmol/L (136-145) 07/04/19 06:57 Potassium 4.2 mmol/L (3.5-5.1) 07/04/19 06:57 Chloride 106 mmol/L (98-107) 07/04/19 06:57 Carbon Dioxide 23 mmol/L (21-32) 07/04/19 06:57 Anion Gap 8 MMOL/L (8-16) 07/04/19 06:57 BUN 21.0 mg/dl (7-18) H 07/04/19 06:57 Creatinine 0.6 mg/dl (0.55-1.3) 07/04/19 06:57 Calcium 8.3 mg/dl (8.5-10) L 07/04/19 06:57 Total Bilirubin 0.5 mg/dl (0.2-1) 07/04/19 06:57 AST 28 U/L (15-37) 07/04/19 06:57 ALT 55 U/L (13-61) 07/04/19 06:57 Alkaline Phosphatase 481 U/L (45-117) H D 07/04/19 06:57 Total Protein 5.9 g/dl (6.4-8.2) L 07/04/19 06:57 Albumin 3.0 g/dl (3.4-5.0) L 07/04/19 06:57 HOSPITAL COURSE: Date of Admission:06/27/19 Date of Discharge: 07/04/19 Pre hospital course 63 year-old female with a PMH significant for myeloproliferative disorder (February 2019), rectal carcinoid, leukocytosis, GERD, migraines, recurrent UTIs, osteomyeltitis C4-C5 s/p C4-C5 discectomy and fusion (2016), and cholecystitis s /p lap aram (10/2018). Presented to the ED with left rib/flank pain x 24 hours. Pt was in her USOH, last night developed gradual onset mild left lower flank/rib pain, did not take anything and slept throughout the night but awoke this morning with increased pain, positional and worse with deep inspiration. The pain radiates to the left shoulder. ER course (1) WBC 105k (2) Alk phos 431 (3) CTAP: since 12/05/18 interval development of splenomegaly Subsequent hospital course 63 year-old female with a PMH significant for myeloproliferative disorder (February 2019), rectal carcinoid, leukocytosis, GERD, migraines, recurrent UTIs, osteomyeltitis C4-C5 s/p C4-C5 discectomy and fusion (2016), and cholecystitis s /p lap aram (10/2018). Admitted for hyperleukocytosis and splenomegaly. Splenomegaly --06/29 MRI abdomen: splenomegaly, interval development since 12/05/18; from [id number] --> [id number]; no sign of infarct --LUQ pain was severe on admission, treated with tylenol and morphine PRN; patient reports minimal pain as of date of discharge Hyperleukocytosis Myeloproliferative neoplasm Elevated alk phos --WBC has been elevated since October 2018, significant spike since March (40 -->105k) --per Dr. Sandra Dukes, surg rn at [facility], hydroxyurea was increased to 1000mg q12h, and allopurinol 300mg daily was added; WBC down trended 105k--> 37.6k on date of discharge --to continue on hydroxyurea 500mg daily and allopurinol on discharge Rule out pneumonia --several low grade fevers as high as 100.8, defervesced on 07/01 --bilateral pleural effusions were seen; may have been the result of volume overload (patient was aggressively hydrated on admission) but concern for PNA in this immunocompromised patient with low grade fever --ID treated empirically with meropenem x 5 days --discharged off antibiotics Rectal carcinoid --continued Lomitil PRN GERD --continued protonix Migraines --continued Topomax Anxiety --continued lorazepam Minutes to complete discharge: 35 Discharge Summary Problems reviewed: Yes Reason For Visit: HYPERLEUKOCYTOSIS Current Active Problems Diarrhea (Acute) Hyperleukocytosis (Acute) Left flank pain (Acute) Myeloproliferative neoplasm (Acute) Prophylactic measure (Acute) Transaminitis (Acute) Condition: Improved - Instructions Diet, Activity, Other Instructions: A prescription has been sent to your pharmacy for allopurinol. Take this medication as prescribed. As discussed, you will be following up this week with your surg rn, Dr. Sandra Dukes, at [facility]. Referrals: Dr. Sandra Dukes [Other] Disposition: HOME - Home Medications Comprehensive Discharge Medication List: Ambulatory Orders Octreotide Acetate [Sandostatin] 30 mcg IJ MONTHLY ampul 05/28/17 Lipase/Protease/Amylase [Nilda Katz 24,000 Units Capsule] 4 each PO TID 12/05/18 Hydroxyurea [Hydrea 500Mg Capsule -] 500 mg PO DAILY 06/27/19 Acetaminophen [Tylenol .Regular Strength -] 650 mg PO Q6H PRN tablet 06/30/19 Allopurinol [Zyloprim -] 300 mg PO DAILY tablet 06/30/19 Fluticasone Prop 0.05% Nasal [Flonase -] 1 spray NS BID spray 06/30/19 Heparin - 5,000 unit SQ TID vial 06/30/19 Hydroxyurea [Hydrea 500Mg Capsule -] 1,000 mg PO BID capsule 06/30/19 LORazepam [Ativan] 2 mg PO HS #2 tablet MDD 1 06/30/19 Melatonin 5 mg PO HS PRN tab 06/30/19 Meropenem [Merrem (Restricted To Id) -] 1 gm IVPB Q8H-IV vial 06/30/19 Montelukast Na [Singulair -] 10 mg PO HS tablet 06/30/19 Morphine Sulfate 4 mg IVPUSH Q6H PRN #1 vial MDD 4 06/30/19 Pantoprazole Sodium [Protonix -] 20 mg PO HS tablet.ec 06/30/19 Sennosides/Docusate Sodium [Pericolace -] 1 tablet PO BID tablet 06/30/19 Telotristat Etiprate [Xermelo] 250 mg PO DAILY #30 tab 06/30/19 Topiramate [Topamax -] 50 mg PO DAILY tablet 06/30/19 Lomotil 2.5-0.025 mg Tablet 2 tab PO QID PRN 07/02/19 This patient is new to me today: No Emergency Visit: Yes ED Registration Date: 06/27/19 Care time: The patient presented to the Emergency Department on the above date and was hospitalized for further evaluation of their emergent condition. Critical Care patient: No - Discharge Referral Referred to [facility] Med P.C.: No
[2019-07-04] MEDS ORDERED: DEXTROSE 5%-WATER 100 ML IVPB ONE (08:03)
[2019-07-04] MEDS ORDERED: MEROPENEM 1 GM VIAL (RESTRICTED TO ID) IVPB ONE (08:03)
[2019-07-04 08:04] LABS: BASO % 0.8 % (0-2.0); EOS % 1.1 % (0-4.5); HEMOGLOBIN 10.7 GM/dl (10.7-15.3); LYMPH % 2.4 % (8-40); MCH 34.2 pg (25.7-33.7); MCHC 33.4 g/dl (32.0-36.0); MEAN CELL VOLUME 102.5 fl (80-96); MEAN PLT VOLUME 7.5 fl (7.5-11.1); MONO % 0.4 % (3.8-10.2); NEUT % 95.3 % (42.8-82.8); PLATELET COUNT 110 K/MM3 (134-434); RBC 3.12 M/mm3 (3.60-5.2); RDW 19.7 % (11.6-15.6)
[2019-07-04 08:11] LABS: BILIRUBIN,TOTAL 0.5 mg/dl (0.2-1); CALCIUM 8.3 mg/dl (8.5-10); CREATININE 0.6 mg/dl (0.55-1.3); POTASSIUM 4.2 mmol/L (3.5-5.1); TOT PROT 5.9 g/dl (6.4-8.2)
[2019-07-04 08:44] LABS: WHITE BLOOD COUNT 37.6 K/mm3 (4.0-10.8)
[2019-07-04] MEDS: FLUTICASONE PROP 0.05% 16 GM NASAL SPRAY NS SCH (09:06)
[2019-07-04] MEDS: LORATADINE 10 MG TABLET PO SCH (09:06)
[2019-07-04] MEDS: ALLOPURINOL 300 MG TABLET (FP) PO SCH (09:06)
[2019-07-04] MEDS: TOPIRAMATE 25 MG TABLET (FP) PO SCH (09:06)
[2019-07-04] MEDS ORDERED: HYDROXYUREA 500 MG CAPSULE PO SCH (09:30)
[2019-07-04] MEDS: DIPHENOXYLATE 2.5/ATROPINE.025 1 COMBO TABLET PO PRN ×2 (10:49→13:12)
--- NOTE | 2019-07-04 12:17 | PN ---
Progress Note (short form) - Note Progress Note: L abd pain is improved. Having an episode of loose stools now which she feels is typical of her pattern w carcinoid/change in eating habits/change in meds Eager for d/c home PE NAD lungs -CTA CVS-reg S1S2 abd- soft, ND, focal tenderness over splenic edge ext-no edema skin- healing R thigh ecchymosis (banged into her oven door); ecchymoses at IV sites, notably large bruise L forearm Imp: improved LQ pain, clin splenic infarct, improved leukocytosis in setting of MPN For d/c. As d/w Dr Dukes, plan is for resumption of outpt HU dosing 500 mg daily, cont allopurinol; she will f/u for counts in office this wk
--- NOTE | 2019-07-04 13:35 | PN ---
Progress Note, Physician History of Present Illness: stable doing well no new issues - Current Medication List Current Medications: Active Medications Acetaminophen (Ofirmev Injection -) 1,000 mg IVPB Q6H PRN PRN Reason: PAIN LEVEL 1-5 Last Admin: 07/01/19 16:12 Dose: 1,000 mg Allopurinol (Zyloprim -) 300 mg PO DAILY [facility] Last Admin: 07/04/19 09:06 Dose: 300 mg Diphenoxylate HCl/Atropine (Lomotil -) 1 combo PO QID PRN PRN Reason: DIARRHEA Last Admin: 07/04/19 13:12 Dose: 1 combo Fluticasone Propionate (Flonase -) 1 spray NS BID [facility] Last Admin: 07/04/19 09:06 Dose: 1 spray Heparin Sodium (Porcine) (Heparin -) 5,000 unit SQ TID [facility] Last Admin: 07/04/19 05:56 Dose: Not Given Meropenem 1 gm/ Dextrose 100 mls @ 200 mls/hr IVPB Q8H-IV [facility] Last Admin: 07/04/19 09:05 Dose: 200 mls/hr Loratadine (Claritin -) 10 mg PO DAILY [facility] Last Admin: 07/04/19 09:06 Dose: 10 mg Lorazepam (Ativan -) 2 mg PO HS [facility] Last Admin: 07/03/19 21:17 Dose: 2 mg Melatonin (Melatonin) 5 mg PO HS PRN PRN Reason: INSOMNIA Last Admin: 06/28/19 03:18 Dose: 5 mg Montelukast Sodium (Singulair -) 10 mg PO HS [facility] Last Admin: 07/03/19 21:18 Dose: 10 mg Pantoprazole Sodium (Protonix -) 20 mg PO HS [facility] Last Admin: 07/03/19 21:18 Dose: 20 mg Topiramate (Topamax -) 50 mg PO DAILY [facility] Last Admin: 07/04/19 09:06 Dose: 50 mg - Objective Vital Signs: Vital Signs Temperature 98.8 F 07/04/19 10:06 Pulse Rate 85 07/04/19 10:06 Respiratory Rate 18 07/04/19 10:06 Blood Pressure 105/56 L 07/04/19 10:06 O2 Sat by Pulse Oximetry (%) 96 07/04/19 08:25 Constitutional: Yes: No Distress, Calm Cardiovascular: Yes: S1, S2 Respiratory: Yes: Regular, CTA Bilaterally Gastrointestinal: Yes: Normal Bowel Sounds, Soft Musculoskeletal: Yes: WNL Extremities: Yes: WNL Neurological: Yes: Alert, Oriented Psychiatric: Yes: Alert, Oriented Labs: CBC, BMP 07/04/19 06:57 07/04/19 06:57 Assessment/Plan 63 year-old female with a PMH significant for myeloproliferative disorder (February 2019), rectal carcinoid, leukocytosis, GERD, migraines, recurrent UTIs, osteomyeltitis C4-C5 s/p C4-C5 discectomy and fusion (2016), and cholecystitis s /p lap aram (10/2018). Admitted for hyperleukocytosis and splenomegaly. Splenomegaly Hyperleukocytosis Myeloproliferative disorder pneumonia Rectal carcinoid GERD Migraines Anxiety plan wbc trending down will stop abx and monitor rest as per the team
[2019-07-04 14:13] VITALS: BP 120/57; PULSE 93; TEMP 98.9
== END 2019-07-04 15:03 | disposition home or self-care (01) | DRG 814 ==
LOC: FER 13:00 → FM/S 17:38
PROVIDERS: ADMIT Internal Medicine; ATTEND Nurse Practitioner Acute Care
DX: R16.1 Splenomegaly, not elsewhere classified (principal); J18.9 Pneumonia, unspecified organism; J90 Pleural effusion, not elsewhere classified; D47.1 Chronic myeloproliferative disease; D72.829 Elevated white blood cell count, unspecified; K21.9 Gastro-esophageal reflux disease without esophagitis; G43.909 Migraine, unspecified, not intractable, without status migrainosus; F41.9 Anxiety disorder, unspecified; D3A.026 Benign carcinoid tumor of the rectum; M48.02 Spinal stenosis, cervical region; R74.0 Nonspecific elevation of levels of transaminase and lactic acid dehydrogenase [LDH]
CPT/HCPCS: 36415; 71045-TC-FY; 71046-TC-FY; 74177-TC; 74183-TC; 80053; 81003; 81015; 82550; 83690; 83735; 84484; 85025; 87040; 87086; 93005; 94761; 99285-25; A9579; C1887; J0131; J1644; J7030; J8999

== ENCOUNTER 2019-07-19 10:18 | Emergency (ER) | payer OTHER, MEDICARE ==
[2019-07-19 10:28] VITALS: BMI 24.7
[2019-07-19] MEDS ORDERED: SODIUM CHLORIDE 0.9% 500 ML INFUS.BAG IV ONE ×2 (10:43→15:02)
--- NOTE | 2019-07-19 10:46 | PDOC ---
History of Present Illness <Aries Leblanc - Last Filed: 07/19/19 15:07> - History of Present Illness Initial Comments: Ms. 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 Reports that the fever started yesterday. She called her oncologist Dr. Dukes who sent her to the ED. Reports mild cough and abdominal pain. She was recently seen here for similar symptoms earlier this month. Denies headache, vision changes, focal neuro weakness. Denies chest pain/ shortness of breath. Denies nausea/vomiting/urinary symptoms/changes in stool. <Shyam Ram - Last Filed: 07/19/19 20:40> - General Chief Complaint: Weakness Stated Complaint: WEAK Time Seen by Provider: 07/19/19 10:34 Past History <Aries Leblanc - Last Filed: 07/19/19 15:07> - Past Medical History Cancer: Yes (RECTAL CARCINOID) COPD: No GI Disorders: Yes (GERD) Other medical history: MYLOPROLIFERONEOPLASM - Surgical History Cholecystectomy: Yes (11/25/18) Gastric Stapling: Yes - Psycho Social/Smoking Cessation Hx Smoking History: Never smoked Have you smoked in the past 12 months: No Hx Alcohol Use: Yes (OCASIONAL) Drug/Substance Use Hx: No Substance Use Type: None <Shyam Ram - Last Filed: 07/19/19 20:40> - Past Medical History Allergies/Adverse Reactions: Allergies Allergy/AdvReac Type Severity Reaction Status Date / Time everolimus [From Afinitor] AdvReac Severe SOB, Verified 07/19/19 10:20 Myalgias, Arthralgias,Edema erythromycin base AdvReac Verified 07/19/19 10:20 [Erythromycin Base] Home Medications: Ambulatory Orders Octreotide Acetate [Sandostatin] 30 mcg IJ MONTHLY ampul 05/28/17 Lipase/Protease/Amylase [Nilda Katz 24,000 Units Capsule] 3 each PO TID 12/05/18 Hydroxyurea [Hydrea 500Mg Capsule -] 500 mg PO ASDIR 06/27/19 Fluticasone Prop 0.05% Nasal [Flonase -] 1 spray NS BID spray 06/30/19 LORazepam [Ativan] 2 mg PO HS #2 tablet MDD 1 06/30/19 Topiramate [Topamax -] 50 mg PO DAILY tablet 06/30/19 Allopurinol 300 mg PO DAILY #30 tablet 07/04/19 Hydroxyurea [Hydrea 500Mg Capsule -] 1,000 mg PO ASDIR 07/19/19 Telotristat Etiprate [Xermelo] 250 mg PO DAILY 07/19/19 Review of Systems - Review of Systems Comments:: ROS GENERAL/CONSTITUTIONAL: Reports fever. No chills. No weakness._ HEAD, EYES, EARS, NOSE AND THROAT: No change in vision. No change in hearing. No sore throat._ CARDIOVASCULAR: No chest pain or shortness of breath_ RESPIRATORY: Denies cough, hemoptysis_ GASTROINTESTINAL: Reports abdominal pain. No nausea, vomiting, diarrhea or constipation._ GENITOURINARY: No dysuria, frequency, or change in urination._ MUSCULOSKELETAL: No joint or muscle swelling or pain. No neck or back pain._ SKIN: No rash_ NEUROLOGIC: No headache, vertigo, loss of consciousness, or change in strength/ sensation._ ENDOCRINE: No increased thirst. No abnormal weight change_ HEMATOLOGIC/LYMPHATIC: No anemia, easy bleeding, or history of blood clots._ ALLERGIC/IMMUNOLOGIC: No hives or skin allergy._ <Shyam Ram - Last Filed: 07/19/19 20:40> *Physical Exam - Vital Signs Last Vital Signs Temp Pulse Resp BP Pulse Ox 100.8 F H 97 H 17 127/86 95 07/19/19 13:04 07/19/19 13:04 07/19/19 13:04 07/19/19 13:04 07/19/19 13:04 <Aries Leblanc - Last Filed: 07/19/19 15:07> - Vital Signs Last Vital Signs Temp Pulse Resp BP Pulse Ox 98.0 F 97 H 17 114/71 96 07/19/19 10:19 07/19/19 10:19 07/19/19 10:19 07/19/19 10:19 07/19/19 10:19 - Physical Exam Comments: GENERAL: Awake, alert, and oriented to person/place/time, in no acute distress_ HEAD: No signs of trauma, normocephalic, atraumatic _ EYES: PERRLA, EOMI, sclera anicteric, conjunctiva clear_ ENT: Hearing grossly normal, nares patent, oropharynx clear without exudates. No uvular deviation. Moist mucosa_ NECK: Normal ROM, supple, JVD, or masses. Swollen and tender lymph node ~3cm on right lateral neck. LUNGS: No distress, speaks in full sentences, clear to auscultation bilaterally _ HEART: Regular rate and rhythm, normal S1 and S2, no murmurs appreciated, peripheral pulses normal and equal bilaterally._ ABDOMEN: Soft, TTP LUQ. No guarding, no rebound. No masses. No bruising. EXTREMITIES: Normal inspection, Normal range of motion, no edema. No clubbing or cyanosis_ NEUROLOGICAL: Cranial nerves II through XII grossly intact. Normal speech, normal gait, no focal sensorimotor deficits _ SKIN: Warm, Dry, normal turgor, no rashes or lesions noted_ <Shyam Ram - Last Filed: 07/19/19 20:40> ED Treatment Course - LABORATORY CBC & Chemistry Diagram: 07/19/19 11:20 07/19/19 11:20 - ADDITIONAL ORDERS Additional order review: Laboratory Results 07/19/19 07/19/19 12:18 11:20 Sodium 139 Potassium 3.7 Chloride 109 H Carbon Dioxide 21 Anion Gap 9 BUN 16.0 Creatinine 0.9 Est GFR (CKD-EPI)AfAm 78.32 Est GFR (CKD-EPI)NonAf 67.57 Random Glucose 185 H Calcium 8.4 L Total Bilirubin 0.5 AST 35 ALT 22 Alkaline Phosphatase 620 H D Total Protein 6.2 L Albumin 3.1 L Urine Color Yellow Urine Appearance Clear Urine pH 5.5 Urine Protein 1+ H Urine Glucose (UA) Negative Urine Ketones Negative Urine Blood 1+ H Urine Nitrite Negative Urine Bilirubin Negative Urine Urobilinogen 0.2 Ur Leukocyte Esterase Trace H Urine RBC 10-20 Urine WBC 5-10 Ur Transition Epith Cell Few Calcium Oxalate Crystal Many 07/19/19 11:20 RBC 2.91 L MCV 106.3 H MCHC 34.1 RDW 21.0 H MPV 8.0 Neutrophils % No Result Required. Lymphocytes % No Result Required. - Medications Given in the ED: ED Medications Discontinued Medications Generic Name Dose Route Start Last Admin Trade Name Freyulia PRN Reason Stop Dose Admin Acetaminophen 650 mg 07/19/19 13:09 07/19/19 13:14 Tylenol - PO 07/19/19 13:10 650 mg ONCE ONE Administration Sodium Chloride 1,000 ml 07/19/19 10:43 07/19/19 11:35 Normal Saline - IV 07/19/19 10:44 1,000 ml ONCE ONE Administration Sodium Chloride 1,000 ml 07/19/19 15:02 07/19/19 15:03 Normal Saline - IV 07/19/19 15:03 1,000 ml ONCE ONE Administration <Aires Leblanc - Last Filed: 07/19/19 15:07> - LABORATORY CBC & Chemistry Diagram: 07/19/19 11:20 07/19/19 11:20 - RADIOLOGY Radiology Studies Ordered: Category Date Time Status CHEST PA & LAT [RAD] Stat Radiology 07/19/19 10:42 Ordered <Shyam Ram - Last Filed: 07/19/19 20:40> Medical Decision Making - Medical Decision Making 07/19/19 10:45 64F with hx of myeloproliferative disorder, splenomegaly, rectal carcinoid tumor , here for fever of 102 since yesterday. Sent in by her oncologist Dr. Dukes. Recently admitted earlier this month for hyperleukocytosis. Will obtain CBC, CMP, CXR, blood cultures, UA/UC. 07/19/19 12:04 CXR shows left basilar atelectasis and trace bilateral effusions, unchanged from prior. 07/19/19 12:43 Labs reviewed. WBC > 100K. Call placed to Dr. Dukes's office. 07/19/19 12:59 D/w Dr. Dukes's office PA. They will call back with a plan. <Shyam Ram - Last Filed: 07/19/19 20:40> Discharge - Transfer to Acute Care Facility Accepting Physician:: Dr. Bowens (hospitalist), Dr. Randle (onc), [facility] <Aries Leblanc - Last Filed: 07/19/19 15:07> - Discharge Information Problems reviewed: Yes <Shyam Ram - Last Filed: 07/19/19 20:40> - Discharge Information Clinical Impression/Diagnosis: Hyperleukocytosis, Myeloproliferative neoplasm Condition: Stable Disposition: TRANSFER ACUTE CARE/OTHER HOSP - Follow up/Referral Referrals: Mayo Mckeon MD [Primary Care Provider] - - Patient Discharge Instructions - Post Discharge Activity
[2019-07-19 11:41] LABS: HEMATOCRIT 30.9 % (32.4-45.2); HEMOGLOBIN 10.5 GM/dl (10.7-15.3); MCHC 34.1 g/dl (32.0-36.0)
[2019-07-19 11:45] LABS: MCH 36.3 pg (25.7-33.7); MEAN CELL VOLUME 106.3 fl (80-96); PLATELET COUNT 156 K/MM3 (134-434); RBC 2.91 M/mm3 (3.60-5.2)
[2019-07-19 11:48] LABS: WHITE BLOOD COUNT 101.9 K/mm3 (4.0-10.8)
[2019-07-19 11:52] LABS: ALBUMIN 3.1 g/dl (3.4-5.0); BILIRUBIN,TOTAL 0.5 mg/dl (0.2-1); CALCIUM 8.4 mg/dl (8.5-10); CREATININE 0.9 mg/dl (0.55-1.3); POTASSIUM 3.7 mmol/L (3.5-5.1); TOT PROT 6.2 g/dl (6.4-8.2)
--- NOTE | 2019-07-19 12:03 | PDOC ---
Attending Attestation - Resident Resident Name: Shyam Ram - ED Attending Attestation I have performed the following: I have examined & evaluated the patient, The case was reviewed & discussed with the resident, I agree w/resident's findings & plan - HPI HPI: 07/19/19 11:57 64-year-old female with history of rectal carcinoid, myeloproliferative disease on oral medications with recent admission for leukocytosis and clinical splenic infarct requiring Hydrea, discharged to outpatient follow-up now presents with several days of progressive generalized weakness and shortness of breath, low- grade fever for 2 days of 100.3 followed by maximum temperature of 102 last night. Positive dry cough, no other chest pain or headache, no abdominal complaints or complaints, presents for evaluation. Pt was noted to have recurring fevers during her hospitalization, treated empirically with meropenem in setting of pleural effusions, discharged off abx. Upon arrival, spoke to her oncologist who reported that a bone marrow biopsy performed last week showed a transition in her neoplasm type, and that it would require initiation of some chemotherapy. - Physicial Exam PE: 07/19/19 12:00 Afebrile here with normal vital signs, slight tachypnea of 20, O2 sat is normal Alert, speaking full sentences, overall well-appearing Oropharynx is clear, no mucosal lesions Heart is regular without audible murmur Bibasilar crackles to the mid lung field, no wheezing Abdomen benign, mild LUQ discomfort to palpation with palpable spleen edge Bilateral upper extremities with resolving ecchymosis from prior hospitalization , otherwise no cellulitis or warmth or tenderness to palpation. 2+ lower extremity edema bilaterally, chronic. - Medical Decision Making 07/19/19 12:01 64-year-old female h/o MPN with recent admission now with dyspnea, generalized weakness, and fever last night. r/o infection versus progression of underlying disease/neoplasm fever, reportedly needs new chemo treatment per Dr. Dukes, her oncologist. labs including cultures iv fluids cxr shows persistent b/l small effusions discuss disposition with onc team ([place] covered by Dr. Sood here, also sees Dr. Rey at [place]) 07/19/19 12:41 recurrence of hyperleukocytosis, 101 from 37 at discharge. Remaining labs and alk phos unchanged from prior. Discussed with Dr. Sood, but has not been updated on patient's outpt workup since d/c. Will contact Dr. Dukes for plan. 07/19/19 12:55 discussed with MARGY Sigala, who works with Dr. Dukes. Pt was seen on 07/07 and placed on alternating doses of 500/1000 Hyroxyurea with plans for repeat labs around now. Pt became symptomatic, presented here. Given repeat elevation in WBC , will likely need hydrea treatment again. He will speak to Dr Dukes regarding management details, including any need for transfer, and call back. 07/19/19 15:[address] Sood discussed case. Given need for hydrea/allopurinol AND chemotherapy, recommend transfer to hospital for continued management with Dr. Randle, her oncologist. Dr. Sood spoke with Dr. Randle ([phone]) , who recommends transfer to [place]. Pt consents. Accepted for transfer by hospitalist, Dr. Duran Bowens. Case management arranging transfer. Pt clinically unchanged. 07/19/19 17:46 well appearing, ambulating, nad. VSS. remains accepted medically. discussed with Case management (Regi at ) and they will accept for transfer despite incomplete authorization. Will arrange for transport to inpatient bed. physician/nursing report given. Heart Score/ECG Review #1 ECG reviewed & interpreted by me at: 12:29 General ECG Interpretation: Sinus Rhythm, Normal Rate (96), Normal Intervals ( qtc 421), No acute ischemic changes Compared to previous ECG there are: No significant change (c/w 06/27)
[2019-07-19] MEDS ORDERED: ACETAMINOPHEN 325 MG TABLET (FP) PO ONE ×2 (13:09→18:19)
[2019-07-19] MEDS ORDERED: ACETAMINOPHEN 325 MG TABLET (FP) ONE ×2 (13:10→18:03)
[2019-07-19 13:31] LABS: CALCIUM OXALATE CRYSTALS MANY /hpf (NONE SEEN); EPITHELIAL CELLS FEW /hpf
[2019-07-19 13:56] LABS: PLATELET ESTIMATE ADEQUATE
[2019-07-19 19:10] VITALS: BP 115/51; PULSE 96; TEMP 98.8
--- NOTE | 2019-07-20 09:43 | EKG ---
Test Reason : Blood Pressure : / mmHG Vent. Rate : 096 BPM Atrial Rate : 096 BPM P-R Int : 162 ms QRS Dur : 072 ms QT Int : 334 ms P-R-T Axes : 058 010 012 degrees QTc Int : 421 ms NORMAL SINUS RHYTHM POSSIBLE LEFT ATRIAL ENLARGEMENT BORDERLINE ECG WHEN COMPARED WITH ECG OF 27-JUN-2019 13:13, NO SIGNIFICANT CHANGE WAS FOUND Confirmed by FANNY SOLOMON, OSCAR ([id number]) on 07/20/2019 9:43:22 AM Referred By: Confirmed By:OSCAR ESCOBEDO MD
== END 2019-07-19 19:56 | disposition short-term general hospital (02) ==
LOC: FER 10:18
PROC: 3E0337Z Introduction of Electrolytic and Water Balance Substance into Peripheral Vein, Percutaneous Approach (ICD-10-PCS; principal; 2019-07-19)
DX: C94.6 Myelodysplastic disease, not elsewhere classified (principal); Z88.8 Allergy status to other drugs, medicaments and biological substances; D3A.026 Benign carcinoid tumor of the rectum; R16.1 Splenomegaly, not elsewhere classified
CPT/HCPCS: 36415; 71046-TC-FY; 80053; 81003; 81015; 85025; 87040; 87086; 93005; 99285-25

== ENCOUNTER 2021-03-24 18:31 | Inpatient (IN) | payer OTHER, MEDICARE ==
[2021-03-24] MEDS ORDERED: IBUPROFEN 400 MG TABLET (FP) PO ONE ×2 (19:51→19:53)
[2021-03-24 20:02] LABS: HEMATOCRIT 31.1 % (32.4-45.2); HEMOGLOBIN 9.5 GM/dl (10.7-15.3); MCH 30.2 pg (25.7-33.7); MCHC 30.6 g/dl (32.0-36.0); MEAN CELL VOLUME 98.5 fl (80-96); MEAN PLT VOLUME 12.1 fl (7.5-11.1); RBC 3.16 M/mm3 (3.60-5.2); RDW 18.8 % (11.6-15.6); WHITE BLOOD COUNT 10.9 K/mm3 (4.0-10.8)
[2021-03-24 20:05] LABS: ADD RBC MORPHOLOGY YES; ALBUMIN 3.4 g/dl (3.4-5.0); BILIRUBIN,TOTAL 0.7 mg/dl (0.2-1); CALCIUM 8.4 mg/dl (8.5-10); CREATININE 0.7 mg/dl (0.55-1.3); PLATELET COUNT 34 10^3/uL (134-434); TOT PROT 6.5 g/dl (6.4-8.2)
[2021-03-24 20:25] LABS: EPITHELIAL CELLS MODERATE /hpf
[2021-03-24] MEDS ORDERED: AMPICILLIN NA/SULBACTAM NA 3 GM in SODIUM CHLORIDE 100 ML IVPB ONE (20:29)
[2021-03-24] MEDS ORDERED: VANCOMYCIN 1,000 MG in DEXTROSE 5%-WATER - 250 ML IVPB ONE (20:29)
[2021-03-24] MEDS ORDERED: AMPICILLIN NA/SULBACTAM NA 3 GM VIAL ONE (20:30)
[2021-03-24] MEDS ORDERED: VANCOMYCIN 1,000 MG VIAL (RESTRICTED TO ID ONLY) ONE (20:30)
[2021-03-24 21:27] LABS: ANISOCYTOSIS 2+; MACROCYTOSIS 2+; PLATELET ESTIMATE DECREASED
[2021-03-24] MEDS ORDERED: LOPERAMIDE HCL 2 MG CAPSULE PO PRN (22:50)
[2021-03-24 23:49] VITALS: BMI 24.5
[2021-03-25] MEDS: traMADol HCL 50 MG TABLET PO PRN ×2 (00:03→15:50)
[2021-03-25] MEDS: CHOLESTYRAMINE/ASPARTAME 4 GM PACKET PO SCH ×4 (00:08→21:16)
[2021-03-25] MEDS: PATIENT'S OWN MEDICATION (NON-FORMULARY) (Lipase/Protease/Amylase [Creon Dr 24,000 Units C PO SCH ×2 (00:08→06:21)
[2021-03-25] MEDS ORDERED: AMPICILLIN NA/SULBACTAM NA 3 GM in SODIUM CHLORIDE 100 ML IVPB SCH (04:00)
[2021-03-25] MEDS ORDERED: CEFAZOLIN 1 GM in DEXTROSE 5%-WATER - 50 ML IVPB SCH (04:15)
[2021-03-25] MEDS ORDERED: DEXTROSE 5%-WATER - 50 ML IVPB ONE (06:05)
[2021-03-25] MEDS ORDERED: ceFAZolin SODIUM 1 GM VIAL ONE (06:05)
[2021-03-25 08:11] LABS: CREATININE 0.7 mg/dl (0.55-1.3); MAGNESIUM 1.9 mg/dL (1.8-2.4)
[2021-03-25 08:43] LABS: HEMATOCRIT 28.8 % (32.4-45.2); HEMOGLOBIN 8.9 GM/dl (10.7-15.3); MCH 30.6 pg (25.7-33.7); MCHC 31.1 g/dl (32.0-36.0); MEAN CELL VOLUME 98.3 fl (80-96); MEAN PLT VOLUME 11.3 fl (7.5-11.1); RBC 2.92 M/mm3 (3.60-5.2); RDW 18.9 % (11.6-15.6); WHITE BLOOD COUNT 7.2 K/mm3 (4.0-10.8)
[2021-03-25 08:44] LABS: ADD RBC MORPHOLOGY YES
[2021-03-25 08:48] LABS: PLATELET COUNT 26 10^3/uL (134-434)
[2021-03-25] MEDS ORDERED: [UNRECOGNIZED DRUG - REMARK] NS SCH (10:00)
[2021-03-25] MEDS: CEFAZOLIN 1 GM/D5W 1 GM/50 ML BAG IVPB SCH ×2 (10:10→17:00)
[2021-03-25] MEDS: POTASSIUM CHLORIDE TABS 20 MEQ TABLET.ER (FP) PO SCH (10:11)
[2021-03-25] MEDS: CYANOCOBALAMIN 1,000 MCG TABLET (FP) PO SCH (10:11)
[2021-03-25] MEDS: CALCIUM (OYSTER SHELL) 500 MG TABLET (FP) PO SCH (10:11)
[2021-03-25] MEDS: ALLOPURINOL 300 MG TABLET (FP) PO SCH (10:12)
[2021-03-25] MEDS ORDERED: PT OWN MED DRAWER 7, Y5N ONE ×3 (10:14→20:48)
[2021-03-25] MEDS: CHOLECALCIFEROL (VIT D3) 1,000 UNIT (25 MCG) TABLET PO SCH (10:15)
[2021-03-25] MEDS: FLUTICASONE PROP 0.05% 16 GM NASAL SPRAY NS SCH ×2 (10:16→21:10)
[2021-03-25] MEDS: FUROSEMIDE 40 MG TABLET (FP) PO SCH (10:17)
[2021-03-25 10:33] LABS: ANISOCYTOSIS 2+; MACROCYTOSIS 1+
[2021-03-25 10:34] LABS: PLATELET ESTIMATE DECREASED
[2021-03-25] MEDS: LIPASE/PROTEASE/AMYLASE 36,000 UNIT CAPSULE PO SCH ×2 (11:40→17:00)
[2021-03-25] MEDS: ENOXAPARIN NA (PORCINE) 40 MG/0.4 ML DISP.SYRIN SQ SCH (13:58)
[2021-03-25] MEDS: LORazepam 1 MG TABLET PO SCH (21:10)
[2021-03-25] MEDS: MONTELUKAST NA 10 MG TABLET PO SCH (21:15)
[2021-03-26] MEDS: CEFAZOLIN 1 GM/D5W 1 GM/50 ML BAG IVPB SCH ×3 (01:29→17:12)
[2021-03-26] MEDS ORDERED: PT OWN MED DRAWER 7, Y5N ONE ×3 (07:58→16:59)
[2021-03-26] MEDS: LIPASE/PROTEASE/AMYLASE 36,000 UNIT CAPSULE PO SCH ×3 (08:06→17:12)
[2021-03-26] MEDS: CHOLESTYRAMINE/ASPARTAME 4 GM PACKET PO SCH ×2 (08:06→17:12)
[2021-03-26 08:33] LABS: ALBUMIN 2.9 g/dl (3.4-5.0); BILIRUBIN,TOTAL 0.6 mg/dl (0.2-1); CREATININE 0.7 mg/dl (0.55-1.3); MAGNESIUM 1.8 mg/dL (1.8-2.4); TOT PROT 5.6 g/dl (6.4-8.2)
[2021-03-26] MEDS: traMADol HCL 50 MG TABLET PO PRN (08:57)
[2021-03-26 09:08] LABS: HEMATOCRIT 28.3 % (32.4-45.2); MCH 30.9 pg (25.7-33.7); MCHC 31.9 g/dl (32.0-36.0); MEAN CELL VOLUME 96.9 fl (80-96); MEAN PLT VOLUME 10.3 fl (7.5-11.1); PLATELET COUNT 27 10^3/uL (134-434); RBC 2.92 M/mm3 (3.60-5.2); RDW 18.5 % (11.6-15.6); WHITE BLOOD COUNT 7.7 K/mm3 (4.0-10.8)
[2021-03-26] MEDS: CHOLECALCIFEROL (VIT D3) 1,000 UNIT (25 MCG) TABLET PO SCH (09:21)
[2021-03-26] MEDS: FLUTICASONE PROP 0.05% 16 GM NASAL SPRAY NS SCH ×2 (09:21→21:47)
[2021-03-26] MEDS: FUROSEMIDE 40 MG TABLET (FP) PO SCH (09:21)
[2021-03-26] MEDS: CALCIUM (OYSTER SHELL) 500 MG TABLET (FP) PO SCH (09:21)
[2021-03-26] MEDS: CYANOCOBALAMIN 1,000 MCG TABLET (FP) PO SCH (09:21)
[2021-03-26] MEDS: ALLOPURINOL 300 MG TABLET (FP) PO SCH (09:21)
[2021-03-26] MEDS: POTASSIUM CHLORIDE TABS 20 MEQ TABLET.ER (FP) PO SCH (09:21)
[2021-03-26] MEDS: ENOXAPARIN NA (PORCINE) 40 MG/0.4 ML DISP.SYRIN SQ SCH (09:22)
[2021-03-26 09:59] LABS: PLATELET ESTIMATE DECREASED
[2021-03-26] MEDS: [UNRECOGNIZED DRUG - OTHER] PO SCH (17:11)
[2021-03-26] MEDS: [UNRECOGNIZED DRUG - OTHER] PO SCH ×2 (21:43→21:44)
[2021-03-26] MEDS: MONTELUKAST NA 10 MG TABLET PO SCH (21:45)
[2021-03-26] MEDS: LORazepam 1 MG TABLET PO SCH (21:45)
[2021-03-27] MEDS: CEFAZOLIN 1 GM/D5W 1 GM/50 ML BAG IVPB SCH ×3 (01:30→17:05)
[2021-03-27] MEDS ORDERED: PT OWN MED DRAWER 7, Y5N ONE ×3 (08:00→17:02)
[2021-03-27] MEDS: CHOLESTYRAMINE/ASPARTAME 4 GM PACKET PO SCH ×2 (08:02→17:05)
[2021-03-27] MEDS: LIPASE/PROTEASE/AMYLASE 36,000 UNIT CAPSULE PO SCH ×3 (08:02→17:50)
[2021-03-27] MEDS: [UNRECOGNIZED DRUG - OTHER] PO SCH ×2 (08:04→17:05)
[2021-03-27] MEDS: CHOLECALCIFEROL (VIT D3) 1,000 UNIT (25 MCG) TABLET PO SCH (09:42)
[2021-03-27] MEDS: ALLOPURINOL 300 MG TABLET (FP) PO SCH (09:42)
[2021-03-27] MEDS: CALCIUM (OYSTER SHELL) 500 MG TABLET (FP) PO SCH (09:43)
[2021-03-27] MEDS: FUROSEMIDE 40 MG TABLET (FP) PO SCH (09:43)
[2021-03-27] MEDS: CYANOCOBALAMIN 1,000 MCG TABLET (FP) PO SCH (09:43)
[2021-03-27] MEDS: POTASSIUM CHLORIDE TABS 20 MEQ TABLET.ER (FP) PO SCH (09:43)
[2021-03-27] MEDS: FLUTICASONE PROP 0.05% 16 GM NASAL SPRAY NS SCH ×2 (09:44→21:21)
[2021-03-27] MEDS: ENOXAPARIN NA (PORCINE) 40 MG/0.4 ML DISP.SYRIN SQ SCH (09:44)
[2021-03-27] MEDS: MONTELUKAST NA 10 MG TABLET PO SCH (21:21)
[2021-03-27] MEDS: LORazepam 1 MG TABLET PO SCH (22:12)
[2021-03-28] MEDS: CEFAZOLIN 1 GM/D5W 1 GM/50 ML BAG IVPB SCH (02:04)
[2021-03-28 07:16] VITALS: BP 112/42; PULSE 80; TEMP 98.9
[2021-03-28] MEDS ORDERED: PT OWN MED DRAWER 7, Y5N ONE (07:47)
[2021-03-28] MEDS: CHOLESTYRAMINE/ASPARTAME 4 GM PACKET PO SCH (07:51)
[2021-03-28] MEDS: LIPASE/PROTEASE/AMYLASE 36,000 UNIT CAPSULE PO SCH (07:51)
[2021-03-28] MEDS: [UNRECOGNIZED DRUG - OTHER] PO SCH (07:52)
[2021-03-28] MEDS: CHOLECALCIFEROL (VIT D3) 1,000 UNIT (25 MCG) TABLET PO SCH (09:53)
[2021-03-28] MEDS: FUROSEMIDE 40 MG TABLET (FP) PO SCH (09:53)
[2021-03-28] MEDS: POTASSIUM CHLORIDE TABS 20 MEQ TABLET.ER (FP) PO SCH (09:53)
[2021-03-28] MEDS: ALLOPURINOL 300 MG TABLET (FP) PO SCH (09:53)
[2021-03-28] MEDS: CALCIUM (OYSTER SHELL) 500 MG TABLET (FP) PO SCH (09:53)
[2021-03-28] MEDS: CYANOCOBALAMIN 1,000 MCG TABLET (FP) PO SCH (09:53)
[2021-03-28] MEDS ORDERED: CEFAZOLIN 1 GM/D5W 1 GM/50 ML BAG IVPB ONE (10:00)
[2021-03-28] MEDS ORDERED: ACETAMINOPHEN 325 MG TABLET (FP) PO ONE (10:15)
[2021-03-28] MEDS: ENOXAPARIN NA (PORCINE) 40 MG/0.4 ML DISP.SYRIN SQ SCH (10:19)
[2021-03-28] MEDS: FLUTICASONE PROP 0.05% 16 GM NASAL SPRAY NS SCH (10:19)
== END 2021-03-28 11:20 | disposition home or self-care (01) | DRG 603 ==
LOC: FER 18:31 → FM/S 22:54 → OBSVTOIN 03-25 12:35
PROVIDERS: ADMIT Hospitalist; ATTEND Nurse Practitioner Acute Care
DX: L03.116 Cellulitis of left lower limb (principal); C7A.026 Malignant carcinoid tumor of the rectum; D47.1 Chronic myeloproliferative disease; M46.22 Osteomyelitis of vertebra, cervical region; K52.1 Toxic gastroenteritis and colitis; K21.9 Gastro-esophageal reflux disease without esophagitis; K44.9 Diaphragmatic hernia without obstruction or gangrene; T45.1X5A Adverse effect of antineoplastic and immunosuppressive drugs, initial encounter
CPT/HCPCS: 36415; 71045-TC-FY; 73630-TC-LT; 80048; 80053; 81003; 81015; 83735; 85025; 87040; 87086; 93005; 97116-GP; 97161-GP; 99285-25; C9803; G0378; U0003; U0005

== ENCOUNTER 2021-04-01 09:44 | Emergency (ER) | payer OTHER, MEDICARE ==
[2021-04-01] MEDS ORDERED: CYCLOBENZAPRINE HCL 5 MG TABLET PO ONE (10:01)
[2021-04-01] MEDS ORDERED: CYCLOBENZAPRINE HCL 10 MG TABLET (FP) ONE (10:03)
[2021-04-01 10:17] VITALS: PULSE 94; TEMP 99.8; BMI 24.6
[2021-04-01] MEDS ORDERED: LIDOCAINE 5% TOPICAL PATCH TP ONE (11:03)
[2021-04-01] MEDS ORDERED: LIDOCAINE 5% TOPICAL PATCH ONE (11:09)
[2021-04-01 11:58] VITALS: BP 122/54
== END 2021-04-01 12:12 | disposition home or self-care (01) ==
LOC: FER 09:44
DX: M54.2 Cervicalgia (principal); S46.911A Strain of unspecified muscle, fascia and tendon at shoulder and upper arm level, right arm, initial encounter; S46.912A Strain of unspecified muscle, fascia and tendon at shoulder and upper arm level, left arm, initial encounter; Y99.8 Other external cause status
CPT/HCPCS: 99283-25